=== PATIENT | female | born 1960 | race Caucasian/White ===

== ENCOUNTER 2020-10-23 12:57 | Outpatient (REF) | payer OTHER, SELFPAY ==
[2020-10-23 14:28] LABS: Alanine Aminotransferase 19 U/L (0-31); Albumin Level 4.4 g/dL (3.5-5.0); Alkaline Phosphatase 94 U/L (39-117); Anion Gap 11 (12-20); Aspartate Amino Transferase 21 U/L (5-31); Bilirubin Total 0.3 mg/dL (0.0-1.0); Blood Urea Nitrogen 14 mg/dL (9-16); Calcium 8.9 mg/dL (8.4-10.2); Carbon Dioxide 29 mmol/L (22-29); Chloride 105 mmol/L (96-108); Estimated Glomerular Filt Rate > 60; Glucose Random 77 mg/dL (60-115); Potassium 4.4 mmol/l (3.3-5.1); Sodium 141 mmol/L (135-145); Total Protein 7.8 g/dL (6.5-8.0)
== END 2020-10-23 12:58 | disposition home or self-care (01) ==
LOC: HO.HMGCLDS 12:57
PROVIDERS: PCP Internal Medicine; Visit Provider Nurse Practitioner Family
DX: R10.13 Epigastric pain (principal); M62.838 Other muscle spasm
CPT/HCPCS: 80053

== ENCOUNTER 2021-02-06 11:35 | Outpatient (REF) | payer OTHER, SELFPAY ==
[2021-02-06 14:22] LABS: Alanine Aminotransferase 21 U/L (0-31); Albumin Level 4.5 g/dL (3.5-5.0); Alkaline Phosphatase 99 U/L (39-117); Anion Gap 11 (12-20); Aspartate Amino Transferase 23 U/L (5-31); Bilirubin Total 0.5 mg/dL (0.0-1.0); Blood Urea Nitrogen 18 mg/dL (9-16); Calcium 9.7 mg/dL (8.4-10.2); Carbon Dioxide 27 mmol/L (22-29); Chloride 104 mmol/L (96-108); Estimated Glomerular Filt Rate > 60; Glucose Random 72 mg/dL (60-115); Potassium 4.1 mmol/L (3.3-5.1); Sodium 138 mmol/L (135-145)
== END 2021-02-06 11:36 | disposition home or self-care (01) ==
LOC: HO.HMGCLDS 11:35
PROVIDERS: PCP Internal Medicine; Visit Provider Internal Medicine
DX: Z00.01 Encounter for general adult medical examination with abnormal findings (principal); R10.13 Epigastric pain; M54.2 Cervicalgia; K59.01 Slow transit constipation; G44.89 Other headache syndrome; I10 Essential (primary) hypertension
CPT/HCPCS: 36415; 80053

== ENCOUNTER → 2021-02-20 13:41 | Outpatient (BNVA) | payer OTHER, SELFPAY | PROVIDERS: Visit Provider Physician Assistant | DX: Z13.89 Encounter for screening for other disorder (principal) | CPT/HCPCS: Q3014 ==

== ENCOUNTER 2021-04-15 09:22 | Day surgery (SDC) | payer OTHER, SELFPAY ==
[2021-04-09 16:24] VITALS: BMI 30.3
--- NOTE | 2021-04-11 10:05 | HO.ANESPROP2 ---
HPI - Anesthesia Eval Consult details Narrative: 60yo F for Upper Endoscopy and Colonoscopy s/p gastric sleeve 2018 Multiple med allergies PMF Active Problems Active Problems: All Active Problems (Updated 04/09/21 @ 16:27 by Key Chaudhary) Epigastric pain (Acute) Muscle spasm (Acute) Hypertension, essential (Acute) Headache syndrome (Acute) Constipation by delayed colonic transit (Acute) Cervicalgia (Acute) Dyspepsia (Acute) Encounter for general adult medical examination with abnormal findings (Acute) Routine gynecological examination (Acute) Encounter for screening colonoscopy (Acute) Acid reflux (Acute) Past Medical History Medical History Abdominal pain Acid reflux Cervicalgia Constipation COVID-19 vaccine series completed Hypertension, essential Nausea Osteoarthritis Family History Family History Father HTN (hypertension) Cancer of prostate Mother Diabetes mellitus History of heart attack Heart problem Brother Heart problem Diabetes mellitus Dialysis patient Brother HTN (hypertension) Stroke Arthritis Maternal Grandfather No problems noted. Maternal Grandmother No problems noted. Paternal Grandfather No problems noted. Paternal Grandmother No problems noted. Son No problems noted. Son No problems noted. Daughter No problems noted. Surgical History Surgical History (Updated 04/09/21 @ 16:28 by Key Chaudhary) History of section History of colonoscopy History of endometrial ablation History of esophagogastroduodenoscopy History of fusion of cervical spine History of hysterectomy History of sleeve gastrectomy Social History Social History Household Members: None Alcohol intake: never Patient Tobacco Use Status: Never used Tobacco Current occupational status: disabled Meds Allergies Allergy/AdvReac Type Severity Reaction Status Date / Time hydromorphone [Dilaudid] Allergy Intermediate Hallucinations,Itching, Verified 04/09/21 16:32 rash Iodinated Contrast Media Allergy Intermediate shortness Verified 04/09/21 16:33 of breath morphine [Morphine] Allergy Intermediate hallucinations, Verified 04/09/21 16:30 itching, rash oxycodone Allergy Intermediate Hallucinations,itching, Verified 04/09/21 16:36 rash Penicillins Allergy Intermediate ITCHING/PASSES Verified 02/06/21 11:07 OUT From OxyContin Allergy Intermediate hallucinati Uncoded 04/09/21 16:32 ons,itching ,rash Home Medications Medication Instructions Recorded Confirmed Last Taken Type acetaminophen 500 mg capsule 1,000 mg PO Q6H PRN 11/06/20 04/09/21 Unknown History amitriptyline 25 mg tablet 50 mg PO BEDTIME 11/06/20 04/09/21 Unknown History cholecalciferol (vitamin D3) 50 50 mcg PO DAILY 11/06/20 04/09/21 Unknown History mcg (2,000 unit) capsule cyanocobalamin (vitamin B-12) 500 1,000 mcg PO DAILY tab 11/06/20 04/09/21 Unknown History mcg tablet multivitamin 1 tab PO DAILY 11/06/20 04/09/21 Unknown History gabapentin 300 mg PO BEDTIME 04/09/21 04/09/21 Unknown History Exam Exam Date and Time: April 11, 2021 1005 Height,Weight and Vital Signs: Height 5 ft 6 in Weight 85.275 kg Pertinent Lab Results Pertinent Lab Results: Laboratory Tests 05/08/20 02/06/21 08:14 11:43 WBC 4.6 L Hgb 13.6 Hct 42.3 Plt Count 200 Sodium 138 Potassium 4.1 Chloride 104 Carbon Dioxide 27 BUN 18 H Creatinine 0.78 Assessment and Plan Assessment Anesthesia Assessment: Chart Reviewed
[2021-04-15 09:31] VITALS: BP 146/96; PULSE 77; RESP 18; TEMP 36.6; O2SAT 99
--- NOTE | 2021-04-15 09:36 | P.CONAN_ITS ---
[facility] Active Problems Active Problems: All Active Problems (Updated 04/11/21 @ 10:06 by Carmita hook) Acid reflux (Acute) Epigastric pain (Acute) Muscle spasm (Acute) Headache syndrome (Acute) Constipation by delayed colonic transit (Acute) Dyspepsia (Acute) Encounter for general adult medical examination with abnormal findings (Acute) Routine gynecological examination (Acute) Encounter for screening colonoscopy (Acute) Past Medical History Medical History Abdominal pain Acid reflux Cervicalgia Constipation COVID-19 vaccine series completed Hypertension, essential Nausea Osteoarthritis Family History Family History Father HTN (hypertension) Cancer of prostate Mother Diabetes mellitus History of heart attack Heart problem Brother Heart problem Diabetes mellitus Dialysis patient Brother HTN (hypertension) Stroke Arthritis Maternal Grandfather No problems noted. Maternal Grandmother No problems noted. Paternal Grandfather No problems noted. Paternal Grandmother No problems noted. Son No problems noted. Son No problems noted. Daughter No problems noted. Surgical History Surgical History (Updated 04/09/21 @ 16:28 by Key Chaudhary) History of section History of colonoscopy History of endometrial ablation History of esophagogastroduodenoscopy History of fusion of cervical spine History of hysterectomy History of sleeve gastrectomy Social History Social History Household Members: None Alcohol intake: never Patient Tobacco Use Status: Never used Tobacco Use of substances other than those prescribed or required for medical reasons: No Are you DNR?: No Advance Directives: No Advance Directives Information Provided: No Advance Directives on File: No Current occupational status: disabled Meds Allergies Allergy/AdvReac Type Severity Reaction Status Date / Time hydromorphone [Dilaudid] Allergy Intermediate Hallucinations,Itching, Verified 04/09/21 16:32 rash Iodinated Contrast Media Allergy Intermediate shortness Verified 04/09/21 16:33 of breath morphine [Morphine] Allergy Intermediate hallucinations, Verified 04/09/21 16:30 itching, rash oxycodone Allergy Intermediate Hallucinations,itching, Verified 04/09/21 16:36 rash Penicillins Allergy Intermediate ITCHING/PASSES Verified 02/06/21 11:07 OUT From OxyContin Allergy Intermediate hallucinati Uncoded 04/09/21 16:32 ons,itching ,rash Home Medications Medication Instructions Recorded Confirmed Last Taken Type acetaminophen 500 mg capsule 1,000 mg PO Q6H PRN 11/06/20 04/09/21 Unknown History amitriptyline 25 mg tablet 50 mg PO BEDTIME 11/06/20 04/09/21 Unknown History cholecalciferol (vitamin D3) 50 50 mcg PO DAILY 11/06/20 04/09/21 Unknown History mcg (2,000 unit) capsule cyanocobalamin (vitamin B-12) 500 1,000 mcg PO DAILY tab 11/06/20 04/09/21 Unknown History mcg tablet multivitamin 1 tab PO DAILY 11/06/20 04/09/21 Unknown History gabapentin 300 mg PO BEDTIME 04/09/21 04/09/21 Unknown History Exam Exam Date and Time: April 15, 2021 0936 Height,Weight and Vital Signs: Height 5 ft 6 in Weight 85.275 kg Last Vital Signs Temp 98 F 04/15/21 09:31 Pulse 77 04/15/21 09:31 Resp 18 04/15/21 09:31 BP 146/96 H 04/15/21 09:31 Pulse Ox 99 04/15/21 09:31 Airway Mallampati Class: II TM Dist: >3cm Heart: RRR Lungs: CTA
--- NOTE | 2021-04-15 09:58 | MHC.SHP ---
Pre-Procedural Eval Section B Chief Complaint: screening,reflux disease Relevant Family History (Specify if Yes): No Relevant Social History: None Present Medications: see Short Stay Collaborative assessment Medical History: Significant History (Abdominal pain Acid reflux Cervicalgia Constipation COVID-19 vaccine series completed Hypertension, essential Nausea Osteoarthritis) History of Previous Operations: Relevant previous surgery/procedure and date(s) (History of section History of colonoscopy History of endometrial ablation History of esophagogastroduodenoscopy History of fusion of cervical spine History of hysterectomy History of sleeve gastrectomy) Allergies: Allergies Allergy/AdvReac Type Severity Reaction Status Date / Time hydromorphone [Dilaudid] Allergy Intermediate Hallucinations,Itching, Verified 04/09/21 16:32 rash Iodinated Contrast Media Allergy Intermediate shortness Verified 04/09/21 16:33 of breath morphine [Morphine] Allergy Intermediate hallucinations, Verified 04/09/21 16:30 itching, rash oxycodone Allergy Intermediate Hallucinations,itching, Verified 04/09/21 16:36 rash Penicillins Allergy Intermediate ITCHING/PASSES Verified 02/06/21 11:07 OUT From OxyContin Allergy Intermediate hallucinati Uncoded 04/09/21 16:32 ons,itching ,rash Review of Systems Sugical H&P ROS: Negative: Constitution, Cardiovascular, Respiratory, Neurological, Psychiatric, Hem-Onc, Allergic/Immunologic, Gastrointestinal, Genitourinary, Musculoskeletal, Integumentary, Endocrine and Eyes/Ears/Nose/Throat Exam Surgical H&P Exam: Normal: HEENT, Normal: Heart, Normal: Lungs, Normal: Extremities, Normal: Abdomen, Normal: Skin and Normal: Neurological Plan Diagnosis/Plan: Unchanged I have reviewed the history and physical and performed a pertinent physical examination on my patient. No changes have occurred unless specified.
--- NOTE | 2021-04-15 09:59 | P.BOP_ITS ---
Brief Operative Note Date of Service: 04/15/21 Pre-op diagnosis: Reflux, screening colon Post-op diagnosis: same Procedure: see op note Surgeon: Dennis Bob MD Anesthesia: MAC Was an Animal [employer] used for this Procedure?: No Estimated blood loss (mL): 0 Condition: stable Disposition: PACU
--- NOTE | 2021-04-15 09:59 | W.PM.OPN ---
Operative Note Operative Note Date of Service: 04/15/21 Narrative: Operative Information Procedure Description: EGD, Colonoscopy FLEXIBLE TRANSORAL UPPER GASTROINTESTINAL ENDOSCOPY AND COLONOSCOPY PROCEDURE NOTE UPPER ENDOSCOPY Consent: Indications for the procedure and potential complications of bleeding, perforation, reaction to medications and missed diagnosis were discussed with the patient and informed consent was obtained. Instrument: Olympus GIF H 190 J mid size upper endoscope Monitoring: Vital signs and clinical assessment, continuous EKG monitoring, Pulse oximetry, Carbon Dioxide monitoring and blood pressure monitoring were done throughout the procedure. Procedure: The patient was placed in the left lateral decubitis position and pre-procedure medications were administered and a bite block was placed. The endoscope was inserted into the mouth and advanced under direct vision to the third part of duodenum. A careful inspection was made as the upper endoscope was withdrawn including a retroflexed examination of the proximal stomach; Findings and interventions are described below. Findings: Larynx:normal Esophagus: GE junction at 40 cm, diaphragm hiatus at 40 cm, LA grade A esophagitis noted, bx taken from GEJ and random esophagus Stomach: Streaky erythema at antrum and some areas of atrophy. Biopsies were obtained. Grade 2 flap valve on retroflexed examination of the cardia. Prior sleeve gastrectomy noted. Duodenum: Normal bulb and descending duodenum, bx taken Intervention: Biopsies as noted above COLONOSCOPY Instrument: Olympus variable stiffness pediatric scope 190L Colonoscopy Monitoring: Vital signs and clinical assessment, continuous EKG monitoring, Pulse oximetry, Carbon Dioxide monitoring and blood pressure monitoring were done throughout the procedure. Colon withdrawal time was 9 minutes. Procedure: The patient was placed in the left lateral decubitis position and pre-procedure medications were administered. After a digital rectal examination of the ano-rectum, the video colonoscope was inserted into the rectum and advanced through the colon to the cecum/TI. The colonoscope was slowly withdrawn in a retrograde panoramic fashion and the colon mucosa was carefully examined including a retroflexed view of the rectum. Findings and interventions are described below. Procedure Difficulty:moderate, pressure applied to reach cecum Findings: Terminal Ileum-normal Cecum:normal, poorly visualized due to nuts and other debris Ascending Colon: normal Transverse Colon -normal Descending Colon:normal Sigmoid Colon: normal Rectum: Retroflexion with small internal hemorrhoids, grade I Anorectum - normal Colon preparation: [place] Bowel Preparation Scale Right colon; 1 Transverse colon: 2 Left colon; 1 (0 = Unprepared colon segment with mucosa not seen due to solid stool that cannot be cleared. 1 = Portion of mucosa of the colon segment seen, but other areas of the colon segment not well seen due to staining, residual stool and/or opaque liquid. 2 = Minor amount of residual staining, small fragments of stool and/or opaque liquid, but mucosa of colon segment seen well. 3 = Entire mucosa of colon segment seen well with no residual staining, small fragments of stool or opaque liquid) Impression and Post Procedure Diagnosis: Endoscopy Findings: gastritis esophagitis Colonoscopy Findings: internal hemorrhoids poor prep Plan: Await Pathology results Repeat Colonoscopy in 6-12 months, review prep, might need 2 d next time, avoid nuts for 5 d before High fiber diet leaflet avoid straining at stool, epsom salts and sitz bath, anusol supps or cream as needed if h pylori pos then treat Above findings were reviewed with the patient and relevant handouts were provided if indicated.
[2021-04-15 11:25] VITALS: BP 99/67; PULSE 66; RESP 14; TEMP 36.1; O2SAT 99
[2021-04-15 11:40] VITALS: BP 122/82; PULSE 62; RESP 16; O2SAT 99
[2021-04-15 11:55] VITALS: BP 149/90; PULSE 58; RESP 18; O2SAT 99
--- NOTE | 2021-04-15 14:24 | HO.POSTANES ---
Post Anesthesia Evaluation Post Anesthesia Evaluation Vital Signs: Vital Signs Temp Pulse Resp BP Pulse Ox 04/15/21 11:55 58 18 149/90 H 99 04/15/21 11:40 62 16 122/82 99 04/15/21 11:25 96.9 F 66 14 99/67 99 04/15/21 09:31 98 F 77 18 146/96 H 99 Anesthesia: Monitored Mental Status: Awake Pain Control: Satisfactory Nausea/Vomiting: None Hydration: Adequate Anesthesia-Related Issues: No Anes. Related Issues
== END 2021-04-15 12:33 | disposition home or self-care (01) ==
PROVIDERS: PCP Internal Medicine; Visit Provider Internal Medicine Gastroenterology
PROC: (CPT 43239; principal; 2021-04-15 10:10)
DX: Z12.11 Encounter for screening for malignant neoplasm of colon (principal); K64.0 First degree hemorrhoids; K59.01 Slow transit constipation; K21.9 Gastro-esophageal reflux disease without esophagitis; K29.50 Unspecified chronic gastritis without bleeding; K20.90 Esophagitis, unspecified without bleeding; K44.9 Diaphragmatic hernia without obstruction or gangrene; I10 Essential (primary) hypertension; Z79.899 Other long term (current) drug therapy; Z88.8 Allergy status to other drugs, medicaments and biological substances; Z98.84 Bariatric surgery status
CPT/HCPCS: 43239; G0121; 88305; 88342

== ENCOUNTER 2021-04-19 10:07 | Outpatient (REF) | payer OTHER, SELFPAY ==
[2021-04-23 17:46] LABS: HPV mRNA E6/E7 rflx Not Detected (Not Detected)
== END 2021-04-19 10:08 | disposition home or self-care (01) ==
LOC: HO.LAB 10:07
PROVIDERS: Visit Provider Advanced Practice Midwife
DX: Z01.419 Encounter for gynecological examination (general) (routine) without abnormal findings (principal)
CPT/HCPCS: 87624; 88142

== ENCOUNTER → 2021-05-01 10:27 | Outpatient (BNVA) | payer OTHER, SELFPAY | PROVIDERS: PCP Internal Medicine; Visit Provider Physician Assistant | DX: E66.9 Obesity, unspecified (principal); K21.9 Gastro-esophageal reflux disease without esophagitis; Z90.3 Acquired absence of stomach [part of]; Z68.30 Body mass index [BMI] 30.0-30.9, adult; K59.01 Slow transit constipation | CPT/HCPCS: 99212; Q3014 ==

== ENCOUNTER 2021-09-17 12:29 | Outpatient (REF) | payer OTHER, SELFPAY ==
[2021-09-17 13:49] LABS: MANUAL DIFF FLAG NO
[2021-09-17 14:01] LABS: Basophils Percent Auto 0.5 % (0-2); Eosinophils Absolute Auto 0.2 X10*3/uL (0.0-0.4); Eosinophils Percent Auto 4.3 % (0-4); Hematocrit 42.1 % (37.0-47.0); Hemoglobin 13.9 g/dl (12.0-16.0); Imm Gran Abs Auto 0.01 X10*3/uL (0.00-0.03); Imm Gran Pct Auto 0.3 % (0.0-0.4); Lymphocytes Absolute Auto 0.9 X10*3/uL (1.2-4.9); Lymphocytes Percent Auto 23.3 % (20-40); Mean Corpuscular Hemoglobin 27.9 pg (27.0-33.0); Mean Corpuscular Volume 84.5 fL (80.0-98.0); Mean Platelet Volume 10.7 fL (9.4-12.3); Monocytes Absolute Auto 0.4 X10*3/uL (0.1-1.2); Neutrophils Absolute Auto 2.3 x10*3/uL (2.0-8.3); Neutrophils Percent Auto 60.6 % (45-73); Platelet Count 205 X10*3/uL (160-400); Red Blood Count 4.98 X10*6/uL (4.20-5.50); Red Cell Distribution Width 12.7 % (11.0-16.0); White Blood Count 3.7 X10*3/uL (4.8-10.8)
[2021-09-17 14:16] LABS: Estimated Average Glucose 103 mg/dL; Hemoglobin A1c % 5.2 %
[2021-09-17 14:28] LABS: Alanine Aminotransferase 24 U/L (0-31); Albumin Level 4.4 g/dL (3.5-5.0); Alkaline Phosphatase 102 U/L (39-117); Anion Gap 15 (12-20); Aspartate Amino Transferase 25 U/L (5-31); Bilirubin Total 0.3 mg/dL (0.0-1.0); Blood Urea Nitrogen 13 mg/dL (9-16); Calcium 9.4 mg/dL (8.4-10.2); Carbon Dioxide 25 mmol/L (22-29); Chloride 103 mmol/L (96-108); Estimated Glomerular Filt Rate > 60; Glucose Random 80 mg/dL (60-115); Iron 91 mcg/dL (30-160); Percent Iron Saturation 27 % (15-50); Sodium 139 mmol/L (135-145); Total Iron Binding Capacity 342 mcg/dL (228-428); Total Protein 8.2 g/dL (6.5-8.0); Unsaturated Iron Binding 251 ug/dL
[2021-09-17 14:50] LABS: Ferritin 69 ng/mL (10-250); Vitamin D 25-OH Total 17.1 ng/mL (>30)
[2021-09-17 14:54] LABS: Vitamin B12 495 pg/mL (200-900)
[2021-09-18 13:22] LABS: Calcium (PTHI) 9.6 mg/dL (8.6-10.4); PTHI 66 pg/mL (14-64)
[2021-09-19 07:51] LABS: LDL Cholesterol Direct 98 mg/dL (<100)
[2021-09-21 06:47] LABS: Zinc 94 mcg/dL (60-130)
[2021-09-21 12:02] LABS: Vitamin B1 16 nmol/L (8-30)
[2021-09-23 16:31] LABS: Vitamin A 45 mcg/dL (38-98)
== END 2021-09-17 12:30 | disposition home or self-care (01) ==
LOC: HO.HMGCLDS 12:29
PROVIDERS: Physician Assistant; Visit Provider Internal Medicine
DX: K21.9 Gastro-esophageal reflux disease without esophagitis (principal); E66.9 Obesity, unspecified; M79.2 Neuralgia and neuritis, unspecified; K59.01 Slow transit constipation; M62.838 Other muscle spasm; I10 Essential (primary) hypertension; G44.89 Other headache syndrome; Z90.3 Acquired absence of stomach [part of]
CPT/HCPCS: 36415; 80053; 82306; 82607; 82728; 82746; 83036; 83540; 83721; 83970; 84425; 84443; 84590; 84630; 85025; 86140

== ENCOUNTER 2022-02-07 12:34 | Outpatient (REF) | payer OTHER, SELFPAY ==
[2022-02-07 14:00] LABS: Alanine Aminotransferase 23 U/L (0-31); Albumin Level 4.3 g/dL (3.5-5.0); Alkaline Phosphatase 94 U/L (39-117); Anion Gap 13 (12-20); Aspartate Amino Transferase 27 U/L (5-31); Bilirubin Total 0.5 mg/dL (0.0-1.0); Blood Urea Nitrogen 17 mg/dL (9-16); Calcium 9.7 mg/dL (8.4-10.2); Carbon Dioxide 26 mmol/L (22-29); Chloride 105 mmol/L (96-108); Estimated Glomerular Filt Rate > 60; Glucose Random 80 mg/dL (60-115); Potassium 4.4 mmol/L (3.3-5.1); Sodium 140 mmol/L (135-145); Total Protein 7.9 g/dL (6.5-8.0)
== END 2022-02-07 12:35 | disposition home or self-care (01) ==
LOC: HO.HMGCLDS 12:34
PROVIDERS: PCP Internal Medicine; Visit Provider Internal Medicine
DX: Z00.01 Encounter for general adult medical examination with abnormal findings (principal); G44.89 Other headache syndrome; I10 Essential (primary) hypertension; K59.01 Slow transit constipation; M79.2 Neuralgia and neuritis, unspecified; E66.9 Obesity, unspecified
CPT/HCPCS: 36415; 80053

== ENCOUNTER → 2022-03-12 12:26 | Outpatient (BNVA) | payer OTHER, SELFPAY | PROVIDERS: PCP Internal Medicine; Referring Provider Internal Medicine; Visit Provider Physician Assistant | DX: Z12.11 Encounter for screening for malignant neoplasm of colon (principal); K21.9 Gastro-esophageal reflux disease without esophagitis; K59.01 Slow transit constipation | CPT/HCPCS: 99212 ==

== ENCOUNTER 2022-07-08 06:52 | Day surgery (SDC) | payer OTHER, SELFPAY ==
[2022-07-03 11:20] VITALS: BMI 32.1
--- NOTE | 2022-07-07 11:39 | P.CONAN_ITS ---
Documented by User: Carmita Kan NP 07/07/22 11:40 HPI - Anesthesia Eval Consult details Narrative: 61yo F for Colonoscopy s/p gastric sleeve 2019 Multiple med allergies PMFSH Active Problems Active Problems: All Active Problems (Updated 03/12/22 @ 13:29 by Floresita León PA-C) Breast screening (Acute) Constipation by delayed colonic transit (Acute) Hypertension, essential (Acute) Peripheral neurogenic pain (Acute) Obesity (Acute) Acid reflux (Acute) Epigastric pain (Acute) Muscle spasm (Acute) Headache syndrome (Acute) Constipation by delayed colonic transit (Acute) Dyspepsia (Acute) Encounter for general adult medical examination with abnormal findings (Acute) Routine gynecological examination (Acute) Encounter for screening colonoscopy (Acute) Past Medical History Medical History Abdominal pain Acid reflux Cervicalgia Constipation COVID-19 vaccine series completed Hypertension, essential Nausea Osteoarthritis Family History Family History Father HTN (hypertension) Cancer of prostate Mother Diabetes mellitus History of heart attack Heart problem Brother Heart problem Diabetes mellitus Dialysis patient Brother HTN (hypertension) Stroke Arthritis Maternal Grandfather No problems noted. Maternal Grandmother No problems noted. Paternal Grandfather No problems noted. Paternal Grandmother No problems noted. Son No problems noted. Son No problems noted. Daughter No problems noted. Other Mental health disorder Surgical History Surgical History History of section History of colonoscopy History of endometrial ablation History of esophagogastroduodenoscopy History of fusion of cervical spine History of sleeve gastrectomy Social History Social History Household Members: None Housing: Apartment Alcohol intake: never Patient Tobacco Use Status: Never used Tobacco Are you DNR?: No Advance Directives: No Advance Directives Information Provided: Yes Nutrition Risks: No Nutritional Risk Current occupational status: disabled Cognitive needs: No Hearing needs: No Vision needs: No Meds Allergies Allergy/AdvReac Type Severity Reaction Status Date / Time hydromorphone [Dilaudid] Allergy Intermediate Hallucinations,Itching, Verified 07/08/22 07:10 rash Iodinated Contrast Media Allergy Intermediate shortness Verified 07/08/22 07:10 of breath morphine [Morphine] Allergy Intermediate hallucinations, Verified 07/08/22 07:10 itching, rash oxycodone Allergy Intermediate Hallucinations,itching, Verified 07/08/22 07:10 rash Penicillins Allergy Intermediate ITCHING/PASSES Verified 07/08/22 07:10 OUT From OxyContin Allergy Intermediate hallucinati Uncoded 07/08/22 07:11 ons,itching ,rash Home Medications Medication Instructions Recorded Confirmed Last Taken Type acetaminophen 500 mg capsule 1,000 mg PO Q6H PRN Pain 11/06/20 07/08/22 Unknown History amitriptyline 25 mg tablet 50 mg PO BEDTIME 11/06/20 07/08/22 Unknown History cholecalciferol (vitamin D3) 50 50 mcg PO DAILY 11/06/20 07/08/22 Unknown History mcg (2,000 unit) capsule (Vitamin D3) multivitamin (Daily Multi-Vitamin 1 tab PO DAILY 11/06/20 07/08/22 Unknown History tablet) gabapentin 300 mg capsule 300 mg PO BEDTIME 04/09/21 07/08/22 Unknown History omeprazole 20 mg capsule,delayed 20 mg PO DAILY 03/12/22 07/08/22 Unknown History release Exam Exam Date and Time: July 07, 2022 1139 Height,Weight and Vital Signs: Height 5 ft 6 in Weight 90.265 kg Pertinent Lab Results Pertinent Lab Results: Laboratory Tests 02/07/22 12:24 Sodium 140 Potassium 4.4 Chloride 105 Carbon Dioxide 26 BUN 17 H Creatinine 0.70 Assessment and Plan Assessment Anesthesia Assessment: Chart Reviewed Documented by User: Michelle Denney MD 07/08/22 08:02 [facility] Past Medical History Medical History Abdominal pain Acid reflux Cervicalgia Constipation COVID-19 vaccine series completed Hypertension, essential Nausea Osteoarthritis Family History Family History Father HTN (hypertension) Cancer of prostate Mother Diabetes mellitus History of heart attack Heart problem Brother Heart problem Diabetes mellitus Dialysis patient Brother HTN (hypertension) Stroke Arthritis Maternal Grandfather No problems noted. Maternal Grandmother No problems noted. Paternal Grandfather No problems noted. Paternal Grandmother No problems noted. Son No problems noted. Son No problems noted. Daughter No problems noted. Other Mental health disorder Surgical History Surgical History History of section History of colonoscopy History of endometrial ablation History of esophagogastroduodenoscopy History of fusion of cervical spine History of sleeve gastrectomy History of Problems with Anesthesia: No Social History Social History Household Members: None Housing: Apartment Alcohol intake: never Patient Tobacco Use Status: Never used Tobacco Are you DNR?: No Advance Directives: No Advance Directives Information Provided: Yes Nutrition Risks: No Nutritional Risk Current occupational status: disabled Cognitive needs: No Hearing needs: No Vision needs: No Meds Allergies Allergy/AdvReac Type Severity Reaction Status Date / Time hydromorphone [Dilaudid] Allergy Intermediate Hallucinations,Itching, Verified 07/08/22 07:10 rash Iodinated Contrast Media Allergy Intermediate shortness Verified 07/08/22 07:10 of breath morphine [Morphine] Allergy Intermediate hallucinations, Verified 07/08/22 07:10 itching, rash oxycodone Allergy Intermediate Hallucinations,itching, Verified 07/08/22 07:10 rash Penicillins Allergy Intermediate ITCHING/PASSES Verified 07/08/22 07:10 OUT From OxyContin Allergy Intermediate hallucinati Uncoded 07/08/22 07:11 ons,itching ,rash Home Medications Medication Instructions Recorded Confirmed Last Taken Type acetaminophen 500 mg capsule 1,000 mg PO Q6H PRN Pain 11/06/20 07/08/22 Unknown History amitriptyline 25 mg tablet 50 mg PO BEDTIME 11/06/20 07/08/22 Unknown History cholecalciferol (vitamin D3) 50 50 mcg PO DAILY 11/06/20 07/08/22 Unknown History mcg (2,000 unit) capsule (Vitamin D3) multivitamin (Daily Multi-Vitamin 1 tab PO DAILY 11/06/20 07/08/22 Unknown History tablet) gabapentin 300 mg capsule 300 mg PO BEDTIME 04/09/21 07/08/22 Unknown History omeprazole 20 mg capsule,delayed 20 mg PO DAILY 03/12/22 07/08/22 Unknown History release Exam Airway Mallampati Class: II TM Dist: >3cm Neck ROM: Full Loose/Missing/Broken Teeth: No Heart: RRR Lungs: CTA Assessment and Plan Assessment Anesthesia Assessment: Anesthesia Plan Discussed Final Anesthetic Review History of Problems with Anesthesia: No NPO: Yes ASA Class: II Final Preanesthetic Review: Meds/Allgs Chart Reviewed, Consent Obtained/Reviewed and Anes Risks/Benef Reviewed Patient Risk: Low Procedure Risk: Low Anesthetic Plan Anesthetic Plan: MAC: Disposition: Standard PACU
[2022-07-08 07:16] VITALS: BP 149/89; PULSE 73; RESP 18; TEMP 36.3; O2SAT 96
[2022-07-08] MEDS: Lactated Ringers 1,000 ML 100 ML IVCONT (07:17)
--- NOTE | 2022-07-08 08:09 | MHC.SHP ---
Pre-Procedural Eval Section A Date of Service: 07/08/22 Section B Chief Complaint: screening Relevant Family History (Specify if Yes): No Relevant Social History: None Present Medications: see Short Stay Collaborative assessment Medical History: Significant History (Abdominal pain Acid reflux Cervicalgia Constipation COVID-19 vaccine series completed Hypertension, essential Nausea Osteoarthritis) History of Previous Operations: Relevant previous surgery/procedure and date(s) (History of section History of colonoscopy History of endometrial ablation History of esophagogastroduodenoscopy History of fusion of cervical spine History of sleeve gastrectomy) Allergies: Allergies Allergy/AdvReac Type Severity Reaction Status Date / Time hydromorphone [Dilaudid] Allergy Intermediate Hallucinations,Itching, Verified 07/08/22 07:10 rash Iodinated Contrast Media Allergy Intermediate shortness Verified 07/08/22 07:10 of breath morphine [Morphine] Allergy Intermediate hallucinations, Verified 07/08/22 07:10 itching, rash oxycodone Allergy Intermediate Hallucinations,itching, Verified 07/08/22 07:10 rash Penicillins Allergy Intermediate ITCHING/PASSES Verified 07/08/22 07:10 OUT From OxyContin Allergy Intermediate hallucinati Uncoded 07/08/22 07:11 ons,itching ,rash Review of Systems Sugical H&P ROS: Negative: Constitution, Cardiovascular, Respiratory, Neurological, Psychiatric, Hem-Onc, Allergic/Immunologic, Gastrointestinal, Genitourinary, Musculoskeletal, Integumentary, Endocrine and Eyes/Ears/Nose/Throat Exam Surgical H&P Exam: Normal: HEENT, Normal: Heart, Normal: Lungs, Normal: Extremities, Normal: Abdomen, Normal: Skin and Normal: Neurological Plan Diagnosis/Plan: Unchanged I have reviewed the history and physical and performed a pertinent physical examination on my patient. No changes have occurred unless specified.
--- NOTE | 2022-07-08 08:37 | W.PM.OPN ---
Operative Note Operative Note Date of Service: 07/08/22 Narrative: Operative Information Procedure Description: Colonoscopy Indication: screening Anesthesia: MAC COLONOSCOPY Instrument: Olympus variable stiffness pediatric scope 190L Colonoscopy Monitoring: Vital signs and clinical assessment, continuous EKG monitoring, Pulse oximetry, Carbon Dioxide monitoring and blood pressure monitoring were done throughout the procedure. Colon withdrawal time was 10 minutes. Procedure: The patient was placed in the left lateral decubitis position and pre-procedure medications were administered. After a digital rectal examination of the ano-rectum, the video colonoscope was inserted into the rectum and advanced through the colon to the cecum/TI. The colonoscope was slowly withdrawn in a retrograde panoramic fashion and the colon mucosa was carefully examined including a retroflexed view of the rectum. Findings and interventions are described below. Procedure Difficulty: moderate due to redundant colon, pressure applied mid and upper abdomen Findings: Patchy areas of melanosis coli Terminal Ileum-not intubated Cecum:normal Ascending Colon: normal Transverse Colon -normal Descending Colon:10 mm sessile polyp removed with cold snare Sigmoid Colon: normal Rectum: Retroflexion with small internal hemorrhoids, grade I Anorectum - normal Colon preparation: [place] Bowel Preparation Scale Right colon; 2 Transverse colon: 3 Left colon; 3 (0 = Unprepared colon segment with mucosa not seen due to solid stool that cannot be cleared. 1 = Portion of mucosa of the colon segment seen, but other areas of the colon segment not well seen due to staining, residual stool and/or opaque liquid. 2 = Minor amount of residual staining, small fragments of stool and/or opaque liquid, but mucosa of colon segment seen well. 3 = Entire mucosa of colon segment seen well with no residual staining, small fragments of stool or opaque liquid) Impression and Post Procedure Diagnosis: polyp internal hemorrhoids melanosis coli redundant colon Plan: High fiber diet leaflet Avoid straining at stool, epsom salts and sitz bath, anusol supps or cream Repeat Colonoscopy in 5-6 years due to polyp or earlier if clinically indicated Above findings were reviewed with the patient and relevant handouts were provided if indicated.
[2022-07-08 08:44] VITALS: BP 117/65; PULSE 62; RESP 20; TEMP 36.2; O2SAT 100
[2022-07-08 08:59] VITALS: BP 131/68; PULSE 62; RESP 18; TEMP 36.6; O2SAT 98
== END 2022-07-08 09:26 | disposition home or self-care (01) ==
PROVIDERS: PCP Internal Medicine; Visit Provider Internal Medicine Gastroenterology
PROC: 0DJD8ZZ Inspection of Lower Intestinal Tract, Via Natural or Artificial Opening Endoscopic (ICD-10-PCS; CPT 45378; principal; 2022-07-08 08:00)
DX: Z12.11 Encounter for screening for malignant neoplasm of colon (principal); K63.5 Polyp of colon; K59.01 Slow transit constipation; K63.89 Other specified diseases of intestine; K64.0 First degree hemorrhoids; Q43.8 Other specified congenital malformations of intestine; K21.9 Gastro-esophageal reflux disease without esophagitis; I10 Essential (primary) hypertension; Z79.899 Other long term (current) drug therapy; Z88.0 Allergy status to penicillin; Z88.8 Allergy status to other drugs, medicaments and biological substances; Z91.041 Radiographic dye allergy status; Z98.84 Bariatric surgery status
CPT/HCPCS: 45385; 88305

== ENCOUNTER → 2022-07-21 09:08 | Outpatient (BNVA) | payer OTHER, SELFPAY | PROVIDERS: PCP Internal Medicine; Referring Provider Internal Medicine; Visit Provider Physician Assistant | DX: K63.5 Polyp of colon (principal); K59.01 Slow transit constipation; R11.0 Nausea | CPT/HCPCS: 99212 ==

== ENCOUNTER 2022-08-06 08:54 | Outpatient (REF) | payer OTHER, SELFPAY ==
[2022-08-06 11:19] LABS: MANUAL DIFF FLAG NO
[2022-08-06 11:28] LABS: Basophils Percent Auto 0.5 % (0-2); Eosinophils Absolute Auto 0.1 X10*3/uL (0.0-0.4); Eosinophils Percent Auto 2.7 % (0-4); Hematocrit 41.3 % (37.0-47.0); Hemoglobin 13.2 g/dl (12.0-16.0); Imm Gran Abs Auto 0.01 X10*3/uL (0.00-0.03); Imm Gran Pct Auto 0.2 % (0.0-0.4); Lymphocytes Absolute Auto 1.2 X10*3/uL (1.2-4.9); Mean Corpuscular Hemoglobin 26.8 pg (27.0-33.0); Mean Corpuscular Volume 83.9 fL (80.0-98.0); Mean Platelet Volume 10.6 fL (9.4-12.3); Monocytes Absolute Auto 0.5 X10*3/uL (0.1-1.2); Monocytes Percent Auto 10.6 % (2-11); Neutrophils Absolute Auto 2.7 x10*3/uL (2.0-8.3); Platelet Count 225 X10*3/uL (160-400); Red Blood Count 4.92 X10*6/uL (4.20-5.50); Red Cell Distribution Width 12.6 % (11.0-16.0); White Blood Count 4.4 X10*3/uL (4.8-10.8)
[2022-08-06 11:41] LABS: Alanine Aminotransferase 13 U/L (0-31); Albumin Level 4.4 g/dL (3.5-5.0); Alkaline Phosphatase 87 U/L (39-117); Anion Gap 14 (12-20); Aspartate Amino Transferase 18 U/L (5-31); Bilirubin Total 0.4 mg/dL (0.0-1.0); Blood Urea Nitrogen 17 mg/dL (9-16); Calcium 9.1 mg/dL (8.4-10.2); Carbon Dioxide 25 mmol/L (22-29); Chloride 106 mmol/L (96-108); Cholesterol 193 mg/dL; Estimated Glomerular Filt Rate > 60; Glucose Fasting 84 mg/dL (60-99); HDL Cholesterol 67 mg/dL; LDL Cholesterol Calculated 111 mg/dl; Potassium 3.9 mmol/L (3.3-5.1); Sodium 141 mmol/L (135-145); Total Protein 7.9 g/dL (6.5-8.0); Triglycerides 78 mg/dL
[2022-08-06 11:53] LABS: TSH reflex Free T4 0.93 uIU/mL (0.32-4.0)
[2022-08-06 12:16] LABS: Vitamin B12 484 pg/mL (200-900)
[2022-08-11 15:42] LABS: Vitamin D 25-OH, D2 <4 ng/mL; Vitamin D 25-OH, D3 20 ng/mL; Vitamin D 25-OH, Total 20 ng/mL (30-100)
== END 2022-08-06 08:55 | disposition home or self-care (01) ==
LOC: HO.HMGCLDS 08:54
PROVIDERS: PCP Internal Medicine; Visit Provider Internal Medicine
DX: R10.13 Epigastric pain (principal); E66.09 Other obesity due to excess calories; G44.89 Other headache syndrome; G89.29 Other chronic pain; I10 Essential (primary) hypertension; K59.01 Slow transit constipation; M54.9 Dorsalgia, unspecified; R11.0 Nausea
CPT/HCPCS: 36415; 80053; 80061; 82306; 82607; 84443; 85025

== ENCOUNTER 2022-11-28 14:23 | Outpatient (REF) | payer OTHER, SELFPAY ==
--- NOTE | ~2022-11-28 | XR_ITS ---
EXAMINATION: XR CERVICAL SPINE CLINICAL INFORMATION: Cervical radiculopathy. COMPARISON: Radiographs dated 07/12/2014. TECHNIQUE: Frontal, odontoid and lateral views of the cervical spine were obtained. FINDINGS: Vertebral body heights and alignment are normal. There has been a prior anterior fusion extending from C5 through C7,, with intact anterior fixator plate and fixator screws. No hardware failure or loosening is seen. There is mild anterior spondylosis at C3-C4, and marked anterior spondylosis is seen at C4-C5. There are left carotid atherosclerotic calcifications. XR/XR cervical spine 2V IMPRESSION: 1. There is well-maintained alignment status-post C5-C7 anterior fusion and discectomies. No hardware failure or loosening is seen. 2. There is anterior spondylosis at C3-C4 and C4-C5. 3. There are carotid atherosclerotic calcifications.
== END 2022-11-28 14:24 | disposition home or self-care (01) ==
LOC: HO.HMGCX 14:23
PROVIDERS: PCP Internal Medicine; Visit Provider Internal Medicine
DX: M54.12 Radiculopathy, cervical region (principal); Z98.1 Arthrodesis status
CPT/HCPCS: 72040

== ENCOUNTER 2022-12-03 10:17 | Outpatient (REF) | payer OTHER, SELFPAY ==
--- NOTE | ~2022-12-03 | MM_ITS ---
EXAMINATION: MM SCREENING DIGITAL BREAST TOMOSYNTHESIS, BILATERAL CLINICAL INFORMATION: Screening. Asymptomatic. The lifetime risk of breast cancer based on the Tyrer-Cuzick Model is 4.6%. COMPARISON: Mammography: June 29, 2019 and studies dating back to February 26, 2015 TECHNIQUE: Digital breast tomosynthesis is performed in both the craniocaudal and mediolateral oblique views along with computer-aided detection (CAD). Synthesized 2D images are generated from the tomosynthesis. FINDINGS: There are scattered areas of fibroglandular density (ACR BI-RADS breast composition Category b). There are no significant masses, abnormal calcifications, or other abnormalities. MM/MM tomosynthesis screening BI IMPRESSION: No significant changes from prior exam. ASSESSMENT: BI-RADS 1: Negative RECOMMENDATION: Routine annual mammography screening. This patient's information was entered into a reminder system with a target due date for their next mammogram.
== END 2022-12-03 10:18 | disposition home or self-care (01) ==
LOC: HO.MAMMO 10:17
PROVIDERS: Visit Provider Internal Medicine
DX: Z12.31 Encounter for screening mammogram for malignant neoplasm of breast (principal)
CPT/HCPCS: 77063; 77067

== ENCOUNTER 2022-12-19 09:59 | Outpatient (REF) | payer OTHER, SELFPAY ==
--- NOTE | ~2022-12-19 | US_ITS ---
EXAMINATION: US EXTRACRANIAL CAROTID DUPLEX, BILATERAL CLINICAL INFORMATION: Coronary artery disease. Attention. Hyperlipidemia. COMPARISON: None TECHNIQUE: Real-time ultrasound and Doppler techniques (integrating B-mode 2-D vascular images, Doppler spectral analysis and color-flow Doppler imaging) were utilized to interrogate the extracranial carotid arteries, the vertebral arteries and proximal subclavian arteries bilaterally. The degree of stenosis is determined by criteria similar to NASCET. FINDINGS: Right Side: 1. There is no atherosclerotic plaque seen in the bifurcation/proximal ICA region. 2. The common carotid artery PSV proximally is 77 cm/s and distally 83 cm/s. 3. The proximal internal carotid artery velocities are 52 cm/s systolic and 16 cm/s diastolic. 4. The proximal external carotid artery PSV is 70 cm/s. 5. The vertebral artery shows antegrade flow. 6. The subclavian artery waveforms are normal. Left Side: 1. There is no atherosclerotic plaque seen in the bifurcation/proximal ICA region. 2. The common carotid artery PSV proximally is 93 cm/s and distally 91 cm/s. 3. The proximal internal carotid artery velocities are 52 cm/s systolic and 14 cm/s diastolic. 4. The proximal external carotid artery PSV is 77 cm/s. 5. The vertebral artery shows antegrade flow. 6. The subclavian artery waveforms are normal. US/US carotid duplex BI IMPRESSION: 1. RIGHT: Normal right internal carotid artery without atherosclerotic plaque or hemodynamically significant stenosis. 2. LEFT: Normal left internal carotid artery without atherosclerotic plaque or hemodynamically significant stenosis.
== END 2022-12-19 10:00 | disposition home or self-care (01) ==
LOC: HO.HMGCX 09:59
PROVIDERS: PCP Internal Medicine; Visit Provider Internal Medicine
DX: I77.9 Disorder of arteries and arterioles, unspecified (principal); I25.10 Atherosclerotic heart disease of native coronary artery without angina pectoris; E78.5 Hyperlipidemia, unspecified
CPT/HCPCS: 93880

== ENCOUNTER 2022-12-19 12:33 | Outpatient (REF) | payer OTHER, SELFPAY ==
--- NOTE | ~2022-12-19 | MR_ITS ---
EXAMINATION: MR CERVICAL SPINE WITHOUT CONTRAST CLINICAL INFORMATION: Muscle spasm. Neck and left shoulder numbness and tingling. COMPARISON: Cervical spine radiographs from 11/28/2022. Cervical spine MRI from 12/01/2007. TECHNIQUE: MRI of the cervical spine was obtained using routine sequences without contrast. FINDINGS: Instrumented anterior fusion of C5-C7. Straightening of the normal cervical lordosis. Minimal degenerative retrolisthesis of C3 on C4 and C4 on C5. Minimal degenerative stepwise anterolistheses of T1-T5. Otherwise, normal anatomic alignment. Advanced degenerative disc disease at C7-T1. Moderate degenerative disc disease from C2-C5 and T1-T5. Associated mixed Modic type discogenic endplate changes including minimal Modic type I discogenic edema at C2-C3, C3-C4, and C7-T1. No additional suspicious marrow edema. The vertebral body heights are well-maintained. No demonstrated spinal cord signal abnormalities. The spinal cord is normal in appearance. Limited evaluation of the soft tissues of the neck without demonstrated abnormalities. The flow voids of the major cervical vessels are maintained. Normal appearance of the cervicomedullary junction and visualized posterior fossa. SPINAL LEVELS: C2-C3: Mild disc-osteophyte complex. There is mild left and no right uncovertebral joint arthropathy. There is no facet joint arthropathy. There is no neural foraminal stenosis. There is no spinal canal stenosis. C3-C4: Mild disc-osteophyte complex. There is mild bilateral uncovertebral joint arthropathy. There is moderate right and mild left facet joint arthropathy. There is mild bilateral neural foraminal stenosis. There is no spinal canal stenosis. C4-C5: Moderate disc-osteophyte complex. There is moderate bilateral uncovertebral joint arthropathy. There is mild bilateral facet joint arthropathy. There is moderate left worse than right neural foraminal stenosis. There is mild spinal canal stenosis. C5-C6: Fused at this level. There is moderate left and mild right uncovertebral joint arthropathy. There is mild bilateral facet joint arthropathy. There is moderate left and mild right neural foraminal stenosis. There is no spinal canal stenosis. C6-C7: Fused at this level. There is moderate bilateral uncovertebral joint arthropathy. There is mild bilateral facet joint arthropathy. There is moderate left and mild right neural foraminal stenosis. There is no spinal canal stenosis. C7-T1: Mild disc-osteophyte complex. There is mild right and no left uncovertebral joint arthropathy. There is mild bilateral facet joint arthropathy. There is no neural foraminal stenosis. There is no spinal canal stenosis. T1-T2: Moderate disc-osteophyte complex with moderate right-sided foraminal osseous spurring. There is mild bilateral facet joint arthropathy. There is moderate to severe right-sided no left-sided neural foraminal stenosis. There is no spinal canal stenosis. MR/MR cervical spine wo con IMPRESSION: Instrumented anterior fusion of C5-C7. Moderate multilevel degenerative spondyloarthropathy of the cervical spine as described in detail above. Most notably, there is mild spinal canal stenosis at C4-C5. Moderate neural foraminal stenoses from C4-C7 and at T1-T2.
== END 2022-12-19 12:34 | disposition home or self-care (01) ==
LOC: HO.MRI 12:33
PROVIDERS: PCP Internal Medicine; Visit Provider Psychiatry & Neurology Neurology
DX: M54.12 Radiculopathy, cervical region (principal); M62.838 Other muscle spasm; R29.898 Other symptoms and signs involving the musculoskeletal system; R20.0 Anesthesia of skin; R20.2 Paresthesia of skin
CPT/HCPCS: 72141

== ENCOUNTER 2023-02-10 11:52 | Outpatient (REF) | payer OTHER, SELFPAY ==
[2023-02-10 14:11] LABS: Hematocrit 39.6 % (37.0-47.0); Hemoglobin 12.8 g/dl (12.0-16.0)
[2023-02-10 14:25] LABS: Alanine Aminotransferase 17 U/L (0-31); Albumin Level 4.1 g/dL (3.5-5.0); Alkaline Phosphatase 98 U/L (39-117); Anion Gap 11 (12-20); Aspartate Amino Transferase 21 U/L (5-31); Bilirubin Total 0.4 mg/dL (0.0-1.0); Blood Urea Nitrogen 17 mg/dL (9-16); Carbon Dioxide 26 mmol/L (22-29); Chloride 107 mmol/L (96-108); Estimated Glomerular Filt Rate > 60; Glucose Random 84 mg/dL (60-115); Potassium 4.2 mmol/L (3.3-5.1); Sodium 140 mmol/L (135-145); Total Protein 7.3 g/dL (6.5-8.0)
== END 2023-02-10 11:53 | disposition home or self-care (01) ==
LOC: HO.HMGCLDS 11:52
PROVIDERS: PCP Internal Medicine; Visit Provider Internal Medicine
DX: Z00.01 Encounter for general adult medical examination with abnormal findings (principal); M79.2 Neuralgia and neuritis, unspecified; R10.13 Epigastric pain; M62.830 Muscle spasm of back; M54.9 Dorsalgia, unspecified; M19.90 Unspecified osteoarthritis, unspecified site; K59.01 Slow transit constipation; I10 Essential (primary) hypertension; E66.9 Obesity, unspecified; G44.89 Other headache syndrome; G89.29 Other chronic pain
CPT/HCPCS: 36415; 80053; 85014; 85018; 99202

== ENCOUNTER 2023-03-20 08:00 | Outpatient (RCR) | payer OTHER, SELFPAY | END 2023-08-10 10:31 | disposition home or self-care (01) | LOC: HO.PTCHIC 08:00 | PROVIDERS: PCP Internal Medicine; Visit Provider Physician Assistant | DX: S46.811A Strain of other muscles, fascia and tendons at shoulder and upper arm level, right arm, initial encounter (principal); M54.2 Cervicalgia | CPT/HCPCS: 97110; 97140; 97163 ==

== ENCOUNTER 2023-04-25 09:21 | Outpatient (REF) | payer OTHER, SELFPAY | END 2023-04-25 09:22 | disposition home or self-care (01) | LOC: HO.HMGCLDS 09:21 | PROVIDERS: PCP Internal Medicine; Visit Provider Internal Medicine | DX: Z00.01 Encounter for general adult medical examination with abnormal findings (principal); I10 Essential (primary) hypertension; M79.2 Neuralgia and neuritis, unspecified; E66.9 Obesity, unspecified; G44.89 Other headache syndrome; K59.01 Slow transit constipation; R10.13 Epigastric pain; M54.9 Dorsalgia, unspecified; G89.29 Other chronic pain; M62.830 Muscle spasm of back; M25.50 Pain in unspecified joint | CPT/HCPCS: 36415; 80053; 82248; 84443; 85027; 86140; 86200 ==

== ENCOUNTER 2023-05-12 10:02 | Outpatient (AMB) | payer OTHER, SELFPAY ==
--- NOTE | 2023-05-12 10:03 | MHC.PC.OV ---
Vital Signs 05/12/23 10:05 Weight 214 lb 4 oz BP 132/76 Blood Pressure Location Rt brachial Position Sitting Pulse 89 Pulse Source Pulse Oximeter Pulse Oximetry (%) 97 Oxygen Delivery Method Room Air Intake Visit Reasons: 3 month follow up Allergies hydromorphone [Dilaudid] Allergy (Intermediate, Verified 05/12/23 10:07) Hallucinations,Itching, rash Iodinated Contrast Media Allergy (Intermediate, Verified 05/12/23 10:07) shortness of breath morphine [Morphine] Allergy (Intermediate, Verified 05/12/23 10:07) hallucinations, itching, rash oxycodone Allergy (Intermediate, Verified 05/12/23 10:07) Hallucinations,itching, rash Penicillins Allergy (Intermediate, Verified 05/12/23 10:07) ITCHING/PASSES OUT From OxyContin Allergy (Intermediate, Uncoded 04/25/23 09:22) hallucinations,itching,rash Medication List - Last Reconciled 05/12/23 by Pepe Núñez MD amitriptyline 75 mg PO BEDTIME amlodipine 10 mg PO DAILY aspirin 81 mg PO DAILY carvedilol 25 mg PO BID cholecalciferol (vitamin D3) (Vitamin D3) 50 mcg PO DAILY gabapentin 600 mg (2 x 300 mg) PO BEDTIME 90 days hydrochlorothiazide 25 mg PO QAM 90 days lubiprostone (Amitiza) 8 mcg PO TID 90 days meloxicam 15 mg PO DAILY multivitamin (Daily Multi-Vitamin tablet) 1 tab PO DAILY omeprazole 20 mg PO DAILY 30 days turmeric root extract 500 mg PO DAILY Tobacco use date assessed: 05/12/23 Dental Screening Dental Screen Date: 05/12/23 Did you have a dental visit in the last 12 months?: Yes Did you have a dental problem in the last 6 months where you did not have access to dental care?: No Was dental information given to patient?: No HPI 3 month follow up HPI Details Patient is a 62-year-old female came in today for her regular follow-up appointment Patient was in walk-in clinic 25 of April due to multiple joint arthralgias Labs were done, which showed slightly elevated CRP we will be repeating that again Patient is already established with a architectural design lecturer and they did not feel patient have any inflammatory arthrosis. She is taking meloxicam only as needed which has helped Patient is also going through May punctured therapy From rheumatology patient was sent to pain management but patient does not want to have any interventional pain management at this time Her potassium was also slightly low at 3.2 25 of April we will be repeating that as well. Medication list reviewed she is currently taking gabapentin 600 mg for her chronic neck pain Amitriptyline 75 mg for headache Feoricet as needed through neurology BMI is elevated patient need to lose weight Blood pressure is stable patient is on amlodipine 10 mg Follow-up 3 months [facility] Medical History Abdominal pain Acid reflux Cervicalgia Constipation COVID-19 vaccine series completed Hypertension, essential Nausea Osteoarthritis Surgical History History of section History of colonoscopy History of endometrial ablation History of esophagogastroduodenoscopy History of fusion of cervical spine History of sleeve gastrectomy Family History Father HTN (hypertension) Cancer of prostate Mother Diabetes mellitus History of heart attack Heart problem Brother Heart problem Diabetes mellitus Dialysis patient Brother HTN (hypertension) Stroke Arthritis Maternal Grandfather No problems noted. Maternal Grandmother No problems noted. Paternal Grandfather No problems noted. Paternal Grandmother No problems noted. Son No problems noted. Son No problems noted. Daughter No problems noted. Other Mental health disorder Social History Household Members: None Housing: Apartment Alcohol intake: never Patient Tobacco Use Status: Never used Tobacco e-Cigarette/Vaping Use: Never Used service: No Current occupational status: disabled Cognitive needs: No Hearing needs: No Vision needs: Yes Female Reproductive History Menstrual Age of Menarche: 9 Questionnaire Thrive Questionnaire Date Thrive assessed: 12/09/22 AUDIT C Alcohol Use Questionnaire (AUDIT-C) 1. How often do you have a drink containing alcohol?: Never 3. How often do you have six or more drinks on one occasion?: Never Total Score: 0 Score Reviewed/Action Taken: Yes REVA-7 AMB Questionnaire REVA-7 Date REVA - 7 assessed: 12/09/22 Source: Developed by Drs. Jordan Hines, Micki B.W. Steve Noriega and colleagues, with an educational guanako from [employer]. Review of Systems Const Denies chills and Denies fever(s) ENT Denies epistaxis and Denies nasal discharge Card Denies chest pain Resp Denies chest congestion, Denies cough and Denies hemoptysis GI Denies diarrhea and Denies nausea Skin/Breast Denies rash Neuro Reports no additional complaints Psych Reports no additional complaints Endo Reports no additional complaints Physical exam (Primary Care) Vital Signs: Last Vital Signs Pulse 89 05/12/23 10:05 BP 132/76 05/12/23 10:05 Pulse Ox 97 05/12/23 10:05 Oxygen Delivery Method Room Air 05/12/23 10:05 Tobacco/Smoking Status: Tobacco use Status Tobacco use date assessed 05/12/23 05/12/23 10:08 Patient Tobacco Use Status Never used Tobacco 05/12/23 10:08 e-Cigarette/Vaping Use Never Used 05/12/23 10:08 Thrive Assessment: Date of Thrive Assessment Date Thrive assessed 12/09/22 05/12/23 10:08 Const General: cooperative, comfortable and no acute distress Orientation/consciousness: patient oriented x3 HENMT Head: Yes normocephalic Eyes General: appearance normal, both eyes and all related structures Resp Effort & Inspection: normal respiratory effort, no cough and no stridor Cardio Rhythm: regular rhythm Heart sounds: S1 normal heart sound present and S2 normal heart sound present Skin General skin exam: turgor normal Neuro General: patient oriented x3, tone normal and moves all extremities Extrem Right lower extremity: no edema Left lower extremity: no edema Assessment and Plan Assessment & Plan (1) Hypokalemia: Code(s): E87.6 - Hypokalemia (2) Elevated C-reactive protein (CRP): Code(s): R79.82 - Elevated C-reactive protein (CRP) (3) Obesity: Code(s): E66.9 - Obesity, unspecified Qualifiers: Obesity type: due to excess calories Obesity classification: adult class 1 (BMI 30 - 34.9) Serious obesity comorbidity presence: with serious comorbidity Body mass index: BMI 30.0-30.9 Qualified Code(s): E66.09 - Other obesity due to excess calories; Z68.30 - Body mass index [BMI] 30.0-30.9, adult (4) Chronic back pain: Code(s): M54.9 - Dorsalgia, unspecified; G89.29 - Other chronic pain (5) Back muscle spasm: Code(s): M62.830 - Muscle spasm of back (6) Headache syndrome: Code(s): G44.89 - Other headache syndrome (7) Constipation by delayed colonic transit: Code(s): K59.01 - Slow transit constipation (8) Dyspepsia: Code(s): R10.13 - Epigastric pain Plan Patient is a 62-year-old female came in today for her regular follow-up appointment Patient was in walk-in clinic 25 of April due to multiple joint arthralgias Labs were done, which showed slightly elevated CRP we will be repeating that again Patient is already established with a architectural design lecturer and they did not feel patient have any inflammatory arthrosis. She is taking meloxicam only as needed which has helped Patient is also going through May punctured therapy From rheumatology patient was sent to pain management but patient does not want to have any interventional pain management at this time Her potassium was also slightly low at 3.2 25 of April we will be repeating that as well. Medication list reviewed she is currently taking gabapentin 600 mg for her chronic neck pain Amitriptyline 75 mg for headache Feoricet as needed through neurology BMI is elevated patient need to lose weight Blood pressure is stable patient is on amlodipine 10 mg Follow-up 3 months Orders: Orders Basic Metabolic Panel Today E87.6 - Hypokalemia, R79.82 - Elevated C-reactive protein (CRP) CRP High Sensitivity Today E87.6 - Hypokalemia, R79.82 - Elevated C-reactive protein (CRP) Medications: Refilled lubiprostone (Amitiza) 8 mcg PO TID 270 caps 0RF 90 days Coding Level of Care Code Est Pt Level 4 (82652) Diagnoses Hypokalemia E87.6 Elevated C-reactive protein (CRP) R79.82 Obesity E66.09; Z68.30 Obesity type: due to excess calories Obesity classification: adult class 1 (BMI 30 - 34.9) Serious obesity comorbidity presence: with serious comorbidity Body mass index: BMI 30.0-30.9 Chronic back pain M54.9; G89.29 Back muscle spasm M62.830 Headache syndrome G44.89 Constipation by delayed colonic transit K59.01 Dyspepsia R10.13
[2023-05-12 10:05] VITALS: BP 132/76; PULSE 89; O2SAT 97
== END 2023-05-12 10:49 | disposition home or self-care (01) ==
PROVIDERS: Visit Provider Internal Medicine
DX: E87.6 Hypokalemia (principal); R79.82 Elevated C-reactive protein (CRP); E66.09 Other obesity due to excess calories; Z68.30 Body mass index [BMI] 30.0-30.9, adult; M54.9 Dorsalgia, unspecified; G89.29 Other chronic pain; M62.830 Muscle spasm of back; G44.89 Other headache syndrome; K59.01 Slow transit constipation; R10.13 Epigastric pain
CPT/HCPCS: 99214

== ENCOUNTER 2023-05-12 10:31 | Outpatient (REF) | payer OTHER, SELFPAY ==
[2023-05-12 18:00] LABS: Anion Gap 12 (12-20); Blood Urea Nitrogen 14 mg/dL (9-16); Calcium 9.3 mg/dL (8.4-10.2); Carbon Dioxide 24 mmol/L (22-29); Chloride 105 mmol/L (96-108); Estimated Glomerular Filt Rate > 60; Glucose Random 89 mg/dL (60-115); Potassium 3.7 mmol/L (3.3-5.1); Sodium 137 mmol/L (135-145)
[2023-05-14 16:38] LABS: CRP High Sensitivity 2.8 mg/L
== END 2023-05-12 10:32 | disposition home or self-care (01) ==
LOC: HO.HMGCLDS 10:31
PROVIDERS: PCP Internal Medicine; Visit Provider Internal Medicine
DX: E87.6 Hypokalemia (principal); R79.89 Other specified abnormal findings of blood chemistry
CPT/HCPCS: 36415; 80048; 86141

== ENCOUNTER 2023-08-07 13:15 | Outpatient (AMB) | payer OTHER, SELFPAY ==
[2023-08-07 13:16] VITALS: BP 126/80; PULSE 102; O2SAT 98; BMI 34.1
--- NOTE | 2023-08-07 13:16 | A.OFFPC_ITS ---
Vital Signs 08/07/23 13:16 Height 5 ft 6 in Weight 211 lb BMI 34.1 BP 126/80 Blood Pressure Location Lt brachial Position Sitting Pulse 102 H Pulse Source Pulse Oximeter Pulse Oximetry (%) 98 Intake Visit Reasons: head and neck pain~ Intake Note: Pt is here today for a sick visit. Pt c/o head and neck pain on the L side. Allergies hydromorphone [Dilaudid] Allergy (Intermediate, Verified 08/07/23 13:20) Hallucinations,Itching, rash Iodinated Contrast Media Allergy (Intermediate, Verified 08/07/23 13:20) shortness of breath morphine [Morphine] Allergy (Intermediate, Verified 08/07/23 13:20) hallucinations, itching, rash oxycodone Allergy (Intermediate, Verified 08/07/23 13:20) Hallucinations,itching, rash Penicillins Allergy (Intermediate, Verified 08/07/23 13:20) ITCHING/PASSES OUT From OxyContin Allergy (Intermediate, Uncoded 08/07/23 13:20) hallucinations,itching,rash Medication List - Last Reconciled 08/07/23 by Pepe Núñez MD amitriptyline 75 mg PO BEDTIME amlodipine 10 mg PO DAILY aspirin 81 mg PO DAILY carvedilol 25 mg PO BID cholecalciferol (vitamin D3) (Vitamin D3) 50 mcg PO DAILY gabapentin 600 mg (2 x 300 mg) PO BEDTIME 90 days hydrochlorothiazide 25 mg PO QAM 90 days meloxicam 15 mg PO DAILY multivitamin (Daily Multi-Vitamin tablet) 1 tab PO DAILY omeprazole 20 mg PO DAILY 30 days turmeric root extract 500 mg PO DAILY venlafaxine 25 mg PO BID Tobacco use date assessed: 05/12/23 HPI head and neck pain~ HPI Details Patient is 62-year-old female came in today to be evaluated for headache that she has been having for the past few days Patient is already seeing neurologist and had a visit yesterday Patient says that she was given Fioricet but that was not helping. She was prescribed Effexor by neurology But patient read the side effects of hypertension so she did not take it. I am changing that to duloxetine 20 mg patient is to start with 1 capsule in the morning ahead and to capsule daily after 1 week She also have a chronic neck pain and is having difficulty looking down as that is causing the same pain that she is experiencing in the back of her head. I have sent a script for cyclobenzaprine that she can take 1 at night. Also instructed patient not to do any activities that might require her to look down for prolonged periods of time. She no longer have any Fioricet I have sent 10 tablets just in case. It does help her with moderate headaches PFSH Medical History Cervicalgia Osteoarthritis COVID-19 vaccine series completed Abdominal pain Nausea Constipation Acid reflux Hypertension, essential Surgical History History of fusion of cervical spine History of colonoscopy History of esophagogastroduodenoscopy History of sleeve gastrectomy History of endometrial ablation History of section Family History Father HTN (hypertension) Cancer of prostate Mother Diabetes mellitus History of heart attack Heart problem Brother Heart problem Diabetes mellitus Dialysis patient Brother HTN (hypertension) Stroke Arthritis Maternal Grandfather No problems noted. Maternal Grandmother No problems noted. Paternal Grandfather No problems noted. Paternal Grandmother No problems noted. Son No problems noted. Son No problems noted. Daughter No problems noted. Other Mental health disorder Social History Household Members: None Housing: Apartment Alcohol intake: never Patient Tobacco Use Status: Never used Tobacco e-Cigarette/Vaping Use: Never Used service: No Current occupational status: disabled Cognitive needs: No Hearing needs: No Vision needs: Yes Female Reproductive History Menstrual Age of Menarche: 9 Questionnaire Thrive Questionnaire Date Thrive assessed: 12/09/22 REVA-7 AMB Questionnaire REVA-7 Date REVA - 7 assessed: 12/09/22 Source: Developed by Drs. Jordan Hines, Micki Noriega, Steve Hernadez and colleagues, with an educational guanako from [employer]. Review of Systems Const Denies chills and Denies fever(s) ENT Denies epistaxis and Denies nasal discharge Card Denies chest pain Resp Denies chest congestion, Denies cough and Denies hemoptysis GI Denies diarrhea and Denies nausea Skin/Breast Denies rash Neuro Reports no additional complaints Psych Reports no additional complaints Endo Reports no additional complaints Physical exam (Primary Care) Vital Signs: Last Vital Signs Pulse 102 H 08/07/23 13:16 BP 126/80 08/07/23 13:16 Pulse Ox 98 08/07/23 13:16 BMI result Body Mass Index 34.1 Tobacco/Smoking Status: Tobacco use Status Tobacco use date assessed 05/12/23 08/07/23 13:21 Patient Tobacco Use Status Never used Tobacco 08/07/23 13:21 e-Cigarette/Vaping Use Never Used 08/07/23 13:21 Thrive Assessment: Date of Thrive Assessment Date Thrive assessed 12/09/22 08/07/23 13:21 Const General: cooperative, comfortable and no acute distress Orientation/consciousness: patient oriented x3 HENMT Head: Yes normocephalic Eyes General: appearance normal, both eyes and all related structures Pupils: Equal, round and reactive pupils present Neck Other: Limited range of motion in flexion Resp Effort & Inspection: normal respiratory effort, no cough and no stridor Cardio Rhythm: regular rhythm Heart sounds: S1 normal heart sound present and S2 normal heart sound present Skin General skin exam: turgor normal Neuro Other: Motor sensory intact General: patient oriented x3, tone normal and moves all extremities Cranial nerves: Yes Equal, round and reactive pupils present Extrem Right lower extremity: no edema Left lower extremity: no edema Assessment and Plan Assessment & Plan (1) Migraine headache: Code(s): G43.909 - Migraine, unspecified, not intractable, without status migrainosus Qualifiers: Migraine type: periodic headache syndrome Intractability: intractable Qualified Code(s): G43.C1 - Periodic headache syndromes in child or adult, intractable (2) Cervicalgia: Code(s): M54.2 - Cervicalgia (3) DJD (degenerative joint disease) of cervical spine: Code(s): M47.812 - Spondylosis without myelopathy or radiculopathy, cervical region Qualifiers: Spinal osteoarthritis complication: with radiculopathy Qualified Code(s): M47.22 - Other spondylosis with radiculopathy, cervical region (4) Fibromyalgia: Code(s): M79.7 - Fibromyalgia (5) Constipation by delayed colonic transit: Comment: Continue bowel regimen High-fiber diet Fiber supplement Water Code(s): K59.01 - Slow transit constipation Plan Patient is 62-year-old female came in today to be evaluated for headache that she has been having for the past few days Patient is already seeing neurologist and had a visit yesterday Patient says that she was given Fioricet but that was not helping. She was prescribed Effexor by neurology But patient read the side effects of hypertension so she did not take it. I am changing that to duloxetine 20 mg patient is to start with 1 capsule in the morning ahead and to capsule daily after 1 week She also have a chronic neck pain and is having difficulty looking down as that is causing the same pain that she is experiencing in the back of her head. I have sent a script for cyclobenzaprine that she can take 1 at night. Also instructed patient not to do any activities that might require her to look down for prolonged periods of time. She no longer have any Fioricet I have sent 10 tablets just in case. It does help her with moderate headaches Patient is having difficulty picking up amitza which was only medication helping her with constipation. I have sent it again I would encourage patient to call her pharmacy to see what is going on because it has been covered for a while Medications: New cyclobenzaprine 5 mg PO BEDTIME 30 days 30 tabs 0RF M54.9 - Dorsalgia, unspecified slgrjsuwqt-zwmlaztpyayzz-svmg 50-300-40 mg (Fioricet) 1 cap PO ONCE 30 days PRN 10 caps 0RF pain duloxetine 20 mg PO BID 60 caps 0RF Refilled lubiprostone (Amitiza) 8 mcg PO TID 90 days 270 caps 0RF Discontinued meloxicam Discontinued Reason: Doctor's Order 15 mg PO DAILY 14 tabs 0RF Coding Level of Care Code Est Pt Level 4 (68653) Diagnoses Intractable periodic headache syndrome G43.C1 Migraine type: periodic headache syndrome Intractability: intractable Cervicalgia M54.2 Osteoarthritis of spine with radiculopathy, cervical region M47.22 Spinal osteoarthritis complication: with radiculopathy Fibromyalgia M79.7 Constipation by delayed colonic transit K59.01
== END 2023-08-07 14:02 | disposition home or self-care (01) ==
PROVIDERS: PCP Internal Medicine; Visit Provider Internal Medicine
DX: G43.C1 Periodic headache syndromes in child or adult, intractable (principal); M54.2 Cervicalgia; M47.22 Other spondylosis with radiculopathy, cervical region; M79.7 Fibromyalgia; K59.01 Slow transit constipation
CPT/HCPCS: 99214

== ENCOUNTER 2023-10-06 08:59 | Outpatient (AMB) | payer OTHER, SELFPAY ==
--- NOTE | 2023-10-06 09:00 | MHC.PC.OV ---
Vital Signs 10/06/23 09:02 Height 5 ft 6 in Weight 214 lb 2 oz BMI 34.6 BP 138/86 Blood Pressure Location Lt brachial Position Sitting Pulse 70 Pulse Source Pulse Oximeter Pulse Oximetry (%) 98 Oxygen Delivery Method Room Air Intake Visit Reasons: lower back pain into the legs Allergies hydromorphone [Dilaudid] Allergy (Intermediate, Verified 10/06/23 09:06) Hallucinations,Itching, rash Iodinated Contrast Media Allergy (Intermediate, Verified 10/06/23 09:06) shortness of breath morphine [Morphine] Allergy (Intermediate, Verified 10/06/23 09:06) hallucinations, itching, rash oxycodone Allergy (Intermediate, Verified 10/06/23 09:06) Hallucinations,itching, rash Penicillins Allergy (Intermediate, Verified 10/06/23 09:06) ITCHING/PASSES OUT From OxyContin Allergy (Intermediate, Uncoded 08/07/23 13:20) hallucinations,itching,rash Medication List - Last Reconciled 10/06/23 by Pepe Núñez MD amlodipine 10 mg PO DAILY aspirin 81 mg PO DAILY tknumoocsw-ppzufunskuedg-utoz 50-300-40 mg (Fioricet) 1 cap PO ONCE PRN 30 days carvedilol 25 mg PO BID cholecalciferol (vitamin D3) (Vitamin D3) 50 mcg PO DAILY cyclobenzaprine 5 mg PO BEDTIME 30 days duloxetine 20 mg PO BID gabapentin 600 mg (2 x 300 mg) PO BEDTIME 90 days hydrochlorothiazide 25 mg PO QAM 90 days multivitamin (Daily Multi-Vitamin tablet) 1 tab PO DAILY omeprazole 20 mg PO DAILY 30 days turmeric root extract 500 mg PO DAILY Tobacco use date assessed: 10/06/23 Dental Screening Dental Screen Date: 10/06/23 Did you have a dental visit in the last 12 months?: Yes Did you have a dental problem in the last 6 months where you did not have access to dental care?: No Was dental information given to patient?: Patient has dentist HPI lower back pain into the legs HPI Details Chief complaint lower back pain since Thursday was worse Today feeling will better Have cyclobenzaprine at home but that did not help She will stop taking but I have sent baclofen 10 mg b.i.d. p.r.n. She is taking only 1 gabapentin at night that is given through neurology for headache prevention, I have told her to take 2 tablets for next couple of weeks to see if that helps with lower back pain One a leave in the morning Increase omeprazole to b.i.d.. Her pain is located in lower back in the middle lumbar area, and radiating to both legs. There is no new bowel or bladder problem On examination range of motion is limited secondary to pain. Patient has appointment for follow-up end of April. She will stay in touch if any further intervention needed For her neck pain she is seeing Dr. Leone, and is currently having acupuncture which is helping her not just with neck pain but also headache. [facility] Medical History Cervicalgia Osteoarthritis COVID-19 vaccine series completed Abdominal pain Nausea Constipation Acid reflux Hypertension, essential Surgical History History of fusion of cervical spine History of colonoscopy History of esophagogastroduodenoscopy History of sleeve gastrectomy History of endometrial ablation History of section Family History Father HTN (hypertension) Cancer of prostate Mother Diabetes mellitus History of heart attack Heart problem Brother Heart problem Diabetes mellitus Dialysis patient Brother HTN (hypertension) Stroke Arthritis Maternal Grandfather No problems noted. Maternal Grandmother No problems noted. Paternal Grandfather No problems noted. Paternal Grandmother No problems noted. Son No problems noted. Son No problems noted. Daughter No problems noted. Other Mental health disorder Social History Household Members: None Housing: Apartment Alcohol intake: never Patient Tobacco Use Status: Never used Tobacco e-Cigarette/Vaping Use: Never Used service: No Current occupational status: disabled Cognitive needs: No Hearing needs: No Vision needs: Yes Female Reproductive History Menstrual Age of Menarche: 9 Questionnaire PHQ-9 Over the last 2 weeks, how often have you been bothered by any of the following problems? 1. Little interest or pleasure in doing things: not at all 2. Feeling down, depressed, or hopeless: not at all 3. Trouble falling or staying asleep, or sleeping too much: not at all 4. Feeling tired or having little energy: not at all 5. Poor appetite or overeating: not at all 6. Feeling bad about yourself - or that you are a failure or have let yourself or your family down: not at all 7. Trouble concentrating on things, such as reading the newspaper or watching television: not at all 8. Moving or speaking so slowly that other people could have noticed. Or the opposite - being so fidgety or restless that you have been moving around a lot more than usual: not at all 9. Thoughts that you would be better off or of hurting yourself in some way: not at all Total score: 0 Depression Screening Interpretation: Negative Depression Screening Done: Yes 57034 - PHQ-9 Billing: Yes Source: Developed by Drs. Jordan Hines, Micki Noriega, Steve Hernadez and colleagues, with an educational guanako from [employer]. Thrive Questionnaire Date Thrive assessed: 12/09/22 AUDIT C Alcohol Use Questionnaire (AUDIT-C) 1. How often do you have a drink containing alcohol?: Never 3. How often do you have six or more drinks on one occasion?: Never Total Score: 0 Score Reviewed/Action Taken: Yes REVA-7 AMB Questionnaire REVA-7 Date REVA - 7 assessed: 12/09/22 Source: Developed by Drs. Jordan Hines, Micki Noriega, Steve Hernadez and colleagues, with an educational guanako from [employer]. Review of Systems Const All systems reviewed & are unremarkable except as noted in HPI and below Denies chills and Denies fever(s) ENT Denies epistaxis and Denies nasal discharge Card Denies chest pain Resp Denies chest congestion, Denies cough and Denies hemoptysis GI Denies diarrhea and Denies nausea Skin/Breast Denies rash Neuro Reports no additional complaints Psych Reports no additional complaints Endo Reports no additional complaints Physical exam (Primary Care) Vital Signs: Last Vital Signs Pulse 70 10/06/23 09:02 BP 138/86 10/06/23 09:02 Pulse Ox 98 10/06/23 09:02 Oxygen Delivery Method Room Air 10/06/23 09:02 BMI result Body Mass Index 34.6 Tobacco/Smoking Status: Tobacco use Status Tobacco use date assessed 10/06/23 10/06/23 09:07 Patient Tobacco Use Status Never used Tobacco 10/06/23 09:00 e-Cigarette/Vaping Use Never Used 10/06/23 09:00 PHQ-9: PHQ-9 Score PHQ-9: Total score 0 10/06/23 09:20 Depression Screening Interpretation: Negative Thrive Assessment: Date of Thrive Assessment Date Thrive assessed 12/09/22 10/06/23 09:00 Const General: no acute distress Orientation/consciousness: patient oriented x3 Eyes General: appearance normal, both eyes and all related structures Resp Effort & Inspection: normal respiratory effort and able to speak in complete sentences Auscultation: clear to auscultation bilaterally Back/Spine/Pelvis Back/spine/pelvis image: 1. Site of pain, with limited range of motion secondary to pain Neuro General: patient oriented x3 Psych Mental Status: mental status grossly normal Assessment and Plan Assessment & Plan (1) Lumbar radiculitis: Code(s): M54.16 - Radiculopathy, lumbar region (2) Degenerative lumbar spinal stenosis: Code(s): M48.061 - Spinal stenosis, lumbar region without neurogenic claudication (3) Difficulty sleeping: Code(s): G47.9 - Sleep disorder, unspecified (4) Pain management: Code(s): R52 - Pain, unspecified (5) Dyspepsia: Code(s): R10.13 - Epigastric pain (6) DDD (degenerative disc disease), cervical: Code(s): M50.30 - Other cervical disc degeneration, unspecified cervical region Plan Chief complaint lower back pain since Thursday was worse Today feeling will better Have cyclobenzaprine at home but that did not help She will stop taking but I have sent baclofen 10 mg b.i.d. p.r.n. She is taking only 1 gabapentin at night that is given through neurology for headache prevention, I have told her to take 2 tablets for next couple of weeks to see if that helps with lower back pain One a leave in the morning Increase omeprazole to b.i.d.. Her pain is located in lower back in the middle lumbar area, and radiating to both legs. There is no new bowel or bladder problem On examination range of motion is limited secondary to pain. Patient has appointment for follow-up end of April. She will stay in touch if any further intervention needed For her neck pain she is seeing Dr. Leone, and is currently having acupuncture which is helping her not just with neck pain but also headache. Medications: New baclofen 10 mg PO BID 30 tabs 0RF 15 days Coding Level of Care Code Est Pt Level 4 (13867) Diagnoses Lumbar radiculitis M54.16 Degenerative lumbar spinal stenosis M48.061 Difficulty sleeping G47.9 Pain management R52 Dyspepsia R10.13 DDD (degenerative disc disease), cervical M50.30
[2023-10-06 09:02] VITALS: BP 138/86; PULSE 70; O2SAT 98; BMI 34.6
== END 2023-10-06 12:36 | disposition home or self-care (01) ==
PROVIDERS: PCP Internal Medicine; Visit Provider Internal Medicine
DX: M54.16 Radiculopathy, lumbar region (principal); M48.061 Spinal stenosis, lumbar region without neurogenic claudication; G47.9 Sleep disorder, unspecified; R10.13 Epigastric pain; M50.30 Other cervical disc degeneration, unspecified cervical region
CPT/HCPCS: 99214

== ENCOUNTER 2023-11-17 09:19 | Outpatient (AMB) | payer OTHER, SELFPAY ==
[2023-11-17 09:20] VITALS: BP 130/74; PULSE 77; O2SAT 97; BMI 34.5
--- NOTE | 2023-11-17 09:20 | MHC.PC.OV ---
Vital Signs 11/17/23 09:20 Height 5 ft 6 in Weight 214 lb BMI 34.5 BP 130/74 Blood Pressure Location Rt brachial Position Sitting Pulse 77 Pulse Source Pulse Oximeter Pulse Oximetry (%) 97 Oxygen Delivery Method Room Air Intake Visit Reasons: 6m follow up Allergies hydromorphone [Dilaudid] Allergy (Intermediate, Verified 11/17/23 09:20) Hallucinations,Itching, rash Iodinated Contrast Media Allergy (Intermediate, Verified 11/17/23 09:20) shortness of breath morphine [Morphine] Allergy (Intermediate, Verified 11/17/23 09:20) hallucinations, itching, rash oxycodone Allergy (Intermediate, Verified 11/17/23 09:20) Hallucinations,itching, rash Penicillins Allergy (Intermediate, Verified 11/17/23 09:20) ITCHING/PASSES OUT From OxyContin Allergy (Intermediate, Uncoded 08/07/23 13:20) hallucinations,itching,rash Medication List - Last Reconciled 11/17/23 by Pepe Núñez MD amlodipine 10 mg PO DAILY aspirin 81 mg PO DAILY zovucaazss-zkuwrguqzvxdf-mzik 50-300-40 mg (Fioricet) 1 cap PO ONCE PRN 30 days carvedilol 25 mg PO BID cholecalciferol (vitamin D3) (Vitamin D3) 50 mcg PO DAILY gabapentin 600 mg (2 x 300 mg) PO BEDTIME 90 days hydrochlorothiazide 25 mg PO QAM 90 days multivitamin (Daily Multi-Vitamin tablet) 1 tab PO DAILY omega-3 fatty acids 500 mg PO DAILY omeprazole 20 mg PO DAILY 30 days quetiapine 25 mg PO BEDTIME sennosides (Senokot) 8.6 mg PO BEDTIME turmeric root extract 500 mg PO DAILY Tobacco use date assessed: 11/17/23 Dental Screening Dental Screen Date: 11/17/23 Did you have a dental visit in the last 12 months?: Yes Did you have a dental problem in the last 6 months where you did not have access to dental care?: No Was dental information given to patient?: Patient has dentist HPI 6m follow up HPI Details Patient is a 63-year-old female came in today for her regular follow-up appointment Patient is undergoing acupuncture treatment which is helping with her pain and migraine headaches Patient says that she has not had any migraine headache in over 2 months, she is seeing a neurologist for the management as it was resistant to treatment before She is also seeing psychiatrist and is taking quetiapine, it was prescribed so she can sleep at night but patient is having side effects she will stop taking it, she has appointment tomorrow for follow-up Continued to be severely constipated, patient was doing well with amitzia, but her insurance stopped covering it Currently she is taking MiraLax which is not helping I have told her to start taking Senokot S2-3 tablets at night MiraLax in full glass of water Dulcolax 2 capsules as needed and glycerin suppositories before the bowel movement. I have also encouraged patient to book appointment with the gastroenterology so she can discuss it further with them. Due for labs today Patient is on amlodipine 10 mg for blood pressure control, tolerating medication no side effects She takes carvedilol 25 mg b.i.d. as well Gabapentin 600 mg for the management of peripheral neuropathy and generalized pain especially in neck due to cervical stenosis and lower back Omeprazole for GERD BMI is elevated need to lose weight PFSH Medical History Cervicalgia Osteoarthritis COVID-19 vaccine series completed Abdominal pain Nausea Constipation Acid reflux Hypertension, essential Surgical History History of fusion of cervical spine History of colonoscopy History of esophagogastroduodenoscopy History of sleeve gastrectomy History of endometrial ablation History of section Family History Father HTN (hypertension) Cancer of prostate Mother Diabetes mellitus History of heart attack Heart problem Brother Heart problem Diabetes mellitus Dialysis patient Brother HTN (hypertension) Stroke Arthritis Maternal Grandfather No problems noted. Maternal Grandmother No problems noted. Paternal Grandfather No problems noted. Paternal Grandmother No problems noted. Son No problems noted. Son No problems noted. Daughter No problems noted. Other Mental health disorder Social History Household Members: None Housing: Apartment Alcohol intake: never Patient Tobacco Use Status: Never used Tobacco e-Cigarette/Vaping Use: Never Used service: No Current occupational status: disabled Cognitive needs: No Hearing needs: No Vision needs: Yes Female Reproductive History Menstrual Age of Menarche: 9 Questionnaire Thrive Questionnaire Date Thrive assessed: 12/09/22 AUDIT C Alcohol Use Questionnaire (AUDIT-C) 1. How often do you have a drink containing alcohol?: Never 3. How often do you have six or more drinks on one occasion?: Never Total Score: 0 Score Reviewed/Action Taken: Yes REVA-7 AMB Questionnaire REVA-7 Date REVA - 7 assessed: 12/09/22 Source: Developed by Drs. Jordan Hines, Micki Noriega, Steve Hernadez and colleagues, with an educational guanako from [employer]. Review of Systems Const Denies chills and Denies fever(s) ENT Denies epistaxis and Denies nasal discharge Card Denies chest pain Resp Denies chest congestion, Denies cough and Denies hemoptysis GI Denies diarrhea and Denies nausea Skin/Breast Denies rash Neuro Reports no additional complaints Psych Reports no additional complaints Endo Reports no additional complaints Physical exam (Primary Care) Vital Signs: Last Vital Signs Pulse 77 11/17/23 09:20 BP 130/74 11/17/23 09:20 Pulse Ox 97 11/17/23 09:20 Oxygen Delivery Method Room Air 11/17/23 09:20 BMI result Body Mass Index 34.5 Tobacco/Smoking Status: Tobacco use Status Tobacco use date assessed 11/17/23 11/17/23 09:28 Patient Tobacco Use Status Never used Tobacco 11/17/23 09:28 e-Cigarette/Vaping Use Never Used 11/17/23 09:28 Thrive Assessment: Date of Thrive Assessment Date Thrive assessed 12/09/22 11/17/23 09:28 Const General: cooperative, comfortable and no acute distress Orientation/consciousness: patient oriented x3 [facility] Head: Yes normocephalic Eyes General: appearance normal, both eyes and all related structures Neck Neck: Yes supple Resp Effort & Inspection: normal respiratory effort, no cough and no stridor Cardio Rhythm: regular rhythm Heart sounds: S1 normal heart sound present and S2 normal heart sound present Skin General skin exam: turgor normal Neuro General: patient oriented x3, tone normal and moves all extremities Extrem Right lower extremity: no edema Left lower extremity: no edema Assessment and Plan Assessment & Plan (1) Hypertension, essential: Code(s): I10 - Essential (primary) hypertension (2) Headache syndrome: Code(s): G44.89 - Other headache syndrome (3) Fibromyalgia: Code(s): M79.7 - Fibromyalgia (4) Arthrosis: Code(s): M19.90 - Unspecified osteoarthritis, unspecified site (5) Radiculitis of left cervical region: Code(s): M54.12 - Radiculopathy, cervical region (6) Carotid artery disease: Code(s): I77.9 - Disorder of arteries and arterioles, unspecified Qualifiers: Carotid artery disease type: occlusion Laterality: bilateral Qualified Code(s): I65.23 - Occlusion and stenosis of bilateral carotid arteries (7) Degenerative lumbar spinal stenosis: Code(s): M48.061 - Spinal stenosis, lumbar region without neurogenic claudication (8) Obesity due to excess calories: Code(s): E66.09 - Other obesity due to excess calories Qualifiers: Body mass index: BMI 34.0-34.9 Obesity classification: adult class 1 (BMI 30 - 34.9) Serious obesity comorbidity presence: with serious comorbidity Qualified Code(s): E66.09 - Other obesity due to excess calories; Z68.34 - Body mass index [BMI] 34.0-34.9, adult (9) Lumbar radiculitis: Code(s): M54.16 - Radiculopathy, lumbar region (10) Difficulty sleeping: Code(s): G47.9 - Sleep disorder, unspecified (11) Pain management: Code(s): R52 - Pain, unspecified (12) Dyspepsia: Code(s): R10.13 - Epigastric pain Plan Patient is a 63-year-old female came in today for her regular follow-up appointment Patient is undergoing acupuncture treatment which is helping with her pain and migraine headaches Patient says that she has not had any migraine headache in over 2 months, she is seeing a neurologist for the management as it was resistant to treatment before She is also seeing psychiatrist and is taking quetiapine, it was prescribed so she can sleep at night but patient is having side effects she will stop taking it, she has appointment tomorrow for follow-up Continued to be severely constipated, patient was doing well with amitzia, but her insurance stopped covering it Currently she is taking MiraLax which is not helping I have told her to start taking Senokot S2-3 tablets at night MiraLax in full glass of water Dulcolax 2 capsules as needed and glycerin suppositories before the bowel movement. I have also encouraged patient to book appointment with the gastroenterology so she can discuss it further with them. Due for labs today Patient is on amlodipine 10 mg for blood pressure control, tolerating medication no side effects She takes carvedilol 25 mg b.i.d. as well Gabapentin 600 mg for the management of peripheral neuropathy and generalized pain especially in neck due to cervical stenosis and lower back Omeprazole for GERD BMI is elevated need to lose weight Orders: Orders Complete Blood Count Auto Diff Today E66.09 - Other obesity due to excess calories, G44.89 - Other headache syndrome, I10 - Essential (primary) hypertension, I77.9 - Disorder of arteries and arterioles, unspecified, M19.90 - Unspecified osteoarthritis, unspecified site, M48.061 - Spinal stenosis, lumbar region without neurogenic claudication, M54.12 - Radiculopathy, cervical region, M79.7 - Fibromyalgia LDL Cholesterol Direct Today E66.09 - Other obesity due to excess calories, G44.89 - Other headache syndrome, I10 - Essential (primary) hypertension, I77.9 - Disorder of arteries and arterioles, unspecified, M19.90 - Unspecified osteoarthritis, unspecified site, M48.061 - Spinal stenosis, lumbar region without neurogenic claudication, M54.12 - Radiculopathy, cervical region, M79.7 - Fibromyalgia Comprehensive Met. Panel Today E66.09 - Other obesity due to excess calories, G44.89 - Other headache syndrome, I10 - Essential (primary) hypertension, I77.9 - Disorder of arteries and arterioles, unspecified, M19.90 - Unspecified osteoarthritis, unspecified site, M48.061 - Spinal stenosis, lumbar region without neurogenic claudication, M54.12 - Radiculopathy, cervical region, M79.7 - Fibromyalgia Medications: New ondansetron HCl 4 mg PO Q8H 7 days PRN 14 tabs 0RF nausea and vomiting R11.0 - Nausea Coding Level of Care Code Est Pt Level 4 (25937) Diagnoses Hypertension, essential I10 Headache syndrome G44.89 Fibromyalgia M79.7 Arthrosis M19.90 Radiculitis of left cervical region M54.12 Bilateral carotid artery occlusion I65.23 Carotid artery disease type: occlusion Laterality: bilateral Degenerative lumbar spinal stenosis M48.061 Class 1 obesity due to excess calories with serious comorbidity and body mass index (BMI) of 34.0 to 34.9 in adult E66.09; Z68.34 Body mass index: BMI 34.0-34.9 Obesity classification: adult class 1 (BMI 30 - 34.9) Serious obesity comorbidity presence: with serious comorbidity Lumbar radiculitis M54.16 Difficulty sleeping G47.9 Pain management R52 Dyspepsia R10.13
== END 2023-11-17 10:08 | disposition home or self-care (01) ==
PROVIDERS: PCP Internal Medicine; Visit Provider Internal Medicine
DX: I10 Essential (primary) hypertension (principal); G44.89 Other headache syndrome; M79.7 Fibromyalgia; M19.90 Unspecified osteoarthritis, unspecified site; M54.12 Radiculopathy, cervical region; I65.23 Occlusion and stenosis of bilateral carotid arteries; M48.061 Spinal stenosis, lumbar region without neurogenic claudication; E66.09 Other obesity due to excess calories; Z68.34 Body mass index [BMI] 34.0-34.9, adult; M54.16 Radiculopathy, lumbar region; G47.9 Sleep disorder, unspecified; R10.13 Epigastric pain
CPT/HCPCS: 99214

== ENCOUNTER 2023-11-17 09:50 | Outpatient (REF) | payer OTHER, SELFPAY ==
[2023-11-17 13:36] LABS: MANUAL DIFF FLAG NO
[2023-11-17 13:46] LABS: Basophils Percent Auto 0.4 % (0-2); Eosinophils Absolute Auto 0.1 X10*3/uL (0.0-0.4); Eosinophils Percent Auto 1.6 % (0-4); Hematocrit 41.7 % (37.0-47.0); Hemoglobin 13.4 g/dl (12.0-16.0); Imm Gran Abs Auto 0.02 X10*3/uL (0.00-0.03); Imm Gran Pct Auto 0.4 % (0.0-0.4); Lymphocytes Absolute Auto 0.9 X10*3/uL (1.2-4.9); Mean Corpuscular HGB Conc 32.1 g/dl (31.0-35.0); Mean Corpuscular Hemoglobin 26.5 pg (27.0-33.0); Mean Corpuscular Volume 82.6 fL (80.0-98.0); Monocytes Absolute Auto 0.6 X10*3/uL (0.1-1.2); Monocytes Percent Auto 12.1 % (2-11); Neutrophils Absolute Auto 3.3 x10*3/uL (2.0-8.3); Neutrophils Percent Auto 66.5 % (45-73); Platelet Count 229 X10*3/uL (160-400); Red Blood Count 5.05 X10*6/uL (4.20-5.50); Red Cell Distribution Width 13.2 % (11.0-16.0); White Blood Count 4.9 X10*3/uL (4.8-10.8)
[2023-11-17 14:49] LABS: Alanine Aminotransferase 14 U/L (0-31); Albumin Level 4.2 g/dL (3.5-5.0); Alkaline Phosphatase 82 U/L (39-117); Anion Gap 11 (12-20); Aspartate Amino Transferase 19 U/L (5-31); Bilirubin Total 0.4 mg/dL (0.0-1.0); Blood Urea Nitrogen 19 mg/dL (9-16); Calcium 9.3 mg/dL (8.4-10.2); Carbon Dioxide 24 mmol/L (22-29); Chloride 108 mmol/L (96-108); Estimated Glomerular Filt Rate > 60; Glucose Random 89 mg/dL (60-115); Potassium 3.8 mmol/L (3.3-5.1); Sodium 139 mmol/L (135-145)
[2023-11-19 19:34] LABS: LDL Cholesterol Direct 118 mg/dL (<100)
== END 2023-11-17 09:51 | disposition home or self-care (01) ==
LOC: HO.HMGCLDS 09:50
PROVIDERS: PCP Internal Medicine; Visit Provider Internal Medicine
DX: G44.89 Other headache syndrome (principal); I10 Essential (primary) hypertension; E66.09 Other obesity due to excess calories; M79.7 Fibromyalgia; M19.90 Unspecified osteoarthritis, unspecified site; M54.12 Radiculopathy, cervical region; I77.9 Disorder of arteries and arterioles, unspecified; M48.061 Spinal stenosis, lumbar region without neurogenic claudication
CPT/HCPCS: 36415; 80053; 83721; 85025

== ENCOUNTER 2023-11-27 11:58 | Outpatient (AMB) | payer OTHER, SELFPAY ==
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
[2023-11-27 12:03] VITALS: BP 130/88; PULSE 87; TEMP 35.7; O2SAT 98
== END 2023-11-27 13:22 | disposition home or self-care (01) ==
PROVIDERS: PCP Internal Medicine; Visit Provider Physician Assistant Medical
DX: M62.830 Muscle spasm of back (principal)
CPT/HCPCS: 99213

== ENCOUNTER 2023-12-09 13:20 | Outpatient (REF) | payer OTHER, SELFPAY | END 2023-12-09 13:21 | disposition home or self-care (01) | LOC: HO.MAMMO 13:20 | PROVIDERS: PCP Internal Medicine; Visit Provider Internal Medicine | DX: Z12.31 Encounter for screening mammogram for malignant neoplasm of breast (principal) | CPT/HCPCS: 77063; 77067 ==

== ENCOUNTER → 2023-12-09 13:30 | Outpatient (BNV) | payer OTHER, SELFPAY | PROVIDERS: PCP Internal Medicine; Visit Provider Radiology Diagnostic Radiology | DX: Z12.31 Encounter for screening mammogram for malignant neoplasm of breast (principal) | CPT/HCPCS: 77063; 77067 ==

== ENCOUNTER 2024-01-26 14:07 | Outpatient (AMB) | payer OTHER, SELFPAY ==
[2024-01-26 14:12] VITALS: BP 132/88; PULSE 88; O2SAT 97; BMI 34.2
--- NOTE | 2024-01-26 14:12 | A.OFFPC_ITS ---
Vital Signs 3 01/26/24 14:12 Height 5 ft 6 in Weight 212 lb BMI 34.2 BP 132/88 Blood Pressure Location Rt brachial Position Sitting Pulse 88 Pulse Source Pulse Oximeter Pulse Oximetry (%) 97 Oxygen Delivery Method Room Air Intake Visit Reasons: Ortho Referral~ Allergies hydromorphone [Dilaudid] Allergy (Intermediate, Verified 01/26/24 14:12) Hallucinations,Itching, rash Iodinated Contrast Media Allergy (Intermediate, Verified 01/26/24 14:12) shortness of breath morphine [Morphine] Allergy (Intermediate, Verified 01/26/24 14:12) hallucinations, itching, rash oxycodone Allergy (Intermediate, Verified 01/26/24 14:12) Hallucinations,itching, rash Penicillins Allergy (Intermediate, Verified 01/26/24 14:12) ITCHING/PASSES OUT From OxyContin Allergy (Intermediate, Uncoded 11/27/23 12:03) hallucinations,itching,rash Medication List - Last Reconciled 01/26/24 by Pepe Núñez MD amlodipine 10 mg PO DAILY aspirin 81 mg PO DAILY mionorsqfm-azgsbrgrdgsti-nhra 50-300-40 mg (Fioricet) 1 cap PO ONCE PRN 30 days carvedilol 25 mg PO BID cholecalciferol (vitamin D3) (Vitamin D3) 50 mcg PO DAILY gabapentin 600 mg (2 x 300 mg) PO BEDTIME 90 days hydrochlorothiazide 25 mg PO QAM 90 days methocarbamol 1,000 mg PO TID PRN multivitamin (Daily Multi-Vitamin tablet) 1 tab PO DAILY omega-3 fatty acids 500 mg PO DAILY omeprazole 20 mg PO DAILY 30 days ondansetron HCl 4 mg PO Q8H PRN 7 days quetiapine 25 mg PO BEDTIME sennosides (Senokot) 8.6 mg PO BEDTIME turmeric root extract 500 mg PO DAILY Tobacco use date assessed: 01/26/24 Dental Screening Dental Screen Date: 01/26/24 Did you have a dental visit in the last 12 months?: Yes Did you have a dental problem in the last 6 months where you did not have access to dental care?: No Was dental information given to patient?: Patient has dentist HPI Ortho Referral~ 2 HPI0 Details Patient has been exercising by walking Has developed pain right knee which feels swollen, and it has been 2 weeks. She has not taken any medication except Tylenol and is using local wrap for the pain Patient says that she had a gel injection through orthopedic in the past and that helped her She can not have cortisone injection due to developing glaucoma in her eyes I have ordered x-ray for the patient and referral to orthopedic placed. [facility] Medical History Cervicalgia Osteoarthritis COVID-19 vaccine series completed Abdominal pain Nausea Constipation Acid reflux Hypertension, essential Surgical History History of fusion of cervical spine History of colonoscopy History of esophagogastroduodenoscopy History of sleeve gastrectomy History of endometrial ablation History of section Family History Father HTN (hypertension) Cancer of prostate Mother Diabetes mellitus History of heart attack Heart problem Brother Heart problem Diabetes mellitus Dialysis patient Brother HTN (hypertension) Stroke Arthritis Maternal Grandfather No problems noted. Maternal Grandmother No problems noted. Paternal Grandfather No problems noted. Paternal Grandmother No problems noted. Son No problems noted. Son No problems noted. Daughter No problems noted. Other Mental health disorder Social History Household Members: None Housing: Apartment Alcohol intake: never Patient Tobacco Use Status: Never used Tobacco e-Cigarette/Vaping Use: Never Used service: No Current occupational status: disabled Cognitive needs: No Hearing needs: No Vision needs: Yes Female Reproductive History Menstrual Age of Menarche: 9 Questionnaire Thrive Questionnaire Date Thrive assessed: 12/09/22 AUDIT C Alcohol Use Questionnaire (AUDIT-C) 1. How often do you have a drink containing alcohol?: Never 3. How often do you have six or more drinks on one occasion?: Never Total Score: 0 Score Reviewed/Action Taken: Yes REVA-7 AMB Questionnaire REVA-7 Date REVA - 7 assessed: 12/09/22 Source: Developed by Drs. Jordan Hines, Micki Noriega, Steve Hernadez and colleagues, with an educational guanako from [employer]. Review of Systems Const All systems reviewed & are unremarkable except as noted in HPI and below Physical exam (Primary Care) Vital Signs: Last Vital Signs Pulse 88 01/26/24 14:12 BP 132/88 01/26/24 14:12 Pulse Ox 97 01/26/24 14:12 Oxygen Delivery Method Room Air 01/26/24 14:12 BMI result Body Mass Index 34.2 Tobacco/Smoking Status: Tobacco use Status Tobacco use date assessed 01/26/24 01/26/24 14:14 Patient Tobacco Use Status Never used Tobacco 01/26/24 14:14 e-Cigarette/Vaping Use Never Used 01/26/24 14:14 Thrive Assessment: Date of Thrive Assessment Date Thrive assessed 12/09/22 01/26/24 14:14 Const General: no acute distress Orientation/consciousness: patient oriented x3 Eyes General: appearance normal, both eyes and all related structures Resp Effort & Inspection: normal respiratory effort and able to speak in complete sentences Auscultation: clear to auscultation bilaterally Neuro General: patient oriented x3 Extrem Knee images: 2 1. Slight swelling present compared to left knee, tender laterally below patella with deep pressure, range of motion almost full with some discomfort. No skin inflammation Psych Mental Status: mental status grossly normal Assessment and Plan Assessment & Plan (1) Knee pain, right: Code(s): M25.561 - Pain in right knee Qualifiers: Chronicity: acute Qualified Code(s): M25.561 - Pain in right knee Plan Patient has been exercising by walking Has developed pain right knee which feels swollen, and it has been 2 weeks. She has not taken any medication except Tylenol and is using local wrap for the pain Patient says that she had a gel injection through orthopedic in the past and that helped her She can not have cortisone injection due to developing glaucoma in her eyes I have ordered x-ray for the patient and referral to orthopedic placed. Orders: Orders 2 XR knee RT 2V Today M25.561 - Pain in right knee Referrals 2 Orthopedics Referral M25.561 - Pain in right knee Coding Level of Care Code Est Pt Level 3 (30341) Diagnoses Acute pain of right knee M25.561 Chronicity: acute
== END 2024-01-26 15:55 | disposition home or self-care (01) ==
PROVIDERS: PCP Internal Medicine; Visit Provider Internal Medicine
DX: M25.561 Pain in right knee (principal)
CPT/HCPCS: 99213

== ENCOUNTER 2024-01-26 14:30 | Outpatient (REF) | payer OTHER, SELFPAY ==
--- NOTE | ~2024-01-26 | XR_ITS ---
EXAMINATION: XR KNEE, RIGHT CLINICAL INFORMATION: Right knee pain COMPARISON: X-ray right knee on 03/30/2019 TECHNIQUE: AP and lateral views of the right knee. FINDINGS: BONES: Bony structures are intact. There is no focal bone destruction or periosteal reaction seen. JOINTS: Alignment of joints is normal. SOFT TISSUE: Right suprapatellar fat pad shows increase in density. No radiopaque foreign body or abnormal air collection is seen. XR/XR knee RT 2V IMPRESSION: 1. Interval development of right knee effusion. 2. No fracture or dislocation or signs of osteomyelitis are found.
== END 2024-01-26 14:31 | disposition home or self-care (01) ==
LOC: HO.HMGCX 14:30
PROVIDERS: PCP Internal Medicine; Visit Provider Internal Medicine
DX: M25.561 Pain in right knee (principal)
CPT/HCPCS: 73560

== ENCOUNTER 2024-02-01 10:56 | Outpatient (AMB) | payer OTHER, SELFPAY ==
--- NOTE | 2024-02-01 11:03 | MHC.OFFVIS ---
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 Last injection was 09/01/2019. Patient reports her last injection was helpful, she currently complains of pain and swelling in the medial and posterior aspects of the knee with some pain radiating to the anterior aspect of the lower leg for about 3 weeks now. Her pain increases with ambulation of stairs, walking, and feels instability with gait initiation. She has tried and failed Tylenol. She was previously offered tramadol but declined. Hx of Glaucoma, contraindicating a cortisone injection Allergies hydromorphone [Dilaudid] Allergy (Intermediate, Verified 02/01/24 11:26) Hallucinations,Itching, rash Iodinated Contrast Media Allergy (Intermediate, Verified 02/01/24 11:26) shortness of breath morphine [Morphine] Allergy (Intermediate, Verified 02/01/24 11:26) hallucinations, itching, rash oxycodone Allergy (Intermediate, Verified 02/01/24 11:26) Hallucinations,itching, rash Penicillins Allergy (Intermediate, Verified 02/01/24 11:26) ITCHING/PASSES OUT acetaminophen [From Percocet] Allergy (Mild, Verified 02/01/24 11:26) Unknown From OxyContin Allergy (Intermediate, Uncoded 11/27/23 12:03) hallucinations,itching,rash HPI 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 She describes pain and swelling in the medial and posterior aspects of the knee with some pain radiating to the anterior aspect of the lower leg for about 3 weeks now. Her pain increases with ambulation of stairs, walking, and feels instability with gait initiation. She has tried and failed Tylenol. She was previously offered tramadol but declined. [facility] Medical History Cervicalgia Osteoarthritis COVID-19 vaccine series completed Abdominal pain Nausea Constipation Acid reflux Hypertension, essential Surgical History History of fusion of cervical spine History of colonoscopy History of esophagogastroduodenoscopy History of sleeve gastrectomy History of endometrial ablation History of section Family History Father HTN (hypertension) Cancer of prostate Mother Diabetes mellitus History of heart attack Heart problem Brother Heart problem Diabetes mellitus Dialysis patient Brother HTN (hypertension) Stroke Arthritis Maternal Grandfather No problems noted. Maternal Grandmother No problems noted. Paternal Grandfather No problems noted. Paternal Grandmother No problems noted. Son No problems noted. Son No problems noted. Daughter No problems noted. Other Mental health disorder Social History Household Members: None Housing: Apartment Alcohol intake: never Patient Tobacco Use Status: Never used Tobacco e-Cigarette/Vaping Use: Never Used service: No Current occupational status: disabled Cognitive needs: No Hearing needs: No Vision needs: Yes Female Reproductive History Menstrual Age of Menarche: 9 Physical Exam Vital Signs: BMI result Body Mass Index 34.2 Const General: cooperative, healthy appearing, no acute distress, well developed and alert HEENT Head: Yes normal to inspection, Yes normocephalic and Yes atraumatic Mouth: moist mucous membranes Eyes General: appearance normal, both eyes and all related structures EOM: EOMs intact bilaterally Resp Other: No audible wheezing Effort & Inspection: normal respiratory effort Cardio Other: Radial pulse palpable with no rythmic abnormalities Back/Spine/Pelvis Cervical Spine: normal cervical lordosis Skin General skin exam: no rashes or lesions noted Neuro General: no focal motor deficits Extrem Other: There is tenderness to palpation over the medial joint line. She has retropatellar tenderness to palpation. There is no instability to varus and valgus stress testing. She has a negative Geetha's. Psych Appearance: grossly normal and well kempt Mental Status: mental status grossly normal Speech and movement: Normal speech and movement present Affect: normal affect Attitude: cooperative Results Reviewed Results Reviewed: I personally reviewed relevant radiographs. There is a right knee effusion with mild arthritic changes Assessment & Plan Assessment & Plan (1) Arthritis of right knee: Code(s): M17.11 - Unilateral primary osteoarthritis, right knee Plan: This is a 63-year-old woman with mild osteoarthritis of the right knee in the setting of fibromyalgia. She has had steroid injections previously but states because of her glaucoma she can no longer get these. I discussed treatment options with her. I gave her a Genumed knee sleeve and I recommend viscosupplementation. Coding Level of Care Code New Pt Level 4 (09026) Diagnoses Arthritis of right knee M17.11
[2024-02-01 11:14] VITALS: BMI 34.2
== END 2024-02-01 12:33 | disposition home or self-care (01) ==
PROVIDERS: PCP Internal Medicine; Visit Provider Orthopaedic Surgery
DX: M17.11 Unilateral primary osteoarthritis, right knee (principal)
CPT/HCPCS: 99203

== ENCOUNTER → 2024-02-01 10:56 | Outpatient (BNVA) | payer OTHER, SELFPAY | PROVIDERS: PCP Internal Medicine; Visit Provider Orthopaedic Surgery | DX: M17.11 Unilateral primary osteoarthritis, right knee (principal) | CPT/HCPCS: 99202 ==

== ENCOUNTER 2024-02-11 08:29 | Outpatient (AMB) | payer OTHER, SELFPAY ==
--- NOTE | 2024-02-11 08:34 | MHC.OFFVIS ---
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 Allergies hydromorphone [Dilaudid] Allergy (Intermediate, Verified 02/01/24 11:26) Hallucinations,Itching, rash Iodinated Contrast Media Allergy (Intermediate, Verified 02/01/24 11:26) shortness of breath morphine [Morphine] Allergy (Intermediate, Verified 02/01/24 11:26) hallucinations, itching, rash oxycodone Allergy (Intermediate, Verified 02/01/24 11:26) Hallucinations,itching, rash Penicillins Allergy (Intermediate, Verified 02/01/24 11:26) ITCHING/PASSES OUT acetaminophen [From Percocet] Allergy (Mild, Verified 02/01/24 11:26) Unknown From OxyContin Allergy (Intermediate, Uncoded 11/27/23 12:03) hallucinations,itching,rash HPI HPI Comments History of Present Illness Details She is a postmenopausal woman 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 She is doing well with no concerns. Attempting to eat a healthy diet with calcium and vitamin D and limited exercise w/knee pain. Currently not sexually active over 15yrs. Denies any vaginal dryness or irritation. Last pap smear; 2020. Last mammogram; 2023. Colonoscopy is being planned for this year. Denies any family history of breast, ovarian or colon cancer. [facility] Medical History Cervicalgia Osteoarthritis COVID-19 vaccine series completed Abdominal pain Nausea Constipation Acid reflux Hypertension, essential Surgical History Hx of tubal ligation History of fusion of cervical spine History of colonoscopy History of esophagogastroduodenoscopy History of sleeve gastrectomy History of endometrial ablation History of section Family History Father HTN (hypertension) Cancer of prostate Mother Diabetes mellitus History of heart attack Heart problem Brother Heart problem Diabetes mellitus Dialysis patient Brother HTN (hypertension) Stroke Arthritis Maternal Grandfather No problems noted. Maternal Grandmother No problems noted. Paternal Grandfather No problems noted. Paternal Grandmother No problems noted. Son No problems noted. Son No problems noted. Daughter No problems noted. Other Mental health disorder Social History Household Members: None Housing: Apartment Alcohol intake: never Patient Tobacco Use Status: Never used Tobacco e-Cigarette/Vaping Use: Never Used service: No Current occupational status: disabled Cognitive needs: No Hearing needs: No Vision needs: Yes Female Reproductive History Menstrual Age of Menarche: 9 Menopause type: natural Total pregnancies: 3 Full term: 2 Premature: 1 Number of Living Children: 3 Date of last pap smear: 04/19/21 (neg pap and hpv) Date of Mammogram: 12/09/23 (Birad 1) Review of Systems Const All systems reviewed & are unremarkable except as noted in HPI and below Reports as per HPI Eyes Reports no additional complaints ENT Reports no additional complaints Card Reports no additional complaints Resp Reports no additional complaints GI Reports as per HPI and Reports no additional complaints Reports as per HPI Musc Reports no additional complaints Skin/Breast Reports as per HPI Neuro Reports no additional complaints Psych Reports no additional complaints Endo Reports no additional complaints Bulmaro/Lymph Reports no additional complaints Aller/Immun Reports no additional complaints Physical Exam Vital Signs: Last Vital Signs BP 128/76 02/11/24 08:37 BMI result Body Mass Index 34.9 Const General: cooperative, healthy appearing, no acute distress, well developed and alert Orientation/consciousness: patient oriented x3 HEENT Head: Yes normal to inspection Eyes General: appearance normal, both eyes and all related structures Neck Neck: Yes normal visual inspection Thyroid: Thyroid normal Chest Chest palpation & inspection: normal inspection of the chest and other (no puckering, dimpling, peau de orange, retraction, discharge, masses) Breast/axilla inspection: normal inspection of the breasts Breast/axilla palpation: normal palpation of the breasts Resp Effort & Inspection: normal respiratory effort GI Inspection: Yes normal to inspection and Yes scar Palpation (GI): Soft to palpation Rectal Exam - Female: deferred General: Yes bladder normal to palpation External Female Exam: normal external appearance and normal appearance of the urethra Speculum Exam - Vagina: normal appearance of the vagina, normal palpation, normal vaginal discharge and vagina atrophic Speculum Exam - Cervix: normal appearance of the cervix and normal palpation Bimanual exam- vagina & uterus: normal bimanual exam, normal palpation, uterine size normal, bladder normal to palpation, normal palpation and non-tender Bimanual Exam- Adnexa, other: no masses Skin General skin exam: no rashes or lesions noted Rashes: no rashes Neuro General: patient oriented x3 Cognition (Neuro): normal cognition Extrem General: Yes normal to inspection Psych Attitude: cooperative Thought process: Normal thought process present Assessment & Plan Assessment & Plan (1) Encounter for well woman exam with routine gynecological exam: Code(s): Z01.419 - Encounter for gynecological examination (general) (routine) without abnormal findings Plan Discussed: Current recommendations for pap smears per ASCCP guidelines. Breast awareness, periodic self breast exams and yearly mammogram. Maintain a healthy lifestyle, well balanced diet including Calcium 1,200 mg and Vitamin D 600 IU daily, and routine exercise. Contact the office with any postmenopausal bleeding. Patient verbalizes understanding and agrees to the plan of care. She was given opportunity to ask questions and all questions were answered to the best of my ability. RTO in 1 year for annual obgyn nurse exam. This note is constructed using voice recognition software. While every effort has been made to ensure accuracy, remote encoding center manager errors may have been included. Coding Level of Care Code Est Pt Prev Care 40-64y(60616) Diagnoses Encounter for well woman exam with routine gynecological exam Z01.419
[2024-02-11 08:37] VITALS: BP 128/76; BMI 34.9
== END 2024-02-11 08:58 | disposition home or self-care (01) ==
PROVIDERS: PCP Internal Medicine; Visit Provider Advanced Practice Midwife
DX: Z01.419 Encounter for gynecological examination (general) (routine) without abnormal findings (principal)
CPT/HCPCS: 99396

== ENCOUNTER → 2024-02-11 08:29 | Outpatient (BNVA) | payer OTHER, SELFPAY | PROVIDERS: PCP Internal Medicine; Visit Provider Advanced Practice Midwife ==

== ENCOUNTER 2024-02-16 12:22 | Outpatient (AMB) | payer OTHER, SELFPAY ==
[2024-02-16 12:23] VITALS: BP 152/96; PULSE 114; O2SAT 98; BMI 34.7
--- NOTE | 2024-02-16 12:23 | MHC.PC.OV ---
Vital Signs 02/16/24 12:23 Height 5 ft 6 in Weight 215 lb 4 oz BMI 34.7 BP 152/96 H Blood Pressure Location Rt brachial Position Sitting Pulse 114 H Pulse Source Pulse Oximeter Pulse Oximetry (%) 98 Oxygen Delivery Method Room Air Intake Visit Reasons: Annual PE Allergies hydromorphone [Dilaudid] Allergy (Intermediate, Verified 02/16/24 12:26) Hallucinations,Itching, rash Iodinated Contrast Media Allergy (Intermediate, Verified 02/16/24 12:26) shortness of breath morphine [Morphine] Allergy (Intermediate, Verified 02/16/24 12:26) hallucinations, itching, rash oxycodone Allergy (Intermediate, Verified 02/16/24 12:26) Hallucinations,itching, rash Penicillins Allergy (Intermediate, Verified 02/16/24 12:26) ITCHING/PASSES OUT acetaminophen [From Percocet] Allergy (Mild, Verified 02/16/24 12:26) Unknown From OxyContin Allergy (Intermediate, Uncoded 11/27/23 12:03) hallucinations,itching,rash Medication List - Last Reconciled 02/16/24 by Pepe Núñez MD amitriptyline 75 mg PO BEDTIME amlodipine 10 mg PO DAILY aspirin 81 mg PO DAILY seobqkzvuk-tjgagisqhffvc-vdjt 50-300-40 mg (Fioricet) 1 cap PO ONCE PRN 30 days carvedilol 25 mg PO BID cholecalciferol (vitamin D3) (Vitamin D3) 50 mcg PO DAILY gabapentin 600 mg (2 x 300 mg) PO BEDTIME 90 days hydrochlorothiazide 25 mg PO QAM 90 days multivitamin (Daily Multi-Vitamin tablet) 1 tab PO DAILY omega-3 fatty acids 500 mg PO DAILY omeprazole 20 mg PO DAILY 30 days ondansetron HCl 4 mg PO Q8H PRN 7 days quetiapine 25 mg PO BEDTIME sennosides (Senokot) 8.6 mg PO BEDTIME turmeric root extract 500 mg PO DAILY Tobacco use date assessed: 02/16/24 Dental Screening Dental Screen Date: 02/16/24 Did you have a dental visit in the last 12 months?: No Did you have a dental problem in the last 6 months where you did not have access to dental care?: No Was dental information given to patient?: Patient has dentist HPI Annual PE HPI Details Physical exam appointment Mammogram, Pap smear and colonoscopies up-to-date Labs were done in October reviewed again Patient is currently having lower back pain radiating to left leg She is requesting muscle relaxer which I have sent for her She is also on in lower cortisone injection left knee and is also having occupying sure therapy which is helping her Blood pressure is slightly elevated secondary to pain in her back Medication list reviewed [facility] Medical History Cervicalgia Osteoarthritis COVID-19 vaccine series completed Abdominal pain Nausea Constipation Acid reflux Hypertension, essential Surgical History Hx of tubal ligation History of fusion of cervical spine History of colonoscopy History of esophagogastroduodenoscopy History of sleeve gastrectomy History of endometrial ablation History of section Family History Father HTN (hypertension) Cancer of prostate Mother Diabetes mellitus History of heart attack Heart problem Brother Heart problem Diabetes mellitus Dialysis patient Brother HTN (hypertension) Stroke Arthritis Maternal Grandfather No problems noted. Maternal Grandmother No problems noted. Paternal Grandfather No problems noted. Paternal Grandmother No problems noted. Son No problems noted. Son No problems noted. Daughter No problems noted. Other Mental health disorder Social History Household Members: None Housing: Apartment Alcohol intake: never Patient Tobacco Use Status: Never used Tobacco e-Cigarette/Vaping Use: Never Used service: No Current occupational status: disabled Cognitive needs: No Hearing needs: No Vision needs: Yes Female Reproductive History Menstrual Age of Menarche: 9 Questionnaire PHQ-9 Over the last 2 weeks, how often have you been bothered by any of the following problems? 1. Little interest or pleasure in doing things: not at all 2. Feeling down, depressed, or hopeless: not at all 3. Trouble falling or staying asleep, or sleeping too much: not at all 4. Feeling tired or having little energy: not at all 5. Poor appetite or overeating: not at all 6. Feeling bad about yourself - or that you are a failure or have let yourself or your family down: not at all 7. Trouble concentrating on things, such as reading the newspaper or watching television: not at all 8. Moving or speaking so slowly that other people could have noticed. Or the opposite - being so fidgety or restless that you have been moving around a lot more than usual: not at all 9. Thoughts that you would be better off or of hurting yourself in some way: not at all Total score: 0 Depression Screening Interpretation: Negative Depression Screening Done: Yes 97740 - PHQ-9 Billing: Yes Source: Developed by Drs. Jordan Hines, Micki Noriega, Steve Hernadez and colleagues, with an educational guanako from [employer] system. Thrive Questionnaire Date Thrive assessed: 12/09/22 AUDIT C Alcohol Use Questionnaire (AUDIT-C) 1. How often do you have a drink containing alcohol?: Never 3. How often do you have six or more drinks on one occasion?: Never Total Score: 0 Score Reviewed/Action Taken: Yes REVA-7 AMB Questionnaire REVA-7 Date REVA - 7 assessed: 12/09/22 Source: Developed by Drs. Jordan Hines, Micki Noriega, Steve Hernadez and colleagues, with an educational guanako from [employer] system. Review of Systems Const Denies chills, Denies fever(s) and Denies headache(s) Eyes Denies blurry vision ENT Denies headache(s), Denies nasal discharge, Denies nasal obstruction, Denies odynophagia and Denies sinus pain Card Denies chest pain at rest and Denies chest pain with activity Resp Denies cough and Denies hemoptysis GI Denies diarrhea, Denies odynophagia, Denies vomiting and Denies hematemesis Reports as per HPI Musc Denies abnormal gait Skin/Breast Reports as per HPI Neuro Denies Neuro-related abnormal movements, Denies Abnormal speech present, Denies abnormal gait, Denies headache(s) and Denies Sensory deficit (Neuro) Psych Denies mood swings and Denies paranoia Endo Reports as per HPI Bulmaro/Lymph Reports as per HPI Aller/Immun Reports as per HPI Physical exam (Primary Care) Vital Signs: Last Vital Signs Pulse 114 H 02/16/24 12:23 BP 152/96 H 02/16/24 12:23 Pulse Ox 98 02/16/24 12:23 Oxygen Delivery Method Room Air 02/16/24 12:23 BMI result Body Mass Index 34.7 Tobacco/Smoking Status: Tobacco use Status Tobacco use date assessed 02/16/24 02/16/24 12:27 Patient Tobacco Use Status Never used Tobacco 02/16/24 12:24 e-Cigarette/Vaping Use Never Used 02/16/24 12:24 PHQ-9: PHQ-9 Score PHQ-9: Total score 0 02/16/24 12:44 Depression Screening Interpretation: Negative Thrive Assessment: Date of Thrive Assessment Date Thrive assessed 12/09/22 02/16/24 12:24 Const General: cooperative, comfortable and no acute distress Orientation/consciousness: patient oriented x3 HENMT Head: Yes normocephalic and Yes atraumatic Eyes General: appearance normal, both eyes and all related structures Pupils: Equal, round and reactive pupils present EOM: EOMs intact bilaterally Neck Neck: Yes supple and No lymphadenopathy Thyroid: Thyroid normal Lymphatic: no lymphadenopathy noted Resp Effort & Inspection: normal respiratory effort and able to speak in complete sentences Auscultation: clear to auscultation bilaterally Cardio Heart sounds: S1 normal heart sound present and S2 normal heart sound present GI Palpation (GI): Soft to palpation and nontender Auscultation: normal bowel sounds General: Yes no CVA tenderness Back/Spine/Pelvis Back: no CVA tenderness Skin General skin exam: elasticity normal and turgor normal Neuro General: patient oriented x3 and gait normal Cranial nerves: Yes Equal, round and reactive pupils present Speech: No Abnormal speech present Sensory Exam: No Sensory deficit (Neuro) Extrem General: Yes normal exam except as noted and No edema Assessment and Plan Assessment & Plan (1) Encounter for general adult medical examination with abnormal findings: Code(s): Z00.01 - Encounter for general adult medical examination with abnormal findings (2) Headache syndrome: Code(s): G44.89 - Other headache syndrome (3) Constipation by delayed colonic transit: Code(s): K59.01 - Slow transit constipation (4) Muscle spasm: Code(s): M62.838 - Other muscle spasm (5) Hypertension, essential: Code(s): I10 - Essential (primary) hypertension (6) Chronic back pain: Code(s): M54.9 - Dorsalgia, unspecified; G89.29 - Other chronic pain Qualifiers: Back pain laterality: bilateral Back pain location: low back pain Sciatica laterality: sciatica of left side Sciatica presence: with sciatica Qualified Code(s): M54.42 - Lumbago with sciatica, left side; G89.29 - Other chronic pain (7) Obesity due to excess calories: Code(s): E66.09 - Other obesity due to excess calories Qualifiers: Body mass index: BMI 34.0-34.9 Obesity classification: adult class 1 (BMI 30 - 34.9) Serious obesity comorbidity presence: with serious comorbidity Qualified Code(s): E66.09 - Other obesity due to excess calories; Z68.34 - Body mass index [BMI] 34.0-34.9, adult (8) Migraine headache: Code(s): G43.909 - Migraine, unspecified, not intractable, without status migrainosus Qualifiers: Intractability: intractable Migraine type: periodic headache syndrome Qualified Code(s): G43.C1 - Periodic headache syndromes in child or adult, intractable (9) Lumbar radiculitis: Code(s): M54.16 - Radiculopathy, lumbar region (10) Knee pain, right: Code(s): M25.561 - Pain in right knee Qualifiers: Chronicity: acute Qualified Code(s): M25.561 - Pain in right knee Plan Physical exam appointment Mammogram, Pap smear and colonoscopies up-to-date Labs were done in October reviewed again Patient is currently having lower back pain radiating to left leg She is requesting muscle relaxer which I have sent for her She is also on in lower cortisone injection left knee and is also having occupying sure therapy which is helping her Blood pressure is slightly elevated secondary to pain in her back Constipation is stable And headaches are stable Medication list reviewed Medications: New baclofen 10 mg PO BID PRN 60 tabs 0RF muscle spasm 30 days multivitamin (Daily Multi-Vitamin tablet) 1 tab PO DAILY 90 tabs 0RF cholecalciferol (vitamin D3) 25 mcg PO DAILY 90 caps 1RF 90 days Coding Level of Care Code Est Pt Level 3 (09184) Est Pt Prev Care 40-64y(59710) Diagnoses Encounter for general adult medical examination with abnormal findings Z00.01 Headache syndrome G44.89 Constipation by delayed colonic transit K59.01 Muscle spasm M62.838 Hypertension, essential I10 Chronic bilateral low back pain with left-sided sciatica M54.42; G89.29 Back pain laterality: bilateral Back pain location: low back pain Sciatica laterality: sciatica of left side Sciatica presence: with sciatica Class 1 obesity due to excess calories with serious comorbidity and body mass index (BMI) of 34.0 to 34.9 in adult E66.09; Z68.34 Body mass index: BMI 34.0-34.9 Obesity classification: adult class 1 (BMI 30 - 34.9) Serious obesity comorbidity presence: with serious comorbidity Intractable periodic headache syndrome G43.C1 Intractability: intractable Migraine type: periodic headache syndrome Lumbar radiculitis M54.16 Acute pain of right knee M25.561 Chronicity: acute
== END 2024-02-16 12:42 | disposition home or self-care (01) ==
PROVIDERS: PCP Internal Medicine; Visit Provider Internal Medicine
DX: Z00.01 Encounter for general adult medical examination with abnormal findings (principal); G44.89 Other headache syndrome; K59.01 Slow transit constipation; M62.838 Other muscle spasm; E66.09 Other obesity due to excess calories; Z68.34 Body mass index [BMI] 34.0-34.9, adult; I10 Essential (primary) hypertension; M54.42 Lumbago with sciatica, left side; G89.29 Other chronic pain; G43.C1 Periodic headache syndromes in child or adult, intractable; M54.16 Radiculopathy, lumbar region; M25.561 Pain in right knee
CPT/HCPCS: 99213; 99396

== ENCOUNTER 2024-02-22 14:24 | Outpatient (AMB) | payer OTHER, SELFPAY ==
--- NOTE | 2024-02-22 14:41 | A.OFFVIS_ITS ---
Intake Visit Reasons: O/V rt durolane injection Intake Note: Yaa is a 63 year old female who presents today for a Right Knee Durolane Injection Allergies hydromorphone [Dilaudid] Allergy (Intermediate, Verified 02/16/24 12:26) Hallucinations,Itching, rash Iodinated Contrast Media Allergy (Intermediate, Verified 02/16/24 12:26) shortness of breath morphine [Morphine] Allergy (Intermediate, Verified 02/16/24 12:26) hallucinations, itching, rash oxycodone Allergy (Intermediate, Verified 02/16/24 12:26) Hallucinations,itching, rash Penicillins Allergy (Intermediate, Verified 02/16/24 12:26) ITCHING/PASSES OUT acetaminophen [From Percocet] Allergy (Mild, Verified 02/16/24 12:26) Unknown From OxyContin Allergy (Intermediate, Uncoded 11/27/23 12:03) hallucinations,itching,rash HPI HPI O/V rt durolane injection : Details: Yaa is a 63 year old female who presents today for a Right Knee Durolane Injection [facility] Medical History Cervicalgia Osteoarthritis COVID-19 vaccine series completed Abdominal pain Nausea Constipation Acid reflux Hypertension, essential Surgical History Hx of tubal ligation History of fusion of cervical spine History of colonoscopy History of esophagogastroduodenoscopy History of sleeve gastrectomy History of endometrial ablation History of section Family History Father HTN (hypertension) Cancer of prostate Mother Diabetes mellitus History of heart attack Heart problem Brother Heart problem Diabetes mellitus Dialysis patient Brother HTN (hypertension) Stroke Arthritis Maternal Grandfather No problems noted. Maternal Grandmother No problems noted. Paternal Grandfather No problems noted. Paternal Grandmother No problems noted. Son No problems noted. Son No problems noted. Daughter No problems noted. Other Mental health disorder Social History Household Members: None Housing: Apartment Alcohol intake: never Patient Tobacco Use Status: Never used Tobacco e-Cigarette/Vaping Use: Never Used service: No Current occupational status: disabled Cognitive needs: No Hearing needs: No Vision needs: Yes Female Reproductive History Menstrual Age of Menarche: 9 Physical Exam Extrem Other: skin c/d/i Office Procedures Joint Injection/Drain Joint Injection/Drain Details: Injected Durolane. Site was prepped using aseptic technique. Patient tolerated the procedure well. Primary Site: right knee Approach Used: anterolateral Coding - Large joint Procedure code (CPT) selection complete Assessment & Plan Assessment & Plan (1) Arthritis of right knee: Code(s): M17.11 - Unilateral primary osteoarthritis, right knee Category: Medical Plan: Durolane injection. f/u 3 mo Coding Level of Care Code Est Pt Level 2 (93860) Diagnoses Arthritis of right knee M17.11 CPT Codes Coding - Large joint: 42758 - Large joint ([id number])
== END 2024-02-22 15:43 | disposition home or self-care (01) ==
PROVIDERS: PCP Internal Medicine; Visit Provider Orthopaedic Surgery
DX: M17.11 Unilateral primary osteoarthritis, right knee (principal)
CPT/HCPCS: 20610

== ENCOUNTER → 2024-02-22 14:24 | Outpatient (BNVA) | payer OTHER, SELFPAY | PROVIDERS: PCP Internal Medicine; Visit Provider Orthopaedic Surgery | DX: M17.11 Unilateral primary osteoarthritis, right knee (principal) | CPT/HCPCS: 20610; J7318 ==

== ENCOUNTER 2024-05-23 12:17 | Outpatient (AMB) | payer OTHER, SELFPAY ==
--- NOTE | 2024-05-23 12:25 | MHC.OFFVIS ---
Vital Signs 05/23/24 12:27 Height 5 ft 6 in Weight 215 lb BMI 34.7 Intake Visit Reasons: OV-Right knee plain/swelling Intake Note: Yaa is a 63 year old female who presents today for a follow up of her right knee pain. She had a Durolane injection on 02/22/24. Patient reports that the gel injection has significantly helped her with her pain however she feels that she is not having instability of the right knee. Allergies hydromorphone [Dilaudid] Allergy (Intermediate, Verified 02/16/24 12:26) Hallucinations,Itching, rash Iodinated Contrast Media Allergy (Intermediate, Verified 02/16/24 12:26) shortness of breath morphine [Morphine] Allergy (Intermediate, Verified 02/16/24 12:26) hallucinations, itching, rash oxycodone Allergy (Intermediate, Verified 02/16/24 12:26) Hallucinations,itching, rash Penicillins Allergy (Intermediate, Verified 02/16/24 12:26) ITCHING/PASSES OUT acetaminophen [From Percocet] Allergy (Mild, Verified 02/16/24 12:26) Unknown From OxyContin Allergy (Intermediate, Uncoded 11/27/23 12:03) hallucinations,itching,rash HPI HPI OV-Right knee plain/swelling: Details: Yaa is a 63 year old female who presents today for a follow up of her right knee pain. She had a Durolane injection on 02/22/24. Patient reports that the gel injection has significantly helped her with her pain however she feels that she is not having instability of the right knee. [facility] Medical History Cervicalgia Osteoarthritis COVID-19 vaccine series completed Abdominal pain Nausea Constipation Acid reflux Hypertension, essential Surgical History Hx of tubal ligation History of fusion of cervical spine History of colonoscopy History of esophagogastroduodenoscopy History of sleeve gastrectomy History of endometrial ablation History of section Family History Father HTN (hypertension) Cancer of prostate Mother Diabetes mellitus History of heart attack Heart problem Brother Heart problem Diabetes mellitus Dialysis patient Brother HTN (hypertension) Stroke Arthritis Maternal Grandfather No problems noted. Maternal Grandmother No problems noted. Paternal Grandfather No problems noted. Paternal Grandmother No problems noted. Son No problems noted. Son No problems noted. Daughter No problems noted. Other Mental health disorder Social History Household Members: None Housing: Apartment Alcohol intake: never Patient Tobacco Use Status: Never used Tobacco e-Cigarette/Vaping Use: Never Used service: No Current occupational status: disabled Cognitive needs: No Hearing needs: No Vision needs: Yes Female Reproductive History Menstrual Age of Menarche: 9 Physical Exam Vital Signs: BMI result Body Mass Index 34.7 Extrem Other: TTP lateral compartment right knee Assessment & Plan Assessment & Plan (1) Arthritis of right knee: Code(s): M17.11 - Unilateral primary osteoarthritis, right knee Category: Medical Plan: Right knee OA. I had a long discussion with her regarding treatment options. She does have mast after extended activity and I reviewed treatment options including surgery. At this time, however, she feels she can tolerate the discomfort. She will return to see me if pain worsens. Coding Level of Care Code Est Pt Level 4 (63091) Diagnoses Arthritis of right knee M17.11
[2024-05-23 12:27] VITALS: BMI 34.7
== END 2024-05-23 15:19 | disposition home or self-care (01) ==
PROVIDERS: PCP Internal Medicine; Visit Provider Orthopaedic Surgery
DX: M17.11 Unilateral primary osteoarthritis, right knee (principal)
CPT/HCPCS: 99212

== ENCOUNTER → 2024-05-23 12:17 | Outpatient (BNVA) | payer OTHER, SELFPAY | PROVIDERS: PCP Internal Medicine; Visit Provider Orthopaedic Surgery | DX: M17.11 Unilateral primary osteoarthritis, right knee (principal) | CPT/HCPCS: 99212 ==

== ENCOUNTER 2024-06-01 12:43 | Outpatient (REF) | payer OTHER, SELFPAY ==
[2024-06-01 16:03] LABS: MANUAL DIFF FLAG NO
[2024-06-01 16:13] LABS: Basophils Percent Auto 0.4 % (0-2); Eosinophils Absolute Auto 0.1 X10*3/uL (0.0-0.4); Eosinophils Percent Auto 1.4 % (0-4); Hematocrit 40.2 % (37.0-47.0); Hemoglobin 13.3 g/dl (12.0-16.0); Imm Gran Abs Auto 0.02 X10*3/uL (0.00-0.03); Imm Gran Pct Auto 0.4 % (0.0-0.4); Lymphocytes Absolute Auto 1.2 X10*3/uL (1.2-4.9); Lymphocytes Percent Auto 22.7 % (20-40); Mean Corpuscular HGB Conc 33.1 g/dl (31.0-35.0); Mean Corpuscular Hemoglobin 27.2 pg (27.0-33.0); Mean Corpuscular Volume 82.2 fL (80.0-98.0); Mean Platelet Volume 10.8 fL (9.4-12.3); Monocytes Absolute Auto 0.5 X10*3/uL (0.1-1.2); Monocytes Percent Auto 10.6 % (2-11); Neutrophils Absolute Auto 3.3 x10*3/uL (2.0-8.3); Neutrophils Percent Auto 64.5 % (45-73); Platelet Count 225 X10*3/uL (160-400); Red Blood Count 4.89 X10*6/uL (4.20-5.50); Red Cell Distribution Width 13.4 % (11.0-16.0); White Blood Count 5.1 X10*3/uL (4.8-10.8)
[2024-06-01 16:19] LABS: Alanine Aminotransferase 14 U/L (0-31); Albumin Level 4.3 g/dL (3.5-5.0); Alkaline Phosphatase 87 U/L (39-117); Anion Gap 13 (12-20); Aspartate Amino Transferase 22 U/L (5-31); Bilirubin Total 0.3 mg/dL (0.0-1.0); Blood Urea Nitrogen 15 mg/dL (9-16); Calcium 10.4 mg/dL (8.4-10.2); Carbon Dioxide 26 mmol/L (22-29); Chloride 104 mmol/L (96-108); Estimated Glomerular Filt Rate > 60; Glucose Random 97 mg/dL (60-115); Potassium 3.5 mmol/L (3.3-5.1); Sodium 139 mmol/L (135-145); Total Protein 8.1 g/dL (6.5-8.0)
[2024-06-02 10:24] LABS: LDL Cholesterol Direct 119 mg/dL (<100)
== END 2024-06-01 12:44 | disposition home or self-care (01) ==
LOC: HO.HMGCLDS 12:43
PROVIDERS: PCP Internal Medicine; Visit Provider Internal Medicine
DX: G44.89 Other headache syndrome (principal); M62.838 Other muscle spasm; I10 Essential (primary) hypertension; M79.2 Neuralgia and neuritis, unspecified
CPT/HCPCS: 36415; 80053; 83721; 85025

== ENCOUNTER 2024-06-03 13:22 | Outpatient (AMB) | payer OTHER, SELFPAY ==
[2024-06-03 13:27] VITALS: BP 134/96; PULSE 93; O2SAT 97; BMI 34.1
--- NOTE | 2024-06-03 13:27 | A.OFFPC_ITS ---
Vital Signs 06/03/24 13:27 Height 5 ft 6 in Weight 211 lb 8 oz BMI 34.1 BP 134/96 H Blood Pressure Location Lt brachial Position Sitting Pulse 93 Pulse Source Pulse Oximeter Pulse Oximetry (%) 97 Oxygen Delivery Method Room Air Intake Visit Reasons: Overdue F/u~ Allergies hydromorphone [Dilaudid] Allergy (Intermediate, Verified 06/03/24 13:27) Hallucinations,Itching, rash Iodinated Contrast Media Allergy (Intermediate, Verified 06/03/24 13:27) shortness of breath morphine [Morphine] Allergy (Intermediate, Verified 06/03/24 13:27) hallucinations, itching, rash oxycodone Allergy (Intermediate, Verified 06/03/24 13:27) Hallucinations,itching, rash Penicillins Allergy (Intermediate, Verified 06/03/24 13:27) ITCHING/PASSES OUT acetaminophen [From Percocet] Allergy (Mild, Verified 06/03/24 13:27) Unknown From OxyContin Allergy (Intermediate, Uncoded 11/27/23 12:03) hallucinations,itching,rash Medication List - Last Reconciled 06/03/24 by Pepe Núñez MD amitriptyline 75 mg PO BEDTIME amlodipine 10 mg PO DAILY aspirin 81 mg PO DAILY baclofen 10 mg PO BID PRN 30 days [id number] 50-300-40 mg (Fioricet) 1 cap PO ONCE PRN 30 days carvedilol 25 mg PO BID cholecalciferol (vitamin D3) (Vitamin D3) 50 mcg PO DAILY cholecalciferol (vitamin D3) 25 mcg PO DAILY 90 days gabapentin 600 mg (2 x 300 mg) PO BEDTIME 90 days hydrochlorothiazide 25 mg PO QAM 90 days multivitamin (Daily Multi-Vitamin tablet) 1 tab PO DAILY omega-3 fatty acids 500 mg PO DAILY omeprazole 20 mg PO DAILY 30 days ondansetron HCl 4 mg PO Q8H PRN 7 days quetiapine 25 mg PO BEDTIME sennosides (Senokot) 8.6 mg PO BEDTIME turmeric root extract 500 mg PO DAILY Tobacco use date assessed: 06/03/24 Dental Screening Dental Screen Date: 06/03/24 Did you have a dental visit in the last 12 months?: No Did you have a dental problem in the last 6 months where you did not have access to dental care?: No Was dental information given to patient?: Patient has dentist HPI Overdue F/u~ HPI Details Patient is a 63-year-old female came in today for her regular follow-up appointment Right leg bump slightly sore lower part, observation Labs done recently reviewed Taking baclofen once at night gabapentin 300 once at night for chronic neck and back pain Patient is undergoing acupuncture treatment which is helping with her pain and migraine headaches She has stopped taking quetiapine that she was taking for depression and sleeping Since she is taking amitriptyline 75 mg for migration prevention, she is able to sleep at night Continued to be severely constipated, patient was doing well with amitzia, but her insurance stopped covering it Currently she is taking MiraLax and Senokot Patient is on amlodipine 10 mg for blood pressure control, tolerating medication no side effects She takes carvedilol 25 mg b.i.d. as well Omeprazole for GERD BMI is elevated need to lose weight PFSH Medical History Cervicalgia Osteoarthritis COVID-19 vaccine series completed Abdominal pain Nausea Constipation Acid reflux Hypertension, essential Surgical History Hx of tubal ligation History of fusion of cervical spine History of colonoscopy History of esophagogastroduodenoscopy History of sleeve gastrectomy History of endometrial ablation History of section Family History Father HTN (hypertension) Cancer of prostate Mother Diabetes mellitus History of heart attack Heart problem Brother Heart problem Diabetes mellitus Dialysis patient Brother HTN (hypertension) Stroke Arthritis Maternal Grandfather No problems noted. Maternal Grandmother No problems noted. Paternal Grandfather No problems noted. Paternal Grandmother No problems noted. Son No problems noted. Son No problems noted. Daughter No problems noted. Other Mental health disorder Social History Household Members: None Housing: Apartment Alcohol intake: never Patient Tobacco Use Status: Never used Tobacco e-Cigarette/Vaping Use: Never Used service: No Current occupational status: disabled Cognitive needs: No Hearing needs: No Vision needs: Yes Female Reproductive History Menstrual Age of Menarche: 9 Questionnaire PHQ-9 Over the last 2 weeks, how often have you been bothered by any of the following problems? 1. Little interest or pleasure in doing things: not at all 2. Feeling down, depressed, or hopeless: not at all 3. Trouble falling or staying asleep, or sleeping too much: several days 4. Feeling tired or having little energy: several days 5. Poor appetite or overeating: not at all 6. Feeling bad about yourself - or that you are a failure or have let yourself or your family down: not at all 7. Trouble concentrating on things, such as reading the newspaper or watching television: several days 8. Moving or speaking so slowly that other people could have noticed. Or the opposite - being so fidgety or restless that you have been moving around a lot more than usual: not at all 9. Thoughts that you would be better off or of hurting yourself in some way: not at all Total score: 3 Depression Screening Interpretation: Negative Depression Screening Done: Yes 64720 - PHQ-9 Billing: Yes Source: Developed by Drs. Jordan Hines, Micki Noriega, Steve Hernadez and colleagues, with an educational guanako from [employer]. Thrive Questionnaire Date Thrive assessed: 06/03/24 I am a: Patient What is your living situation today?: I have a steady place to live Within the past 12 months, did the food you bought not last and you didn't have the money to get more?: Never true Within the past 12 months, did you worry whether your food would run out before you got money to buy more?: Never true Do you have trouble paying for medicines?: No Do you have trouble getting transportation to medical appointments?: No Do you have trouble paying your heating and electricity bill?: No Do you have trouble taking care of your child, family member or friend?: No Do you have trouble with day-to-day activities such as bathing, preparing meals, shopping, managing finances, etc.?: No Are you currently unemployed and looking for a job?: No Are you interested in more education?: No Please select the resources that you would like help with: Housing/Skilled Nursing Currently or been in a relationship where the following occur: No concerns reported THRIVE Score: 0 AUDIT C Alcohol Use Questionnaire (AUDIT-C) 1. How often do you have a drink containing alcohol?: Never 3. How often do you have six or more drinks on one occasion?: Never Total Score: 0 Score Reviewed/Action Taken: Yes REVA-7 AMB Questionnaire REVA-7 Date REVA - 7 assessed: 06/03/24 Feeling nervous, anxious, or on edge: 0 = Not at all Not being able to stop or control worryin = Not at all Worrying too much about different things: 0 = Not at all Trouble relaxin = Not at all Being so restless that it is hard to sit still: 0 = Not at all Becoming easily annoyed or irritable: 0 = Not at all Feeling afraid as if something awful might happen: 0 = Not at all Total REVA-7 score (0-4 normal; 5-9 mild; 10-14 moderate; 15-21 severe): 0 Source: Developed by Drs. Jordan Hines, Micki Noriega, Steve Hernadez and colleagues, with an educational guanako from [employer]. REVA-7 Assessment Billing REVA-7 Assessment Tool: REVA-7 Assessment 98083 Review of Systems Const Denies chills and Denies fever(s) ENT Denies epistaxis and Denies nasal discharge Card Denies chest pain Resp Denies chest congestion, Denies cough and Denies hemoptysis GI Denies diarrhea and Denies nausea Skin/Breast Denies rash Neuro Reports no additional complaints Psych Reports no additional complaints Endo Reports no additional complaints Physical exam (Primary Care) Vital Signs: Last Vital Signs Pulse 93 06/03/24 13:27 BP 134/96 H 06/03/24 13:27 Pulse Ox 97 06/03/24 13:27 Oxygen Delivery Method Room Air 06/03/24 13:27 BMI result Body Mass Index 34.1 Tobacco/Smoking Status: Tobacco use Status Tobacco use date assessed 06/03/24 06/03/24 13:31 Patient Tobacco Use Status Never used Tobacco 06/03/24 13:31 e-Cigarette/Vaping Use Never Used 06/03/24 13:31 PHQ-9: PHQ-9 Score PHQ-9: Total score 3 06/03/24 13:48 Depression Screening Interpretation: Negative Thrive Assessment: Date of Thrive Assessment Date Thrive assessed 06/03/24 06/03/24 13:31 Currently or been in a relationship where the following occur: No concerns reported Const General: cooperative, comfortable and no acute distress Orientation/consciousness: patient oriented x3 HENMT Head: Yes normocephalic Eyes General: appearance normal, both eyes and all related structures Neck Neck: Yes supple Resp Effort & Inspection: normal respiratory effort, no cough and no stridor Cardio Rhythm: regular rhythm Heart sounds: S1 normal heart sound present and S2 normal heart sound present Skin General skin exam: turgor normal Neuro General: patient oriented x3, tone normal and moves all extremities Extrem Right lower extremity: no edema Left lower extremity: no edema Assessment and Plan Assessment & Plan (1) Hypertension, essential: Code(s): I10 - Essential (primary) hypertension (2) Fibromyalgia: Code(s): M79.7 - Fibromyalgia (3) Headache syndrome: Code(s): G44.89 - Other headache syndrome (4) Radiculitis of left cervical region: Code(s): M54.12 - Radiculopathy, cervical region (5) Muscle spasm: Code(s): M62.838 - Other muscle spasm (6) Constipation by delayed colonic transit: Code(s): K59.01 - Slow transit constipation (7) Chronic back pain: Code(s): M54.9 - Dorsalgia, unspecified; G89.29 - Other chronic pain Qualifiers: Back pain laterality: bilateral Back pain location: low back pain Sciatica laterality: sciatica of left side Sciatica presence: with sciatica Qualified Code(s): M54.42 - Lumbago with sciatica, left side; G89.29 - Other chronic pain (8) Obesity due to excess calories: Code(s): E66.09 - Other obesity due to excess calories Qualifiers: Body mass index: BMI 34.0-34.9 Obesity classification: adult class 1 (BMI 30 - 34.9) Serious obesity comorbidity presence: with serious comorbidity Qualified Code(s): E66.09 - Other obesity due to excess calories; Z68.34 - Body mass index [BMI] 34.0-34.9, adult (9) Migraine headache: Code(s): G43.909 - Migraine, unspecified, not intractable, without status migrainosus Qualifiers: Intractability: intractable Migraine type: periodic headache syndrome Qualified Code(s): G43.C1 - Periodic headache syndromes in child or adult, intractable (10) Pain management: Code(s): R52 - Pain, unspecified (11) Dyspepsia: Code(s): R10.13 - Epigastric pain Plan Patient is a 63-year-old female came in today for her regular follow-up appointment Right leg bump slightly sore lower part, observation Labs done recently reviewed Taking baclofen once at night gabapentin 300 once at night for chronic neck and back pain Patient is undergoing acupuncture treatment which is helping with her pain and migraine headaches She has stopped taking quetiapine that she was taking for depression and sleeping Since she is taking amitriptyline 75 mg for migration prevention, she is able to sleep at night Continued to be severely constipated, patient was doing well with amitzia, but her insurance stopped covering it Currently she is taking MiraLax and Senokot Patient is on amlodipine 10 mg for blood pressure control, tolerating medication no side effects She takes carvedilol 25 mg b.i.d. as well Omeprazole for GERD BMI is elevated need to lose weight Medications: Changed From gabapentin 600 mg (2 x 300 mg) PO BEDTIME 90 days 180 caps 0RF To gabapentin 300 mg PO BEDTIME 90 caps 0RF 90 days From baclofen 10 mg PO BID 30 days PRN 60 tabs 0RF muscle spasm To baclofen 10 mg PO .qhs PRN 30 tabs 2RF muscle spasm 30 days Coding Level of Care Code Est Pt Level 4 (06268) Complex EM visit Add On G2211 Diagnoses Hypertension, essential I10 Fibromyalgia M79.7 Headache syndrome G44.89 Radiculitis of left cervical region M54.12 Muscle spasm M62.838 Constipation by delayed colonic transit K59.01 Chronic bilateral low back pain with left-sided sciatica M54.42; G89.29 Back pain laterality: bilateral Back pain location: low back pain Sciatica laterality: sciatica of left side Sciatica presence: with sciatica Class 1 obesity due to excess calories with serious comorbidity and body mass index (BMI) of 34.0 to 34.9 in adult E66.09; Z68.34 Body mass index: BMI 34.0-34.9 Obesity classification: adult class 1 (BMI 30 - 34.9) Serious obesity comorbidity presence: with serious comorbidity Intractable periodic headache syndrome G43.C1 Intractability: intractable Migraine type: periodic headache syndrome Pain management R52 Dyspepsia R10.13 Additional Codes REVA-7 Assessment Billing - REVA-7 Assessment Tool: REVA-7 Assessment 53093 ([id number])
== END 2024-06-03 14:05 | disposition home or self-care (01) ==
PROVIDERS: PCP Internal Medicine; Visit Provider Internal Medicine
DX: I10 Essential (primary) hypertension (principal); M79.7 Fibromyalgia; G44.89 Other headache syndrome; M54.12 Radiculopathy, cervical region; M62.838 Other muscle spasm; K59.01 Slow transit constipation; M54.42 Lumbago with sciatica, left side; G89.29 Other chronic pain; E66.09 Other obesity due to excess calories; Z68.34 Body mass index [BMI] 34.0-34.9, adult; G43.C1 Periodic headache syndromes in child or adult, intractable; R10.13 Epigastric pain
CPT/HCPCS: 99214; G2211

== ENCOUNTER 2024-09-06 12:03 | Outpatient (AMB) | payer OTHER, SELFPAY ==
[2024-09-06 12:05] VITALS: BP 132/94; PULSE 94; O2SAT 98; BMI 35.0
--- NOTE | 2024-09-06 12:05 | A.OFFPC_ITS ---
Vital Signs 09/06/24 12:05 Height 5 ft 6 in Weight 217 lb BMI 35.0 BP 132/94 H Blood Pressure Location Rt brachial Position Sitting Pulse 94 Pulse Source Pulse Oximeter Pulse Oximetry (%) 98 Oxygen Delivery Method Room Air Intake Visit Reasons: 3 Mo F/U Allergies hydromorphone [Dilaudid] Allergy (Intermediate, Verified 09/06/24 12:05) Hallucinations,Itching, rash Iodinated Contrast Media Allergy (Intermediate, Verified 09/06/24 12:05) shortness of breath morphine [Morphine] Allergy (Intermediate, Verified 09/06/24 12:05) hallucinations, itching, rash oxycodone Allergy (Intermediate, Verified 09/06/24 12:05) Hallucinations,itching, rash Penicillins Allergy (Intermediate, Verified 09/06/24 12:05) ITCHING/PASSES OUT acetaminophen [From Percocet] Allergy (Mild, Verified 09/06/24 12:05) Unknown From OxyContin Allergy (Intermediate, Uncoded 11/27/23 12:03) hallucinations,itching,rash Medication List - Last Reconciled 09/06/24 by Pepe Núñez MD amitriptyline 75 mg PO BEDTIME amlodipine 10 mg PO DAILY aspirin 81 mg PO DAILY baclofen 10 mg PO .qhs PRN 30 days ckppqltbaz-yhbsxdrntqcka-zgvu 50-300-40 mg (Fioricet) 1 cap PO ONCE PRN 30 days carvedilol 25 mg PO BID cholecalciferol (vitamin D3) 25 mcg PO DAILY 90 days gabapentin 300 mg PO BEDTIME 90 days hydrochlorothiazide 25 mg PO QAM 90 days lubiprostone (Amitiza) 8 mcg PO TID 90 days multivitamin (Daily Multi-Vitamin tablet) 1 tab PO DAILY omeprazole 20 mg PO DAILY 30 days ondansetron HCl 4 mg PO Q8H PRN 7 days sennosides (Senokot) 8.6 mg PO BEDTIME turmeric root extract 500 mg PO DAILY Tobacco use date assessed: 09/06/24 Dental Screening Dental Screen Date: 09/06/24 Did you have a dental visit in the last 12 months?: Yes Did you have a dental problem in the last 6 months where you did not have access to dental care?: No Was dental information given to patient?: Patient has dentist HPI 3 Mo F/U HPI Details Patient is a 63-year-old female came in today for her regular follow-up appointment Patient has struggled from chronic constipation She has appointment coming up with the gastroenterology in September, she was doing well with Amitiza until her insurance declined to cover it I have given her a written script as pharmacy continued to tell her that we are not sending it Meanwhile she is trying to take laxatives OTC and is taking almost 4 different type Taking baclofen once at night gabapentin 300 once at night for chronic neck and back pain Headaches are stable with amitriptyline 75 mg which was started by Neurology She was also given few tablets of Fioricet long time ago which she still have as she takes it very rarely Patient is on amlodipine 10 mg for blood pressure control, tolerating medication no side effects She takes carvedilol 25 mg b.i.d. as well Omeprazole for GERD BMI is elevated need to lose weight PFSH Medical History Cervicalgia Osteoarthritis COVID-19 vaccine series completed Abdominal pain Nausea Constipation Acid reflux Hypertension, essential Surgical History Hx of tubal ligation History of fusion of cervical spine History of colonoscopy History of esophagogastroduodenoscopy History of sleeve gastrectomy History of endometrial ablation History of section Family History Father HTN (hypertension) Cancer of prostate Mother Diabetes mellitus History of heart attack Heart problem Brother Heart problem Diabetes mellitus Dialysis patient Brother HTN (hypertension) Stroke Arthritis Maternal Grandfather No problems noted. Maternal Grandmother No problems noted. Paternal Grandfather No problems noted. Paternal Grandmother No problems noted. Son No problems noted. Son No problems noted. Daughter No problems noted. Other Mental health disorder Social History Household Members: None Housing: Apartment Alcohol intake: never Patient Tobacco Use Status: Never used Tobacco e-Cigarette/Vaping Use: Never Used service: No Current occupational status: disabled Cognitive needs: No Hearing needs: No Vision needs: Yes Female Reproductive History Menstrual Age of Menarche: 9 Questionnaire Thrive Questionnaire Date Thrive assessed: 09/06/24 I am a: Patient What is your living situation today?: I have a steady place to live Within the past 12 months, did the food you bought not last and you didn't have the money to get more?: Never true Within the past 12 months, did you worry whether your food would run out before you got money to buy more?: Never true Do you have trouble paying for medicines?: No Do you have trouble getting transportation to medical appointments?: No Do you have trouble paying your heating and electricity bill?: No Do you have trouble taking care of your child, family member or friend?: No Do you have trouble with day-to-day activities such as bathing, preparing meals, shopping, managing finances, etc.?: No Are you currently unemployed and looking for a job?: No Are you interested in more education?: No Please select the resources that you would like help with: None Currently or been in a relationship where the following occur: No concerns reported THRIVE Score: 0 AUDIT C Alcohol Use Questionnaire (AUDIT-C) 1. How often do you have a drink containing alcohol?: Never 3. How often do you have six or more drinks on one occasion?: Never Total Score: 0 Score Reviewed/Action Taken: Yes REVA-7 AMB Questionnaire REVA-7 Date REVA - 7 assessed: 06/03/24 Source: Developed by Drs. Jordan Hines, Micki Noriega, Steve Hernadez and colleagues, with an educational guanako from [employer]. Review of Systems Const Denies chills and Denies fever(s) ENT Denies epistaxis and Denies nasal discharge Card Denies chest pain Resp Denies chest congestion, Denies cough and Denies hemoptysis GI Denies diarrhea and Denies nausea Skin/Breast Denies rash Neuro Reports no additional complaints Psych Reports no additional complaints Endo Reports no additional complaints Physical exam (Primary Care) Vital Signs: Last Vital Signs Pulse 94 09/06/24 12:05 BP 132/94 H 09/06/24 12:05 Pulse Ox 98 09/06/24 12:05 Oxygen Delivery Method Room Air 09/06/24 12:05 BMI result Body Mass Index 35.0 Tobacco/Smoking Status: Tobacco use Status Tobacco use date assessed 09/06/24 09/06/24 12:08 Patient Tobacco Use Status Never used Tobacco 09/06/24 12:05 e-Cigarette/Vaping Use Never Used 09/06/24 12:05 Thrive Assessment: Date of Thrive Assessment Date Thrive assessed 09/06/24 09/06/24 12:08 Currently or been in a relationship where the following occur: No concerns repo rted Const General: cooperative, comfortable and no acute distress Orientation/consciousness: patient oriented x3 HENMT Head: Yes normocephalic Eyes General: appearance normal, both eyes and all related structures Neck Neck: Yes supple Resp Effort & Inspection: normal respiratory effort, no cough and no stridor Cardio Rhythm: regular rhythm Heart sounds: S1 normal heart sound present and S2 normal heart sound present Skin General skin exam: turgor normal Neuro General: patient oriented x3, tone normal and moves all extremities Extrem Right lower extremity: no edema Left lower extremity: no edema Coding Level of Care Code Est Pt Level 4 (20333) Complex EM visit Add On G2211 Diagnoses Hypertension, essential I10 Intractable periodic headache syndrome G43.C1 Intractability: intractable Migraine type: periodic headache syndrome Degenerative lumbar spinal stenosis M48.061 Cervical radiculopathy, acute M54.12 Pain management R52 Fibromyalgia M79.7 Back muscle spasm M62.830 Class 1 obesity due to excess calories with serious comorbidity and body mass index (BMI) of 34.0 to 34.9 in adult E66.09; Z68.34 Body mass index: BMI 34.0-34.9 Obesity classification: adult class 1 (BMI 30 - 34.9) Serious obesity comorbidity presence: with serious comorbidity Headache syndrome G44.89 Assessment & Plan Assessment & Plan (1) Hypertension, essential: Code(s): I10 - Essential (primary) hypertension Category: Medical (2) Migraine headache: Code(s): G43.909 - Migraine, unspecified, not intractable, without status migrainosus Category: Medical Qualifiers: Intractability: intractable Migraine type: periodic headache syndrome Qualified Code(s): G43.C1 - Periodic headache syndromes in child or adult, intractable (3) Degenerative lumbar spinal stenosis: Code(s): M48.061 - Spinal stenosis, lumbar region without neurogenic claudication Category: Medical (4) Cervical radiculopathy, acute: Code(s): M54.12 - Radiculopathy, cervical region Category: Medical (5) Pain management: Code(s): R52 - Pain, unspecified Category: Medical (6) Fibromyalgia: Code(s): M79.7 - Fibromyalgia Category: Medical (7) Back muscle spasm: Code(s): M62.830 - Muscle spasm of back Category: Medical (8) Obesity due to excess calories: Code(s): E66.09 - Other obesity due to excess calories Category: Medical Qualifiers: Body mass index: BMI 34.0-34.9 Obesity classification: adult class 1 (BMI 30 - 34.9) Serious obesity comorbidity presence: with serious comorbidity Qualified Code(s): E66.09 - Other obesity due to excess calories; Z68.34 - Body mass index [BMI] 34.0-34.9, adult (9) Headache syndrome: Code(s): G44.89 - Other headache syndrome Category: Medical Plan Patient is a 63-year-old female came in today for her regular follow-up appointment Patient has struggled from chronic constipation She has appointment coming up with the gastroenterology in September, she was doing well with Amitiza until her insurance declined to cover it I have given her a written script as pharmacy continued to tell her that we are not sending it Meanwhile she is trying to take laxatives OTC and is taking almost 4 different type Taking baclofen once at night gabapentin 300 once at night for chronic neck and back pain Headaches are stable with amitriptyline 75 mg which was started by Neurology She was also given few tablets of Fioricet long time ago which she still have as she takes it very rarely Patient is on amlodipine 10 mg for blood pressure control, tolerating medication no side effects She takes carvedilol 25 mg b.i.d. as well Omeprazole for GERD BMI is elevated need to lose weight Medications: New [Blood pressure monitor] As directed 1 ea 0RF I10 - Essential (primary) hypertension Changed From ondansetron HCl 4 mg PO Q8H 7 days PRN 14 tabs 0RF nausea and vomiting R11.0 - Nausea To ondansetron HCl 4 mg PO Q8H PRN 60 tabs 0RF nausea and vomiting 30 days R11.0 - Nausea Refilled lubiprostone (Amitiza) 8 mcg PO TID 270 caps 0RF 90 days
== END 2024-09-06 14:14 | disposition home or self-care (01) ==
PROVIDERS: PCP Internal Medicine; Visit Provider Internal Medicine
DX: I10 Essential (primary) hypertension (principal); G43.C1 Periodic headache syndromes in child or adult, intractable; M48.061 Spinal stenosis, lumbar region without neurogenic claudication; M54.12 Radiculopathy, cervical region; M79.7 Fibromyalgia; M62.830 Muscle spasm of back; E66.09 Other obesity due to excess calories; Z68.34 Body mass index [BMI] 34.0-34.9, adult; G44.89 Other headache syndrome

== ENCOUNTER → 2024-09-06 12:03 | Outpatient (BNVA) | payer OTHER, SELFPAY | PROVIDERS: PCP Internal Medicine; Visit Provider Internal Medicine | DX: I10 Essential (primary) hypertension (principal); G43.C1 Periodic headache syndromes in child or adult, intractable; M48.061 Spinal stenosis, lumbar region without neurogenic claudication; M54.12 Radiculopathy, cervical region; M79.7 Fibromyalgia; M62.830 Muscle spasm of back; E66.09 Other obesity due to excess calories; Z68.34 Body mass index [BMI] 34.0-34.9, adult; G44.89 Other headache syndrome; Z71.3 Dietary counseling and surveillance | CPT/HCPCS: 99212 ==

== ENCOUNTER 2024-10-14 14:57 | Outpatient (AMB) | payer OTHER, SELFPAY ==
--- NOTE | 2024-10-14 14:59 | MHC.OFFVIS ---
Vital Signs 10/14/24 15:00 Height 5 ft 6 in Weight 217 lb BMI 35.0 BP 157/75 H Blood Pressure Location Lt brachial Position Sitting Pulse 106 H Intake Visit Reasons: Floresita pt - Constipation Intake Note: Patient follow up for constipation/Floresita former pt. Patient cc: chronic painful constipation, denies any other GI issues for today. Dredging Inspector Required: No Accompanied by: Self / Same As Patient Allergies hydromorphone [Dilaudid] Allergy (Intermediate, Verified 10/14/24 14:59) Hallucinations,Itching, rash Iodinated Contrast Media Allergy (Intermediate, Verified 10/14/24 14:59) shortness of breath morphine [Morphine] Allergy (Intermediate, Verified 10/14/24 14:59) hallucinations, itching, rash oxycodone Allergy (Intermediate, Verified 10/14/24 14:59) Hallucinations,itching, rash Penicillins Allergy (Intermediate, Verified 10/14/24 14:59) ITCHING/PASSES OUT acetaminophen [From Percocet] Allergy (Mild, Verified 10/14/24 14:59) Unknown From OxyContin Allergy (Intermediate, Uncoded 11/27/23 12:03) hallucinations,itching,rash HPI Comments Details: 63 y.o F with PMH of who is switching over providers for persistent GI sx as below. Reports longstanding constipation x years. She describes lower abd discomfort assoc with having 1-2 BMs per week with nausea if the constipation gets prolonged. Avoiding processed foods. Incorporates a lot of vegetables in her diet. Uses a step stool. Does abd massage. Current meds: docusate 400 daily prunelax miralax but not using correct dose magnesium oxide 100 daily also takes 1 tsp coconut oil every other day Amitiza 16 mcg once daily Last colo 2021 (Dr Bob): BBPS 8/9. 10 mm hyperplastic polyp in descending colon. Repeat recommended in 2026. [facility] Medical History Cervicalgia Osteoarthritis COVID-19 vaccine series completed Abdominal pain Nausea Constipation Acid reflux Hypertension, essential Surgical History Hx of tubal ligation History of fusion of cervical spine History of colonoscopy History of esophagogastroduodenoscopy History of sleeve gastrectomy History of endometrial ablation History of section Family History Father HTN (hypertension) Cancer of prostate Mother Diabetes mellitus History of heart attack Heart problem Brother Heart problem Diabetes mellitus Dialysis patient Brother HTN (hypertension) Stroke Arthritis Maternal Grandfather No problems noted. Maternal Grandmother No problems noted. Paternal Grandfather No problems noted. Paternal Grandmother No problems noted. Son No problems noted. Son No problems noted. Daughter No problems noted. Other Mental health disorder Social History Household Members: None Housing: Apartment Alcohol intake: never Patient Tobacco Use Status: Never used Tobacco e-Cigarette/Vaping Use: Never Used service: No Current occupational status: disabled Cognitive needs: No Hearing needs: No Vision needs: Yes Female Reproductive History Menstrual Age of Menarche: 9 Review of Systems Const All systems reviewed & are unremarkable except as noted in HPI and below Physical Exam Vital Signs: Last Vital Signs Pulse 106 H 10/14/24 15:00 BP 157/75 H 10/14/24 15:00 BMI result Body Mass Index 35.0 No apparent distress Nonicteric Abdomen soft, nondistended Alert and oriented x3, normal gait Assessment & Plan Assessment & Plan (1) Chronic idiopathic constipation: Code(s): K59.04 - Chronic idiopathic constipation Category: Medical Plan Sx consistent with CIC from slow transit vs outlet dysfunction. Plan: - Stop docusate and prunelax - Start bisacodyl 10 mg once daily 30 mins before breakfast - Miralax 17g mixed in 8 oz water 1-2 times a day - Add fiber supplementation - Utilize glycerin supp for fecal impaction - Labs ordered to r/o correctible causes such as hypothyroidism or abnormal divalents - Follow up in 2 months to review. If limited improvement, low threshold to switch amitiza to a different agent, such as motegrity or linzess Orders: Orders Calcium 10/14/24 K59.04 - Chronic idiopathic constipation Magnesium 10/14/24 K59.04 - Chronic idiopathic constipation TSH reflex Free T4 10/14/24 K59.04 - Chronic idiopathic constipation Medications: New bisacodyl (Dulcolax (bisacodyl)) 10 mg (2 x 5 mg) PO DAILY 90 days 180 tabs 0RF glycerin (child) 2 supp PA ONCE PRN 12 ea 1RF constipation K59.04 - Chronic idiopathic constipation Patient Instructions: 1. Stop docusate and prunelax 2. Start dulcolax 2 tabs before breakfast 3. miralax 17g in 8 oz water twice a day 4. For stool impaction, use glycerin suppositories as needed 5. Start fiber supplementation - 1 tsp mixed in 8 oz of water and drink daily Coding Level of Care Code Est Pt Level 4 (49904) Diagnoses Chronic idiopathic constipation K59.04
--- OUTSIDE RECORDS SUMMARY | 2024-10-14 14:59 | XMS_ITS ---
Author Organization [facility] Address [address] [place] [address] Care Team Providers Care Diaphragm Builder Name Role Phone Wilton SCHWARTZ, Asma Primary Care Provider Kaylie Swartz [phone] REASON FOR VISIT [facility] Encounters Encounter Location Date Provider Diagnosis [facility] [address] [place] [address] 09/09/2024 Kaylie Hill Plan Of Treatment Next Appt Details Provider Name:Kaylie neil, 12/14/2024 02:00:00 PM, [address] [place], [address], Progress Notes * Yaa ZACARIASDOB:1960 (63 yo F)Acc No.[id number]:09/09/2024 Patient:?Yaa ZACARIAS :1960???Age:63 Y???Sex:Female Address:[address] , [place], [address] * true * Date:? Generated for Cynthia rm/Roxi/Alanisransmitting on:?10/14/2024 02:59 PM EST
--- OUTSIDE RECORDS SUMMARY | 2024-10-14 14:59 | XMS_ITS | Patient Health Record ---
[facility] Address [address] [place] [address] Care Team Providers Care Platform Architect Name Role Phone Wilton SCHWARTZ, Asma Primary Care Provider Kaylie Swartz Unavailable [phone] Allergies Allergen (clinical drug ingredient) Drug/Non Drug Allergy documented on EMR Reaction Allergy Type Onset Date Status codeine Codeine Unknown Drug Allergy Active morphine Morphine Unknown Drug Allergy Active povidone-iodine Povidone Iodine shortness of breath Drug Allergy Active Reason For Referral No Information Medications Medication SIG (Take, Route, Frequency, Duration) Notes Start Date End Date Status [place] 3 500 MG 1 capsule Once a day Active Night Splint AFO - L1930 as directed 02/06/2021 Not-Taking Vitamin D3 50 MCG (1999 UT) 1 capsule Or ally Once a day for 30 day(s) Active amLODIPine Besylate 10 MG 1 tablet Orall y Once a day Active hydroCHLOROthiazide 25 MG 1 tablet in th e morning Orally Once a day Active Physical Therapy . . . 2-3x/week for 3-4 weeks 02/06/2021 Not-Taking Amitriptyline HCl 50 MG 1 tablet at bedt anatoly Orally Once a day Active Amitiza 8 MCG 1 capsule with food and water Orally Three times daily Active Gabapentin 300 MG 1 capsule Orally As needed Active Carvedilol 25 MG 1 tablet with food Orally Twice a day Active Omeprazole Active Physical Therapy . . . 2-3x/week for 3-4 weeks 10/06/2024 Active Multivitamin - 1 tablet Orally Once a day for 30 day(s) Active Immunizations Vaccine Route Administration Date Status Comme nts COVID-19 Luke & Luke/Francy Unknown 01/25/2021 A dministered Influenza Unknown 09/03/2021 Administered Social History Tobacco Use: Social History Observation Description Date Details (start date - stop date) Never Smoker NA - NA Tobacco use other than smoking: Question Answer Notes Are you an other tobacco user? No Tobacco Control (Standard) Question Answer Notes Tobacco use: Nonsmoker Additional Findings: Tobacco non-user Current no nsmoker AUDIT-C (Standard) Question Answer Notes Did you have a drink containing alcohol in the p ast year? No Points 0 Interpretation Negative Problems Problem Type SNOMED Code ICD Code Onset Dates Problem Status W/U Status Risk Notes Problem Localized, primary osteoarthritis of the ankle and/or foot (698635719) Primary osteoarthritis, right ankle and foot (M19.071) Active confirmed Problem 948339041091496 Tarsal tunnel syndrome, right lower limb (G57.51) Active confirmed Problem 718264905 Neuropathy (G62.9) Active confirmed Problem 278522415216182 Neuritis of right foot (G57.91) Active confirmed Problem Plantar fasciitis of right foot (05156597781755902 ) Plantar fasciitis of right foot (M72.2) Active confirmed Problem 34652129 Venous insufficiency (I87.2) Active confirmed Problem Interstitial myositis (01701766) Interstitial myositis of right foot (M60.171) Active confirmed Vital Signs Blood pressure diastolic 89 mm Hg 10/06/2024 Height 5ft 6in in 10/06/2024 Blood pressure systolic 148 mm Hg 10/06/2024 Weight 214 lbs 10/06/2024 BMI 34.54 kg/m2 10/06/2024 Encounters Encounter Location Date Provider Diagnosis [facility] [address] [place] [address] 09/09/2024 Kaylie Perica Pain in right foot M79.671 ; Plantar fasciitis of right foot M72.2 ; Calcaneal spur, right foot M77.31 ; 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 ; Bursitis of right foot M77.51 and Neuritis of right foot G57.[address] [facility] [address] 10/06/2024 Kaylie Perica Pain in right foot M79.671 ; Plantar fasciitis of right foot M72.2 ; Calcaneal spur, right foot M77.31 ; 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 ; Bursitis of right foot M77.51 ; Neuritis of right foot G57.91 ; Pain in right toe(s) M79.674 ; Onychomycosis B35.1 ; Pain in left toe(s) M79.675 ; Symptomatic varicose veins of right lower extremity I83.891 ; Tarsal tunnel syndrome, right lower limb G57.51 and Posterior tibial tendinitis, right leg M76.821 [facility] [address] [place] [address] 09/09/2024 Kaylie Hill Assessments Encounter Date Diagnosis (ICD Code) Assessment Notes Treatment Notes Treatment Clinical Notes Section Notes 09/09/2024 Pain in right foot (ICD-10 - M79.671) 09/09/2024 Plantar fasciitis of right foot (ICD-10 - M72.2) Patient Educated with: HEEL CORD STRETCHES.pdf (HEEL CORD STRETCHES.pdf) Patient Educated with: RICE THERAPY.pdf (RICE THERAPY.pdf) 10/06/2024 Pain in right foot (ICD-10 - M79.671) 10/06/2024 Calcaneal spur, right foot (ICD-10 - M77.31) 10/06/2024 Plantar fasciitis of right foot (ICD-10 - M72.2) 09/09/2024 Calcaneal spur, right foot (ICD-10 - M77.31) 10/06/2024 Interstitial myositis of right foot (ICD-10 - M60.171) 09/09/2024 Interstitial myositis of right foot (ICD-10 - M60.171) 10/06/2024 Bursitis of right foot (ICD-10 - M77.51) 09/09/2024 Bursitis of right foot (ICD-10 - M77.51) 09/09/2024 Neuritis of right foot (ICD-10 - G57.91) 10/06/2024 Neuritis of right foot (ICD-10 - G57.91) 10/06/2024 Pain in right toe(s) (ICD-10 - M79.674) 10/06/2024 Onychomycosis (ICD-10 - B35.1) 10/06/2024 Pain in left toe(s) (ICD-10 - M79.675) 10/06/2024 Symptomatic varicose veins of right lower extremity (ICD-10 - I83.891) 10/06/2024 Tarsal tunnel syndrome, right lower limb (ICD-10 - G57.51) 10/06/2024 Posterior tibial tendinitis, right leg (ICD-10 - M76.821) Plan Of Treatment Pending Test Test Name Order Date X ray : Foot, left 3V 02/06/2021 X ray : Foot, right 3V 09/09/2024 [id number] Plate 11/05/2020 [id number] Plate Each Additional 08/2021 Next Appt Details Provider Name:Kaylie neil, 12/14/2024 02:00:00 PM, [address] [place] [address], [phone], Insurance Providers Payer Name Payer Address Payer Phone Subscriber Number Group Number Insured Name Patient Relationship to Insured Coverage Start Date Coverage End Date [facility] [employer] Claims [address] [place], [place] [address]SARAH henderson [id number] Yaa Zacarias Self - patient is the insured Medical (General) History Medical History History ICD Code Anemia Anxiety Arthritis Back,Hip,and Knee pain Fibromyalgia Glaucoma Headaches/Migraines High blood pressure Chicken pox Surgical History Surgery Date(Month/Year) cervical fusion x2 2008 & 2019 hernia tubal ligation gastric sleeve
--- OUTSIDE RECORDS SUMMARY | 2024-10-14 14:59 | XMS_ITS ---
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 Name Role Phone Wilton SCHWARTZ, Asma Primary Care Provider Kaylie Swartz Unavailable [phone] Allergies Allergen (clinical drug ingredient) Drug/Non Drug Allergy documented on EMR Reaction Allergy Type Onset Date Status codeine Codeine Unknown Drug Allergy Active morphine Morphine Unknown Drug Allergy Active povidone-iodine Povidone Iodine shortness of breath Drug Allergy Active REASON FOR VISIT Heel pain Medications Medication SIG (Take, Route, Frequency, Duration) Notes Start Date End Date Status Night Splint AFO - L1930 as directed 02/06/2021 Not-Taking Vitamin D3 50 MCG (1999 UT) 1 capsule Orally Once a day for 30 day(s) Active Magnolia 3 500 MG 1 capsule Once a day Active Amitiza 8 MCG 1 capsule with food and water Orally Three times daily Active Physical Therapy . . . 2-3x/week for 3- 4 weeks 02/06/2021 Not-Taking Omeprazole Active Multivitamin - 1 tablet Orally Once a day for 30 day(s) Active Gabapentin 300 MG 1 capsule Orally As needed Active Carvedilol 25 MG 1 tablet with food Orally Twice a day Active Amitriptyline HCl 50 MG 1 tablet at bedt anatoly Orally Once a day Active Social History Tobacco Use: Social History Observation Description Date Details (start date - stop date) Never Smoker NA - NA Tobacco Use/Smoking Question Answer Notes Are you a: nonsmoker Alcohol Screen Question Answer Notes Did you have a drink containing alcohol in the p ast year? No Points 0 Interpretation Negative Tobacco use other than smoking: Question Answer Notes Are you an other tobacco user? No Problems Problem Type SNOMED Code ICD Code Onset Dates Problem Status W/U Status Risk Notes Problem Plantar fasciitis of right foot (53700438632127400) Plantar fasciitis of right foot (M72.2) Active confirmed Problem Interstitial myositis (17739695) Interstitial myositis of right foot (M60.171) Active confirmed Problem [id number] Neuritis of right foot (G57.91) Active confirmed Vital Signs Height 5ft 6in in 09/09/2024 Weight 210 lbs 09/09/2024 BMI 33.89 kg/m2 09/09/2024 Blood pressure systolic 138 mm Hg 09/09/20 24 Blood pressure diastolic 93 mm Hg 024 Encounters Encounter Location Date Provider Diagnosis [facility] [address] [address] 09/09/2024 Kaylie Perica Pain in right foot M79.671 ; Plantar fasciitis of right foot M72.2 ; Calcaneal spur, right foot M77.31 ; 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 ; Bursitis of right foot M77.51 and Neuritis of right foot G57.91 Assessments Encounter Date Diagnosis (ICD Code) Assessment Notes Treatment Notes Treatment Clinical Notes Section Notes 09/09/2024 Pain in right foot (ICD-10 - M79.671) 09/09/2024 Plantar fasciitis of right foot (ICD-10 - M72.2) Patient Educated with: HEEL CORD STRETCHES.pdf (HEEL CORD STRETCHES.pdf) Patient Educated with: RICE THERAPY.pdf (RICE THERAPY.pdf) 09/09/2024 Calcaneal spur, right foot (ICD-10 - M77.31) 09/09/2024 Interstitial myositis of right foot (ICD-10 - M60.171) 09/09/2024 Bursitis of right foot (ICD-10 - M77.51) 09/09/2024 Neuritis of right foot (ICD-10 - G57.91) Plan Of Treatment Treatment Notes Assessment Notes Plantar fasciitis of right foot Patient Educated with: HEEL CORD STRETCHES.pdf (HEEL CORD STRETCHES.pdf) Patient Educated with: RICE THERAPY.pdf (RICE THERAPY.pdf) Pending Test Test Name Order Date X ray : Foot, right 3V 09/09/2024 Next Appt Details Follow Up: 4 Weeks, Reason: Provider Name:Kaylie Neil Dereck neil, 12/14/2024 02:00:00 PM, [address] [place], [address], Progress Notes * Yaa ZACARIASDOB:1960 (63 yo F)Acc No.[id number]:09/09/2024 Progress Note Patient:?Yaa ZACARIAS Provider:?Kaylie Hill DPM :1960???Age:63 Y???Sex:Female D ate:09/09/2024 Address:[address] [place] [address] [address] , [facility] Pcp:Pepe Núñez MD Subjective: * Chief Complaints: * ???Heel pain * HPI: ???Heel pain:?Nature:?aching, tenderness, throbbing, burning.?Location:?Proximal plantar aspect of Heel, RIGHT.?Duration:?several months.?Onset/Cause:?gradual, denies trauma.?Course:?worse.?Aggravated:?standing, walking, walking first thing in the morning/after rest.?Treatments:?rest/alter normal daily activity, change in shoes.? * ROS:?General/Constitutional:?Nausea?denies.?Vomiting?denies.?Hunger Thirst?denies.?Loss appetite?denies.?Chills?denies.?Fatigue?denies.?Fever?denies.?Night Sweats?denies.?Unexplained weight loss?denies.?Unexplained weight gain?denies.?HEENTM:?Dentures?denies.?Dizziness?denies.?Glasses/contacts?denies.?Retinopathy?de nies.?Blurred/double vision?denies.?TMJ?denies.?Discharge/drainage?denies.?Implants?denies.?Sore throat?denies.?Dental implants?denies.?Hard of hearing ?denies.?Difficulty chewing/swallowing/speaking?denies.?Nose bleeds?denies.?Sore mouth?denies.?Respiratory:?On Oxygen?denies.?Pneumonia/pleurisy?denies.?Bronchitis?denies.?Emphysema?denies.?C oughing?denies.?Cough blood?denies.?Shortness of breath?denies.?Wheezing?denies.?Cardiovascular:?Pacemaker?denies.?MVP?denies.?WPW?denies.?CHF?denies.?Heart attack?denies.?Septal defect?denies.?Rapid beat?denies.?Chest pain ?denies.?Atrial Fib.?denies.?Murmur/Palpitations?denies.?Gastrointestinal:?Hemorrhoids?denies.?Stomach/Abdominal pain?denies.?Dark blood stool?denies.?Irritable bowel ?denies.?Constipation?denies.?Diarrhea?denies.?Hematology:?Swelling?denies.?Clots?denies.?Varicose Veins?denies.?Bruising?denies.?Bleeding problem?denies.?Genitourinary:?Blood urine?denies.?Frequent/Painfu/urination/bladder control?denies.?Kidney stones?denies.?Infection (UTI)?denies.?Nephropathy?denies.?sex trans dis (STD)?denies.?Prostate?denies.?Musculoskeletal:?Hammertoes?denies.?Bunions?denies.?Back Pain?denies.?Muscle Cramps/ Resting?denies.?Muscle cramps / walking?denies.?Generalized aches and pains?denies.?Weakness?denies.?Integ.:?[place]?denies.?Scars?denies.?Corns/calluses?denies.?Ingrown nails?denies.?Painful nails?denies.?Open Sores?denies.?Rashes?denies.?Neurologic:?Difficulty sleeping?denies.?Brain disorder?denies.?Numbness?denies.?Balance trouble?denies.?Confusion?denies.?Fainting/blackouts?denies.?Tingling?denies.?Tr emors?denies.? * Medical History:? * Surgical History:?cervical f usion x2 2009 & 2019hernia tubal ligation gastric sleeve * Hospitalization/Major Diagno stic Procedure:?Denies Past Hospitalization * Family History:?Mother: dece ased, stroke, poor circulation, heart attack, diagnosed with Diabetic - NIDDM, Unspecified essential hypertension, Unspecified heart disease.?Father: , diagnosed with Other malignant neoplasm of unspecified site, Unspecified essential hypertension.? * Social History:?Tobacco Use:?Tobacco Use/Smoking?Are you a:?nonsmoker ?Tobacco use other than smoking?Are you an other tobacco user??No ???Drugs/Alcohol:?Drugs?Have you used drugs other than those for medical reasons in the past 12 months??No ?Alcohol Screen?Did you have a drink containing alcohol in the past year??No ?Points?0 ?Interpretation?Negative ???Miscellaneous:?Caffeine: yes, 1 cup every other per day. ?Children: yes, 3. ?Exercise: yes, Walking 3 times weekly. ?Marital status: . ?Occupation: Unemployed. * Medications:?TakingAmitiza 8 MCG Capsule 1 capsule with food and water Orally Three times daily Amitriptyline HCl 50 MG Tablet 1 tablet at bedtime Orally Once a day Carvedilol 25 MG Tablet 1 tablet with food Orally Twice a day Gabapentin 300 MG Capsule 1 capsule Orally As needed Multivitamin - Tablet 1 tablet Orally Once a day Omeprazole Magnolia 3 500 MG 1 capsule Once a day Vitamin D3 50 MCG (2000 UT) Capsule 1 capsule Orally Once a day Taking Amitiza 8 MCG Capsule 1 capsule with food and water Orally Three times daily Taking Amitriptyline HCl 50 MG Tablet 1 tablet at bedtime Orally Once a day Taking Carvedilol 25 MG Tablet 1 tablet with food Orally Twice a day Taking Gabapentin 300 MG Capsule 1 capsule Orally As needed Taking Multivitamin - Tablet 1 tablet Orally Once a day Taking Omeprazole Taking Magnolia 3 500 MG 1 capsule Once a day Taking Vitamin D3 50 MCG (1999 UT) Capsule 1 capsule Orally Once a day Not-Taking/PRNNight Splint AFO - L1930 as directed Physical Therapy . . . . 2- 3x/week Medication List reviewed and reconciled with the patientNot-Taking/PRN Night Splint AFO - L1930 as directed Not-Taking/PRN Physical Therapy . . . . 2-3x/week Medication List reviewed and reconciled with the patient * Allergies:?CodeineMorphinePo vidone Iodine: shortness of breathyes[Allergies Verified] Objective: * Vitals:?Ht: 5ft 6in, Wt:210, BMI:33.89, Shoe size: 9, BP:138/93mm Hg, Ht-cm: 167.64 cm, Wt-k.25 kg. * Examination: ???General Examination: ?GENERAL APPEARANCE:?Reveals a pleasant, alert, well-nourished, well- developed, well hydrated individual, who demonstrates proper attention to hygiene/body habitus, and is in no acute distress, Pt serves as own?historian for office visit today.?ORIENTED:?person, place, and time.?Neurological: ?SENSORY:?Neurological exam reveals intact sensorium, pain sensation normal, vibration sensation intact, pinprick sensation is normal in the lower extremities, Pt denies, anesthesia, burning, paresthesia, tingling, B/L.?TINEL'S COMPRESSION:?Positive, Medial calcaneal nerve, Right.?Vascular: ?DP PULSES(B):?3/4, B/L.?PT PULSES(B):?3/4, B/L.?CAPILLARY FILL TIME:?immediate, all digits, B/L.?TROPHIC CONDITION-TEXTURE/ELASTICITY/TURGOR/HAIR GROWTH(B):?normal, B/L.?TEMPERTURE GRADIENT(C):?warm to cool, proximal to distal, B/L.?PIGMENTATION:?normal, B/L.?EDEMA(C):?absent, B/L.?Dermatologic: ?SKIN FINDINGS:?Skin exam reveals normal texture, elasticity, and turgor. There are no masses. The interspaces are clear.?Orthopedic: ?MUSCLE STRENGTH:?5/5 all groups in a symmetrical fashion , B/L.?GAIT ABNORMALITY:?antalgic.?FOOT MORPHOLOGY:? Pes Planus structure, Decreased Ankle joint dorsiflexion ROM, knee extended.?FOOTWEAR:?shoe gear properties exacerbate patients foot/toe deformity.?Heel Pain: ?INSPECTION:? Pain on Palpation to Plantar Fascia med. and central bands, intrinsic musc., infra-calcaneal bursa, and med calc tubercle , RIGHT foot, No pain: posterior/superior heel, achilles bursa/tendon, sinus tarsi, peroneals, or with lateral heel compression; no limited STJ ROM, calor, or ecchymosis.?X-Rays - IMAGING REPORT: ?Clinical Indication(s):? Evaluate for Fracture, Evaluate Biomechanical Deformity.?Views:? 3 views of Foot, LAT, LO, MO, RIGHT.?Findings:? normal bone and soft tissue density consistent for patients age and sex, navicular/cuneiform plantar subluxation with anterior cyma line, positive infra-calcaneal exostosis.?Fracture:?Negative fractures identified.? * Physical Examination:?L3000 Custom Fabricated OT:?Custom Orthotic?Custom Fabricated Orthoses.? Assessment: * Assessment: 1.?Pain in right foot - M79. 671???2.?Plantar fasciitis of right foot - M72.2 (Primary)???Specify :Acute problem, Complicated w/ Multiple Tx Options(4),Dx New problem, Prognosis Uncertain (4)???3.?Calcaneal spur, right foot - M77.31???4.?Interstitial myositis of right foot - M60.171???5.?Bursitis of right foot - M77.51???6.?Neuritis of right foot - G57.91??? Plan: * Treatment: 2.?Pain in right foot?Imaging: X ray : Foot, right 3V * Procedure Codes:?54346 X-RAY EXAM OF RIGHT FOOT 3V, Modifiers: 26 , [id number] Prescription Custom Fabricated Foot insert, Units: 2.00 * Preventive Medicine:? ??Counseling:?Discussion:?-14: Office or other outpatient visit for the evaluation and management of an established patient, which required a medically appropriate history and/or examination and MODERATE level of DECISION MAKING for: 1 OR MORE CHRONIC PROBLEM(S) THATS WORSENING, 2 STABLE CHRONIC PROBLEMS, A NEWLY DIAGNOSED PROBLEM WITH UNCERTAIN PROGNOSIS, AN ACUTE COMPLICATED INJURY WITH MULTIPLE TREATMENT OPTIONS, OR AN ACUTE PROBLEM WITH ACCOMPANYING SYSTEMIC SYMPTOMS, THAT POSE(S) A MODERATE RISK OF MORBIDITY. THIS CONDITION MAY ALSO INCLUDE RX DRUG MANAGEMENT, OR A DECISON FOR MINOR SURGERY. The visit on the day of the encounter encompassed interpreting the data and educating the patient as to the nature of their condition, treatment options available according to their individual PMH, meds, allergies, and overall health/living conditions, as well as any potential risks or complications that may occur from a failure to adhere to, and participate in, the recommended course of therapy. The discussion included a complete verbal, and/or written explanation of the examination results, any x-rays taken, the proposed diagnosis, and outline of the treatment plan. A schedule for future care needs was also explained. The patient verbalized an understanding of the instructions at this time and agreed to be an active participant in their treatment. If the patient should think of any questions or concerns after the visit, I have encouraged the patient to call the office.?Heel pain:?FASCIITIS: I explained to the patient the possible etiologies of Plantar Fasciitis including foot type/shoegear/activity level/exercise routine and the risks/benefits of all the different treatment options for heel pain including: No treatment at all, Rest, Ice, NSAIDs(only if well tolerated after meals), New/supportive Shoegear, Strappings and Tapings, Stretching exercises, Deep Tissue Massage, Heel cups/cushions, Arch support/shoe inserts, Custom orthoses, Topical analgesics including Aspercream/Voltaren gel, Night splint AFO for am stiffness, Cortisone injection therapy, Cast boot with crutches/cane/or walker for assisted ambulation, Physical Therapy, EPAT/ESWT, Interfil injection therapy, as well as surgical [place]/Endoscopic Fasciitomy surgical procedures if needed. Recommendations were made to limit barefoot walking, eliminate wearing nonsupportive shoegear (i.e. flip-flops or sandals, or a shoe with an easily bendable, foldable, or twistable sole) and wear shoegear with a good solid sole, a supportive arch, and plenty of room for an insert/orthotic if necessary. If wearing sandals was required by the patient, we recommended orthopedic sandals such as Orthoheel or Birkenstock even while in the home. If the patient wore heels in the past, we recommended they continue, but eliminate the use of flats. The advantages and disadvantages of each option were discussed and the patients questions re: types of shoegear, custom vs prefabricated inserts, activity level, PO vs Topical medications (and their respective potential complications/drug interactions/side effects), and consistency in home treatment regimens for optimal success were answered to their satisfaction. Literature detailing plantar fasciitis and the various treatment options were dispensed and reviewed.?Orthotics:?I explained to the patient the benefits of OT use. I explained that orthoses are medically necessary to decrease the foot pain through proper mechanical control, support of their foot , decrease stretch/strain on the plantar fascia, Custom OT: A comprehensive biomechanical exam, gate analysis, and casting for custom orthoses was performed for L3000 ea per foot.?P.R.I.C.E.:?The patient was counseled on the use of P.R.I.C.E. and NSAIDS (if well tolerated) to aid in the recovery from their painful condition.?Shoe Gear Counseling:?The patient and I reviewed the types of shoes they should be wearing. My recommendation included obtaining a well-fitted shoe with a good supportive, non-foldable nor twistable sole, plenty of toe/room for the forefoot, and proper arch support. Based on todays examination, I recommended the patient look for new shoes, by having their feet professionally measured. We discussed that generally the best time of the day for a shoe fitting is the afternoon. Different shoes types and brands to best match the patients occupation and vocation were discussed. Specific brand selection will be up to the patient, their individual foot condition/deformities, and fit. The patient and I reviewed the standard new shoe break in period by wearing them for a few hours a day while checking for redness or sores as wear time is increased. The patient verbally confirmed to understanding the information discussed.?Stretching Exercises:?Stretching and deep tissue massage exercises for the patients injury/diagnosis were discussed and demonstrated, handouts were dispensed.?X-rays:?Discussed and reviewed the X-rays with the patient. We discussed how the findings relate to the patients symptoms/complaints. Answered any and all questions..? * Follow Up:?4 Weeks * Images: * Sign off status: Completed true * Provider:?Kaylie Hill DPM Date:? Generated for Cynthia rm/Roxi/Charu on:?10/14/2024 02:59 PM EST History and Physical Notes * HPI (History of Present Illness) Category Sub-Category Detail Notes Category Not es Heel pain Duration: several months Nature: aching, tenderness, throbbing, burning Location: Proximal plantar asp ect of Heel, RIGHT Onset/Cause: gradual, denies trau ma Aggravated: standing, walking, w alking first thing in the morning/after rest Course: worse Treatments: rest/alter normal da rachael activity, change in shoes Physical Examination Category Sub-Category Detail Notes Section Note s L3000 Custom Fabricated OT Custom Orthotic Custom Fabricated Orthoses Examination Category Sub-Category Detail Notes Category Not es Neurological SENSORY: Neurological exa m reveals intact sensorium, pain sensation normal, vibration sensation intact, pinprick sensation is normal in the lower extremities, Pt denies, anesthesia, burning, paresthesia, tingling, B/L TINEL'S COMPRESSION: Positive, Medial ca lcaneal nerve, Right Dermatologic SKIN FINDINGS: Skin exam reveal s normal texture, elasticity, and turgor. There are no masses. The interspaces are clear Orthopedic GAIT ABNORMALITY: antalgic FOOT MORPHOLOGY: Pes Planus structure , Decreased Ankle joint dorsiflexion ROM, knee extended FOOTWEAR: shoe gear properties exacerbate patients foot/toe deformity MUSCLE STRENGTH: 5/5 all groups in a symmetrical fashion , B/L General Examination GENERAL APPEARANCE: Reveals a pleasant, alert, well- nourished, well-developed, well hydrated individual, who demonstrates proper attention to hygiene/body habitus, and is in no acute distress, Pt serves as own historian for office visit today ORIENTED: person, place, and t anatoly Vascular DP PULSES (B): 3/4, B/L PT PULSES (B): 3/4, B/L CAPILLARY FILL TIME: immediate, all digi ts, B/L TEMPERTURE GRADIENT (C): warm to cool, p roximal to distal, B/L TROPHIC CONDITION-TEXTURE/ELASTICITY/TURGOR/HAIR GROWTH (B): normal, B/L EDEMA (C): absent, B/L PIGMENTATION: normal, B/L X-Rays - IMAGING REPORT Findings: normal b one and soft tissue density consistent for patients age and sex, navicular/cuneiform plantar subluxation with anterior cyma line, positive infra-calcaneal exostosis Fracture: Negative fractures i dentified Views: 3 views of Foot, LAT , LO, MO, RIGHT Clinical Indication(s): Evaluate for Fra cture, Evaluate Biomechanical Deformity Heel Pain INSPECTION: Pain on Palpatio n to Plantar Fascia med. and central bands, intrinsic musc., infra-calcaneal bursa, and med calc tubercle , RIGHT foot, No pain: posterior/superior heel, achilles bursa/tendon, sinus tarsi, peroneals, or with lateral heel compression; no limited STJ ROM, calor, or ecchymosis
--- OUTSIDE RECORDS SUMMARY | 2024-10-14 14:59 | XMS_ITS ---
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 Rescuer Name Role Phone Wilton SCHWARTZ, Asma Primary Care Provider Kaylie Swartz Unavailable [phone] Allergies Allergen (clinical drug ingredient) Drug/Non Drug Allergy documented on EMR Reaction Allergy Type Onset Date Status codeine Codeine Unknown Drug Allergy Active morphine Morphine Unknown Drug Allergy Active povidone-iodine Povidone Iodine shortness of breath Drug Allergy Active REASON FOR VISIT pcp 09/21/24, Heel pain, Painful nail(s) aggravated by shoes causing difficulty standing/walking Medications Medication SIG (Take, Route, Frequency, Duration) Notes Start Date End Date Status Erskine 3 500 MG 1 capsule Once a day Active Night Splint AFO - L1930 as directed 02/06/2021 Not-Taking Vitamin D3 50 MCG (2000 UT) 1 capsule Or ally Once a day for 30 day(s) Active Physical Therapy . . . 2-3x/week for 3-4 weeks 02/06/2021 Not-Taking Omeprazole Active Amitriptyline HCl 50 MG 1 tablet at bedt anatoly Orally Once a day Active Gabapentin 300 MG 1 capsule Orally As needed Active Carvedilol 25 MG 1 tablet with food Orally Twice a day Active Physical Therapy . . . 2-3x/week for 3-4 weeks 10/06/2024 Active Multivitamin - 1 tablet Orally Once a day for 30 day(s) Active amLODIPine Besylate 10 MG 1 tablet Orall y Once a day Active hydroCHLOROthiazide 25 MG 1 tablet in th e morning Orally Once a day Active Amitiza 8 MCG 1 capsule with food and water Orally Three times daily Active Social History Tobacco Use: Social History [...] Problem Status W/U Status Risk Notes Problem [id number] Tarsal tunnel syndrome, right lower limb (G57.51) Active confirmed Vital Signs Height 5ft 6in in 10/06/2024 Weight 214 lbs 10/06/2024 BMI 34.54 kg/m2 10/06/2024 Blood pressure systolic 148 mm Hg 10/06/20 24 Blood pressure diastolic 89 mm Hg 024 Encounters Encounter Location Date Provider Diagnosis [facility] [address] 10/06/2024 Kaylie Pericrashaad Pain in right foot M79.671 ; Plantar [...] and Posterior tibial tendinitis, right leg M76.821 Assessments Encounter Date Diagnosis (ICD Code) Assessment Notes Treatment Notes Treatment Clinical Notes Section Notes 10/06/2024 Pain in right foot (ICD-10 - M79.671) 10/06/2024 Plantar fasciitis of right foot (ICD-10 - M72.2) 10/06/2024 Calcaneal spur, right foot (ICD-10 - M77.31) 10/06/2024 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 . . 2-3x/week for 3-4 weeks 10/06/2024 Next Appt Details Follow Up: 2 Months, Reason: Provider Name:Kaylie neil, 12/14/2024 02:00:00 PM, [address] [place] [address], [phone], Procedure Notes * Category Sub-Category Detail Notes Debride Nail 6-10 Nail debridement Due to the cl inical pathology outlined in the exam findings, performance of this nail treatment is medically necessary as its management by an unskilled/untrained nonprofessional would put this patients foot and overall health at risk. Therefore, debridement to affected nail(s), as described in exam was performed exclusively by the physician of record to reduce/remove overall nail length, girth, thickness, subungual debris, and necrotic tissue, by manual and/or electrical means through the use of a nail nipper and/or dremel-type roll contour grinder, to a more viable healthy nail plate or bed tissue 6-10 nails in total. Silver nitrate was used for any petechial bleeding as necessary. Definitive antifungal treatment options, both pharmaceutical and surgical, have been reviewed and discussed with the patient. The patient solely prefers the use of intermittent/as needed professional debridement services for their nail condition and understands the need for additional periodic treatments to maintain effectiveness in symptomatic relief - 35626 Progress Notes * Rosalina ZACARIAS:1960 (63 yo F)Acc No.[id number]:10/06/2024 Progress Note Patient:?Yaa ZACARIAS Provider:?Kaylie Hill DPM :1960???Age:63 Y???Sex:Female D ate:10/06/2024 Address:[address] [place] [address] [address] , [id number] Pcp:Pepe Núñez MD Subjective: * Chief Complaints: * ???Pcp 09/21/24eel painPain ful nail(s) aggravated by shoes causing difficulty standing/walking * HPI: ???Heel pain:?Nature:?aching, tenderness, throbbing, burning.?Location:?Proximal plantar aspect of Heel, Inside rearfoot?RIGHT.?Duration:?several months.?Onset/Cause:?gradual, denies trauma.?Course:?worse.?Aggravated:?standing, walking, walking first thing in the morning/after rest.?Treatments:?rest/alter normal daily activity, change in shoes, medication ( Voltaren ), stretching, ice.?Painful Nails:?Pt States Last PCP Visit:?Date:?09/21/2024 * ROS:?General/Constitutional:?Nausea?denies.?Vomiting?denies.?Hunger Thirst?denies.?Loss appetite?denies.?Chills?denies.?Fatigue?denies.?Fever?denies.?Night Sweats?denies.?Unexplained weight loss?denies.?Unexplained weight gain?denies.?HEENTM:?Dentures?denies.?Dizziness?denies.?Glasses/contacts?denies.?Retinopathy?de nies.?Blurred/double vision?denies.?TMJ?denies.?Discharge/drainage?denies.?Implants?denies.?Sore throat?denies.?Dental implants?denies.?Hard of hearing ?denies.?Difficulty chewing/swallowing/speaking?denies.?Nose bleeds?denies.?Sore mouth?denies.?Respiratory:?On Oxygen?denies.?Pneumonia/pleurisy?denies.?Bronchitis?denies.?Emphysema?denies.?C oughing?denies.?Cough blood?denies.?Shortness of breath?denies.?Wheezing?denies.?Cardiovascular:?Pacemaker?denies.?MVP?denies.?WPW?denies.?CHF?denies.?Heart attack?denies.?Septal defect?denies.?Rapid beat?denies.?Chest pain ?denies.?Atrial Fib.?denies.?Murmur/Palpitations?denies.?Gastrointestinal:?Hemorrhoids?denies.?Stomach/Abdominal pain?denies.?Dark blood stool?denies.?Irritable bowel ?denies.?Constipation?denies.?Diarrhea?denies.?Hematology:?Swelling?denies.?Clots?denies.?Varicose Veins?denies.?Bruising?denies.?Bleeding problem?denies.?Genitourinary:?Blood urine?denies.?Frequent/Painfu/urination/bladder control?denies.?Kidney stones?denies.?Infection (UTI)?denies.?Nephropathy?denies.?sex trans dis (STD)?denies.?Prostate?denies.?Musculoskeletal:?Hammertoes?denies.?Bunions?denies.?Back Pain?denies.?Muscle Cramps/ Resting?denies.?Muscle cramps / walking?denies.?Generalized aches and pains?denies.?Weakness?denies.?Integ.:?[place]?denies.?Scars?denies.?Corns/calluses?denies.?Ingrown nails?denies.?Painful nails?admits.?Open Sores?denies.?Rashes?denies.?Neurologic:?Difficulty sleeping?denies.?Brain disorder?denies.?Numbness?denies.?Balance trouble?denies.?Confusion?denies.?Fainting/blackouts?denies.?Tingling?denies.?Tr emors?denies.? * Medical [...] Unspecified essential hypertension.? * Social History:?Tobacco Use:?Tobacco use other than smoking?Are you an other tobacco user??No ?Tobacco Control (Standard)?Tobacco use:?Nonsmoker ?Additional Findings: Tobacco non-user?Current nonsmoker ???Drugs/Alcohol:?Drugs?Have you used drugs other than those for medical reasons in the past 12 months??No ???Miscellaneous:?Caffeine: yes, 1 cup every other per day. ?Children: yes, 3. ?Exercise: yes, Walking 3 times weekly. ?Marital status: . ?Occupation: Unemployed. ???Drug/Alcohol:?AUDIT-C (Standard)?Did you have a drink containing alcohol in the past year??No ?Points?0 ?Interpretation?Negative * Medications:?TakinghydroCHLO ROthiazide 25 MG Tablet 1 tablet in the morning Orally Once a day amLODIPine Besylate 10 MG Tablet 1 tablet Orally Once a day Amitiza 8 MCG Capsule 1 capsule with food and water Orally Three times daily Amitriptyline HCl 50 MG Tablet 1 tablet at bedtime Orally Once a day Carvedilol 25 MG Tablet 1 tablet with food Orally Twice a day Gabapentin 300 MG Capsule 1 capsule Orally As needed Multivitamin - Tablet 1 tablet Orally Once a day Omeprazole Erskine 3 500 MG 1 capsule Once a day Vitamin D3 50 MCG (2000 UT) Capsule 1 capsule Orally Once a day Taking hydroCHLOROthiazide 25 MG Tablet 1 tablet in the morning Orally Once a day Taking amLODIPine Besylate 10 MG Tablet 1 tablet Orally Once a day Taking Amitiza 8 [...] Orally Once a day Taking Omeprazole Taking Erskine 3 500 MG 1 capsule Once a day Taking Vitamin D3 50 MCG (2000 UT) Capsule 1 capsule Orally Once a day Not-Taking/PRNNight Splint AFO - L1930 as directed Physical Therapy . . . . 2-3x/week Medication List reviewed and reconciled with the patientNot-Taking/PRN Night Splint AFO - L1930 as directed Not- Taking/PRN Physical Therapy . . . . 2-3x/week Medication List reviewed and reconciled with the patient * Allergies:?CodeineMorphinePo vidone Iodine: shortness of breathyes[Allergies Verified] Objective: * Vitals:?Ht: 5ft 6in, Wt:214, BMI:34.54, Shoe size: 9, BP:148/89mm Hg, Ht-cm: 167.64 cm, Wt-k.07 kg. * Examination: ???General Examination: ?GENERAL APPEARANCE:?Reveals [...] denies, anesthesia, burning, paresthesia, tingling, B/L.?TINEL'S COMPRESSION:?Positive, Tarsal tunnel, Medial calcaneal nerve, Right.?Vascular: ?DP PULSES(B):?3/4, B/L.?PT PULSES(B):?3/4, B/L.?CAPILLARY FILL TIME:?immediate, all digits, B/L.?TROPHIC CONDITION-TEXTURE/ELASTICITY/TURGOR/HAIR GROWTH(B):?normal, B/L.?TEMPERTURE GRADIENT(C):?warm to cool, proximal to distal, B/L.?PIGMENTATION:?normal, B/L.?EDEMA(C):?1/4.?TELANGECTASIA:?present, moderate.?VARICOSITIES:?present, severe, painful, B/L.?Dermatologic: ?SKIN FINDINGS:?Skin exam reveals normal texture, elasticity, and turgor. There are no masses. The interspaces are clear.?Orthopedic: ?MUSCLE STRENGTH:?5/5 all groups in a symmetrical fashion , B/L.?GAIT ABNORMALITY:?antalgic.?FOOT MORPHOLOGY:? Pes Planus structure, Decreased Ankle joint dorsiflexion ROM, knee extended.?TENDONITIS:?Pain on palpation, inflammation, and fusiform swelling to, Posterior Tibial Tendon, RIGHT.?FOOTWEAR:?shoe gear properties exacerbate patients foot/toe deformity.?Heel Pain: ?INSPECTION:? Pain on Palpation to Plantar Fascia med. and central bands, intrinsic musc., infra-calcaneal bursa, and med calc tubercle , RIGHT foot, No pain: posterior/superior heel, achilles bursa/tendon, sinus tarsi, peroneals, or with lateral heel compression; no limited STJ ROM, calor, or ecchymosis.?Nails: ?NAILS are:?Elongated, overgrown, dystrophic, lytic, greater than 3mm thick, discolored and friable with crumbly malodorous subungual debris, with pain on palpation, TA, T1, T2, T3, T4, T5, T6, T7, T8, T9.? Assessment: * Assessment: 1.?Pain in right foot - M79. 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 Plan: * Treatment: * Procedures:?Debride Nail 6-10:?Nail debridement?Due to the clinical pathology outlined in the exam findings, performance of this nail treatment is medically necessary as its management by an unskilled/untrained nonprofessional would put this patients foot and overall health at risk. Therefore, debridement to affected nail(s), as described in exam was performed exclusively by the physician of record to reduce/remove overall nail length, girth, thickness, subungual debris, and necrotic tissue, by manual and/or electrical means through the use of a nail nipper and/or dremel-type roll contour grinder, to a more viable healthy nail plate or bed tissue 6-10 nails in total. Silver nitrate was used for any petechial bleeding as necessary. Definitive antifungal treatment options, both pharmaceutical and surgical, have been reviewed and discussed with the patient. The patient solely prefers the use of intermittent/as needed professional debridement services for their nail condition and understands the need for additional periodic treatments to maintain effectiveness in symptomatic relief - 55671.? * Procedure Codes:?66871 DEBRI DE NAIL, 6 OR MORE * Preventive Medicine:? ??Counseling:?Discussion:?-14: Office or other [...] encouraged the patient to call the office.?Heel pain:?Discussed other tx options for the patients condition, Given recent successful results to treatment, the patient wishes to continue with the present plan for their condition.?Orthotic Dispensing:?The patient presents today for fitting and dispensing of orthotics. The inserts were checked against the prescription and found to be accurate. They were properly fitted to the patients feet and shoes in both weight-bearing and non-weight bearing attitudes. The patient was instructed to gradually increase the amount of time they are wearing the orthoses, starting with one hour the first day and thereon progressively increasing the amount of time used by one hours per day until they are comfortable to be worn all day and with all activities. They were asked to call the office if any signs of skin irritation were noted including redness, blistering or callous formation. The patient verbally indicated a full understanding of all the above information, Handout reviewed and dispensed, The patient signed confirmation form indicating receipt of DME device.?P.R.I.C.E.:?The patient was counseled on the use of P.R.I.C.E. 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 We discussed the usual/customary PT treatment schedule of 2-3 times per week for 4 weeks to as much as 12 weeks depending on insurance approval/coverage. We discussed various PT treatment modalities including, but not limited to, gate training, muscular stabilization, stretching, deep tissue therapeutic massage, ultrasound, TENS, iontophoresis, fluidotherapy, laser therapy, hydrotherapy, contrast ice/heat bath, and passive as well as active ROM exercises. Questions re: PT including visit amounts, rates of success, and goals were answered to the patient's satisfaction. The patient verbally confirmed the medical necessity and use of PT therapy treatment for their MSK condition.?Shoe Gear Counseling:?The patient and I reviewed [...] injury/diagnosis were discussed and demonstrated, handouts were dispensed.? * Follow Up:?2 Months * Images: * Sign off status: Completed true * Provider:?Kaylie Hill DPM Date:?09/2024 Generated for Cynthia rm/Roxi/Mineitting on:?10/14/2024 02:58 PM EST History and Physical Notes * HPI (History of Present Illness) Category Sub-Category Detail Notes Category Not es Heel pain Duration: several months Nature: aching, tenderness, throbbing, burning Location: Proximal plantar asp ect of Heel, Inside rearfoot RIGHT Onset/Cause: gradual, denies trau ma Aggravated: standing, walking, w alking first thing in the morning/after rest Course: worse Treatments: rest/alter normal da rachael activity, change in shoes, medication ( Voltaren ), stretching, ice Painful Nails Pt States Last PCP Visit: Date:: 09/21/2024 Examination Category Sub-Category Detail Notes Category Not es Neurological SENSORY: Neurological exa m reveals intact sensorium, pain sensation normal, vibration sensation intact, pinprick sensation is normal in the lower extremities, Pt denies, anesthesia, burning, paresthesia, tingling, B/L TINEL'S COMPRESSION: Positive, Tarsal tu nnel, Medial calcaneal nerve, Right Dermatologic SKIN FINDINGS: Skin exam reveal s normal texture, elasticity, and turgor. There are no masses. The interspaces are clear Orthopedic GAIT ABNORMALITY: antalgic FOOT MORPHOLOGY: Pes Planus structure , Decreased Ankle joint dorsiflexion ROM, knee extended FOOTWEAR: shoe gear properties exacerbate patients foot/toe deformity TENDONITIS: Pain on palpation, i nflammation, and fusiform swelling to, Posterior Tibial Tendon, RIGHT MUSCLE STRENGTH: 5/5 all groups in a symmetrical fashion , B/L General Examination GENERAL APPEARANCE: Reveals a pleasant, alert, well- nourished, well-developed, well hydrated individual, who demonstrates proper attention to hygiene/body habitus, and is in no acute distress, Pt serves as own historian for office visit today ORIENTED: person, place, and t anatoly Vascular DP PULSES (B): 3, B/L PT PULSES (B): 3/4, B/L CAPILLARY FILL TIME: immediate, all digi ts, B/L TEMPERTURE GRADIENT (C): warm to cool, p roximal to distal, B/L TROPHIC CONDITION-TEXTURE/ELASTICITY/TURGOR/HAIR GROWTH (B): normal, B/L EDEMA (C): 1/4 TELANGECTASIA: present, moderate VARICOSITIES: present, severe, yun nful, B/L PIGMENTATION: normal, B/L Nails NAILS are: Elongated, overg rown, dystrophic, lytic, greater than 3mm thick, discolored and friable with crumbly malodorous subungual debris, with pain on palpation, TA, T1, T2, T3, T4, T5, T6, T7, T8, T9 Heel Pain INSPECTION: Pain on Palpatio n to Plantar Fascia med. and central bands, intrinsic musc., infra-calcaneal bursa, and med calc tubercle , RIGHT foot, No pain: posterior/superior heel, achilles bursa/tendon, sinus tarsi, peroneals, or with lateral heel compression; no limited STJ ROM, calor, or ecchymosis
[2024-10-14 15:00] VITALS: BP 157/75; PULSE 106; BMI 35.0
== END 2024-10-14 15:45 | disposition home or self-care (01) ==
PROVIDERS: PCP Internal Medicine; Visit Provider Internal Medicine
DX: K59.04 Chronic idiopathic constipation (principal)
CPT/HCPCS: 99214

== ENCOUNTER 2024-10-14 14:57 | Outpatient (REF) | payer OTHER, SELFPAY ==
[2024-10-14 17:41] LABS: Calcium 8.8 mg/dL (8.4-10.2); Magnesium 2.1 mg/dL (1.6-2.6)
[2024-10-14 18:08] LABS: TSH reflex Free T4 0.73 uIU/mL (0.32-4.0)
== END 2024-10-14 14:58 | disposition home or self-care (01) ==
LOC: HO.LAB 14:57
PROVIDERS: PCP Internal Medicine; Visit Provider Internal Medicine
DX: K59.04 Chronic idiopathic constipation (principal)
CPT/HCPCS: 36415; 82310; 83735; 84443; 99212

== ENCOUNTER 2024-10-21 14:22 | Outpatient (AMB) | payer OTHER, SELFPAY ==
--- OUTSIDE RECORDS SUMMARY | 2024-10-21 14:24 | XMS_ITS ---
[facility] Organization [facility] Address [address] [facility] [place] [facility] [place] [address] Care Team Providers Care Brim Rounder Name Role Phone Wilton SCHWARTZ, Asma Primary Care Provider Kaylie Swartz Unavailable [phone] Allergies Allergen (clinical drug ingredient) Drug/Non Drug [...] Duration) Notes Start Date End Date Status Weatherford 3 500 MG 1 capsule Once a [...] Problem Status W/U Status Risk Notes Problem 843283655003337 Tarsal tunnel syndrome, right lower limb (G57.51) Active confirmed Vital Signs Height 5ft 6in in 10/06/2024 Weight 214 lbs 10/06/2024 BMI 34.54 kg/m2 10/06/2024 Blood pressure systolic 148 mm Hg 10/06/20 24 Blood pressure diastolic 89 mm Hg 024 Encounters Encounter Location Date Provider Diagnosis [facility] [address] 10/06/2024 Kaylie Pericrashaad Pain in right foot [...] Reason: Provider Name:Kaylie neil, 12/14/2024 02:00:00 PM, [address] [place] [address], [phone], Procedure Notes * Category Sub-Category Detail Notes [...] use of a nail nipper and/or dremel-type emery grinder, to a more viable healthy nail [...] to maintain effectiveness in symptomatic relief - 62704 Progress Notes * Rosalina ZACARIAS:1960 (63 yo F)Acc No.[id number]:10/06/2024 Progress Note Patient:?Yaa ZACARIAS Provider:?Kaylie Hill DPM :1960???Age:63 Y???Sex:Female D ate:10/06/2024 Address:[address] [place] [address] [address] , [facility] Pcp:Pepe Núñez MD Subjective: * Chief Complaints: [...] Cramps/ Resting?denies.?Muscle cramps / walking?denies.?Generalized aches and pains?denies.?Weakness?denies.?Integ.:?Mgchee?denies.?Scars?denies.?Corns/calluses?denies.?Ingrown nails?denies.?Painful nails?admits.?Open Sores?denies.?Rashes?denies.?Neurologic:?Difficulty sleeping?denies.?Brain disorder?denies.?Numbness?denies.?Balance trouble?denies.?Confusion?denies.?Fainting/blackouts?denies.?Tingling?denies.?Tr emors?denies.? [...] 1 tablet Orally Once a day Omeprazole Weatherford 3 500 MG 1 capsule Once a [...] Orally Once a day Taking Omeprazole Taking Weatherford 3 500 MG 1 capsule Once a [...] use of a nail nipper and/or dremel-type emery grinder, to a more viable healthy nail [...] to maintain effectiveness in symptomatic relief - [address]100.? * Procedure Codes:?54626 DEBRI DE NAIL, 6 OR MORE * [...] Physical Therapy.?Physical Therapy:?Discussed the potential short and longwall foreman benefits of physical therapy including pain relief, [...] Provider:?Kaylie Hill DPM Date:?09/2024 Generated for Cynthia rm/Roxi/Lesleysmitting on:?10/21/2024 02:23 PM EST History and Physical Notes * [...]
--- OUTSIDE RECORDS SUMMARY | 2024-10-21 14:24 | XMS_ITS | Patient Health Record ---
Author Organization [facility] Address [address] [place] [address] Care Team Providers Care Replenishment Specialist Name Role Phone Wilton SCHWARTZ, Asma Primary Care Provider Kaylie Swartz Unavailable [phone] Allergies Allergen (clinical drug ingredient) Drug/Non Drug Allergy documented on EMR Reaction Allergy Type Onset Date Status codeine Codeine Unknown Drug Allergy Active morphine Morphine Unknown Drug Allergy Active povidone-iodine Povidone Iodine shortness of breath Drug Allergy Active Reason For Referral No Information Medications Medication SIG (Take, Route, Frequency, Duration) Notes Start Date End Date Status Killeen 3 500 MG 1 capsule Once a [...] primary osteoarthritis of the ankle and/or foot (770243374) Primary osteoarthritis, right ankle and foot (M19.071) Active confirmed Problem 797627856692048 Tarsal tunnel syndrome, right lower limb (G57.51) Active confirmed Problem 520261878 Neuropathy (G62.9) Active confirmed Problem 425842123857864 Neuritis of right foot (G57.91) Active confirmed Problem Plantar fasciitis of right foot (22720144022850752 ) Plantar fasciitis of right foot (M72.2) Active confirmed Problem 21072308 Venous insufficiency (I87.2) Active confirmed Problem Interstitial myositis (26617579) Interstitial myositis of right foot (M60.171) Active confirmed Vital Signs Blood pressure diastolic 89 mm Hg 10/06/2024 Height 5ft 6in in 10/06/2024 Blood pressure systolic 148 mm Hg 10/06/2024 Weight 214 lbs 10/06/2024 BMI 34.54 kg/m2 10/06/2024 Encounters Encounter Location Date Provider Diagnosis [facility] [place] [address] [place] [address] 09/09/2024 Kaylie Perica Pain in right foot M79.671 ; Plantar fasciitis of right foot M72.2 ; Calcaneal spur, right foot M77.31 ; 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 ; Bursitis of right foot M77.51 and Neuritis of right foot G57.[address] [facility] [address] 10/06/2024 Kaylie Perica Pain in right foot [...] and Posterior tibial tendinitis, right leg M76.821 [facility] [address] [place] [address] 09/09/2024 Kaylie Hill Assessments Encounter Date Diagnosis [...] X ray : Foot, right 3V 09/09/2024 52982-Eiodkwjn Plate 11/05/2020 42611-Raslinzu Plate Each Additional 08/2021 Next Appt Details Provider Name:Kaylie neil, 12/14/2024 02:00:00 PM, [address] [place] [address], [phone], Insurance Providers Payer Name Payer Address Payer Phone Subscriber Number Group Number Insured Name Patient Relationship to Insured Coverage Start Date Coverage End Date [facility] [employer] Claims [address] [place], [place] [address]SARAH [id number] Yaa Zacarias Self - patient is the insured Medical (General) History Medical History History ICD Code Anemia Anxiety Arthritis Back,Hip,and Knee pain Fibromyalgia Glaucoma Headaches/Migraines High blood pressure Chicken pox Surgical History Surgery Date(Month/Year) cervical fusion x2 2008 & 2019 hernia tubal ligation gastric sleeve
--- OUTSIDE RECORDS SUMMARY | 2024-10-21 14:24 | XMS_ITS ---
Author Organization [facility] Address [address] [facility] [address] Care Team Providers Care Radio Repair Teacher Name Role Phone Wilton SCHWARTZ, Asma Primary Care Provider Kaylie Swartz Unavailable [phone] Allergies Allergen (clinical drug ingredient) Drug/Non Drug [...] Once a day for 30 day(s) Active Harrison 3 500 MG 1 capsule Once a [...] Notes Problem Plantar fasciitis of right foot (16284596470465875) Plantar fasciitis of right foot (M72.2) Active confirmed Problem Interstitial myositis (64644941) Interstitial myositis of right foot (M60.171) Active confirmed Problem 559625387320707 Neuritis of right foot (G57.91) Active confirmed Vital Signs Height 5ft 6in in 09/09/2024 Weight 210 lbs 09/09/2024 BMI 33.89 kg/m2 09/09/2024 Blood pressure systolic 138 mm Hg 09/09/20 24 Blood pressure diastolic 93 mm Hg 024 Encounters Encounter Location Date Provider Diagnosis [facility] [address] [address] 09/09/2024 Kaylie Perica Pain in right foot [...] Neil Dereck neil, 12/14/2024 02:00:00 PM, [address] [place], [address], Progress Notes * Yaa ZACARIASDOB:1960 (63 yo F)Acc No.[id number]:09/09/2024 Progress Note Patient:?Yaa ZACARIAS Provider:?Kaylie Hill DPM :1960???Age:63 Y???Sex:Female D ate:09/09/2024 Address:[address] [place] [address] [address] , [facility] Pcp:Pepe Núñez MD Subjective: * Chief Complaints: [...] 1 tablet Orally Once a day Omeprazole Harrison 3 500 MG 1 capsule Once a [...] Orally Once a day Taking Omeprazole Taking Harrison 3 500 MG 1 capsule Once a [...] ray : Foot, right 3V * Procedure Codes:?47389 X-RAY EXAM OF RIGHT FOOT 3V, Modifiers: 26 , [id number] Prescription Custom Fabricated Foot insert, Units: 2.00 [...] Interfil injection therapy, as well as surgical [place]/Endoscopic Fasciitomy surgical procedures if needed. Recommendations were [...] Hill DPM Date:? Generated for Cynthia rm/Roxi/Charu on:?10/21/2024 02:24 PM EST History and Physical Notes * [...]
--- OUTSIDE RECORDS SUMMARY | 2024-10-21 14:24 | XMS_ITS ---
Author Organization [facility] Address [address] [place] [address] Care Team Providers Care Gimp Buttonhole Machine Operator Name Role Phone Wilton SCHWARTZ, Asma Primary Care Provider Kaylie Swartz [phone] REASON FOR VISIT [facility] Encounters Encounter Location Date Provider Diagnosis [facility] [address] [place] [address] 09/09/2024 Kaylie Hill Plan Of Treatment Next Appt Details Provider Name:Kaylie neil, 12/14/2024 02:00:00 PM, [address] [place], [address], Progress Notes * Yaa ZACARIASDOB:1960 (63 yo F)Acc No.[id number]:09/09/2024 Patient:?Yaa ZACARIAS :1960???Age:63 Y???Sex:Female Address:[address] [facility] [address] , [place], [address] * true * Date:? Generated for Cynthia rm/Roxi/Lesleysmitting on:?10/21/2024 02:24 PM EST
--- NOTE | 2024-10-21 14:31 | MHC.OFFWIV ---
Intake Vital Signs 10/21/24 14:33 Weight 99.337 kg BP 110/70 Blood Pressure Location Rt brachial Position Sitting Pulse 85 Pulse Source Pulse Oximeter Pulse Oximetry (%) 99 Oxygen Delivery Method Room Air Intake Visit Reasons: EP-palpitation, sob Intake Note: Patient here for palpitations that started Thursday. Patient Tobacco Use Status: Never used Tobacco Allergies hydromorphone [Dilaudid] Allergy (Intermediate, Verified 10/21/24 14:33) Hallucinations,Itching, rash Iodinated Contrast Media Allergy (Intermediate, Verified 10/21/24 14:33) shortness of breath morphine [Morphine] Allergy (Intermediate, Verified 10/21/24 14:33) hallucinations, itching, rash oxycodone Allergy (Intermediate, Verified 10/21/24 14:33) Hallucinations,itching, rash Penicillins Allergy (Intermediate, Verified 10/21/24 14:33) ITCHING/PASSES OUT acetaminophen [From Percocet] Allergy (Mild, Verified 10/21/24 14:33) Unknown From OxyContin Allergy (Intermediate, Uncoded 10/21/24 14:33) hallucinations,itching,rash Do you need a note to return to daycare/school/sports/work: No HPI HPI Comments History of Present Illness Details 1450 63 yo f presents w/ chest discomfort and palpitations since thursday ( 3 days). Palpitations severe at times and intermittent. Reports this is the first time she has expierenced this. Went to [facility] Last night she had labs they told her it was normal and dc home. Symptoms seem to be worsening and very bothersom. She is very worried about this. Reports a/c sob. No hx of dvt or pe. Not on thinners Hx and pe concerning for PVCs vs cardiac dysrytmia vs possible PE. Less likley ACS or dissection Patient will go to [facility] for evaluation EKG no signs of acute ischemia NSR w/ possible LAE and LVh. Rate of 80 but w/ ambulation HR increases to 90-100 PFSH Medical History Cervicalgia Osteoarthritis COVID-19 vaccine series completed Abdominal pain Nausea Constipation Acid reflux Hypertension, essential Surgical History Hx of tubal ligation History of fusion of cervical spine History of colonoscopy History of esophagogastroduodenoscopy History of sleeve gastrectomy History of endometrial ablation History of section Family History Father HTN (hypertension) Cancer of prostate Mother Diabetes mellitus History of heart attack Heart problem Brother Heart problem Diabetes mellitus Dialysis patient Brother HTN (hypertension) Stroke Arthritis Maternal Grandfather No problems noted. Maternal Grandmother No problems noted. Paternal Grandfather No problems noted. Paternal Grandmother No problems noted. Son No problems noted. Son No problems noted. Daughter No problems noted. Other Mental health disorder Social History Household Members: None Housing: Apartment Alcohol intake: never Patient Tobacco Use Status: Never used Tobacco e-Cigarette/Vaping Use: Never Used service: No Current occupational status: disabled Cognitive needs: No Hearing needs: No Vision needs: Yes Female Reproductive History Menstrual Age of Menarche: 9 Review of Systems Const All systems reviewed & are unremarkable except as noted in HPI and below Physical Exam Vital Signs: Last Vital Signs Pulse 85 10/21/24 14:33 BP 110/70 10/21/24 14:33 Pulse Ox 99 10/21/24 14:33 Oxygen Delivery Method Room Air 10/21/24 14:33 VSS Appearance: Alert.? Oriented X3.? No acute distress.? Head: Normocephalic, atraumatic, no step-offs or deformities Eyes: Pupils equal, round and reactive to light.? CVS: Normal heart rate and rhythm.? Pulses normal.? Respiratory: No respiratory distress.? Breath sounds normal.? Abdomen: Soft and nontender.? Skin: Skin warm and dry.? Normal skin color.? Normal skin turgor.? Extremities: No lower extremity edema.? No calf ttp. 5/5 strength to bilateral upper and lower extremities Neuro: Oriented X 3.? No motor deficit.? No sensory deficit. CN 2-12 intact Assessment & Plan Assessment & Plan (1) Palpitations: Code(s): R00.2 - Palpitations (2) Shortness of breath: Code(s): R06.02 - Shortness of breath Plan Take your medications as prescribed. If you were prescribed antibiotics today, it is important that you take your medication to their entirety, do not skip any doses, do not finish them early. Follow-up with your primary care provider this week. Return to the emergency department with new or worsening symptoms. In case of emergency call 911\ Expect called to [facility] Malik TURCIOS Coding Level of Care Code Est Pt Level 3 (41018) Diagnoses Palpitations R00.2 Shortness of breath R06.02
[2024-10-21 14:33] VITALS: BP 110/70; PULSE 85; O2SAT 99
== END 2024-10-21 15:30 | disposition home or self-care (01) ==
PROVIDERS: PCP Internal Medicine; Visit Provider Physician Assistant
DX: R00.2 Palpitations (principal); R06.02 Shortness of breath

== ENCOUNTER → 2024-10-21 14:22 | Outpatient (BNVA) | payer OTHER, SELFPAY | PROVIDERS: PCP Internal Medicine; Visit Provider Physician Assistant | DX: R00.2 Palpitations (principal); R06.02 Shortness of breath | CPT/HCPCS: 99212 ==

== ENCOUNTER 2024-10-21 20:06 | Emergency (ER) | payer OTHER, SELFPAY ==
--- NOTE | ~2024-10-21 | XR_ITS ---
CLINICAL HISTORY: SOB 2 view chest x-ray Comparison: Chest x-ray from 10/29/2018 Findings: No consolidation or effusion, accounting for artifacts. Mild emphysematous changes. No pneumothorax. Cardiomegaly redemonstrated. Mild tortuosity thoracic aorta. Cervical spine hardware again noted. IMPRESSION: No consolidation. This document has been electronically signed by: Marco A Silva MD on 10/21/2024 20:55:59
[2024-10-21 20:13] VITALS: BP 143/92; PULSE 77; RESP 19; TEMP 36.6; O2SAT 99; BMI 35.2
--- NOTE | 2024-10-21 20:13 | ED.GENADULT ---
HPI - General Adult General Chief complaint: Arrhythmia/Palpitations Stated complaint: senr from UC/heart palpitations Time Seen by Provider: 10/21/24 23:46 Source: patient Mode of arrival: ambulatory Limitations: no limitations History of Present Illness ED Provider: Dr. Marcelle Barksdale HPI narrative: patient comes to the emergency room complaining of intermittent palpitations for 4 days. Patient states that sometimes she feels a bit short of breath With exertion, no chest pain. Patient denies any syncope episodes or near syncopal episodes. Related Data Home Medications ?Medication ?Instructions ?Recorded ?Confirmed aspirin 81 mg tablet,delayed 81 mg PO DAILY 02/10/23 09/06/24 release turmeric root extract 500 mg 500 mg PO DAILY 02/10/23 09/06/24 capsule sennosides 8.6 mg tablet (Senokot) 8.6 mg PO BEDTIME 11/17/23 09/06/24 amitriptyline 75 mg tablet 75 mg PO BEDTIME 02/01/24 09/06/24 Previous Rx's ?Medication ?Instructions ?Recorded carvedilol 25 mg tablet 25 mg PO BID #180 tabs 05/15/23 ikzjvqieyi-cltwlizueavea-yfejreay 1 cap PO ONCE PRN pain 30 days #10 08/07/23 50 mg-300 mg-40 mg capsule caps (Fioricet) cholecalciferol (vitamin D3) 25 25 mcg PO DAILY 90 days #90 caps 02/16/24 mcg (1,000 unit) capsule baclofen 10 mg tablet 10 mg PO .qhs PRN muscle spasm 30 06/03/24 days #30 tabs gabapentin 300 mg capsule 300 mg PO BEDTIME 90 days #90 caps 06/03/24 amlodipine 10 mg tablet 10 mg PO DAILY #90 tabs 07/25/24 hydrochlorothiazide 25 mg tablet 25 mg PO QAM 90 days #90 tabs 07/25/24 omeprazole 20 mg capsule,delayed 20 mg PO DAILY 30 days #90 caps 07/25/24 release multivitamin (Daily Multi-Vitamin 1 tab PO DAILY #90 tabs 08/08/24 tablet) Blood pressure monitor #1 ea 09/06/24 ondansetron HCl 4 mg tablet 4 mg PO Q8H PRN nausea and 09/06/24 vomiting 30 days #60 tabs lubiprostone 8 mcg capsule 8 mcg PO BID 90 days #180 caps 09/09/24 (Amitiza) bisacodyl 5 mg tablet,delayed 10 mg (2 x 5 mg) PO DAILY 90 days 10/14/24 release (Dulcolax (bisacodyl)) #180 tabs glycerin (child) 2 supp OH ONCE PRN constipation 10/14/24 #12 ea Allergies Allergy/AdvReac Type Severity Reaction Status Date / Time hydromorphone [Dilaudid] Allergy Intermediate Hallucinations,Itching, Verified 10/21/24 20:15 rash Iodinated Contrast Media Allergy Intermediate shortness Verified 10/21/24 20:15 of breath morphine [Morphine] Allergy Intermediate hallucinations, Verified 10/21/24 20:15 itching, rash oxycodone Allergy Intermediate Hallucinations,itching, Verified 10/21/24 20:15 rash Penicillins Allergy Intermediate ITCHING/PASSES Verified 10/21/24 20:15 OUT acetaminophen [From Percocet] Allergy Mild Unknown Verified 10/21/24 20:15 NSAIDS (Non-Steroidal Allergy Rash Verified 10/21/24 20:15 Anti-Inflamma From OxyContin Allergy Intermediate hallucinati Uncoded 10/21/24 20:15 ons,itching ,rash Review of Systems Review of Systems: Constitutional : No Weight loss, No Fever, No Chills, No Night Sweats, No Fatigue, No Malaise ENT/Mouth : No Hearing loss, No Ear Pain, No Nasal Congestion, No Sinus Pain, No Hoarseness, No sore throat, No Rhinorrhea, No Swallowing Difficulty Eyes: No Eye Pain, No Swelling, No Redness, No Foreign Body, No Discharge, No Vision Changes Cardiovascular : No Chest Pain, complaining of shortness of breath with exertion, no orthopnea no edema, complaining of intermittent palpitations for the past 4 days, denies syncopal or near syncopal episodes Respiratory : No Cough, No Sputum, No Wheezing, No Smoke Exposure, No Dyspnea Gastrointestinal : No Nausea, No Vomiting, No Diarrhea, No Constipation, No abdominal Pain, No Hematochezia, No Melena Genitourinary : no irregular bleeding, No Dysuria, No Urinary Frequency, No Hematuria, No Urinary Incontinence, No Urgency, No Flank Pain, No Urinary Flow Changes, No Hesitancy Musculoskeletal : No joint pain, No Myalgias, No Joint Swelling Skin : No Skin Lesions, No rash Neuro : No Weakness, No Numbness, No Paresthesias, No Loss of Consciousness, No Dizziness, No Headache Psych : No Anxiety/Panic, No Depression, No SI/HI/AH/VH, No Social Issues, Heme/Lymph: No Bruising, No Bleeding,No Lymphadenopathy Endocrine : No Polyuria, No Polydipsia, No Temperature Intolerance [facility] Past Medical History Medical History Cervicalgia Osteoarthritis COVID-19 vaccine series completed Abdominal pain Nausea Constipation Acid reflux Hypertension, essential Surgical History Hx of tubal ligation History of fusion of cervical spine History of colonoscopy History of esophagogastroduodenoscopy History of sleeve gastrectomy History of endometrial ablation History of section Family History Family History Father HTN (hypertension) Cancer of prostate Mother Diabetes mellitus History of heart attack Heart problem Brother Heart problem Diabetes mellitus Dialysis patient Brother HTN (hypertension) Stroke Arthritis Maternal Grandfather No problems noted. Maternal Grandmother No problems noted. Paternal Grandfather No problems noted. Paternal Grandmother No problems noted. Son No problems noted. Son No problems noted. Daughter No problems noted. Other Mental health disorder Social History Social History Household Members: None Housing: Apartment Alcohol intake: never Patient Tobacco Use Status: Never used Tobacco e-Cigarette/Vaping Use: Never Used Advance Directives: No Advance Directives Information Provided: No Do you have a plan to hurt others: No Plan service: No Current occupational status: disabled Cognitive needs: No Hearing needs: No Vision needs: Yes Physical Exam ED Vital Signs: Vital Signs - 24 hr 10/21/24 20:13 10/21/24 21:50 10/21/24 23:45 Temperature 98 F 98.5 F 97.5 F Pulse Rate 77 74 70 Respiratory Rate 19 16 17 Blood Pressure 143/92 H 152/88 H 143/85 H Pulse Oximetry 99 100 99 Oxygen Delivery Method Room Air Room Air Room Air BMI result Body Mass Index 35.2 Const Other: Appearance: Alert. Oriented X3. No acute distress. Eyes: Pupils equal, round and reactive to light. ENT: Pharynx normal. Neck: Normal inspection. Neck supple. No lymph nodes noted. No crepitus CVS: Normal heart rate and rhythm. Pulses normal. Normal S1 and S2 Respiratory: No respiratory distress. Breath sounds normal. No Wheezing. No rales Abdomen: Soft and nontender. No rigidity. No distention. Skin: Skin warm and dry. Normal skin color. Normal skin turgor. Extremities: No lower extremity edema. No Lacerations. No Rash Neuro: Oriented X 3. No motor deficit. No sensory deficit. Moving all extremities. No slurred speech. CN 2 through 12 grossly intact Psych: calm, cooperative, normal affect Course Course Course Narrative: RME performed by Jacquelin Barber PA-C. Patient is a 63 year old assigned female at presenting to the emergency department with palpitations, chest pain, and shortness of breath. Detailed physical exam and review of systems are deferred to the hand marker. EKG, labs, imaging, and swabs ordered. Patient placed back in the waiting room pending room availability and results. Medical Decision Making Medical Decision Making [facility] Narrative: my interpretation of labs: Patient's hematology and chemistry within normal limits, normal LFTs, normal troponin x2, serology negative for COVID flu RSV my interpretation of EKG: Normal sinus rhythm, heart rate 79, no ST segment depression or elevation, no T-wave inversion, QTC 79 chest x-ray shows no abnormalities, no consolidation patient was ambulated in the emergency room, patient did not have any oxygen saturations, constantly above 97, heart rate between 70-90. No palpitations chest pain or shortness of breath ambulating. Differential Diagnosis Differential Diagnoses: The differential diagnosis associated with the presentation includes Lab Data [facility] Lab Attestation statement: I reviewed the patient's lab results. 10/21/24 20:27 10/21/24 20:27 Labs: Lab Results 10/21/24 10/22/24 Range/Units 20:27 00:25 WBC 5.9 (4.8-10.8) X10*3/uL RBC 4.79 (4.20-5.50) X10*6/uL Hgb 13.0 (12.0-16.0) g/dl Hct 39.4 (37.0-47.0) % MCV 82.3 (80.0-98.0) fL MCH 27.1 (27.0-33.0) pg MCHC 33.0 (31.0-35.0) g/dl RDW 13.2 (11.0-16.0) % Plt Count 223 (160-400) X10*3/uL MPV 10.4 (9.4-12.3) fL Immature Gran % (Auto) 0.2 (0.0-0.4) % Neut % (Auto) 65.0 (45-73) % Lymph % (Auto) 20.7 (20-40) % [place] % (Auto) 12.1 H (2-11) % Eos % (Auto) 1.7 (0-4) % Baso % (Auto) 0.3 (0-2) % Lymph # (Auto) 1.2 (1.2-4.9) X10*3/uL [place] # (Auto) 0.7 (0.1-1.2) X10*3/uL Eos # (Auto) 0.1 (0.0-0.4) X10*3/uL Baso # (Auto) 0.0 (0.0-0.2) X10*3/uL Abs Immat Gran (auto) 0.01 (0.00-0.03) X10*3/uL Absolute Neuts (auto) 3.8 (2.0-8.3) x10*3/uL Absolute Nucleated RBC 0.000 (0.0-0.012) X10*3/uL Nucleated RBC % (auto) 0.0 (0.0-0.2) /100WBC PT 10.7 L (10.9-12.4) SEC INR 0.9 (0.9-1.1) APTT 31.4 (26.0-36.8) SEC D-Dimer High Sensitivty < 150 NG/ML Sodium 139 (135-145) mmol/L Potassium 4.1 (3.3-5.1) mmol/L Chloride 106 (96-108) mmol/L Carbon Dioxide 23 (22-29) mmol/L Anion Gap 14 (12-20) BUN 25 H (9-16) mg/dL Creatinine 0.67 (0.5-1.4) mg/dL Estim Creat Clear Calc 102.0 Estimated GFR > 60 Random Glucose 94 (60-115) mg/dL Calcium 9.2 (8.4-10.2) mg/dL Magnesium 2.4 (1.6-2.6) mg/dL Total Bilirubin 0.2 (0.0-1.0) mg/dL AST 24 (5-31) U/L ALT 26 (0-31) U/L Alkaline Phosphatase 106 (39-117) U/L Troponin I High Sens 2.9 < 2.7 (<3.5-17.0) ng/L B-Natriuretic Peptide 50 (<100) pg/mL Total Protein 8.2 H (6.5-8.0) g/dL Albumin 4.3 (3.5-5.0) g/dL Influenza Type A (PCR) NEGATIVE (Negative) Influenza Type B (PCR) NEGATIVE (Negative) RSV RNA Qual (PCR) NEGATIVE (Negative) SARS-CoV-2 RNA (RT-PCR) NEGATIVE (Negative) Independent Interpretation I performed an independent interpretation of an: Plain X-Ray Radiology Impression Discussion of test interpretation with radiology: I have reviewed the radiologist's reading. Radiologist Impression: No consolidation or effusion, accounting for artifacts. Mild emphysematous changes. No pneumothorax. Cardiomegaly redemonstrated. Mild tortuosity thoracic aorta. Cervical spine hardware again noted. IMPRESSION: No consolidation Discharge Plan Discharge Clinical Impression: Palpitations Patient Disposition: Home, Self-Care Instructions: Heart Palpitations (ED) Additional Instructions: Please follow-up with your primary care physician tomorrow. If you have any worsening or new symptoms, please return to the emergency room or call 911 Prescriptions: No Action carvedilol 25 mg tablet 25 mg PO BID Qty: 180 0RF amlodipine 10 mg tablet 10 mg PO DAILY Qty: 90 1RF omeprazole 20 mg capsule,delayed release(DR/EC) 20 mg PO DAILY 30 Days Qty: 90 1RF hydrochlorothiazide 25 mg tablet 25 mg PO QAM 90 Days Qty: 90 1RF multivitamin [Daily Multi-Vitamin] Tablet 1 tab PO DAILY Qty: 90 0RF lubiprostone [Amitiza] 8 mcg capsule 8 mcg PO BID 90 Days Qty: 180 0RF aspirin 81 mg tablet,delayed release (DR/EC) 81 mg PO DAILY sennosides [Senokot] 8.6 mg tablet 8.6 mg PO BEDTIME cholecalciferol (vitamin D3) 25 mcg (1,000 unit) capsule 25 mcg PO DAILY 90 Days Qty: 90 1RF fcpnxrioro-mvxcxhldfafph-xkir [Fioricet] 50-300-40 mg capsule 1 cap PO ONCE PRN (Reason: pain) 30 Days Qty: 10 0RF baclofen 10 mg tablet 10 mg PO .qhs PRN (Reason: muscle spasm) 30 Days Qty: 30 2RF gabapentin 300 mg capsule 300 mg PO BEDTIME 90 Days Qty: 90 0RF turmeric root extract 500 mg capsule 500 mg PO DAILY ondansetron HCl 4 mg tablet 4 mg PO Q8H PRN (Reason: nausea and vomiting) 30 Days Qty: 60 0RF (DME) Blood pressure monitor See Rx Instructions .Route .MEDSUPPLY Qty: 1 0RF Rx Instructions: As directed bisacodyl [Dulcolax (bisacodyl)] 5 mg tablet,delayed release (DR/EC) 10 mg PO DAILY 90 Days Qty: 180 0RF glycerin (child) Suppository 2 supp OH ONCE PRN (Reason: constipation) Qty: 12 1RF amitriptyline 75 mg tablet 75 mg PO BEDTIME Print Language: Ukrainian
--- NOTE | 2024-10-21 20:14 | ECG_ITS ---
Test Reason : SOB Blood Pressure : / mmHG Vent. Rate : 079 BPM Atrial Rate : 079 BPM P-R Int : 198 ms QRS Dur : 106 ms QT Int : 408 ms P-R-T Axes : 037 -20 019 degrees QTc Int : 467 ms Normal sinus rhythm Possible Left atrial enlargement Left ventricular hypertrophy ( R in aVL , Ken product ) Abnormal ECG When compared with ECG of 02-NOV-2018 18:20, NC interval has decreased T wave inversion no longer evident in Anterolateral leads Referred By: Jacquelin Barber Electronically Signed By:Tello Lemons
[2024-10-21 20:32] LABS: MANUAL DIFF FLAG NO
[2024-10-21 20:34] LABS: Basophils Percent Auto 0.3 % (0-2); Eosinophils Absolute Auto 0.1 X10*3/uL (0.0-0.4); Eosinophils Percent Auto 1.7 % (0-4); Hematocrit 39.4 % (37.0-47.0); Imm Gran Abs Auto 0.01 X10*3/uL (0.00-0.03); Imm Gran Pct Auto 0.2 % (0.0-0.4); Lymphocytes Absolute Auto 1.2 X10*3/uL (1.2-4.9); Lymphocytes Percent Auto 20.7 % (20-40); Mean Corpuscular Hemoglobin 27.1 pg (27.0-33.0); Mean Corpuscular Volume 82.3 fL (80.0-98.0); Mean Platelet Volume 10.4 fL (9.4-12.3); Monocytes Absolute Auto 0.7 X10*3/uL (0.1-1.2); Monocytes Percent Auto 12.1 % (2-11); Neutrophils Absolute Auto 3.8 x10*3/uL (2.0-8.3); Platelet Count 223 X10*3/uL (160-400); Red Blood Count 4.79 X10*6/uL (4.20-5.50); Red Cell Distribution Width 13.2 % (11.0-16.0); White Blood Count 5.9 X10*3/uL (4.8-10.8)
[2024-10-21 20:43] LABS: INTERNATIONAL NORM RATIO 0.9 (0.9-1.1); Prothrombin Time 10.7 SEC (10.9-12.4)
[2024-10-21 20:45] LABS: Partial Thromboplastin Time 31.4 SEC (26.0-36.8)
[2024-10-21 20:47] LABS: Alanine Aminotransferase 26 U/L (0-31); Albumin Level 4.3 g/dL (3.5-5.0); Alkaline Phosphatase 106 U/L (39-117); Anion Gap 14 (12-20); Aspartate Amino Transferase 24 U/L (5-31); Bilirubin Total 0.2 mg/dL (0.0-1.0); Blood Urea Nitrogen 25 mg/dL (9-16); Calcium 9.2 mg/dL (8.4-10.2); Carbon Dioxide 23 mmol/L (22-29); Chloride 106 mmol/L (96-108); Estimated Glomerular Filt Rate > 60; Glucose Random 94 mg/dL (60-115); Magnesium 2.4 mg/dL (1.6-2.6); Potassium 4.1 mmol/L (3.3-5.1); Sodium 139 mmol/L (135-145); Total Protein 8.2 g/dL (6.5-8.0)
[2024-10-21 20:51] LABS: D Dimer High Sensitivity < 150 NG/ML
[2024-10-21 20:53] LABS: B Type Natriuretic Peptide 50 pg/mL (<100)
[2024-10-21 20:54] LABS: Troponin-I High Sensitivity 2.9 ng/L (<3.5-17.0)
[2024-10-21 21:11] LABS: Influenza A PCR NEGATIVE (Negative); Influenza B PCR NEGATIVE (Negative); Resp Syncy Virus RNA Qual PCR NEGATIVE (Negative); SARS COV2 PCR INHOUSE NEGATIVE (Negative)
[2024-10-21 21:50] VITALS: BP 152/88; PULSE 74; RESP 16; TEMP 36.9; O2SAT 100
[2024-10-21 23:45] VITALS: BP 143/85; PULSE 70; RESP 17; TEMP 36.4; O2SAT 99
[2024-10-22 00:52] LABS: Troponin-I High Sensitivity < 2.7 ng/L (<3.5-17.0)
--- NOTE | 2024-10-22 01:04 | MHC.EDTECH ---
Walked patient per MD request. Patient's o2 range was 97-100% and the patients HR range was 72-84. Patient felt small palpatations when seated back in the bed but stated that it was nothing like before.
[2024-10-22 01:59] VITALS: BP 143/85; PULSE 70; RESP 17; TEMP 36.4; O2SAT 99
== END 2024-10-22 02:00 | disposition home or self-care (01) ==
PROVIDERS: Physician Assistant Medical; Emergency Provider Emergency Medicine; PCP Internal Medicine
DX: I49.9 Cardiac arrhythmia, unspecified (principal); R00.2 Palpitations; R06.02 Shortness of breath; Z03.818 Encounter for observation for suspected exposure to other biological agents ruled out; Z79.899 Other long term (current) drug therapy
CPT/HCPCS: 0241U; 36415; 71046; 80053; 83735; 83880; 84484; 85025; 85379; 85610; 85730; 93005; 99283; 99284

== ENCOUNTER → 2024-10-21 20:14 | Outpatient (BNV) | payer OTHER, SELFPAY | PROVIDERS: Emergency Provider Emergency Medicine; PCP Internal Medicine; Visit Provider Internal Medicine Cardiovascular Disease | DX: R06.02 Shortness of breath (principal) | CPT/HCPCS: 93010 ==

== ENCOUNTER → 2024-10-21 20:14 | Outpatient (BNV) | payer OTHER, SELFPAY | PROVIDERS: PCP Internal Medicine; Visit Provider Radiology Neuroradiology | DX: R06.02 Shortness of breath (principal) | CPT/HCPCS: 71046 ==

== ENCOUNTER 2024-10-25 08:58 | Outpatient (AMB) | payer OTHER, SELFPAY ==
[2024-10-25 09:00] VITALS: BP 122/70; PULSE 95; O2SAT 100; BMI 35.2
--- NOTE | 2024-10-25 09:00 | A.OFFPC_ITS ---
Vital Signs 10/25/24 09:00 Height 5 ft 6 in Weight 218 lb 2 oz BMI 35.2 BP 122/70 Blood Pressure Location Lt brachial Position Sitting Pulse 95 Pulse Source Pulse Oximeter Pulse Oximetry (%) 100 Oxygen Delivery Method Room Air Intake Visit Reasons: Palpitations Allergies hydromorphone [Dilaudid] Allergy (Intermediate, Verified 10/25/24 09:02) Hallucinations,Itching, rash Iodinated Contrast Media Allergy (Intermediate, Verified 10/25/24 09:02) shortness of breath morphine [Morphine] Allergy (Intermediate, Verified 10/25/24 09:02) hallucinations, itching, rash oxycodone Allergy (Intermediate, Verified 10/25/24 09:02) Hallucinations,itching, rash Penicillins Allergy (Intermediate, Verified 10/25/24 09:02) ITCHING/PASSES OUT acetaminophen [From Percocet] Allergy (Mild, Verified 10/25/24 09:02) Unknown NSAIDS (Non-Steroidal Anti-Inflamma Allergy (Verified 10/25/24 09:02) Rash From OxyContin Allergy (Intermediate, Uncoded 10/21/24 20:15) hallucinations,itching,rash Medication List - Last Reconciled 10/25/24 by Pepe Núñez MD amitriptyline 75 mg PO BEDTIME amlodipine 10 mg PO DAILY aspirin 81 mg PO DAILY baclofen 10 mg PO .qhs PRN 30 days bisacodyl (Dulcolax (bisacodyl)) 10 mg (2 x 5 mg) PO DAILY 90 days [Blood pressure monitor As directed] muwfzojzzy-xetpmffkgvxho-gghn 50-300-40 mg (Fioricet) 1 cap PO ONCE PRN 30 days carvedilol 25 mg PO BID cholecalciferol (vitamin D3) 25 mcg PO DAILY 90 days gabapentin 300 mg PO BEDTIME 90 days glycerin (child) 2 supp AK ONCE PRN hydrochlorothiazide 25 mg PO QAM 90 days lubiprostone (Amitiza) 8 mcg PO BID 90 days multivitamin (Daily Multi-Vitamin tablet) 1 tab PO DAILY omeprazole 20 mg PO DAILY 30 days ondansetron HCl 4 mg PO Q8H PRN 30 days sennosides (Senokot) 8.6 mg PO BEDTIME turmeric root extract 500 mg PO DAILY Tobacco use date assessed: 10/25/24 Fall risk assessment: No Falls in past year Last assessed Fall Risk: 10/25/24 Dental Screening Dental Screen Date: 10/25/24 Did you have a dental visit in the last 12 months?: Yes Did you have a dental problem in the last 6 months where you did not have access to dental care?: No Was dental information given to patient?: Patient has dentist HPI Palpitations HPI Details - The patient is a 64-year-old female pr esenting with palpitations. She reports episodes of palpitations occurring since Thursday. - She has experienced similar episodes i n the past, occurring since before the pandemic. - Palpitations described as a fast beati ng sensation, starting mildly and building up. Lasts approximately 15 to 20 minutes on each occurrence. - Associated symptoms included tingling on the face and nausea; she did not experience sweating or shortness of breath. - She mentioned feeling slightly scared during these episodes, particularly noting tingling and numbness. - There was a previous consultation with a machine silver stripper albeit not recently. No new cardiology evaluations or interventions have been conducted since then. Review of Systems - Cardiovascular: Reports palpitations. - Neurological: Reports facial tingling, denies syncope. - Respiratory: Denies shortness of breat h. - Gastrointestinal: Reports nausea. - Integumentary: Denies sweating. - General: No fever no chills - Neurological: No headaches no dizziness - Ear nose throat: No sore throat no hearing difficulty no ear pain - Endocrine: No polyuria polydipsia no heat intolerance - Genitourinary: No dysuria , no blood in urine Physical Exam General: No acute distress HEENT: No acute findings Neck: Supple Respiratory system: Able to talk in full sentences, no audible wheeze cardiovascular: S1-S2 regular in rate and rhythm, but heart is beating fast Gastrointestinal: Nausea present Extremities: No new findings WHIZZER OPERATOR: Alert awake oriented x3 motor sensory intact Skin: Normal turgor Patient Instructions - An Electrocardiogram (EKG) will be per formed. It showed 91 beats per minute sinus rhythm with occasional premature ventricular complexes QT interval of 408/501 millisecond - A follow-up consultation with the card iologist is recommended. Referral placed Holter monitor ordered for 3 days Also Patient has struggled from chronic constipation Management through Gastroenterology Taking baclofen once at night gabapentin 300 once at night for chronic neck and back pain Headaches are stable with amitriptyline 75 mg which was started by Neurology She was also given few tablets of Fioricet long time ago which she still have as she takes it very rarely Patient is on amlodipine 10 mg for blood pressure control, tolerating medication no side effects She takes carvedilol 25 mg b.i.d. as well Omeprazole for GERD Has follow-up appointment in January [facility] Medical History Cervicalgia Osteoarthritis COVID-19 vaccine series completed Abdominal pain Nausea Constipation Acid reflux Hypertension, essential Surgical History Hx of tubal ligation History of fusion of cervical spine History of colonoscopy History of esophagogastroduodenoscopy History of sleeve gastrectomy History of endometrial ablation History of section Family History Father HTN (hypertension) Cancer of prostate Mother Diabetes mellitus History of heart attack Heart problem Brother Heart problem Diabetes mellitus Dialysis patient Brother HTN (hypertension) Stroke Arthritis Maternal Grandfather No problems noted. Maternal Grandmother No problems noted. Paternal Grandfather No problems noted. Paternal Grandmother No problems noted. Son No problems noted. Son No problems noted. Daughter No problems noted. Other Mental health disorder Social History Household Members: None Housing: Apartment Alcohol intake: never Patient Tobacco Use Status: Never used Tobacco e-Cigarette/Vaping Use: Never Used service: No Current occupational status: disabled Cognitive needs: No Hearing needs: No Vision needs: Yes Female Reproductive History Menstrual Age of Menarche: 9 Questionnaire Thrive Questionnaire Date Thrive assessed: 10/25/24 I am a: Patient What is your living situation today?: I have a steady place to live Within the past 12 months, did the food you bought not last and you didn't have the money to get more?: Never true Within the past 12 months, did you worry whether your food would run out before you got money to buy more?: Never true Do you have trouble paying for medicines?: No Do you have trouble getting transportation to medical appointments?: No Do you have trouble paying your heating and electricity bill?: No Do you have trouble taking care of your child, family member or friend?: No Do you have trouble with day-to-day activities such as bathing, preparing meals, shopping, managing finances, etc.?: No Are you currently unemployed and looking for a job?: No Are you interested in more education?: No Please select the resources that you would like help with: None Currently or been in a relationship where the following occur: No concerns reported THRIVE Score: 0 AUDIT C Alcohol Use Questionnaire (AUDIT-C) 1. How often do you have a drink containing alcohol?: Never 3. How often do you have six or more drinks on one occasion?: Never Total Score: 0 Score Reviewed/Action Taken: Yes REVA-7 AMB Questionnaire REVA-7 Date REVA - 7 assessed: 06/03/24 Source: Developed by Drs. Jordan Hines, Micki Noriega, Steve Hernadez and colleagues, with an educational guanako from [employer]. Physical exam (Primary Care) Vital Signs: Last Vital Signs Pulse 95 10/25/24 09:00 BP 122/70 10/25/24 09:00 Pulse Ox 100 10/25/24 09:00 Oxygen Delivery Method Room Air 10/25/24 09:00 BMI result Body Mass Index 35.2 Tobacco/Smoking Status: Tobacco use Status Tobacco use date assessed 10/25/24 10/25/24 09:06 Patient Tobacco Use Status Never used Tobacco 10/25/24 09:00 e-Cigarette/Vaping Use Never Used 10/25/24 09:00 Thrive Assessment: Date of Thrive Assessment Date Thrive assessed 10/25/24 10/25/24 09:11 Currently or been in a relationship where the following occur: No concerns reported Coding Level of Care Code Est Pt Level 4 (74689) Diagnoses Palpitations R00.2 Chronic idiopathic constipation K59.04 Intractable periodic headache syndrome G43.C1 Migraine type: periodic headache syndrome Intractability: intractable DDD (degenerative disc disease), cervical M50.30 Degenerative lumbar spinal stenosis M48.061 Fibromyalgia M79.7 Back muscle spasm M62.830 Hypertension, essential I10 Gastroesophageal reflux disease without esophagitis K21.9 Esophagitis presence: without esophagitis Assessment & Plan Assessment & Plan (1) Palpitations: Code(s): R00.2 - Palpitations Category: Medical (2) Chronic idiopathic constipation: Code(s): K59.04 - Chronic idiopathic constipation Category: Medical (3) Migraine headache: Code(s): G43.909 - Migraine, unspecified, not intractable, without status migrainosus Category: Medical Qualifiers: Migraine type: periodic headache syndrome Intractability: intractable Qualified Code(s): G43.C1 - Periodic headache syndromes in child or adult, intractable (4) DDD (degenerative disc disease), cervical: Code(s): M50.30 - Other cervical disc degeneration, unspecified cervical region Category: Medical (5) Degenerative lumbar spinal stenosis: Code(s): M48.061 - Spinal stenosis, lumbar region without neurogenic claudication Category: Medical (6) Fibromyalgia: Code(s): M79.7 - Fibromyalgia Category: Medical (7) Back muscle spasm: Code(s): M62.830 - Muscle spasm of back Category: Medical (8) Hypertension, essential: Code(s): I10 - Essential (primary) hypertension Category: Medical (9) Acid reflux: Comment: Continue PPI- Avoid culprits, remain upright 2-3 hours after eating especially evening meal Code(s): K21.9 - Gastro-esophageal reflux disease without esophagitis Category: Medical Qualifiers: Esophagitis presence: without esophagitis Qualified Code(s): K21.9 - Gastro-esophageal reflux disease without esophagitis Plan - The patient is a 64-year-old female presenting with palpitations. She reports episodes of palpitations occurring since Thursday. - She has experienced similar episodes in the past, occurring since before the pandemic. - Palpitations described as a fast beating sensation, starting mildly and building up. Lasts approximately 15 to 20 minutes on each occurrence. - Associated symptoms included tingling on the face and nausea; she did not experience sweating or shortness of breath. - She mentioned feeling slightly scared during these episodes, particularly noting tingling and numbness. - There was a previous consultation with a machine silver stripper albeit not recently. No new cardiology evaluations or interventions have been conducted since then. Review of Systems - Cardiovascular: Reports palpitations. - Neurological: Reports facial tingling, denies syncope. - Respiratory: Denies shortness of breath. - Gastrointestinal: Reports nausea. - Integumentary: Denies sweating. - General: No fever no chills - Neurological: No headaches no dizziness - Ear nose throat: No sore throat no hearing difficulty no ear pain - Endocrine: No polyuria polydipsia no heat intolerance - Genitourinary: No dysuria , no blood in urine Physical Exam General: No acute distress HEENT: No acute findings Neck: Supple Respiratory system: Able to talk in full sentences, no audible wheeze cardiovascular: S1-S2 regular in rate and rhythm, but heart is beating fast Gastrointestinal: Nausea present Extremities: No new findings WHIZZER OPERATOR: Alert awake oriented x3 motor sensory intact Skin: Normal turgor Patient Instructions - An Electrocardiogram (EKG) will be performed. It showed 91 beats per minute sinus rhythm with occasional premature ventricular complexes QT interval of 408/501 millisecond - A follow-up consultation with the machine silver stripper is recommended. Referral placed Holter monitor ordered for 3 days Also Patient has struggled from chronic constipation Management through Gastroenterology Taking baclofen once at night gabapentin 300 once at night for chronic neck and back pain Headaches are stable with amitriptyline 75 mg which was started by Neurology She was also given few tablets of Fioricet long time ago which she still have as she takes it very rarely Patient is on amlodipine 10 mg for blood pressure control, tolerating medication no side effects She takes carvedilol 25 mg b.i.d. as well Omeprazole for GERD Has follow-up appointment in January Orders: Orders ECG 3 day holter monitor Today R00.2 - Palpitations Referrals Cardiology Referral R00.2 - Palpitations
--- OUTSIDE RECORDS SUMMARY | 2024-10-25 09:00 | XMS_ITS ---
Author Organization [facility] Address [address] [place] [address] Care Team Providers Care Bus And Sys Integration Senior Manager Name Role Phone Wilton SCHWARTZ, Asma Primary Care Provider Kaylie Swartz [phone] REASON FOR VISIT Custom Orthotics Encounters Encounter Location Date Provider Diagnosis [facility] [address] [place] [address] 09/09/2024 Kaylie Hill Plan Of Treatment Next Appt Details Provider Name:Kaylie neil, 12/14/2024 02:00:00 PM, [address] [place], [address], Progress Notes * Yaa ZACARIASDOB:1960 (63 yo F)Acc No.[id number]:09/09/2024 Patient:?Yaa ZACARIAS :1960???Age:63 Y???Sex:Female Address:[address] , [place], [address] * true * Date:? Generated for Cynthia rm/Roxi/Lesleysmitting on:?10/25/2024 09:00 AM EST
--- OUTSIDE RECORDS SUMMARY | 2024-10-25 09:00 | XMS_ITS ---
[facility] Address [address] [facility] [place] [address] Care Team Providers Care Cobol Engineer Name Role Phone Wilton SCHWARTZ, Asma Primary Care Provider Kaylie Swartz Unavailable [phone] Allergies Allergen (clinical drug ingredient) Drug/Non Drug [...] Once a day for 30 day(s) Active [place] 3 500 MG 1 capsule Once a [...] Notes Problem Plantar fasciitis of right foot (64848741645766346) Plantar fasciitis of right foot (M72.2) Active confirmed Problem Interstitial myositis (02492676) Interstitial myositis of right foot (M60.171) Active confirmed Problem [id number] Neuritis of right foot (G57.91) Active confirmed Vital Signs Height 5ft 6in in 09/09/2024 Weight 210 lbs 09/09/2024 BMI 33.89 kg/m2 09/09/2024 Blood pressure systolic 138 mm Hg 09/09/20 24 Blood pressure diastolic 93 mm Hg 024 Encounters Encounter Location Date Provider Diagnosis [facility] [address] [address] 09/09/2024 Kaylie Perica Pain in right foot [...] Neil Dereck neil, 12/14/2024 02:00:00 PM, [address] [place], [address], Progress Notes * Yaa ZACARIASDOB:1960 (63 yo F)Acc No.[id number]:09/09/2024 Progress Note Patient:?Yaa ZACARIAS Provider:?Kaylie Hill DPM :1960???Age:63 Y???Sex:Female D ate:09/09/2024 Address:[address] [place] [address] [address] , [facility] Pcp:Pepe Núñez MD Subjective: * Chief Complaints: [...] 1 tablet Orally Once a day Omeprazole [place] 3 500 MG 1 capsule Once a [...] Orally Once a day Taking Omeprazole Taking [place] 3 500 MG 1 capsule Once a [...] ray : Foot, right 3V * Procedure Codes:?67730 X-RAY EXAM OF RIGHT FOOT 3V, Modifiers: 26 , [id number] Prescription Custom Fabricated Foot insert, Units: 2.00 [...] Interfil injection therapy, as well as surgical [place]/Endoscopic Fasciitomy surgical procedures if needed. Recommendations were [...] Hill DPM Date:? Generated for Cynthia rm/Roxi/Charu on:?10/25/2024 09:00 AM EST History and Physical Notes * HPI [...]
--- OUTSIDE RECORDS SUMMARY | 2024-10-25 09:00 | XMS_ITS | Patient Health Record ---
[facility] Address [address] [place] [address] Care Team Providers Care Charcoal Unloader Name Role Phone Wilton SCHWARTZ, Asma Primary Care Provider Kaylie Swartz Unavailable [phone] Allergies Allergen (clinical drug ingredient) Drug/Non Drug Allergy documented on EMR Reaction Allergy Type Onset Date Status codeine Codeine Unknown Drug Allergy Active morphine Morphine Unknown Drug Allergy Active povidone-iodine Povidone Iodine shortness of breath Drug Allergy Active Reason For Referral No Information Medications Medication SIG (Take, Route, Frequency, Duration) Notes Start Date End Date Status [place] 3 500 MG 1 capsule Once a [...] primary osteoarthritis of the ankle and/or foot (105771053) Primary osteoarthritis, right ankle and foot (M19.071) Active confirmed Problem 274778699794899 Tarsal tunnel syndrome, right lower limb (G57.51) Active confirmed Problem 323348707 Neuropathy (G62.9) Active confirmed Problem 524610732680098 Neuritis of right foot (G57.91) Active confirmed Problem Plantar fasciitis of right foot (01727440195692225 ) Plantar fasciitis of right foot (M72.2) Active confirmed Problem 93844733 Venous insufficiency (I87.2) Active confirmed Problem Interstitial myositis (68506477) Interstitial myositis of right foot (M60.171) Active confirmed Vital Signs Blood pressure diastolic 89 mm Hg 10/06/2024 Height 5ft 6in in 10/06/2024 Blood pressure systolic 148 mm Hg 10/06/2024 Weight 214 lbs 10/06/2024 BMI 34.54 kg/m2 10/06/2024 Encounters Encounter Location Date Provider Diagnosis [facility] [address] [place] [address] 09/09/2024 Kaylie Perica Pain in right foot M79.671 ; Plantar fasciitis of right foot M72.2 ; Calcaneal spur, right foot M77.31 ; 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 ; Bursitis of right foot M77.51 and Neuritis of right foot G57.[address] [facility] [address] 10/06/2024 Kaylie Perica Pain in right foot [...] and Posterior tibial tendinitis, right leg M76.821 [facility] [address] [place] [address] 09/09/2024 Kaylie Hill Assessments Encounter Date Diagnosis [...] X ray : Foot, right 3V 09/09/2024 92428-Seenrpyr Plate 11/05/2020 56896-Vmhryrrl Plate Each Additional 08/2021 Next Appt Details Provider Name:Kaylie neil, 12/14/2024 02:00:00 PM, [address] [place] [address], [phone], Insurance Providers Payer Name Payer Address Payer Phone Subscriber Number Group Number Insured Name Patient Relationship to Insured Coverage Start Date Coverage End Date [facility] [employer] Claims [address] [place], [place] [id number] henderson [id number] Yaa Zacarias Self - patient is the insured Medical (General) History Medical History History ICD Code Anemia Anxiety Arthritis Back,Hip,and Knee pain Fibromyalgia Glaucoma Headaches/Migraines High blood pressure Chicken pox Surgical History Surgery Date(Month/Year) cervical fusion x2 2008 & 2019 hernia tubal ligation gastric sleeve
== END 2024-10-25 10:17 | disposition home or self-care (01) ==
PROVIDERS: PCP Internal Medicine; Visit Provider Internal Medicine
DX: R00.2 Palpitations (principal); K59.04 Chronic idiopathic constipation; G43.C1 Periodic headache syndromes in child or adult, intractable; M50.30 Other cervical disc degeneration, unspecified cervical region; M48.061 Spinal stenosis, lumbar region without neurogenic claudication; M79.7 Fibromyalgia; M62.830 Muscle spasm of back; I10 Essential (primary) hypertension; K21.9 Gastro-esophageal reflux disease without esophagitis

== ENCOUNTER → 2024-10-25 08:58 | Outpatient (BNVA) | payer OTHER, SELFPAY | PROVIDERS: PCP Internal Medicine; Visit Provider Internal Medicine | DX: R00.2 Palpitations (principal); K59.04 Chronic idiopathic constipation; G43.C1 Periodic headache syndromes in child or adult, intractable; M50.30 Other cervical disc degeneration, unspecified cervical region; M79.7 Fibromyalgia; M48.061 Spinal stenosis, lumbar region without neurogenic claudication; M62.830 Muscle spasm of back; K21.9 Gastro-esophageal reflux disease without esophagitis; I10 Essential (primary) hypertension | CPT/HCPCS: 93005; 99212 ==

== ENCOUNTER → 2024-10-31 10:54 | Outpatient (REF) | payer OTHER, SELFPAY ==
--- OUTSIDE RECORDS SUMMARY | 2024-10-31 12:22 | XMS_ITS ---
Author Organization [facility] Address [address] [place] [address] Care Team Providers Care Legal Collector Name Role Phone Wilton SCHWARTZ, Asma Primary Care Provider Kaylie Swartz [phone] REASON FOR VISIT Custom Orthotics Encounters Encounter Location Date Provider Diagnosis [facility] [address] [place] [address] 09/09/2024 Kaylie Hill Plan Of Treatment Next Appt Details Provider Name:Kaylie neil, 12/14/2024 02:00:00 PM, [address] [place], [address], Progress Notes * Yaa ZACARIASDOB:1960 (63 yo F)Acc No.[id number]:09/09/2024 Patient:?Yaa ZACARIAS :1960???Age:63 Y???Sex:Female Address:[address] , [place], [address] * true * Date:? Generated for Cynthia rm/Roxi/Lesleysmitting on:?10/31/2024 12:22 PM EST
--- OUTSIDE RECORDS SUMMARY | 2024-10-31 12:22 | XMS_ITS ---
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 confirmed Problem 022855960003021 Neuritis of right foot (G57.91) Active confirmed Vital Signs Blood pressure systolic 138 mm Hg 09/09/20 24 Blood pressure diastolic 93 mm Hg 024 Height 5ft 6in in 09/09/2024 Weight 210 lbs 09/09/2024 BMI 33.89 kg/m2 09/09/2024 Encounters Encounter Location Date Provider Diagnosis [facility] [address] [address] 09/09/2024 Kaylie Perica Pain in right foot [...] Neil Dereck neil, 12/14/2024 02:00:00 PM, [address] [place], [address], Progress Notes * Yaa ZACARIASDOB:1960 (63 yo F)Acc No.[id number]:09/09/2024 Progress Note Patient:?Yaa ZACARIAS Provider:?Kaylie Hill DPM :1960???Age:63 Y???Sex:Female D ate:09/09/2024 Address:[address] [place] [address] [address] , [facility] Pcp:Pepe Núñez MD Subjective: * Chief Complaints: [...] 1 tablet Orally Once a day Omeprazole [place]ie 3 500 MG 1 capsule Once a [...] Orally Once a day Taking Omeprazole Taking [place]ie 3 500 MG 1 capsule Once a [...] ray : Foot, right 3V * Procedure Codes:?74601 X-RAY EXAM OF RIGHT FOOT 3V, Modifiers: 26 , [id number] Prescription Custom Fabricated Foot insert, Units: 2.00 [...] Interfil injection therapy, as well as surgical [place]/Endoscopic Fasciitomy surgical procedures if needed. Recommendations were [...] Hill DPM Date:? Generated for Cynthia rm/Roxi/Charu on:?10/31/2024 12:22 PM EST History and Physical Notes * [...]
--- OUTSIDE RECORDS SUMMARY | 2024-10-31 12:22 | XMS_ITS | Continuity of Care Document ---
Author Organization [facility] Address [address] [place] [address] Dr [address] [place] [address] Phone Care Team Providers Care Egg And Spice Mixer Name Role Phone Tomás SCHWARTZ, [place], Jordan HALL Unavailable U navailable Procedures Procedure Date Offic Cons New/estab Mod 40 Mi- CT & [place] Duplex Scan-extrem Veins; Uni/ CT & [place] D Advance Directives Directive Yes / No Effective Date File Name No Information Encounters Encounter Description Practice Location Reason(s) For Visit Diagnoses Date Provider Providers Copied on Encounter [facility], [address] [place] [address] Dr Perry [address]Monika [place], [id number], tel:[phone] [facility] No Information 4 Tomás SCHWARTZ RVT, RPVI Robert. [address] [place] [address] [place], [id number] , [place]. tel:[phone] Offic Cons New/estab Mod 40 Mi- CT & [place] [facility], [address] [place] [address] Dr Perry [address]Monika [place], [id number], tel:[phone] [facility] Varicose veins of right lower extremity with other complicationsPa in in right lower legPain in right legCramp and spasmRestless legs syndromeEssenti al (primary) hypertensionPru ritus, unspecified 4 Tomás SCHWARTZ RVT, RPVI Robert. [facility] [address] [place], [place], [id number] , [place]. tel:[phone] Referring Provider: Pepe Núñez MD, [address], [place], [address]. tel:[phone] [facility], [address], [place], [id number], [place] tel:[phone] [facility] Chronic venous hypertension (idiopathic) with other complications of right lower extremity 4 Tomás SCHWARTZ, RVT, RPHARI Ortega. [address] [facility], [address], [place], [place], [id number] , [place]. tel:[phone] Referring Provider: Pepe Núñez MD, [address], [place], [address]. tel:[phone] Family History Family Member Type Diagnosis Age At Onset No Information Payers Payer name Insurance type Covered democrat ID Authorjack olivares(s) [facility] CI [id number] Social History Type Description Quantity Date Captured Comments Sex Female Smoking Status No Information Chief Complaint And Reason For Visit No Information Reason For Referral Reason For Referral No Information Plan Of Treatment Date Type Action Status Goal Diet education completed Referral Ordered: Weight management: Referral to physician timeframe: 3 Months (related to Body mass index (BMI) 34.0-34.9, adult) ordered Appointment Yaa Zacarias BOOKED Appointment Yaa Zacarias BOOKED Appointment Yaa Zacarias BOOKED Appointment Yaa Zacarias BOOKED Appointment Yaa Zacarias BOOKED Appointment Yaa Zacarias BOOKED Appointment Yaa Zacarias BOOKED History Of Present Illness Encounter Date Complaint History Of Prese nt Illness No Information Functional Status Date Functional Assessmen t No Information Instructions Date Instruction Additional Infor mation Lifestyle education Related to B gwen mass index (BMI) 34.0-34.9, adult Pre and post instruc tions reviewed and provided Related to Varicose veins of right lower extremity with other complications Giving Encouragement to exercise Related to Body mass index (BMI) 34.0-34.9, adult Diet education Related to Body mass index (BMI) 34.0-34.9, adult Patient education booklet given Related to Varicose veins of right lower extremity with other complications Assessments Type Assessment Date No Information Patient Care Teams Name Effective Dates (start - stop) Status Members No Information
--- OUTSIDE RECORDS SUMMARY | 2024-10-31 12:22 | XMS_ITS | Patient Health Record ---
Author [facility] Address [address] [place] [address] Care Team Providers Care Pension Examiner Name Role Phone Wilton SCHWARTZ, Asma Primary Care Provider Kaylie Swartz Unavailable [phone] Allergies Allergen (clinical drug ingredient) Drug/Non Drug Allergy documented on EMR Reaction Allergy Type Onset Date Status codeine Codeine Unknown Drug Allergy Active morphine Morphine Unknown Drug Allergy Active povidone-iodine Povidone Iodine shortness of breath Drug Allergy Active Reason For Referral No Information Medications Medication SIG (Take, Route, Frequency, Duration) Notes Start Date End Date Status [place] 3 500 MG 1 capsule Once a [...] primary osteoarthritis of the ankle and/or foot (357986633) Primary osteoarthritis, right ankle and foot (M19.071) Active confirmed Problem 154571567741065 Tarsal tunnel syndrome, right lower limb (G57.51) Active confirmed Problem 063647626 Neuropathy (G62.9) Active confirmed Problem 892823125033004 Neuritis of right foot (G57.91) Active confirmed Problem Plantar fasciitis of right foot (63350141578948032 ) Plantar fasciitis of right foot (M72.2) Active confirmed Problem 26688350 Venous insufficiency (I87.2) Active confirmed Problem Interstitial myositis (68671421) Interstitial myositis of right foot (M60.171) Active confirmed Vital Signs Blood pressure diastolic 89 mm Hg 10/06/2024 Height 5ft 6in in 10/06/2024 Blood pressure systolic 148 mm Hg 10/06/2024 Weight 214 lbs 10/06/2024 BMI 34.54 kg/m2 10/06/2024 Encounters Encounter Location Date Provider Diagnosis [facility] [place] [address] [place] [address] 09/09/2024 Kaylie Perica Pain in right foot M79.671 ; Plantar fasciitis of right foot M72.2 ; Calcaneal spur, right foot M77.31 ; 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 ; Bursitis of right foot M77.51 and Neuritis of right foot G57.[address] [facility] [address] 10/06/2024 Kaylie Perica Pain in right foot [...] and Posterior tibial tendinitis, right leg M76.821 [facility] [place] [address] [place] [address] 09/09/2024 Kaylie Hill Assessments Encounter Date Diagnosis [...] X ray : Foot, right 3V 09/09/2024 49548-Vyppbxnb Plate 11/05/2020 61163-Srfstwso Plate Each Additional 08/2021 Next Appt Details Provider Name:Kaylie neil, 12/14/2024 02:00:00 PM, [address] [place] [address], [phone], Insurance Providers Payer Name Payer Address Payer Phone Subscriber Number Group Number Insured Name Patient Relationship to Insured Coverage Start Date Coverage End Date [facility] [employer] S[employer] Claims [address] [place], [place] [address]SARAH henderson [id number] Yaa Zacarias Self - patient is the insured Medical (General) History Medical History History ICD Code Anemia Anxiety Arthritis Back,Hip,and Knee pain Fibromyalgia Glaucoma Headaches/Migraines High blood pressure Chicken pox Surgical History Surgery Date(Month/Year) cervical fusion x2 2008 & 2019 hernia tubal ligation gastric sleeve
== END ==
LOC: HO.CARD 10:54
PROVIDERS: PCP Internal Medicine; Visit Provider Internal Medicine
DX: R00.2 Palpitations (principal)
CPT/HCPCS: 93242

== ENCOUNTER → 2024-10-31 10:58 | Outpatient (BNV) | payer OTHER, SELFPAY | PROVIDERS: PCP Internal Medicine; Visit Provider Internal Medicine | DX: R00.0 Tachycardia, unspecified (principal) | CPT/HCPCS: 93244 ==

== ENCOUNTER 2024-11-15 13:03 | Outpatient (AMB) | payer OTHER, SELFPAY ==
[2024-11-15 13:07] VITALS: BP 128/70; PULSE 78; BMI 34.2
--- NOTE | 2024-11-15 13:07 | A.OFFVIS_ITS ---
Vital Signs 11/15/24 13:07 Height 5 ft 6 in Weight 211 lb 10.3 oz BMI 34.2 BP 128/70 Blood Pressure Location Lt brachial Position Sitting Pulse 78 Pulse Source Pulse Oximeter Intake Visit Reasons: fu holter monitor 10/31/palpitations/ NS pt Allergies hydromorphone [Dilaudid] Allergy (Intermediate, Verified 11/15/24 13:17) Hallucinations,Itching, rash Iodinated Contrast Media Allergy (Intermediate, Verified 11/15/24 13:17) shortness of breath morphine [Morphine] Allergy (Intermediate, Verified 11/15/24 13:17) hallucinations, itching, rash oxycodone Allergy (Intermediate, Verified 11/15/24 13:17) Hallucinations,itching, rash Penicillins Allergy (Intermediate, Verified 11/15/24 13:17) ITCHING/PASSES OUT acetaminophen [From Percocet] Allergy (Mild, Verified 11/15/24 13:17) Unknown NSAIDS (Non-Steroidal Anti-Inflamma Allergy (Verified 11/15/24 13:17) Rash From OxyContin Allergy (Intermediate, Uncoded 11/15/24 13:17) hallucinations,itching,rash Medication List - Last Reconciled 11/15/24 by Randy Mercedes NP amitriptyline 75 mg PO BEDTIME amlodipine 10 mg PO DAILY aspirin 81 mg PO DAILY baclofen 10 mg PO .qhs PRN 30 days [Blood pressure monitor As directed] kzdkngdlnc-fcuepozncwgui-ncjw 50-300-40 mg (Fioricet) 1 cap PO ONCE PRN 30 days carvedilol 25 mg PO BID cholecalciferol (vitamin D3) 25 mcg PO DAILY 90 days gabapentin 300 mg PO BEDTIME 90 days glycerin (child) 2 supp ID ONCE PRN hydrochlorothiazide 25 mg PO QAM 90 days lubiprostone (Amitiza) 8 mcg PO BID 90 days multivitamin (Daily Multi-Vitamin tablet) 1 tab PO DAILY omeprazole 20 mg PO DAILY 30 days ondansetron HCl 4 mg PO Q8H PRN 30 days sennosides (Senokot) 8.6 mg PO BEDTIME turmeric root extract 500 mg PO DAILY HPI Comments Details: This is a 64-year-old female patient presenting for consultation in regards to palpitations and shortness of breath. The patient was recently seen in the [place] [facility] room and at [facility] for the same concerns. Patient has a history of hypertension. The patient describes episodes of palpitations, where her heart rate gradually increases before becoming very fast. She reports experiencing fatigue and shortness of breath during these episodes, which she notes occurs both at rest and with exertion. The patient denies any exertional chest pain, dizziness, orthopnea, PND, leg edema, presyncope, or syncope. At the time of her ER visit, workup was negative. A Holter monitor was ordered by her PCP that showed normal sinus rhythm with her reported symptoms. The patient notes that these episodes did occur back in 2019 when her blood pressure was poorly controlled, with a blood pressures now well managed, and yet the symptoms have recurred. Additionally, the patient recalls being informed many years ago that she had 'mini strokes', however, there are no current reports of this. [facility] Medical History Cervicalgia Osteoarthritis COVID-19 vaccine series completed Abdominal pain Nausea Constipation Acid reflux Hypertension, essential Surgical History Hx of tubal ligation History of fusion of cervical spine History of colonoscopy History of esophagogastroduodenoscopy History of sleeve gastrectomy History of endometrial ablation History of section Family History Father HTN (hypertension) Cancer of prostate Mother Diabetes mellitus History of heart attack Heart problem Brother Heart problem Diabetes mellitus Dialysis patient Brother HTN (hypertension) Stroke Arthritis Maternal Grandfather No problems noted. Maternal Grandmother No problems noted. Paternal Grandfather No problems noted. Paternal Grandmother No problems noted. Son No problems noted. Son No problems noted. Daughter No problems noted. Other Mental health disorder Social History Household Members: None Housing: Apartment Alcohol intake: never Patient Tobacco Use Status: Never used Tobacco e-Cigarette/Vaping Use: Never Used service: No Current occupational status: disabled Cognitive needs: No Hearing needs: No Vision needs: Yes Female Reproductive History Menstrual Age of Menarche: 9 Review of Systems Const Denies weakness ENT Denies dizziness Card Denies chest pain, Denies chest pain with activity, Denies syncope, Denies rapid heart rate, Denies pedal edema, Denies edema, Denies leg edema, Denies lightheadedness, Denies palpitations, Denies dyspnea, Denies dyspnea on exertion and Denies orthopnea Resp Denies cough, Denies dyspnea and Denies dyspnea on exertion GI Denies hematochezia and Denies change in stool character Musc Denies abnormal gait, Denies muscle cramps, Denies muscle weakness, Denies numbness, Denies radiating pain into limb and Denies tingling Neuro Denies abnormal gait, Denies dizziness, Denies syncope, Denies numbness, Denies tingling and Denies weakness Endo Denies palpitations Physical Exam Vital Signs: Last Vital Signs Pulse 78 11/15/24 13:07 BP 128/70 11/15/24 13:07 BMI result Body Mass Index 34.2 Const General: cooperative, healthy appearing, comfortable and no acute distress Orientation/consciousness: patient oriented x3 HEENT Head: Yes normal to inspection Neck Neck: Yes normal visual inspection, Yes trachea midline and Yes supple Chest Chest palpation & inspection: normal inspection of the chest Resp Effort & Inspection: normal respiratory effort Auscultation: clear to auscultation bilaterally, no crackles, no rales, no rhonchi and no wheezes Cardio Jugular venous distension: no JVD Palpation: normal PMI Rate: regular rate Rhythm: regular rhythm Heart sounds: S1 normal heart sound present, S2 normal heart sound present, no click, no gallops, no murmurs and no rubs Peripheral pulses: Peripheral pulses 2+ throughout GI Inspection: Yes normal to inspection Palpation (GI): Soft to palpation Auscultation: normal bowel sounds Skin General skin exam: no rashes or lesions noted Neuro General: patient oriented x3 Extrem General: Yes normal to inspection, No no pedal edema and No calf tenderness Psych Appearance: grossly normal Mental Status: mental status grossly normal Speech and movement: Normal speech and movement present Assessment & Plan Assessment & Plan (1) Palpitation: Code(s): R00.2 - Palpitations Category: Medical (2) Dyspnea: Code(s): R06.00 - Dyspnea, unspecified Category: Medical (3) Hypertension, essential: Code(s): I10 - Essential (primary) hypertension Category: Medical Plan 10/31/2024-Holter monitor showed sinus rhythm average heart rate of 95 beats per minute, rare ventricular ectopy. Patient continues to experience ongoing palpitations associated with shortness of breath. Recent TSH results for within normal limits. A myocardial perfusion study will be ordered to assess for ischemic changes. Additionally, an echo will be performed to evaluate for any structural abnormalities. Blood pressure today is well-controlled, and the current regimen should be continued. Target blood pressure goal ideally less than 130/80. Patient on aspirin for unclear reasons. Recommend heart healthy diet, regular exercise, and losing weight. This note was generated using voice recognition software. While every effort has been made to ensure accuracy and proper wheel installer, there may be occasional errors that could affect the content or meaning of the described symptoms. Orders: Orders CA echo transthoracic complete Today R06.00 - Dyspnea, unspecified CA stress test Today R00.2 - Palpitations, R06.00 - Dyspnea, unspecified NM cardiolite stress test Today R06.00 - Dyspnea, unspecified Coding Level of Care Code New Pt Level 4 (39498) Diagnoses Palpitation R00.2 Dyspnea R06.00 Hypertension, essential I10 Time Spent (min) 31 Comment Time spent in reviewing the chart, test results, assessment, counseling and documentation.
--- OUTSIDE RECORDS SUMMARY | 2024-11-15 14:47 | XMS_ITS | Clinical Summary ---
Author Organization Patient Business Ser [facility] Address [address] [place] [address] Care Team Providers Care Brick Grader Name Role Phone Shad Rodriguez MD Primary Care Provider [phone] Surgical History Surgery Date Site/Laterality Comments SECTION N/A PROCEDURE: HISTORICAL DELIVERY COLONOSCOPY N/A PROCEDURE: HISTORICAL COLONOSCOPY ESOPHAGOGASTRODUODENOSCOPY PROCEDURE: MD ESOPHAGOGASTRODUODENOSCOPY TRANSORAL DIAGNOSTIC OTHER SURGICAL HISTORY 07/03/2009 PROCEDURE: MD ARTHRD ANT INTERDY CERVCL BELW C2 EA ADDL NTRSPC; COMMENT: C5-6, C6-7 ACDF, Dr. Aguila OTHER SURGICAL HISTORY 2018 PROCEDURE: MD GASTRIC RSTCV W/O BYP VERTICAL-BANDED GASTROPLY; COMMENT: Gastric bypass CARPAL TUNNEL RELEASE PROCEDURE: HISTORICAL CARPAL TUNNEL REL Medical History Medical History Date Comments Abdominal pain DX:Abdominal yun n Acid reflux DX:Acid reflux Cervicalgia DX:Cervicalgia Constipation DX:Constipation Essential (primary) hypertension DX:Essential (primary) hypertension Osteoarthritis DX:Osteoarthriti s Migraines DX:Migraines Glaucoma DX:Glaucoma Fibromyalgia DX:Fibromyalgia Insomnia DX:Insomnia Polyneuropathy DX:Polyneuropath y Family History Medical History Relation Name Comments Diabetes Brother 1 Other: Other Brother 1 Arthritis Brother 2 Hypertension Brother 2 Stroke Brother 2 Hypertension Father Prostate cancer Father Diabetes Mother Other: Other Mother Relation Name Status Comments Brother 1 Brother 2 Alive Father Maternal Grandfather Maternal Grandmother Mother Paternal Grandfather Paternal Grandmother Social History Tobacco Use Types Packs/Day Years Used Date Smoking Tobacco: Never Smokeless Tobacco: Never Sex and Gender Information Value Date Recorded Sex Assigned at Not on file Gender Identity Not on file Sexual Orientation Not on file Obstetrics History Last Filed Vital Signs Vital Sign Reading Time Taken Comments Blood Pressure - - Pulse - - Temperature - - Respiratory Rate - - Oxygen Saturation - - Inhaled Oxygen Concentration - - Weight 93.9 kg (207 lb) 08/20/2023 10:06 AM EDT Height 167.6 cm (5' 6 ) 08/20/2023 10:06 AM EDT Body Mass Index 33.41 08/20/2023 10:06 AM EDT Plan of Treatment Health Maintenance Due Date Last Done Comments Breast Cancer Screening 1960 DTaP,Tdap,and Td Vaccines (1 - Tdap) 1979 Cervical Cancer Screening: Pap Smear 1981 Zoster Vaccines (1 of 2) 2010 Cholesterol Screening (Lipid Panel) 10/05/2023 Colorectal Cancer Screening: Colonoscopy 10/05/2023 Depression Screening 10/05/2023 HIV Screening 10/05/2023 Hepatitis C Screening 10/05/2023 Hypertension/CHF/CAD Annual BMP Blood Test 10/05/2023 Social Influencers of Health Screening 10/05/2023 COVID-19 Vaccine ( season) 2024 01/25/2021 Influenza Vaccine (#1) 2024 2, 09/03/2021, 08/21/2020, Additional history exists RSV Immunization Patients 60+ Years Old (1 - 1-dose 75+ series) 2035 HIB Vaccines Aged Out No longer eligi ble based on patient's age to complete this topic HPV Vaccines Aged Out No longer eligi ble based on patient's age to complete this topic Hepatitis A Vaccines Aged Out No long er eligible based on patient's age to complete this topic Hepatitis B Vaccines Aged Out No long er eligible based on patient's age to complete this topic IPV Vaccines Aged Out No longer eligi ble based on patient's age to complete this topic MMR Vaccines Aged Out No longer eligi ble based on patient's age to complete this topic Meningococcal ACWY Vaccine Aged Out N o longer eligible based on patient's age to complete this topic Pneumococcal Vaccine: Pediatrics (0 to 5 Years) and At-Risk Patients (6 to 64 Years) Aged Out No longer eligible based on patient's age to complete this topic RSV Immunization Patients Under 20 months Aged Out No longer eligible based on patient's age to complete this topic Varicella Vaccines Aged Out No longer eligible based on patient's age to complete this topic Advance Directives Documents on File Type Date Recorded Patient Facilities [facility] (hx) 06/12/2011 DELANO MATSON DIRECTIVE Care Teams Brick Grader Relationship Specialty Start Date End Date Shad Rodriguez MD [address] [address] PCP - General Family Medicine 03/05/16
--- OUTSIDE RECORDS SUMMARY | 2024-11-15 14:47 | XMS_ITS | Clinical Summary ---
Author Organization [employer] [facility] Address [address] [place] [address] Care Team Providers Care Recooperer Name Role Phone Shad Rodriguez MD Primary Care Provider [phone] Allergies Active Allergy Reactions Criticality Noted Date Comments Iodinated Contrast Media Anaphylaxis High 04/01/2016 Oral contrast is okay. Morphine And Codeine Other (See Comments) 04/01 Hallucinations, Hives Oxycodone-Acetaminoph en Other (See Comments) 04/01/2016 Hallucination, Hives Medications Medication Sig Dispensed Refills Start Date End Date Status RESTASIS 0.05 % ophthalmic emulsion 0 06/06/2016 Activ e Diclofenac Sodium (VOLTAREN) 1 % GEL topical Apply 4 grams 4 times a day as directed to large joint 3 Tube 3 06/26/2016 Active amLODIPine (NORVASC) tablet 10 mgIndications:Essent ial hypertension Take 1 tablet (10 mg total) by mouth daily. 90 tablet 3 02/26/2017 Active AMITIZA 8 MCG capsuleIndications:I rritable bowel syndrome with constipation Take 1 capsule (8 mcg total) by mouth 2 (two) times a day with meals. 60 capsule 3 02/26/2017 Active escitalopram (LEXAPRO) tablet 10 mgIndications:Major depressive disorder, recurrent severe without psychotic features (HCC) Take 1 tablet (10 mg total) by mouth daily. 90 tablet 2 02/26/2017 Active LORazepam (ATIVAN) 0.5 MG tabletIndications:GA D (generalized anxiety disorder) Take 1 tablet (0.5 mg total) by mouth 2 (two) times a day as needed for anxiety. 30 tablet 2 02/26/2017 Active butalbital-acetamino phen-caffeine (FIORICET, ESGIC) 50-325-40 MG per tablet Take 1 tablet by mouth every 6 (six) hours as needed for headaches. 0 Active methylPREDNISolone (MEDROL DOSEPACK) 4 MG tabletIndications:At ical migraine follow package directions 21 tablet 0 05/18/2017 Active gabapentin (NEURONTIN) 300 MG capsule TAKE 1 CAPSULE (300 MG TOTAL) BY MOUTH 3 (THREE) TIMES A DAY. 90 capsule 1 07/28/2018 Active carvedilol (COREG) 25 MG tabletIndications:Es sential hypertension TAKE 1 TABLET BY MOUTH TWICE A DAY 180 tablet 3 10/05/2018 Active lisinopril-hydroCHLO ROthiazide (PRINZIDE,ZESTORETIC ) tablet 20-12.5 mg Take 1 tablet by mouth daily. 90 tablet 1 11/04/2018 Active Active Problems Problem Noted Date Diagnosed Date Idiopathic peripheral neuropathy 12/30/2016 Major depressive disorder, r ecurrent severe without psychotic features 12/12/2016 REVA (generalized anxiety disorder) 12/12/2016 Osteoarthritis of multiple joints 07/29/2016 Complicated migraine 06/24/2016 History of glaucoma 05/25/2016 Chronic knee pain 05/25/2016 Arthritis, senescent 05/25/2016 Breast asymmetry in female 04/21/2016 Hypotensive episode 04/21/2016 Migraine without aura and wi th status migrainosus, not intractable 04/13/2016 Headache 04/12/2016 Chronic constipation 04/12/2016 Insomnia 04/12/2016 History of TIAs 04/01/2016 Essential hypertension 04/01/2016 Fibromyalgia 04/01/2016 Resolved Problems Problem Noted Date Diagnosed Date Resolved Date History of Helicobacter pylori infection 12/12/2016 01/27/2017 Lower abdominal pain 10/01/2016 017 History of hernia repair 10/01/201601/2017 Nausea 10/01/2016 01/27/2017 Mild episode of recurrent ma miguel depressive disorder 08/19/2016 01/27/2017 Constipation 07/29/2016 01/27/2017 Influenza vaccine administered 07/29/2016 01/27/2017 Encounter for gynecological examination with Papanicolaou smear of cervix 07/03/2016 01/27/2017 Anxiety 04/20/2016 01/27/2017 Depression 04/20/2016 01/27/2017 Screening for thyroid disorder 04/20/2016 01/27/2017 Screening for diabetes mellitus 04/20/2016 01/27/2017 Screening for hyperlipidemia 04/20/2016 01/27/2017 Screening for breast cancer 04/20/2016 01/27/2017 Migraine without aura 04/12/20162015 Immunizations Name Administration Dates Next Due Influenza Quad (Afluria/Fluz one) 0.5mL >=6mon Vial (SD-IIV4) 07/29/2016 Family History Medical History Relation Name Comments Diabetes Brother 1 Stroke Brother 1 x 3 Glaucoma Brother 2 Hypertension Brother 2 Stroke Brother 2 Breast cancer Cousin Paternal No Sig Med Hx Daughter Cancer Father prostate Hypertension Father Diabetes Mother Heart disease Mother Celiac disease Son Relation Name Status Comments Brother 1 Brother 2 Cousin Paternal Daughter Father Mother Son Social History Tobacco Use Types Packs/Day Years Used Date Smoking Tobacco: Never Smokeless Tobacco: Never Alcohol Use Standard Drinks/Week Comments No 0 (1 standard drink = 0.6 oz pur e alcohol) Sex and Gender Information Value Date Recorded Sex Assigned at Not on file Gender Identity Not on file Sexual Orientation Not on file Last Filed Vital Signs Vital Sign Reading Time Taken Comments Blood Pressure 136/88 05/18/2017 1:53 PM EDT Pulse 72 05/18/2017 1:53 PM EDT Temperature 36.7 ??C (98.1 ??F) 05/18/2017 1:53 PM ED T Respiratory Rate 16 05/18/2017 1:53 PM EDT Oxygen Saturation 99% 05/18/2017 1:53 PM EDT Inhaled Oxygen Concentration - - Weight 109.8 kg (242 lb) 05/18/2017 1:53 PM EDT Height 167.6 cm (5' 6 ) 05/18/2017 1:53 PM EDT Body Mass Index 39.06 05/18/2017 1:53 PM EDT Plan of Treatment Health Maintenance Due Date Last Done Comments Hepatitis C Screening 1960 COVID-19 Vaccine (#1) 04/24/1961 DTap / Tdap / Td (1 - Tdap) 1979 Shingrix-Zoster Vaccine (1 o f 2) 2010 Depression Screening 12/12/2017 12/12/2016 Preventative Health Evaluation 02/26/2018 02/26/2017, 07/03/2016 Breast Cancer Screening (Mammogram) 04/15/2018 04/15/2016 Cervical Cancer Screening (Pap Smear) 07/03/2019 07/03/2016 Colon Cancer Screening (Colonoscopy) 04/08/2020 04/08/2010 Influenza Vaccine (#1) 2024 07/29/2016 Pneumococcal Vaccine (1 of 1 - PCV) 2025 RSV Adult > 60+ Yrs or (1 - 1-dose 75+ series) 2035 Hepatitis B Vaccines Aged Out No long er eligible based on patient's age to complete this topic Pneumococcal Vaccine Aged Out No long er eligible based on patient's age to complete this topic RSV Ped < 20 months Aged Out No longe r eligible based on patient's age to complete this topic Advance Directives For more information, please contact: [phone] Latest Code Status on File Code Status Date Activated Date Inactivated Comments Full Code 04/12/2016 3:58 PM 04/13/2016 9:08 PM This code status was ascertained in the following way: discussion with patient. Care Teams Recooperer Relationship Specialty Start Date End Date Shad Rodriguez MD PCP - General Family Medicine 03/05/16
--- OUTSIDE RECORDS SUMMARY | 2024-11-15 14:47 | XMS_ITS | Continuity of Care Document ---
Author Organization [facility] Address [address] [place] [address] [address] [place] [address] Phone Care Team Providers Care Seed Collector Name Role Phone Tomás SCHWARTZ, [place], Jordan HALL Unavailable U navailable Procedures Procedure Date Offic Cons New/estab Mod 40 Mi- CT & [place] Duplex Scan-extrem Veins; Uni/ CT & [place] D Advance Directives Directive Yes / No Effective Date File Name No Information Encounters Encounter Description Practice Location Reason(s) For Visit Diagnoses Date Provider Providers Copied on Encounter [facility], [address] [place] [address] [address], [id number], tel:[phone] [facility] No Information 4 Tomás SCHWARTZ RVT, RPVI Robert. [address] [place] [address] [place], [id number] , [place]. tel:[phone] Offic Cons New/estab Mod 40 Mi- CT & [place] [facility], [address] [place] [address] [address]ika [place], [id number], tel:[phone] [facility] Varicose veins of right lower extremity with other complicationsPa in in right lower legPain in right legCramp and spasmRestless legs syndromeEssenti al (primary) hypertensionPru ritus, unspecified 4 Tomás SCHWARTZ RVT, RPVI Robert. [address] [place] [address] [place], [place], [id number] , [place]. tel:[phone] Referring Provider: Pepe Núñez MD, [address], [place], [address]. tel:[phone] [facility], [address] [facility] [address], [place], [id number], [place] tel:[phone] [facility] Chronic venous hypertension (idiopathic) with other complications of right lower extremity 4 Tomás SCHWARTZ, RVT, RPHARI Ortega. [address] [facility], [address], [place], [place], [id number] , [place]. tel:[phone] Referring Provider: Pepe Núñez MD, [address], [place], [address]. tel:[phone] Family History Family Member Type Diagnosis Age At Onset No Information Payers Payer name Insurance type Covered democrat ID Authorjack olivares(s) [facility] CI [id number] Social History Type Description Quantity Date Captured [...]
== END 2024-11-15 13:32 | disposition home or self-care (01) ==
PROVIDERS: PCP Internal Medicine
DX: R00.2 Palpitations (principal); R06.00 Dyspnea, unspecified; I10 Essential (primary) hypertension
CPT/HCPCS: 99204

== ENCOUNTER → 2024-11-15 13:03 | Outpatient (BNVA) | payer OTHER, SELFPAY | PROVIDERS: PCP Internal Medicine | DX: I10 Essential (primary) hypertension (principal); R00.2 Palpitations; R06.02 Shortness of breath | CPT/HCPCS: 99202 ==

== ENCOUNTER → 2024-12-16 09:08 | Outpatient (REF) | payer OTHER, SELFPAY ==
--- NOTE | 2024-12-16 09:12 | CA_ITS ---
Transthoracic Echocardiogram Patient (Last, First, Middle): Yaa Zacarias, Gender: Female Date of : 1960 Age: 64 Procedure Date: 12/16/2024 Procedure Type: Transthoracic Echocardiogram Location: OP Height: 167.64 cm Weight: 97.52 kg BSA: 2.06 m2 Heart Rate: bpm BP: 116 / 60 mmHg Sheep Clipper: LASHELL Referring MD: Randy Mercedes NP Symptoms: R06.00 - Dyspnea, unspecified Study Quality: Fair/Contrast ECG Rhythm: Sinus Conclusions: - The left ventricular systolic function is mildly decreased. The visually estimated ejection fraction is between 45-50%. - No obvious valvular pathology seen on this study. Findings Procedure Information Contrast agent, definity, is being given per protocol without apparent complications. Left Ventricle Normal left ventricular cavity size. There is moderately increased left ventricular wall thickness. The left ventricular systolic function is mildly decreased. The visually estimated ejection fraction is between 45-50%. Diastolic function is normal for age. Right Ventricle Mildly increased right ventricular cavity size. There is normal right ventricular systolic function. Atria Both atria are normal in size. Aortic Valve There is a normal trileaflet aortic valve. There is no aortic valve stenosis. There is no aortic valve regurgitation. Mitral Valve The mitral valve appears normal. There is no mitral valve regurgitation. There is no mitral valve stenosis. Pulmonic Valve The pulmonic valve is likely normal. Tricuspid Valve There is trace tricuspid valve regurgitation. There is no evidence of pulmonary hypertension. Great Vessels The asc aorta is normal in size. Venous The inferior vena cava is normal in size and collapses greater than 50% with inspiration. Pericardium/Pleural There is no evidence of pericardial effusion. Prior Study Comparison Changes noted compared to prior study dated: 11/17/2018. LVEF slightly lower than previously reported. Recommendations, Care & Conclusions No obvious valvular pathology seen on this study. Measurements 2D Linear Measurements IVSd: 1.33 0.6-0.9/0.6-1.0 cm LVIDd: 4.43 3.9-5.3/4.2-5.9 cm LVIDd Index: 2.15 2.4-3.2/2.2-3.1 cm/m2 LVIDs: 3.46 2.0-3.6 cm LVPWd: 1.35 0.7-1.1 cm Ao Root: 3.10 2.1-3.5 cm LA Diam: 3.00 2.7-3.8/3.0-4.0 cm LAIDs Index: 1.46 1.5-2.3 cm/m2 LV Mass: 283.39 67-162/88-224 g LV Mass Index: 137.57 43-95/49-115 g/m2 LVOT Diam: 2.00 3.0+(-)1.3 cm 2D Systolic Function EF 4C: 43.80 >55% Mitral Valve MV Pk E: 0.46 MV PK A: 0.69 MV Decel Time: 135.00 E/A: 0.70 E'Lateral: 10.60 E'Medial: 12.10 E/E' Med: 3.80 E/E' Lat: 4.40 PHT: 39.00 MVA PHT: 5.64 Decel [place]: 3.44 Aortic Valve AoV Pk Albino: 1.08 AoV Mn Albino: 0.73 AoV VTI: 0.23 AoV Pk Grad: 5.00 Aov Mn Grad: 2.00 YUKO Cont.VTI: 2.20 LVOT LVOT Pk Albino: 0.69 LVOT Mn Albino: 0.51 LVOT VTI: 0.16 LVOT Pk Grad: 2.00 LVOT Mn Grad: 1.00 LVOT Diam: 2.00 LVOT Area: 3.14 Diastolic Function MV Pk E: 0.46 MV Pk A: 0.69 E/A: 0.70 E'Medial: 12.10 E/E' Med: 3.80 E' Laterial: 10.60 E/E' Lat: 4.40 Right Ventricle TAPSE (mm): 21.00 Tricuspid Valve TR Pk Albino: 2.01 TR Pk Grad: 16.00 RA Press: 3.00 RVSP: 19.00 Great Vessels Aorta Ao Root-2D: 3.10 2.0-3.7 cm Ao Asc: 3.20 2.1-3.4 cm Pulmonary Valve PV Pk Albino: 0.69 Peak PV Grad: 2.00 Updated in Other Vendor System with Status of Final Farhad Mackenzie MD electronically signed on 12/16/2024 6:11:35 PM with status of Final
--- OUTSIDE RECORDS SUMMARY | 2024-12-16 09:33 | XMS_ITS ---
Author [facility] Address [address] [place] [address] Care Team Providers Care Planner Scheduler Name Role Phone Wilton SCHWARTZ, Asma Primary Care Provider Kaylie Swartz Unavailable [phone] Allergies Allergen (clinical drug ingredient) Drug/Non Drug [...] Duration) Notes Start Date End Date Status [place] 3 500 MG 1 capsule Once a [...] Problem Status W/U Status Risk Notes Problem [id number] Tarsal tunnel syndrome, right lower limb (G57.51) Active confirmed Vital Signs Blood pressure systolic 148 mm Hg 10/06/20 24 Blood pressure diastolic 89 mm Hg 024 Height 5ft 6in in 10/06/2024 Weight 214 lbs 10/06/2024 BMI 34.54 kg/m2 10/06/2024 Encounters Encounter Location Date Provider Diagnosis [facility] [address] 10/06/2024 Kaylie Pericrashaad Pain in right foot [...] Up: 2 Months, Reason: Provider Name:Kaylie neil, 03/01/2025 03:30:00 PM, [address] [place] [address], [address], Procedure Notes * Category Sub-Category Detail Notes [...] use of a nail nipper and/or dremel-type tankage grinder, to a more viable healthy nail [...] to maintain effectiveness in symptomatic relief - [id number] Progress Notes * Rosalina ZACARIAS:1960 (63 yo F)Acc No.[id number]:10/06/2024 Progress Note Patient:?Yaa ZACARIAS Provider:?Kaylie Hill DPM :1960???Age:63 Y???Sex:Female D ate:10/06/2024 Address:[address] [place] [address] [address] , [facility] Pcp:Pepe Núñez MD Subjective: * Chief Complaints: [...] 1 tablet Orally Once a day Omeprazole [place] 3 500 MG 1 capsule Once a [...] Orally Once a day Taking Omeprazole Taking [place] 3 500 MG 1 capsule Once a [...] use of a nail nipper and/or dremel-type tankage grinder, to a more viable healthy nail [...] to maintain effectiveness in symptomatic relief - 82338.? * Procedure Codes:?17306 DEBRI DE NAIL, 6 OR MORE * [...] Physical Therapy.?Physical Therapy:?Discussed the potential short and oysterman benefits of physical therapy including pain relief, [...] Hill DPM Date:?09/2024 Generated for Cynthia rm/Roxi/Mineitting on:?12/16/2024 09:32 AM EST History and Physical Notes * [...]
--- OUTSIDE RECORDS SUMMARY | 2024-12-16 09:33 | XMS_ITS ---
Author Organization [facility] Address [address] [place] [address] Care Team Providers Care Television Audio Engineer Name Role Phone Wilton SCHWARTZ, [facility] Primary Care Provider Kaylie Swartz Unavailable [phone] Allergies Allergen (clinical drug ingredient) Drug/Non Drug [...] Once a day for 30 day(s) Active Amitriptyline HCl 50 MG 1 tablet at bedt anatoly Orally Once a day Active hydroCHLOROthiazide 25 MG 1 tablet in th e morning Orally Once a day Active Physical Therapy . . . 2-3x/week for 3-4 weeks 02/06/2021 Not-Taking Physical Therapy . . . 2-3x/week for 3-4 weeks 10/06/2024 Active Amitiza 8 MCG 1 capsule with food and water Orally Three times daily Active amLODIPine Besylate 10 MG 1 tablet Orall y Once a day Active Vitamin D3 50 MCG (1999) 1 capsule Or ally Once a day for 30 day(s) Active [place] 3 500 MG 1 capsule Once a day Active Night Splint AFO - L1930 as directed 02/06/2021 Not-Taking Encounters Encounter Location Date Provider Diagnosis [facility] [address] [address] 12/14/2024 Kaylie Hill Plan Of Treatment Next Appt Details Provider Name:Kaylie Tiffanie neil, 03/01/2025 03:30:00 PM, [address] [place], [address], Progress Notes * Yaa ZACARIASDOB:1960 (64 yo F)Acc No.[id number]:12/14/2024 Progress Note Patient:?Yaa ZACARIAS Provider:?Kaylie Hill DPM :1960???Age:64 Y???Sex:Female D ate:12/14/2024 Address:[address] [place] [address] [place], [place] [id number] Pcp:Pepe Núñez MD Subjective: * Chief Complaints: * ??? * HPI: ???Painful Nails:?Pt States Last PCP Visit:?Date:?09/21/2024 * Medical History:?Anemia, Anx iety, Arthritis, Back,Hip,and Knee pain, Fibromyalgia, Glaucoma, Headaches/Migraines, High blood pressure, Chicken pox. * Medications:?Taking Physical Therapy . . . . 2-3x/week [...] a day , Taking Omeprazole , Taking [place] 3 500 MG 1 capsule Once a day , Taking Vitamin D3 50 MCG (1999 UT) Capsule 1 capsule Orally Once a day , Not-Taking/PRN Night Splint AFO - L1930 as directed , Not-Taking/PRN Physical Therapy . . . . 2-3x/week * Allergies:?Codeine, Morphine , Povidone Iodine: shortness of breath. Objective: * Vitals:? Assessment: Plan: * Treatment: * Images: * The named appointment provid er may or may not be the originator of this progress note, and it is not deemed complete until electronically signed by the appointment provider. Sign off status: Pending * Provider:?Kaylie Hill DPM Date:? Generated for Cynthia rm/Roxi/Charu on:?12/16/2024 09:33 AM EST History and Physical Notes * HPI (History of Present Illness) Category Sub-Category Detail Notes Category Not es Painful Nails Pt States Last PCP Visit: Date:: 09/21/2024
--- OUTSIDE RECORDS SUMMARY | 2024-12-16 09:33 | XMS_ITS | Clinical Summary ---
Author Organization [facility] Address [address] [place] [address] Care Team Providers Care Video Production Assistant Name Role Phone Shad Rodriguez MD Primary Care Provider [phone] Surgical History Surgery Date Site/Laterality Comments SECTION N/A PROCEDURE: HISTORICAL DELIVERY COLONOSCOPY N/A PROCEDURE: HISTORICAL COLONOSCOPY ESOPHAGOGASTRODUODENOSCOPY PROCEDURE: MO ESOPHAGOGASTRODUODENOSCOPY TRANSORAL DIAGNOSTIC OTHER SURGICAL HISTORY 07/03/2009 PROCEDURE: MO ARTHRD ANT INTERDY CERVCL BELW C2 EA ADDL NTRSPC; COMMENT: C5-6, C6-7 ACDF, Dr. Aguila OTHER SURGICAL HISTORY 2018 PROCEDURE: MO GASTRIC RSTCV W/O BYP VERTICAL-BANDED GASTROPLY; COMMENT: [...] Date Smoking Tobacco: Never Smokeless Tobacco: Never Comments Unknown Sex and Gender Information Value Date Recorded Sex Assigned at Not on file Legal Sex Female 5:42 PM EST Gender Identity Not on file Sexual Orientation [...] 1979 Cervical Cancer Screening: Pap Smear 1981 Pneumococcal Vaccine: 50+ Years (1 of 1 - PCV) 2010 Zoster Vaccines (1 of 2) 2010 Cholesterol [...] patient's age to complete this topic Meningococcal B Vacine Aged Out No lo nger eligible based on patient's age to complete [...] Documents on File Type Date Recorded Patient Stock Roller Expl anation Health Care Decision (hx) 06/12/2011 AD DANO DIRECTIVE Care Teams Video Production Assistant Relationship Specialty Start Date End Date Shad Rodriguez MD [facility] [address] [address] PCP - General Family Medicine 03/05/16
--- OUTSIDE RECORDS SUMMARY | 2024-12-16 09:33 | XMS_ITS | Patient Health Record ---
Author Organization [facility] Address [address] [place] [address] Care Team Providers Care Supervisor Printing Shop Name Role Phone Wilton SCHWARTZ, Asma Primary Care Provider Kaylie Swartz Unavailable [phone] Allergies Allergen (clinical drug ingredient) Drug/Non Drug [...] Once a day for 30 day(s) Active Vitamin D3 50 MCG (1999 UT) 1 capsule Or ally Once a day for 30 day(s) Active [place] 3 500 MG 1 capsule Once a day Active hydroCHLOROthiazide 25 MG 1 tablet in th e morning Orally Once a day Active Physical Therapy . . . 2-3x/week for 3-4 weeks 02/06/2021 Not-Taking Physical Therapy . . . 2-3x/week for 3-4 weeks 10/06/2024 Active Night Splint AFO - L1930 as directed 02/06/2021 Not-Taking Amitriptyline HCl 50 MG 1 tablet at bedt anatoly Orally Once a day Active Amitiza 8 MCG 1 capsule with food and water Orally Three times daily Active amLODIPine Besylate 10 MG 1 tablet Orall y Once a day Active Immunizations Vaccine Route Administration Date Status [...] primary osteoarthritis of the ankle and/or foot (594320265) Primary osteoarthritis, right ankle and foot (M19.071) Active confirmed Problem 479849485156500 Tarsal tunnel syndrome, right lower limb (G57.51) Active confirmed Problem 558093583 Neuropathy (G62.9) Active confirmed Problem 128045647650057 Neuritis of right foot (G57.91) Active confirmed Problem Plantar fasciitis of right foot (63958171991592246 ) Plantar fasciitis of right foot (M72.2) Active confirmed Problem 40655108 Venous insufficiency (I87.2) Active confirmed Problem Interstitial myositis (31108784) Interstitial myositis of right foot (M60.171) Active confirmed Vital Signs Blood pressure diastolic 89 mm Hg 10/06/2024 Height 5ft 6in in 10/06/2024 Blood pressure systolic 148 mm Hg 10/06/2024 Weight 214 lbs 10/06/2024 BMI 34.54 kg/m2 10/06/2024 Encounters Encounter Location Date Provider Diagnosis [facility] [place] [address] [place] [address] 09/09/2024 Kaylie Perica Pain in right foot M79.671 ; Plantar fasciitis of right foot M72.2 ; Calcaneal spur, right foot M77.31 ; 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 ; Bursitis of right foot M77.51 and Neuritis of right foot G57.[address] [facility] [address] 10/06/2024 Kaylie Perica Pain in right foot [...] and Posterior tibial tendinitis, right leg M76.821 [facility] [place] [address] [place] [address] 09/09/2024 Kaylie Hill [facility] [address] [address] 12/14/2024 Kaylie Hill Assessments Encounter Date Diagnosis (ICD [...] X ray : Foot, right 3V 09/09/2024 60516-Cuqslpjd Plate 11/05/2020 15979-Hycqobgl Plate Each Additional 08/2021 Next Appt Details Provider Name:Kaylie neil, 03/01/2025 03:30:00 PM, [address] [place] [address], [address], Insurance Providers Payer Name Payer Address Payer Phone Subscriber Number Group Number Insured Name Patient Relationship to Insured Coverage Start Date Coverage End Date [facility] [employer] Claims [address] [place] [id number] Yaa Zacarias Self - patient is the insured Medical (General) History Medical History History ICD Code Anemia Anxiety Arthritis Back,Hip,and Knee pain Fibromyalgia Glaucoma Headaches/Migraines High blood pressure Chicken pox Surgical History Surgery Date(Month/Year) cervical fusion x2 2008 & 2019 hernia tubal ligation gastric sleeve
--- OUTSIDE RECORDS SUMMARY | 2024-12-16 09:33 | XMS_ITS | Clinical Summary ---
Author Organization [facility] Address [address] [place] [address] Care Team Providers Care Greenstone Polisher Operator Name Role Phone Shad Rodriguez MD Primary Care Provider [phone] Allergies Active Allergy Reactions Criticality Noted Date [...] Advance Directives For more information, please contact: [phone] Latest Code Status on File Code Status Date Activated Date Inactivated Comments Full Code 04/12/2016 3:58 PM 04/13/2016 9:08 PM This code status was ascertained in the following way: discussion with patient. Care Teams Greenstone Polisher Operator Relationship Specialty Start Date End Date Shad Rodriguez MD PCP - General Family Medicine 03/05/16
--- OUTSIDE RECORDS SUMMARY | 2024-12-16 09:33 | XMS_ITS ---
Author Organization [facility] Address [address] [place] [address] Care Team Providers Care Handbag Framer Name Role Phone Wilton SCHWARTZ, Asma Primary Care Provider Kaylie Swartz [phone] REASON FOR VISIT same day rs 12/14/24 Encounters Encounter Location Date Provider Diagnosis [facility] [address] [place] [address] 12/14/2024 Kaylie Hill Plan Of Treatment Next Appt Details Provider Name:Kaylie neil, 03/01/2025 03:30:00 PM, [address] [place], [address], Progress Notes * Yaa ZACARIASDOB:1960 (64 yo F)Acc No.[id number]:12/14/2024 Patient:?Yaa ZACARIAS :1960???Age:64 Y???Sex:Female Address:[address] , [place], [address] * true * Date:? Generated for Cynthia rm/Roxi/eTransmitting on:?12/16/2024 09:33 AM EST
--- OUTSIDE RECORDS SUMMARY | 2024-12-16 09:33 | XMS_ITS | Continuity of Care Document ---
Author Organization [facility] Address [address] [place] [address] [address] [place] [address] Phone Care Team Providers Care Kick Press Operator Name Role Phone Tomás SCHWARTZ, [place], Jordan HALL Unavailable U navailable Procedures Procedure Date Offic Cons New/estab Mod 40 Mi- CT & [place] Duplex Scan-extrem Veins; Uni/ CT & [place] D Advance Directives Directive Yes / No Effective Date File Name No Information Encounters Encounter Description Practice Location Reason(s) For Visit Diagnoses Date Provider Providers Copied on Encounter [facility], [address] [place] [address] Dr [address], [id number], tel:[phone] [facility] No Information 4 Tomás SCHWARTZ RVT, RPVI Robert. [address] [place] [address] [place], [id number] , [place]. tel:[phone] Offic Cons New/estab Mod 40 Mi- CT & [place] [facility], [address] [place] [address] Dr [address], [id number], tel:[phone] [facility] Varicose veins of right lower extremity with other complicationsPa in in right lower legPain in right legCramp and spasmRestless legs syndromeEssenti al (primary) hypertensionPru ritus, unspecified 4 Tomás SCHWARTZ RVT, RPVI Robert. [address] [place] [address] [place], [place], [id number] , [place]. tel:[phone] Referring Provider: Pepe Núñez MD, [address], [place], [address]. tel:[phone] [facility], [address], [place], [id number], [place] tel:[phone] CVR - [facility] Chronic venous hypertension (idiopathic) with other complications of right lower extremity 4 Tomás SCHWARTZ, RVT, RPHARI Ortega. [address], [address], [place], [place], [id number] , [place]. tel:[phone] Referring Provider: Pepe Núñez MD, [address], [place], [address]. tel:[phone] Family History Family Member Type Diagnosis Age At Onset No Information Payers Payer name Insurance type Covered republican ID Authormargaritoa elise(s) [facility] CI [id number] Social History Type Description Quantity Date Captured [...]
== END ==
LOC: HO.CARD 09:08
PROVIDERS: PCP Internal Medicine
DX: R06.00 Dyspnea, unspecified (principal)
CPT/HCPCS: 93306; Q9957

== ENCOUNTER → 2024-12-16 09:12 | Outpatient (BNV) | payer OTHER, SELFPAY | PROVIDERS: PCP Internal Medicine; Visit Provider Internal Medicine | DX: R06.00 Dyspnea, unspecified (principal); I51.89 Other ill-defined heart diseases | CPT/HCPCS: 93306 ==

== ENCOUNTER 2025-02-22 09:35 | Outpatient (REF) | payer OTHER, SELFPAY ==
--- OUTSIDE RECORDS SUMMARY | 2025-02-22 10:58 | XMS_ITS | Clinical Summary ---
Author Organization Patient Business Ser [facility] Address [address] [place] [address] Care Team Providers Care Title Insurance Examiner Name Role Phone Shad Rodriguez MD Primary Care Provider [phone] [phone] Surgical History Surgery Date Site/Laterality Comments SECTION N/A PROCEDURE: HISTORICAL DELIVERY COLONOSCOPY N/A PROCEDURE: HISTORICAL COLONOSCOPY ESOPHAGOGASTRODUODENOSCOPY PROCEDURE: CT ESOPHAGOGASTRODUODENOSCOPY TRANSORAL DIAGNOSTIC OTHER SURGICAL HISTORY 07/03/2009 PROCEDURE: CT ARTHRD ANT INTERDY CERVCL BELW C2 EA ADDL NTRSPC; COMMENT: C5-6, C6-7 ACDF, Dr. Aguila OTHER SURGICAL HISTORY 2018 PROCEDURE: CT GASTRIC RSTCV W/O BYP VERTICAL-BANDED GASTROPLY; COMMENT: [...] Documents on File Type Date Recorded Patient Bilingual Medical Receptionist Expl anation Health Care Decision (hx) 06/12/2011 DELANO MATSON DIRECTIVE Care Teams Title Insurance Examiner Relationship Specialty Start Date End Date Shad Rodriguez MD [facility] [address] [address] PCP - General Family Medicine 03/05/16
--- OUTSIDE RECORDS SUMMARY | 2025-02-22 10:58 | XMS_ITS | Clinical Summary ---
Author Organization [employer] [facility] Address [address] [place] [address] Care Team Providers Care Enterprise Security Architect Name Role Phone Shad Rodriguez MD Primary Care Provider [phone] [phone] Allergies Active Allergy Reactions Criticality Noted Date [...] Advance Directives For more information, please contact: [phone] Latest Code Status on File Code Status Date Activated Date Inactivated Comments Full Code 04/12/2016 3:58 PM 04/13/2016 9:08 PM This code status was ascertained in the following way: discussion with patient. Care Teams Enterprise Security Architect Relationship Specialty Start Date End Date Shad Rodriguez MD PCP - General Family Medicine 03/05/16
[2025-02-22 13:25] LABS: MANUAL DIFF FLAG NO
[2025-02-22 13:42] LABS: Basophils Percent Auto 0.4 % (0-2); Eosinophils Absolute Auto 0.1 X10*3/uL (0.0-0.4); Eosinophils Percent Auto 1.3 % (0-4); Hematocrit 40.3 % (37.0-47.0); Hemoglobin 13.2 g/dl (12.0-16.0); Imm Gran Abs Auto 0.01 X10*3/uL (0.00-0.03); Imm Gran Pct Auto 0.2 % (0.0-0.4); Lymphocytes Percent Auto 21.3 % (20-40); Mean Corpuscular HGB Conc 32.8 g/dl (31.0-35.0); Mean Corpuscular Volume 82.4 fL (80.0-98.0); Mean Platelet Volume 10.5 fL (9.4-12.3); Monocytes Absolute Auto 0.5 X10*3/uL (0.1-1.2); Monocytes Percent Auto 11.6 % (2-11); Neutrophils Percent Auto 65.2 % (45-73); Platelet Count 249 X10*3/uL (160-400); Red Blood Count 4.89 X10*6/uL (4.20-5.50); Red Cell Distribution Width 13.6 % (11.0-16.0); White Blood Count 4.6 X10*3/uL (4.8-10.8)
[2025-02-22 13:53] LABS: Alanine Aminotransferase 21 U/L (0-31); Albumin Level 4.3 g/dL (3.5-5.0); Alkaline Phosphatase 96 U/L (39-117); Anion Gap 10 (12-20); Aspartate Amino Transferase 26 U/L (5-31); Bilirubin Direct 0.1 mg/dL (0.0-0.5); Bilirubin Total 0.4 mg/dL (0.0-1.0); Blood Urea Nitrogen 19 mg/dL (9-16); Calcium 9.4 mg/dL (8.4-10.2); Carbon Dioxide 28 mmol/L (22-29); Chloride 103 mmol/L (96-108); Estimated Glomerular Filt Rate > 60; Glucose Random 83 mg/dL (60-115); Potassium 4.4 mmol/L (3.3-5.1); Sodium 137 mmol/L (135-145); Total Protein 8.1 g/dL (6.5-8.0)
[2025-02-23 09:09] LABS: LDL Cholesterol Direct 125 mg/dL (<100)
== END 2025-02-22 09:36 | disposition home or self-care (01) ==
LOC: HO.HMGCLDS 09:35
PROVIDERS: PCP Internal Medicine; Visit Provider Internal Medicine
DX: K59.04 Chronic idiopathic constipation (principal); I10 Essential (primary) hypertension; M79.7 Fibromyalgia; G44.89 Other headache syndrome; M50.30 Other cervical disc degeneration, unspecified cervical region; I50.20 Unspecified systolic (congestive) heart failure; M62.838 Other muscle spasm; K59.01 Slow transit constipation; E66.09 Other obesity due to excess calories; Z68.34 Body mass index [BMI] 34.0-34.9, adult; R00.2 Palpitations; F32.A Depression, unspecified; Z79.899 Other long term (current) drug therapy; M54.12 Radiculopathy, cervical region
CPT/HCPCS: 36415; 80053; 82248; 83721; 85025; 96127; 99212

== ENCOUNTER 2025-02-22 09:35 | Outpatient (AMB) | payer OTHER, SELFPAY ==
[2025-02-22 09:43] VITALS: BP 132/88; PULSE 101; O2SAT 98; BMI 35.4
--- NOTE | 2025-02-22 09:43 | A.OFFPC_ITS ---
Vital Signs 02/22/25 09:43 Height 5 ft 6 in Weight 219 lb 4 oz BMI 35.4 BP 132/88 Blood Pressure Location Rt brachial Position Sitting Pulse 101 H Pulse Source Pulse Oximeter Pulse Oximetry (%) 98 Oxygen Delivery Method Room Air Intake Visit Reasons: htn/headache Allergies hydromorphone [Dilaudid] Allergy (Intermediate, Verified 02/22/25 09:49) Hallucinations,Itching, rash Iodinated Contrast Media Allergy (Intermediate, Verified 02/22/25 09:49) shortness of breath morphine [Morphine] Allergy (Intermediate, Verified 02/22/25 09:49) hallucinations, itching, rash oxycodone Allergy (Intermediate, Verified 02/22/25 09:49) Hallucinations,itching, rash Penicillins Allergy (Intermediate, Verified 02/22/25 09:49) ITCHING/PASSES OUT acetaminophen [From Percocet] Allergy (Mild, Verified 02/22/25 09:49) Unknown NSAIDS (Non-Steroidal Anti-Inflamma Allergy (Verified 02/22/25 09:49) Rash From OxyContin Allergy (Intermediate, Uncoded 02/22/25 09:49) hallucinations,itching,rash Medication List - Last Reconciled 02/22/25 by Pepe Núñez MD amitriptyline 75 mg PO BEDTIME aspirin 81 mg PO DAILY baclofen 10 mg PO .qhs PRN 30 days [Blood pressure monitor As directed] fccgdprdzv-smsietcpkttuw-dexe 50-300-40 mg (Fioricet) 1 cap PO ONCE PRN 30 days carvedilol 25 mg PO BID cholecalciferol (vitamin D3) 25 mcg PO DAILY 90 days empagliflozin 10 mg PO DAILY gabapentin 300 mg PO BEDTIME 90 days glycerin (child) 2 supp VT ONCE PRN multivitamin (Daily Multi-Vitamin tablet) 1 tab PO DAILY omeprazole 20 mg PO DAILY 30 days ondansetron HCl 4 mg PO Q8H PRN 30 days plecanatide (Trulance) 3 mg PO DAILY sennosides (Senokot) 8.6 mg PO BEDTIME spironolactone 25 mg PO DAILY turmeric root extract 500 mg PO DAILY valsartan 80 mg PO BID Tobacco use date assessed: 02/22/25 Fall risk assessment: No Falls in past year Last assessed Fall Risk: 02/22/25 Dental Screening Dental Screen Date: 02/22/25 Did you have a dental visit in the last 12 months?: Yes Did you have a dental problem in the last 6 months where you did not have access to dental care?: No Was dental information given to patient?: Patient has dentist HPI htn/headache HPI Details History - The patient is a 64-year-old female pr esenting for regular follow-up appointment - She reports fluctuating blood pressure levels. Occasionally, her blood pressure elevates without any identifiable triggers. - Previous episodes of dizziness accompa nied by high blood pressure were noted, with two occurrences on the same day. - The patient is not using salt in her d iet, indicating dietary management efforts for hypertension. - Stress and anxiety are suggested as po tential factors influencing her blood pressure variations. - She experiences headaches, described a s pressure around the head, often accompanying elevated blood pressure episodes. - The patient was previously under treat ment with amlodipine, which was discontinued by the director construction services. - A history of neck pain treated with Ba clofen at night is noted. - Constipation management is being overs een by a accounts officer, with a mention of inadequate response to recent medication changes for this condition - She reported issues with previously ta diogo medications and is awaiting a gastroenterology appointment regarding her satisfaction with current treatments. - fibromyalgia managed with gabapentin - Mentions past lab work conducted in [facility] with a suggestion for additional blood work soon. - obesity with BMI of 35.4 patient is ornelas ving difficulty losing weight - headache management through neurology Medications - Amitriptyline 75 mg for depression - Baclofen taken at night for neck pain - Carvedilol 25 mg BID for hypertension - Fioricet for headaches - Vitamin D supplement - Gabapentin 300 mg at bedtime - Omeprazole 20 mg for dyspepsia - Spironolactone 25 mg for hypertension - Valsartan 80 mg BID for hypertension - Farxiga (Dapagliflozin) 10 mg for hear t health Problem List - Essential [facility] [ [facility]] - Headache [ managed through neurology] - Depression - Neck pain - Dyspepsia - Constipation [ managed through Gastroe nterology] Douglas of Care - 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 - Adjust diet to limit caffeine intake; - If experiencing high blood pressure, c onsider taking an extra tablet of Spironolactone and contact your director construction services. - Follow up with the director construction services after the upcoming stress test and nuclear scan. - Proceed to the lab for ordered blood t ests. - continue medications Only medication from PCP office is gabapentin and baclofen Review of Systems General: No fever no chills neurological: No headaches at this time no dizziness ear nose throat: No sore throat no hearing difficulty no ear pain cardiovascular: No syncope, no chest pain, no palpitations gastrointestinal: No nausea vomiting or diarrhea endocrine: No polyuria polydipsia no heat intolerance genitourinary: No dysuria skin: No new complaints Physical Exam general: No acute distress HEENT: No acute findings neck: Supple, patient reports neck pain respiratory system: Able to talk in full sentences, no audible wheeze no stridor cardiovascular: S1-S2, RRR gastrointestinal: No pain, patient reports constipation extremities: No new findings VOCATIONAL 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: Alert awake oriented x3 motor sensory intact skin: Normal turgor [facility] Medical History Cervicalgia Osteoarthritis COVID-19 vaccine series completed Abdominal pain Nausea Constipation Acid reflux Hypertension, essential Surgical History Hx of tubal ligation History of fusion of cervical spine History of colonoscopy History of esophagogastroduodenoscopy History of sleeve gastrectomy History of endometrial ablation History of section Family History Father HTN (hypertension) Cancer of prostate Mother Diabetes mellitus History of heart attack Heart problem Brother Heart problem Diabetes mellitus Dialysis patient Brother HTN (hypertension) Stroke Arthritis Maternal Grandfather No problems noted. Maternal Grandmother No problems noted. Paternal Grandfather No problems noted. Paternal Grandmother No problems noted. Son No problems noted. Son No problems noted. Daughter No problems noted. Other Mental health disorder Social History Household Members: None Housing: Apartment Alcohol intake: never Patient Tobacco Use Status: Never used Tobacco e-Cigarette/Vaping Use: Never Used service: No Current occupational status: disabled Cognitive needs: No Hearing needs: No Vision needs: Yes Female Reproductive History Menstrual Age of Menarche: 9 Questionnaire PHQ-9 Over the last 2 weeks, how often have you been bothered by any of the following problems? 1. Little interest or pleasure in doing things: not at all 2. Feeling down, depressed, or hopeless: not at all 3. Trouble falling or staying asleep, or sleeping too much: several days 4. Feeling tired or having little energy: several days 5. Poor appetite or overeating: several days 6. Feeling bad about yourself - or that you are a failure or have let yourself or your family down: not at all 7. Trouble concentrating on things, such as reading the newspaper or watching television: not at all 8. Moving or speaking so slowly that other people could have noticed. Or the opposite - being so fidgety or restless that you have been moving around a lot more than usual: several days 9. Thoughts that you would be better off or of hurting yourself in some way: not at all Total score: 4 Depression Screening Interpretation: Negative Depression Screening Done: Yes 56221 - PHQ-9 Billing: Yes Source: Developed by Drs. Jordan Hines, Micki Noriega, Steve neil nd colleagues, with an educational guanako from [employer]. Thrive Questionnaire Date Thrive assessed: 02/22/25 I am a: Patient What is your living situation today?: I have a steady place to live Within the past 12 months, did the food you bought not last and you didn't have the money to get more?: Never true Within the past 12 months, did you worry whether your food would run out before you got money to buy more?: Never true Do you have trouble paying for medicines?: No Do you have trouble getting transportation to medical appointments?: No Do you have trouble paying your heating and electricity bill?: No Do you have trouble taking care of your child, family member or friend?: I choose not to answer this question Do you have trouble with day-to-day activities such as bathing, preparing meals, shopping, managing finances, etc.?: No Are you currently unemployed and looking for a job?: No Are you interested in more education?: No Please select the resources that you would like help with: None Currently or been in a relationship where the following occur: No concerns reported THRIVE Score: 0 AUDIT C Alcohol Use Questionnaire (AUDIT-C) 1. How often do you have a drink containing alcohol?: Never 3. How often do you have six or more drinks on one occasion?: Never Total Score: 0 Score Reviewed/Action Taken: Yes REVA-7 AMB Questionnaire REVA-7 Date REVA - 7 assessed: 02/22/25 Feeling nervous, anxious, or on edge: 0 = Not at all Not being able to stop or control worryin = Not at all Worrying too much about different things: 1 = Several days Trouble relaxin = Several days Being so restless that it is hard to sit still: 0 = Not at all Becoming easily annoyed or irritable: 0 = Not at all Feeling afraid as if something awful might happen: 0 = Not at all Total REVA-7 score (0-4 normal; 5-9 mild; 10-14 moderate; 15-21 severe): 2 Source: Developed by Drs. Jordan Hines, Micki Noriega, Steve Hernadez and colleagues, with an educational guanako from [employer]. REVA-7 Assessment Billing REVA-7 Assessment Tool: REVA-7 Assessment 22471 Physical exam (Primary Care) Vital Signs: Last Vital Signs Pulse 101 H 02/22/25 09:43 BP 132/88 02/22/25 09:43 Pulse Ox 98 02/22/25 09:43 Oxygen Delivery Method Room Air 02/22/25 09:43 BMI result Body Mass Index 35.4 Tobacco/Smoking Status: Tobacco use Status Tobacco use date assessed 02/22/25 02/22/25 09:50 Patient Tobacco Use Status Never used Tobacco 02/22/25 09:47 e-Cigarette/Vaping Use Never Used 02/22/25 09:47 PHQ-9: PHQ-9 Score PHQ-9: Total score 4 02/22/25 09:59 Depression Screening Interpretation: Negative Thrive Assessment: Date of Thrive Assessment Date Thrive assessed 02/22/25 02/22/25 09:47 Currently or been in a relationship where the following occur: No concerns reported Coding Level of Care Code Est Pt Level 4 (57825) Complex EM visit Add On G2211 Diagnoses Hypertension, essential I10 Fibromyalgia M79.7 Headache syndrome G44.89 DDD (degenerative disc disease), cervical M50.30 HFrEF (heart failure with reduced ejection fraction) I50.20 Muscle spasm M62.838 Constipation by delayed colonic transit K59.01 Class 1 obesity due to excess calories with serious comorbidity and body mass index (BMI) of 34.0 to 34.9 in adult E66.09; Z68.34 Body mass index: BMI 34.0-34.9 Obesity classification: adult class 1 (BMI 30 - 34.9) Serious obesity comorbidity presence: with serious comorbidity Palpitation R00.2 Additional Codes REVA-7 Assessment Billing - REVA-7 Assessment Tool: REVA-7 Assessment 00551 ([id number]) PHQ-9 - 88468 - PHQ-9 Billing: Yes ([id number]) Assessment & Plan Assessment & Plan (1) Hypertension, essential: Code(s): I10 - Essential (primary) hypertension Category: Medical (2) Fibromyalgia: Code(s): M79.7 - Fibromyalgia Category: Medical (3) Headache syndrome: Code(s): G44.89 - Other headache syndrome Category: Medical (4) DDD (degenerative disc disease), cervical: Code(s): M50.30 - Other cervical disc degeneration, unspecified cervical region Category: Medical (5) HFrEF (heart failure with reduced ejection fraction): Code(s): I50.20 - Unspecified systolic (congestive) heart failure Category: Medical (6) Muscle spasm: Code(s): M62.838 - Other muscle spasm Category: Medical (7) Constipation by delayed colonic transit: Code(s): K59.01 - Slow transit constipation Category: Medical (8) Obesity due to excess calories: Code(s): E66.09 - Other obesity due to excess calories Category: Medical Qualifiers: Body mass index: BMI 34.0-34.9 Obesity classification: adult class 1 (BMI 30 - 34.9) Serious obesity comorbidity presence: with serious comorbidity Qualified Code(s): E66.09 - Other obesity due to excess calories; Z68.34 - Body mass index [BMI] 34.0-34.9, adult (9) Palpitation: Code(s): R00.2 - Palpitations Category: Medical Plan History - The patient is a 64-year-old female presenting for regular follow-up appointment - She reports fluctuating blood pressure levels. Occasionally, her blood pressure elevates without any identifiable triggers. - Previous episodes of dizziness accompanied by high blood pressure were noted, with two occurrences on the same day. - The patient is not using salt in her diet, indicating dietary management efforts for hypertension. - Stress and anxiety are suggested as potential factors influencing her blood pressure variations. - She experiences headaches, described as pressure around the head, often accompanying elevated blood pressure episodes. - The patient was previously under treatment with amlodipine, which was discontinued by the director construction services. - A history of neck pain treated with Baclofen at night is noted. - Constipation management is being overseen by a accounts officer, with a mention of inadequate response to recent medication changes for this condition - She reported issues with previously taken medications and is awaiting a gastroenterology appointment regarding her satisfaction with current treatments. - fibromyalgia managed with gabapentin - Mentions past lab work conducted in September with a suggestion for additional blood work soon. - obesity with BMI of 35.4 patient is having difficulty losing weight - headache management through neurology Medications - Amitriptyline 75 mg for depression - Baclofen taken at night for neck pain - Carvedilol 25 mg BID for hypertension - Fioricet for headaches - Vitamin D supplement - Gabapentin 300 mg at bedtime - Omeprazole 20 mg for dyspepsia - Spironolactone 25 mg for hypertension - Valsartan 80 mg BID for hypertension - Farxiga (Dapagliflozin) 10 mg for heart health Problem List - Essential Hypertension [ managed through Cardiology] - Headache [ managed through neurology] - Depression - Neck pain - Dyspepsia - Constipation [ managed through Gastroenterology] Douglas of Care - 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 - Adjust diet to limit caffeine intake; - If experiencing high blood pressure, consider taking an extra tablet of Spironolactone and contact your director construction services. - Follow up with the director construction services after the upcoming stress test and nuclear scan. - Proceed to the lab for ordered blood tests. - continue medications Only medication from PCP office is gabapentin and baclofen Orders: Orders Complete Blood Count Auto Diff Today E66.09 - Other obesity due to excess calories, G44.89 - Other headache syndrome, I10 - Essential (primary) hypertension, I50.20 - Unspecified systolic (congestive) heart failure, K59.01 - Slow transit constipation, M54.12 - Radiculopathy, cervical region, M62.838 - Other muscle spasm, M79.7 - Fibromyalgia, R00.2 - Palpitations, Z68.34 - Body mass index [BMI] 34.0-34.9, adult Comprehensive Met. Panel Today E66.09 - Other obesity due to excess calories, G44.89 - Other headache syndrome, I10 - Essential (primary) hypertension, I50.20 - Unspecified systolic (congestive) heart failure, K59.01 - Slow transit constipation, M54.12 - Radiculopathy, cervical region, M62.838 - Other muscle spasm, M79.7 - Fibromyalgia, R00.2 - Palpitations, Z68.34 - Body mass index [BMI] 34.0-34.9, adult LDL Cholesterol Direct Today E66.09 - Other obesity due to excess calories, G44.89 - Other headache syndrome, I10 - Essential (primary) hypertension, I50.20 - Unspecified systolic (congestive) heart failure, K59.01 - Slow transit constipation, M54.12 - Radiculopathy, cervical region, M62.838 - Other muscle spasm, M79.7 - Fibromyalgia, R00.2 - Palpitations, Z68.34 - Body mass index [BMI] 34.0-34.9, adult Medications: Refilled baclofen 10 mg PO .qhs 30 days PRN 30 tabs 2RF muscle spasm gabapentin 300 mg PO BEDTIME 90 days 90 caps 0RF
--- OUTSIDE RECORDS SUMMARY | 2025-02-22 10:22 | XMS_ITS | Clinical Summary ---
Author Organization [facility] Address [address] [place] [address] Care Team Providers Care Chart Calculator Name Role Phone Shad Rodriguez MD Primary Care Provider [phone] Allergies Active Allergy Reactions Criticality Noted Date [...] Advance Directives For more information, please contact: [phone] Latest Code Status on File Code Status Date Activated Date Inactivated Comments Full Code 04/12/2016 3:58 PM 04/13/2016 9:08 PM This code status was ascertained in the following way: discussion with patient. Care Teams Chart Calculator Relationship Specialty Start Date End Date Shad Rodriguez MD PCP - General Family Medicine 03/05/16
--- OUTSIDE RECORDS SUMMARY | 2025-02-22 10:22 | XMS_ITS ---
Author Organization [facility] Address [address] [place] [address] Care Team Providers Care Boat Cleaning Supervisor Name Role Phone Wilton SCHWARTZ, [facility] Primary Care Provider Kaylie Swartz Unavailable [phone] Allergies Allergen (clinical drug ingredient) Drug/Non Drug [...] Once a day for 30 day(s) Active Castorland 3 500 MG 1 capsule Once a day Active Night Splint AFO - L1930 as directed 02/06/2021 Not-Taking Encounters Encounter Location Date Provider Diagnosis [facility] [address] [address] 12/14/2024 Kaylie Hill Plan Of Treatment Next Appt Details Provider Name:Kaylie Tiffanie neil, 03/01/2025 03:30:00 PM, [address] [place], [address], Progress Notes * Yaa ZACARIASDOB:1960 (64 yo F)Acc No.[id number]:12/14/2024 Progress Note Patient:?Yaa ZACARIAS Provider:?Kaylie Hill DPM :1960???Age:64 Y???Sex:Female D ate:12/14/2024 Address:[address] [place] [address] [place], [place] [id number] Pcp:Pepe Núñez MD Subjective: * Chief Complaints: [...] a day , Taking Omeprazole , Taking Castorland 3 500 MG 1 capsule Once a [...] Hill DPM Date:? Generated for Cynthia rm/Roxi/Charu on:?02/22/2025 10:22 AM EDT History and Physical Notes * HPI (History of Present Illness) Category Sub-Category Detail Notes Category Not es Painful Nails Pt States Last PCP Visit: Date:: 09/21/2024
--- OUTSIDE RECORDS SUMMARY | 2025-02-22 10:22 | XMS_ITS | Patient Health Record ---
[facility] Address [address] [place] [address] Care Team Providers Care Nurse Clinical Name Role Phone Wilton SCHWARTZ, Asma Primary Care Provider Kaylie Swartz Unavailable [phone] Allergies Allergen (clinical drug ingredient) Drug/Non Drug [...] Once a day for 30 day(s) Active Waverly 3 500 MG 1 capsule Once a [...] primary osteoarthritis of the ankle and/or foot (233096397) Primary osteoarthritis, right ankle and foot (M19.071) Active confirmed Problem [id number] Tarsal tunnel syndrome, right lower limb (G57.51) Active confirmed Problem 868866646 Neuropathy (G62.9) Active confirmed Problem [id number] Neuritis of right foot (G57.91) Active confirmed Problem Plantar fasciitis of right foot (49697850279646791 ) Plantar fasciitis of right foot (M72.2) Active confirmed Problem 81500657 Venous insufficiency (I87.2) Active confirmed Problem Interstitial myositis (65701786) Interstitial myositis of right foot (M60.171) Active confirmed Vital Signs Blood pressure diastolic 89 mm Hg 10/06/2024 Height 5ft 6in in 10/06/2024 Blood pressure systolic 148 mm Hg 10/06/2024 Weight 214 lbs 10/06/2024 BMI 34.54 kg/m2 10/06/2024 Encounters Encounter Location Date Provider Diagnosis [facility] [address] [place] [address] 09/09/2024 Kaylie Perica Pain in right foot M79.671 ; Plantar fasciitis of right foot M72.2 ; Calcaneal spur, right foot M77.31 ; 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 ; Bursitis of right foot M77.51 and Neuritis of right foot G57.[address] [facility] [address] 10/06/2024 Kaylie Perica Pain in right foot [...] and Posterior tibial tendinitis, right leg M76.821 [facility] [place] [address] [place] [address] 09/09/2024 Kaylie Hill [facility] [address] [address] 12/14/2024 Kaylie Hill Assessments Encounter Date Diagnosis [...] X ray : Foot, right 3V 09/09/2024 11766-Ysugoamw Plate 11/05/2020 98794-Qhtxilmv Plate Each Additional 08/2021 Next Appt Details Provider Name:Kaylie neil, 03/01/2025 03:30:00 PM, [address] [place] [address], [phone], Insurance Providers Payer Name Payer Address Payer Phone Subscriber Number Group Number Insured Name Patient Relationship to Insured Coverage Start Date Coverage End Date [facility] [employer] Claims [address] [place] [id number] Yaa Zacarias Self - patient is the insured Medical (General) History Medical History History ICD Code Anemia Anxiety Arthritis Back,Hip,and Knee pain Fibromyalgia Glaucoma Headaches/Migraines High blood pressure Chicken pox Surgical History Surgery Date(Month/Year) cervical fusion x2 2008 & 2019 hernia tubal ligation gastric sleeve
--- OUTSIDE RECORDS SUMMARY | 2025-02-22 10:22 | XMS_ITS | Clinical Summary ---
Author Organization Patient Business Ser [facility] Address [address] [place] [address] Care Team Providers Care Snath Handle Assembler Name Role Phone Shad Rodriguez MD Primary Care Provider [phone] Surgical History Surgery Date Site/Laterality Comments SECTION N/A PROCEDURE: HISTORICAL DELIVERY COLONOSCOPY N/A PROCEDURE: HISTORICAL COLONOSCOPY ESOPHAGOGASTRODUODENOSCOPY PROCEDURE: AR ESOPHAGOGASTRODUODENOSCOPY TRANSORAL DIAGNOSTIC OTHER SURGICAL HISTORY 07/03/2009 PROCEDURE: AR ARTHRD ANT INTERDY CERVCL BELW C2 EA ADDL NTRSPC; COMMENT: C5-6, C6-7 ACDF, Dr. Aguila OTHER SURGICAL HISTORY 2018 PROCEDURE: AR GASTRIC RSTCV W/O BYP VERTICAL-BANDED GASTROPLY; COMMENT: [...] Vaccine ( season) 2024 01/25/2021 Influenza Vaccine (Season Ended) 2025 09/26/2022, 09/03/2021, 08/21/2020, Additional history exists RSV Immunization Adult Patients (1 - 1-dose 75+ series) 2035 HIB [...] age to complete this topic Meningococcal B Vaccine Aged Out No l onger eligible based on patient's age to complete [...] Documents on File Type Date Recorded Patient Registered Nurse Renal Expl anation Health Care Decision (hx) 06/12/2011 DELANO MATSON DIRECTIVE Care Teams Snath Handle Assembler Relationship Specialty Start Date End Date Shad Rodriguez MD [facility] [address] [address] PCP - General Family Medicine 03/05/16
--- OUTSIDE RECORDS SUMMARY | 2025-02-22 10:22 | XMS_ITS ---
Author Organization [facility] Address [address] [place] [address] Care Team Providers Care Manager Administrative Services Name Role Phone Wilton SCHWARTZ, Asma Primary Care Provider Kaylie Swartz Unavailable [phone] Allergies Allergen (clinical drug ingredient) Drug/Non Drug [...] Duration) Notes Start Date End Date Status [place] 3 500 MG 1 capsule Once a [...] Problem Status W/U Status Risk Notes Problem [id number] Tarsal tunnel syndrome, right lower limb (G57.51) Active confirmed Vital Signs Height 5ft 6in in 10/06/2024 Weight 214 lbs 10/06/2024 BMI 34.54 kg/m2 10/06/2024 Blood pressure systolic 148 mm Hg 10/06/20 24 Blood pressure diastolic 89 mm Hg 024 Encounters Encounter Location Date Provider Diagnosis [facility] [address] 10/06/2024 Kaylie Pericrashaad Pain in right foot [...] Reason: Provider Name:Kaylie neil, 03/01/2025 03:30:00 PM, [address] [place] [address], [phone], Procedure Notes * Category Sub-Category Detail Notes [...] use of a nail nipper and/or dremel-type cylinder grinder, to a more viable healthy nail [...] to maintain effectiveness in symptomatic relief - 53419 Progress Notes * Rosalina ZACARIAS:1960 (63 yo F)Acc No.[id number]:10/06/2024 Progress Note Patient:?Yaa ZACARIAS Provider:?Kaylie Hill DPM :1960???Age:63 Y???Sex:Female D ate:10/06/2024 Address:[address] [place] [address] [address] , [facility] Pcp:Pepe Núñez MD Subjective: * Chief Complaints: [...] 1 tablet Orally Once a day Omeprazole [place] 3 500 MG 1 capsule Once a [...] Orally Once a day Taking Omeprazole Taking [place] 3 500 MG 1 capsule Once a [...] use of a nail nipper and/or dremel-type cylinder grinder, to a more viable healthy nail [...] to maintain effectiveness in symptomatic relief - 05441.? * Procedure Codes:?84311 DEBRI DE NAIL, 6 OR MORE * [...] Physical Therapy.?Physical Therapy:?Discussed the potential short and computer terminal operator benefits of physical therapy [...] Hill DPM Date:?09/2024 Generated for Cynthia rm/Roxi/Lesleysmitting on:?02/22/2025 10:21 AM EDT History and Physical Notes * [...] Decreased Ankle joint dorsiflexion ROM, knee extended FOOTWEAR EVALUATION: shoe gear propertie s exacerbate patients foot/toe deformity TENDONITIS: Pain on [...]
--- OUTSIDE RECORDS SUMMARY | 2025-02-22 10:22 | XMS_ITS ---
Author Organization [facility] Address [address] [place] [address] Care Team Providers Care Watch Band Assembler Name Role Phone Wilton SCHWARTZ, Asma Primary Care Provider Kaylie Swartz [phone] REASON FOR VISIT same day rs 12/14/24 Encounters Encounter Location Date Provider Diagnosis [address] [address] 12/14/2024 Kaylie Hill Plan Of Treatment Next Appt Details Provider Name:Kaylie neil, 03/01/2025 03:30:00 PM, [address] [place], [address], Progress Notes * Yaa ZACARIASDOB:1960 (64 yo F)Acc No.[id number]:12/14/2024 Patient:?Yaa ZACARIAS :1960???Age:64 Y???Sex:Female Address:[address] [facility] [address] , [place], [address] * true * Date:? Generated for Kareemi jag/Roxi/eTransmitting on:?02/22/2025 10:22 AM EDT
== END 2025-02-22 10:23 | disposition home or self-care (01) ==
LOC: HO.HMCC 09:35
PROVIDERS: PCP Internal Medicine; Visit Provider Internal Medicine
DX: I10 Essential (primary) hypertension (principal); I50.20 Unspecified systolic (congestive) heart failure; E66.09 Other obesity due to excess calories; Z68.34 Body mass index [BMI] 34.0-34.9, adult; M79.7 Fibromyalgia; G44.89 Other headache syndrome; M50.30 Other cervical disc degeneration, unspecified cervical region; M62.838 Other muscle spasm; K59.01 Slow transit constipation; R00.2 Palpitations

== ENCOUNTER 2025-02-22 14:49 | Outpatient (AMB) | payer OTHER, SELFPAY ==
--- NOTE | 2025-02-22 14:52 | MHC.OFFVIS ---
Vital Signs 02/22/25 14:55 Height 5 ft 6 in Weight 216 lb 0.848 oz BMI 34.9 BP 137/70 Blood Pressure Location Lt brachial Position Sitting Pulse 107 H Intake Visit Reasons: Constipation Intake Note: Yaa presents in the office as a follow up for constipation. CC: She seen her PCP today because her BP has been acting up - she was telling her that the medications have not worked and has not done any good for her. She states that the lubiprostone was helping and now that the meds have been changed - she feels like it is effecting her in a bad way. Needs refills on her Senna. She called her PCP when she was supposed to call our office and now her medications are all different. Plant And Instrument Engineer Required: No Allergies hydromorphone [Dilaudid] Allergy (Intermediate, Verified 02/22/25 14:52) Hallucinations,Itching, rash Iodinated Contrast Media Allergy (Intermediate, Verified 02/22/25 14:52) shortness of breath morphine [Morphine] Allergy (Intermediate, Verified 02/22/25 14:52) hallucinations, itching, rash oxycodone Allergy (Intermediate, Verified 02/22/25 14:52) Hallucinations,itching, rash Penicillins Allergy (Intermediate, Verified 02/22/25 14:52) ITCHING/PASSES OUT acetaminophen [From Percocet] Allergy (Mild, Verified 02/22/25 14:52) Unknown NSAIDS (Non-Steroidal Anti-Inflamma Allergy (Verified 02/22/25 14:52) Rash From OxyContin Allergy (Intermediate, Uncoded 02/22/25 14:52) hallucinations,itching,rash HPI Comments Details: 63 y.o F with PMH of who is switching over providers for persistent GI sx as below. Reports longstanding constipation x years. She describes lower abd discomfort assoc with having 1-2 BMs per week with nausea if the constipation gets prolonged. Avoiding processed foods. Incorporates a lot of vegetables in her diet. Uses a step stool. Does abd massage. Current meds: docusate 400 daily prunelax miralax but not using correct dose magnesium oxide 100 daily also takes 1 tsp coconut oil every other day Amitiza 16 mcg once daily Last colo 2021 (Dr Bob): BBPS 06/03. 10 mm hyperplastic polyp in descending colon. Repeat recommended in 2026. 02/22/25: Here for follow up. Was unable to get amitiza and PA was generated from two office simultaneously. Switched to trulance which did not work for her. Has been taking for 2 weeks straight. Cont with miralax twice a day. Not taking fiber or using glycerin suppositories. [facility] Medical History Cervicalgia Osteoarthritis COVID-19 vaccine series completed Abdominal pain Nausea Constipation Acid reflux Hypertension, essential Surgical History Hx of tubal ligation History of fusion of cervical spine History of colonoscopy History of esophagogastroduodenoscopy History of sleeve gastrectomy History of endometrial ablation History of section Family History Father HTN (hypertension) Cancer of prostate Mother Diabetes mellitus History of heart attack Heart problem Brother Heart problem Diabetes mellitus Dialysis patient Brother HTN (hypertension) Stroke Arthritis Maternal Grandfather No problems noted. Maternal Grandmother No problems noted. Paternal Grandfather No problems noted. Paternal Grandmother No problems noted. Son No problems noted. Son No problems noted. Daughter No problems noted. Other Mental health disorder Social History Household Members: None Housing: Apartment Alcohol intake: never Patient Tobacco Use Status: Never used Tobacco e-Cigarette/Vaping Use: Never Used service: No Current occupational status: disabled Cognitive needs: No Hearing needs: No Vision needs: Yes Female Reproductive History Menstrual Age of Menarche: 9 Review of Systems Const All systems reviewed & are unremarkable except as noted in HPI and below Physical Exam Vital Signs: Last Vital Signs Pulse 107 H 02/22/25 14:55 BP 137/70 02/22/25 14:55 BMI result Body Mass Index 34.9 No apparent distress Nonicteric Abdomen soft, nondistended Alert and oriented x3, normal gait Assessment & Plan Assessment & Plan (1) Chronic idiopathic constipation: Code(s): K59.04 - Chronic idiopathic constipation Category: Medical Plan Sx consistent with CIC from slow transit vs outlet dysfunction. Trulance did not work. Amitiza not approved. Reviewed options included linzess and motegrity. Seems linzess is covered by insurance based on previous workload. In addition, pt also reminded to incorportate fiber in her diet. Will also add magnesium which will help woth constipation as well as cramping. Plan: - Stop trulance - Start linzess 145 mcg once daily - Cont Miralax 17g mixed in 8 oz water 1-2 times a day - Add fiber supplementation - Start mag oxide once daily at bedtime - Utilize glycerin supp for fecal impaction - Follow up 3 months Medications: New linaclotide (Linzess) 145 mcg PO DAILY 90 caps 0RF K59.04 - Chronic idiopathic constipation magnesium citrate,mag oxide 250 mg PO BEDTIME 90 days 90 caps 0RF K59.04 - Chronic idiopathic constipation psyllium husk mix into at least 4 oz water or juice before administering 1 tsp PO DAILY 426 grams 0RF Changed From sennosides (Senokot) 8.6 mg PO BEDTIME To sennosides (Senokot) 17.2 mg (2 x 8.6 mg) PO BEDTIME 180 tabs 1RF Discontinued plecanatide (Trulance) Skip if > 2 BMs a day. Discontinued Reason: Doctor's Order 3 mg PO DAILY 90 tabs 0RF Coding Level of Care Code Est Pt Level 4 (50163) Diagnoses Chronic idiopathic constipation K59.04
[2025-02-22 14:55] VITALS: BP 137/70; PULSE 107; BMI 34.9
--- OUTSIDE RECORDS SUMMARY | 2025-02-22 15:58 | XMS_ITS | Clinical Summary ---
Author Organization Patient Business Ser [facility] Address [address] [place] [address] Care Team Providers Care Flare Maker Name Role Phone Shad Rodriguez MD Primary Care Provider [phone] [phone] Surgical History Surgery Date Site/Laterality Comments SECTION N/A PROCEDURE: HISTORICAL DELIVERY COLONOSCOPY N/A PROCEDURE: HISTORICAL COLONOSCOPY ESOPHAGOGASTRODUODENOSCOPY PROCEDURE: [place] ESOPHAGOGASTRODUODENOSCOPY TRANSORAL DIAGNOSTIC OTHER SURGICAL HISTORY 07/03/2009 PROCEDURE: [place] ARTHRD ANT INTERDY CERVCL BELW C2 EA ADDL NTRSPC; COMMENT: C5-6, C6-7 ACDF, Dr. Aguila OTHER SURGICAL HISTORY 2018 PROCEDURE: [place] GASTRIC RSTCV W/O BYP VERTICAL-BANDED GASTROPLY; COMMENT: [...] Documents on File Type Date Recorded Patient Quality Control Technician Expl anation Health Care Decision (hx) 06/12/2011 DELANO MATSON DIRECTIVE Care Teams Flare Maker Relationship Specialty Start Date End Date Shad Rodriguez MD [facility] [address] [address] PCP - General Family Medicine 03/05/16
--- OUTSIDE RECORDS SUMMARY | 2025-02-22 15:58 | XMS_ITS | Clinical Summary ---
Author Organization [employer] [facility] Address [address] [place] [address] Care Team Providers Care Sleeping Bag Filler Name Role Phone Shad Rodriguez MD Primary Care Provider +1 -[phone] Allergies Active Allergy Reactions Criticality Noted Date [...] Advance Directives For more information, please contact: [phone] Latest Code Status on File Code Status Date Activated Date Inactivated Comments Full Code 04/12/2016 3:58 PM 04/13/2016 9:08 PM This code status was ascertained in the following way: discussion with patient. Care Teams Sleeping Bag Filler Relationship Specialty Start Date End Date Shad Rodriguez MD PCP - General Family Medicine 03/05/16
== END 2025-02-22 15:30 | disposition home or self-care (01) ==
LOC: HO.HGI 14:50
PROVIDERS: PCP Internal Medicine; Visit Provider Internal Medicine
DX: K59.04 Chronic idiopathic constipation (principal)
CPT/HCPCS: 99214

== ENCOUNTER → 2025-02-28 08:20 | Outpatient (REF) | payer OTHER, SELFPAY ==
--- NOTE | ~2025-02-28 | NM_ITS ---
Lexiscan Myocardial perfusion study Indication: Shortness of breath and palpitations Technique: The patient was brought in for a Lexiscan perfusion study on 02/28/2025 and was injected 0.4 mg of Lexiscan intravenously. Within a minute of this injection 30 mCi of sestamibi was given intravenously. Images were obtained using the SPECT gamma camera interlaced with the gating device. Images were obtained in supine position. Resting perfusion study was performed on 03/01/2025. Patient was administered 30 mCi of sestamibi intravenously at rest. Images were then obtained in supine position. Total DLP 116 mGy-cm. Images were processed with the software and compared side to side in short axis, horizontal long axis and vertical long axis views. Findings: Raw aquisition reviewed. The stress perfusion study showed reduced tracer uptake in the distal part of inferolateral wall. There is improvement with CT attenuation correction and hence could have components of diaphragmatic attenuation artifact. The gated study shows low normal LV systolic function with calculated LVEF of 51%. LV cavity is normal in size. The gated study shows normal wall thickening and contraction of segments. Resting study shows no significant perfusion abnormality. Gating at rest reveals normal wall motion with ejection fraction at 42%. The findings are consistent with no clear reversible or fixed perfusion defects. NM/NM cardiolite stress test Impression: 1. Myocardial perfusion imaging study shows probably normal myocardial perfusion. 2. Gated LVEF is 51% during stress and 42% during rest. Correlate with echocardiogram. 3. Transient ischemic dilatation not present. EKG component of the test reported separately. Electronically signed by: Farhad Mackenzie MD 03/01/2025 02:46 PM EDT
--- NOTE | 2025-02-28 08:23 | CA_ITS ---
Acquisition Time: 2025-02-28 08:26:37 Total Exercise Time: 00:03:34 Test Indications: Dyspnea Medications: SEE H&P Protocol: TIFFANY Max HR: 101 BPM 64% of Pred: 156 BPM Max BP: 132/84 mmHG Max Work Load: 5.2 METS Exercise stress test with exercise 3 mins 34 secs of Tiffany Protocol, achieving 64% MPHR, requesting to stop due to SOB. Test switched to Lexiscan. Pharmacological stress test with Lexiscan while pt moves her legs in the chair, with reports of SOB and palpitations, without any arrythmias, with normotensive repsonse to injection. Nondiagnostic EKG for ischemia. In recovery, pt treated with IVP Aminophylline 75 mg to reverse Lexiscan after which pt feeling back to baseline. Nuclear images pending. Test reviewed with Dr. Mackenzie. Referred By: Randy Mercedes Electronically Signed By: Randy Mercedes
--- OUTSIDE RECORDS SUMMARY | 2025-02-28 08:36 | XMS_ITS | Clinical Summary ---
Author Organization Patient Business Ser [facility] Address [address] [place] [address] Care Team Providers Care Machine Bunch Maker Name Role Phone Shad Rodriguez MD Primary Care Provider +1 -[phone] Surgical History Surgery Date Site/Laterality Comments SECTION [...] Documents on File Type Date Recorded Patient Backhaul Driver Expl anation Health Care Decision (hx) 06/12/2011 DELANO MATSON DIRECTIVE Care Teams Machine Bunch Maker Relationship Specialty Start Date End Date Shad Rodriguez MD [facility] [address] [address] PCP - General Family Medicine 03/05/16
--- OUTSIDE RECORDS SUMMARY | 2025-02-28 08:36 | XMS_ITS ---
Author Organization [facility] Address [address] [place] [address] Care Team Providers Care Coal Washer Name Role Phone Wilton SCHWARTZ, Asma Primary Care Provider Kaylie Swartz [phone] REASON FOR VISIT same day rs 12/14/24 Encounters Encounter Location Date Provider Diagnosis [address] [address] 12/14/2024 Kaylie Hill Plan Of Treatment Next Appt Details Provider Name:Kaylie neil, 03/01/2025 03:30:00 PM, [address] [place], [address], Progress Notes * Yaa ZACARIASDOB:1960 (64 yo F)Acc No.[id number]:12/14/2024 Patient:?Yaa ZACARIAS :1960???Age:64 Y???Sex:Female Address:[address] [facility] [address] , [place], [address] * true * Date:? Generated for Cynthia rm/Roxi/eTransmitting on:?02/28/2025 08:36 AM EDT
--- OUTSIDE RECORDS SUMMARY | 2025-02-28 08:36 | XMS_ITS ---
Author Organization [facility] Address [address] [place] [address] Care Team Providers Care Boilermaker Mechanic Name Role Phone Wilton SCHWARTZ, [facility] Primary Care Provider Kaylie Swartz Unavailable [phone] Allergies Allergen (clinical drug ingredient) Drug/Non Drug [...] Once a day for 30 day(s) Active [place] 3 500 MG 1 capsule Once a day Active Night Splint AFO - L1930 as directed 02/06/2021 Not-Taking Encounters Encounter Location Date Provider Diagnosis [facility] [address] [address] 12/14/2024 Kaylie Hill Plan Of Treatment Next Appt Details Provider Name:Kaylie Tiffanie neil, 03/01/2025 03:30:00 PM, [address] [place], [address], Progress Notes * Yaa ZACARIASDOB:1960 (64 yo F)Acc No.[id number]:12/14/2024 Progress Note Patient:?Yaa ZACARIAS Provider:?Kaylie Hill DPM :1960???Age:64 Y???Sex:Female D ate:12/14/2024 Address:[address] [place] [address] [place], [place] [address] Pcp:Pepe Núñez MD Subjective: * Chief Complaints: [...] a day , Taking Omeprazole , Taking [place] 3 500 MG 1 capsule Once a [...] Hill DPM Date:? Generated for Cynthia rm/Roxi/Charu on:?02/28/2025 08:36 AM EDT History and Physical Notes * HPI (History of Present Illness) Category Sub-Category Detail Notes Category Not es Painful Nails Pt States Last PCP Visit: Date:: 09/21/2024
--- OUTSIDE RECORDS SUMMARY | 2025-02-28 08:36 | XMS_ITS ---
Author Organization [facility] Address [address] [place] [address] Care Team Providers Care Photo Machine Operator Name Role Phone Wilton SCHWARTZ, Asma Primary Care Provider Kaylie Swartz Unavailable [phone] Allergies Allergen (clinical drug ingredient) Drug/Non Drug [...] Duration) Notes Start Date End Date Status [place] 3 500 MG 1 capsule Once a [...] Problem Status W/U Status Risk Notes Problem 126522923997405 Tarsal tunnel syndrome, right lower limb (G57.51) Active confirmed Vital Signs Height 5ft 6in in 10/06/2024 Weight 214 lbs 10/06/2024 BMI 34.54 kg/m2 10/06/2024 Blood pressure systolic 148 mm Hg 10/06/20 24 Blood pressure diastolic 89 mm Hg 024 Encounters Encounter Location Date Provider Diagnosis [facility] [address] 10/06/2024 Kaylie Pericrashaad Pain in right foot [...] Reason: Provider Name:Kaylie neil, 03/01/2025 03:30:00 PM, [address] [place] [address], [address], Procedure Notes * Category Sub-Category Detail Notes [...] use of a nail nipper and/or dremel-type pigment grinder, to a more viable healthy nail [...] to maintain effectiveness in symptomatic relief - [address] Progress Notes * Rosalina ZACARIAS:1960 (63 yo F)Acc No.[id number]:10/06/2024 Progress Note Patient:?Yaa ZACARIAS Provider:?Kaylie Hill DPM :1960???Age:63 Y???Sex:Female D ate:10/06/2024 Address:[address] [place] [address] [address] , [facility] Pcp:Pepe Núñez MD Subjective: * Chief Complaints: [...] 1 tablet Orally Once a day Omeprazole [place] 3 500 MG 1 capsule Once a [...] Orally Once a day Taking Omeprazole Taking [place] 3 500 MG 1 capsule Once a [...] use of a nail nipper and/or dremel-type pigment grinder, to a more viable healthy nail [...] to maintain effectiveness in symptomatic relief - [address].? * Procedure Codes:?37499 DEBRI DE NAIL, 6 OR MORE * [...] Physical Therapy.?Physical Therapy:?Discussed the potential short and retirement benefits of physical therapy including pain relief, [...] Hill DPM Date:?09/2024 Generated for Cynthia rm/Roxi/Lesleysmitting on:?02/28/2025 08:36 AM EDT History and Physical [...]
--- OUTSIDE RECORDS SUMMARY | 2025-02-28 08:36 | XMS_ITS | Patient Health Record ---
Author Organization [facility] Address [address] [place] [address] Care Team Providers Care Chlorinator Name Role Phone Wilton SCHWARTZ, Asma Primary Care Provider Kaylie Swartz Unavailable [phone] Allergies Allergen (clinical drug ingredient) Drug/Non Drug [...] Once a day for 30 day(s) Active [place] 3 500 MG 1 capsule Once a [...] Problem Status W/U Status Risk Notes Problem Primary osteoarthritis, right ankle and foot (M19.071) Active confirmed Problem 418535237784210 Tarsal tunnel syndrome, right lower limb (G57.51) Active confirmed Problem 140371562 Neuropathy (G62.9) Active confirmed Problem 067413021936973 Neuritis of right foot (G57.91) Active confirmed Problem Plantar fasciitis of right foot (46257183504465359 ) Plantar fasciitis of right foot (M72.2) Active confirmed Problem 23953341 Venous insufficiency (I87.2) Active confirmed Problem Interstitial myositis (47362926) Interstitial myositis of right foot (M60.171) Active confirmed Vital Signs Blood pressure diastolic 89 mm Hg 10/06/2024 Height 5ft 6in in 10/06/2024 Blood pressure systolic 148 mm Hg 10/06/2024 Weight 214 lbs 10/06/2024 BMI 34.54 kg/m2 10/06/2024 Encounters Encounter Location Date Provider Diagnosis [facility] [place] [address] [place] [address] 09/09/2024 Kaylie Perica Pain in right foot M79.671 ; Plantar fasciitis of right foot M72.2 ; Calcaneal spur, right foot M77.31 ; 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 ; Bursitis of right foot M77.51 and Neuritis of right foot G57.[address] [facility] [address] 10/06/2024 Kaylie Perica Pain in right foot [...] and Posterior tibial tendinitis, right leg M76.821 [facility] [address] [address] 09/09/2024 Kaylie Hill [facility] [address] [address] 12/14/2024 Kaylie Hill Assessments Encounter Date Diagnosis [...] X ray : Foot, right 3V 09/09/2024 77702-Vzinlqfo Plate 11/05/2020 64204-Yxqpnqxt Plate Each Additional 08/2021 Next Appt Details Provider Name:Kaylie neil, 03/01/2025 03:30:00 PM, [address] [place] [address], [phone], Insurance Providers Payer Name Payer Address Payer Phone Subscriber Number Group Number Insured Name Patient Relationship to Insured Coverage Start Date Coverage End Date [facility] [employer] Claims [address] [place] [address] [phone] [id number] Yaa Zacarias Self - patient is the insured Medical (General) History Medical History History ICD Code Anemia Anxiety Arthritis Back,Hip,and Knee pain Fibromyalgia Glaucoma Headaches/Migraines High blood pressure Chicken pox Surgical History Surgery Date(Month/Year) cervical fusion x2 2008 & 2018 hernia tubal ligation gastric sleeve
--- OUTSIDE RECORDS SUMMARY | 2025-02-28 08:37 | XMS_ITS | Clinical Summary ---
Author Organization [facility] [facility] Address [address] [place] [address] Care Team Providers Care Farm Loan Inspector Name Role Phone Shad Rodriguez MD Primary Care Provider +1 -[phone] Allergies Active Allergy Reactions Criticality Noted Date [...] Advance Directives For more information, please contact: [phone] Latest Code Status on File Code Status Date Activated Date Inactivated Comments Full Code 04/12/2016 3:58 PM 04/13/2016 9:08 PM This code status was ascertained in the following way: discussion with patient. Care Teams Farm Loan Inspector Relationship Specialty Start Date End Date Shad Rodriguez MD PCP - General Family Medicine 03/05/16
--- OUTSIDE RECORDS SUMMARY | 2025-02-28 08:37 | XMS_ITS | Continuity of Care Document ---
Author Organization [facility] Address [address] [place] [address] Dr [address] [place] [address] Phone Care Team Providers Care Enterprise Infrastructure Architect Name Role Phone Tomás SCHWARTZ, [place], Jordan HALL Unavailable U navailable Procedures Procedure Date Offic Cons New/estab Mod 40 Mi- CT & MA Duplex Scan-extrem Veins; Uni/ CT & MA D Advance Directives Directive Yes / No Effective Date File Name No Information Encounters Encounter Description Practice Location Reason(s) For Visit Diagnoses Date Provider Providers Copied on Encounter [facility], [address] [place] [address] Dr Perry [address]Monika [place], [id number], tel:[phone] [facility] No Information 4 Tomás SCHWARTZ RVT, RPVI Robert. [address] [place] [address] [place], [id number] , [place]. tel:[phone] Offic Cons New/estab Mod 40 Mi- CT & [place] [facility], [address] [place] [address] Dr Perry [address]Monika MD, [id number], tel:[phone] [facility] Varicose veins of right lower extremity with other complicationsPa in in right lower legPain in right legCramp and spasmRestless legs syndromeEssenti al (primary) hypertensionPru ritus, unspecified 4 Tomás SCHWARTZ RVT, RPVI Robert. [address] [place] [address] [facility] [place], [id number] , [place]. tel:[phone] Referring Provider: Pepe Núñez MD, [address], [place], [address]. tel:[phone] [facility], [address] [facility] [address] [facility] [address], [place], [id number], [place] tel:[phone] [facility] - [place] [facility] [place] Chronic venous hypertension (idiopathic) with other complications of right lower extremity 4 Tomás SCHWARTZ, RVT, RPHARI Ortega. [address] [facility], [address], [facility] [place], [id number] , [place]. tel:[phone] Referring Provider: Pepe Núñez MD, [address], [place], [address]. tel:[phone] Family History Family Member Type Diagnosis Age At Onset No Information Payers Payer name Insurance type Covered green party ID Ger olivares(s) [facility] [id number] Social History Type Description Quantity Date Captured [...]
== END ==
LOC: HO.CARD 08:20
PROVIDERS: PCP Internal Medicine
DX: R06.00 Dyspnea, unspecified (principal); R00.2 Palpitations
CPT/HCPCS: 78452; 93017; A9500; J0280; J2785

== ENCOUNTER → 2025-02-28 08:23 | Outpatient (BNV) | payer OTHER, SELFPAY | PROVIDERS: PCP Internal Medicine | DX: R06.02 Shortness of breath (principal) | CPT/HCPCS: 78452; 93016; 93018 ==

== ENCOUNTER 2025-04-19 08:05 | Outpatient (REF) | payer OTHER, SELFPAY ==
--- OUTSIDE RECORDS SUMMARY | 2025-04-19 08:15 | XMS_ITS | Clinical Summary ---
Author Organization Patient Business Ser [facility] Address [address] [place] [address] Care Team Providers Care Casino Games Dealer Name Role Phone Shad Rodriguez MD Primary Care Provider [phone] Surgical History Surgery Date Site/Laterality Comments SECTION N/A PROCEDURE: HISTORICAL DELIVERY COLONOSCOPY N/A PROCEDURE: HISTORICAL COLONOSCOPY ESOPHAGOGASTRODUODENOSCOPY PROCEDURE: MA ESOPHAGOGASTRODUODENOSCOPY TRANSORAL DIAGNOSTIC OTHER SURGICAL HISTORY 07/03/2009 PROCEDURE: MA ARTHRD ANT INTERDY CERVCL BELW C2 EA ADDL NTRSPC; COMMENT: C5-6, C6-7 ACDF, Dr. Aguila OTHER SURGICAL HISTORY 2018 PROCEDURE: MA GASTRIC RSTCV W/O BYP VERTICAL-BANDED GASTROPLY; COMMENT: [...] Documents on File Type Date Recorded Patient Brand Coordinator Expl anation Health Care Decision (hx) 06/12/2011 DELANO MATSON DIRECTIVE Care Teams Casino Games Dealer Relationship Specialty Start Date End Date Shad Rodriguez MD [facility] [address] [address] PCP - General Family Medicine 03/05/16
[2025-04-19 10:47] LABS: Anion Gap 11 (12-20); Blood Urea Nitrogen 13 mg/dL (9-16); Calcium 8.9 mg/dL (8.4-10.2); Carbon Dioxide 25 mmol/L (22-29); Chloride 109 mmol/L (96-108); Cholesterol 118 mg/dL (<200); Estimated Glomerular Filt Rate > 60; Glucose Random 83 mg/dL (60-115); HDL Cholesterol 55 mg/dL (>40); LDL Cholesterol Calculated 50 mg/dL (<100); Potassium 3.8 mmol/L (3.3-5.1); Sodium 141 mmol/L (135-145); Triglycerides 67 mg/dL (<150)
== END 2025-04-19 08:06 | disposition home or self-care (01) ==
LOC: HO.HMGCLDS 08:05
PROVIDERS: PCP Internal Medicine
DX: I50.20 Unspecified systolic (congestive) heart failure (principal)
CPT/HCPCS: 36415; 80048; 80061

== ENCOUNTER 2025-06-02 08:39 | Outpatient (AMB) | payer OTHER, SELFPAY ==
--- OUTSIDE RECORDS SUMMARY | 2025-05-31 05:00 | XMS_ITS ---
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 Operator Name Role Phone Witlon SCHWARTZ, Asma Primary Care Provider Kaylie Swartz Unavailable [phone] Allergies Allergen (clinical drug ingredient) Drug/Non Drug Allergy documented on EMR Reaction Allergy Type Onset Date Status codeine Codeine Unknown Drug Allergy Active morphine Morphine Unknown Drug Allergy Active povidone-iodine Povidone Iodine shortness of breath Drug Allergy Active REASON FOR VISIT Heel pain, Painful nail(s) aggravated by shoes causing difficulty standing/walking Medications Medication SIG (Take, Route, Frequency, Duration) Notes Start Date End Date Status Night Splint AFO - L1930 as directed 02/06/2021 Not-Taking Physical Therapy . . . 2-3x/week; Duration: 3-4 weeks 02/06/2021 Not-Taking amLODIPine Besylate 10 MG 1 tablet Orall y Once a day Not-Taking Amitiza 8 MCG 1 capsule with food and water Orally Three times daily Not-Taking Libby 3 500 MG 1 capsule Once a day Not-Taking Vitamin D3 50 MCG (1999) 1 capsule Or ally Once a day; Duration: 30 day(s) Active Atorvastatin Calcium 40 MG TAKE 1 TABLET BY MOUTH ONCE EVERY DAY Oral; Duration: 90 Days Active Senna-Time 8.6 MG TAKE 2 TABLETS BY MOUTH AT BEDTIME Oral; Duration: 90 Days Active Linzess 145 MCG Oral; Duration: 90 Days Active hydroCHLOROthiazide 25 MG 1 tablet in morning Orally Once a day Not-Taking Carvedilol 25 MG 1 tablet with food Orally Twice a day Not-Taking Gabapentin 300 MG 1 capsule Orally As needed Active Multivitamin - 1 tablet Orally Once a day; Duration: 30 day(s) Active Omeprazole Active Amitriptyline HCl 50 MG 1 tablet at bedt anatoly Orally Once a day Active Ondansetron 4 MG 1 tablet on the tongue and allow to dissolve Orally Once a day Active Spironolactone 25 MG 1 tablet Orally Active Jardiance 10 MG 1 tablet Orally Once a day Active Valsartan 80 MG 1 tablet Orally Once a day Active Physical Therapy . . . 2-3x/week; Duration: 3-4 weeks 10/06/2024 Not-Taking MiraLax 17 GM/SCOOP 1 scoop mixed with 8 ounces of fluid Orally Once a day Active Ciclopirox 8 % 1 application Externally Once a day to each toenail; Duration: 30 days Active Social History Tobacco Use: Social History [...] Notes Problem Plantar fasciitis of right foot ([id number] 9101) Plantar fasciitis of right foot (M72.2) Active confirmed Vital Signs Height 5ft6in in 05/31/2025 Weight 220 lbs 05/31/2025 BMI 35.51 kg/m2 05/31/2025 Blood pressure systolic 132 mm Hg 05/31/20 25 Blood pressure diastolic 85 mm Hg 025 Encounters Encounter Location Date Provider Diagnosis [facility] [address] [place] [address] 05/31/2025 Kaylie Hill Plantar fasciitis of right foot M72.2 ; Onychomycosis B35.1 ; Pain in right toe(s) M79.674 and Pain in left toe(s) M79.675 Assessments Encounter Date Diagnosis (ICD Code) Assessment Notes Treatment Notes Treatment Clinical Notes Section Notes 05/31/2025 Plantar fasciitis of right foot (ICD-10 - M72.2) 05/31/2025 Onychomycosis (ICD-10 - B35.1) 05/31/2025 Pain in right toe(s) (ICD-10 - M79.674) 05/31/2025 Pain in left toe(s) (ICD-10 - M79.675) Plan Of Treatment Medication Medication Name Sig Start Date Stop Date Notes Ciclopirox 8 % 1 application Investigator Fraud ally Once a day to each toenail; Duration: 30 days Next Appt Details Follow Up: 3 Months, Reason: Provider Name:Kaylie neil, 09/08/2025 09:00:00 AM, [address] [place] [address], [id number], Procedure Notes * Category Sub-Category Detail Notes Debride Nail 6-10 Nail debridement Pt wishes to continue with the present treatment plan, Rx Ciclopirox gel, Due to the clinical pathology outlined in the exam findings, performance of this nail treatment is medically necessary as its management by an unskilled/untrained nonprofessional would put this patients foot and overall health at risk. Therefore, debridement to affected nail(s), as described in exam ( TA, T1, T2, T3, T4, T5, T6, T7, T8, T9, ), was performed exclusively by the physician of record to reduce/remove overall nail length, girth, thickness, subungual debris, and necrotic tissue, by manual and/or electrical means through the use of a nail nipper and/or dremel-type internal grinder tender, to a more viable healthy nail plate [...] to maintain effectiveness in symptomatic relief - 26668 Progress Notes * Yaa ZACARIASDOB:1960 (64 yo F)Acc No.[id number]:05/31/2025 Progress Note Patient: Regino MARCOYaa Provider: Pastora Hill DPM :1960 A ge:64 Y S ex:Female Date:05/31/2025 Address:[address] [place] [address] [address] , [place] Pcp:Pepe Núñez MD Subjective: * Chief Complaints: * H eel painPainful nail(s) aggravated by shoes causing difficulty standing/walking * HPI: P ainful Nails: Pt States Last PCP Visit: D ate: 0 02/24/2025 H eel pain: Location: P roximal plantar aspect of Heel, Inside rearfoot?RIGHT. Course: i mproved, at approximately 95 percent. Treatments: r est/alter normal daily activity, change in shoes, medication ( Voltaren ), stretching, ice, custom orthoses. * ROS: G eneral/Constitutional: Nausea d enies. V omiting d enies. H deja Thirst d enies. L oss appetite d enies. C hills d enies. F atigue d enies.?Fever d enies. N ight Sweats d enies. U nexplained weight loss d enies. U nexplained weight gain d enies. H EENTM: Dentures d enies. D izziness d enies. G lasses/contacts d enies. R etinopathy d enies. B lurred/double vision d enies. T MJ?denies. D ischarge/drainage d enies. I mplants d enies. S ore throat d enies. D ental implants d enies. H armida of hearing d enies. D ifficulty chewing/swallowing/speaking d enies. N ose bleeds d enies. S ore mouth d enies. ? R espiratory: On Oxygen d enies. P neumonia/pleurisy d enies.?Bronchitis d enies. E mphysema d enies. C oughing d enies. C ough blood?denies. S hortness of breath d enies. W heezing d enies. C ardiovascular: Pacemaker d enies. M BUSINESS OWNER/ENGINEER d enies. W PW d enies. C HF d enies. H eart attack d enies. S eptal defect d enies. R apid beat d enies. C hest pain d enies. A trial Fib. d enies. M urmur/Palpitations d enies. G astrointestinal: Hemorrhoids d enies. S tomach/Abdominal pain d enies. D ark blood stool d enies. I rritable bowel d enies. C onstipation d enies. D iarrhea d enies. H ematology: Swelling d enies. C lots d enies. V aricose Veins d enies. B ruising d enies. B leeding problem d enies. G enitourinary: Blood urine d enies. F requent/Painfu/urination/bladder control d enies. K idney stones d enies. I nfection (UTI) d enies. N ephropathy d enies. s ex trans dis (STD) d enies. P rostate d enies. M usculoskeletal: Hammertoes d enies. B unions d enies. B ack Pain d enies. M uscle Cramps/ Resting d enies. M uscle cramps / walking d enies.?Generalized aches and pains d enies. W eakness d enies. I nteg.: Mcghee d enies. S cars d enies. C orns/calluses?denies. I ngrown nails d enies. P ainful nails a dmits. O pen Sores d enies. R ashes d enies. N eurologic: Difficulty sleeping d enies. B rain disorder d enies. N umbness d enies. B alance trouble d enies. C onfusion d enies. F ainting/blackouts d enies. T ingling d enies. T remors d enies. * Medical History: * Surgical History: c ervical fusion x2 2009 & 2019hernia tubal ligation gastric sleeve * Hospitalization/Major Diagno stic Procedure: D enies Past Hospitalization * Family History: M other: , stroke, poor circulation, heart attack, diagnosed with Unspecified essential hypertension, Unspecified heart disease, Diabetic - NIDDM. F ather: , diagnosed with Other malignant neoplasm of unspecified site, Unspecified essential hypertension. * Social History: T obacco Use: T obacco use other than smoking A re you an other tobacco user? N o Tobacco Control (Standard) T obacco use: N onsmoker A dditional Findings: Tobacco non-user C urrent nonsmoker M iscellaneous: C affeine: yes, 1 cup every other per day. Children: yes, 3. Exercise: yes, Walking 3 times weekly. Marital status: . Occupation: Unemployed. D rug/Alcohol: A GODWIN-C (Standard) D id you have a drink containing alcohol in the past year? N o P oints 0 I nterpretation N egative * Medications: T akingMiraLax 17 GM/SCOOP Powder 1 scoop mixed with 8 ounces of fluid Orally Once a day Ondansetron 4 MG Tablet Disintegrating 1 tablet on the tongue and allow to dissolve Orally Once a day Spironolactone 25 MG Tablet 1 tablet Orally Jardiance 10 MG Tablet 1 tablet Orally Once a day Valsartan 80 MG Tablet 1 tablet Orally Once a day Amitriptyline HCl 50 MG Tablet 1 tablet at bedtime Orally Once a day Gabapentin 300 MG Capsule 1 capsule Orally As needed Multivitamin - Tablet 1 tablet Orally Once a day Omeprazole Vitamin D3 50 MCG (2000 UT) Capsule 1 capsule Orally Once a day Atorvastatin Calcium 40 MG Tablet TAKE 1 TABLET BY MOUTH ONCE EVERY DAY Oral Senna-Time 8.6 MG Tablet TAKE 2 TABLETS BY MOUTH AT BEDTIME Oral Linzess 145 MCG Capsule Oral Ciclopirox 8 % Solution 1 application Externally Once a day to each toenail Taking MiraLax 17 GM/SCOOP Powder 1 scoop mixed with 8 ounces of fluid Orally Once a day Taking Ondansetron 4 MG Tablet Disintegrating 1 tablet on the tongue and allow to dissolve Orally Once a day Taking Spironolactone 25 MG Tablet 1 tablet Orally Taking Jardiance 10 MG Tablet 1 tablet Orally Once a day Taking Valsartan 80 MG Tablet 1 tablet Orally Once a day Taking Amitriptyline HCl 50 MG Tablet 1 tablet at bedtime Orally Once a day Taking Gabapentin 300 MG Capsule 1 capsule Orally As needed Taking Multivitamin - Tablet 1 tablet Orally Once a day Taking Omeprazole Taking Vitamin D3 50 MCG (2000 UT) Capsule 1 capsule Orally Once a day Taking Atorvastatin Calcium 40 MG Tablet TAKE 1 TABLET BY MOUTH ONCE EVERY DAY Oral Taking Senna-Time 8.6 MG Tablet TAKE 2 TABLETS BY MOUTH AT BEDTIME Oral Taking Linzess 145 MCG Capsule Oral Taking Ciclopirox 8 % Solution 1 application Externally Once a day to each toenail Not-Taking/PRNPhysical Therapy . . . . 2-3x/week Carvedilol 25 MG Tablet 1 tablet with food Orally Twice a day hydroCHLOROthiazide 25 MG Tablet 1 tablet in the morning Orally Once a day amLODIPine Besylate 10 MG Tablet 1 tablet Orally Once a day Amitiza 8 MCG Capsule 1 capsule with food and water Orally Three times daily Libby 3 500 MG 1 capsule Once a day Night Splint AFO - L1930 as directed Physical Therapy . . . . 2-3x/week Medication List reviewed and reconciled with the patientNot-Taking/PRN Physical Therapy . . . . 2-3x/week Not-Taking/PRN Carvedilol 25 MG Tablet 1 tablet with food Orally Twice a day Not-Taking/PRN hydroCHLOROthiazide 25 MG Tablet 1 tablet in the morning Orally Once a day Not-Taking/PRN amLODIPine Besylate 10 MG Tablet 1 tablet Orally Once a day Not-Taking/PRN Amitiza 8 MCG Capsule 1 capsule with food and water Orally Three times daily Not-Taking/PRN Libby 3 500 MG 1 capsule Once a day Not-Taking/PRN Night Splint AFO - L1930 as directed Not-Taking/PRN Physical Therapy . . . . 2-3x/week Medication List reviewed and reconciled with the patient * Allergies: C odeineMorphinePovidone Iodine: shortness of breathyes[Allergies Verified] Objective: * Vitals: H t: 5ft6in, Wt:220, BMI:35.51, Shoe size: 9, BP:132/85mm Hg, Ht-cm: 167.64 cm, Wt-k.79 kg. * Examination: G eneral Examination: GENERAL APPEARANCE: Catrachita camposs a pleasant, alert, well-nourished, well-developed, well hydrated individual, who demonstrates proper attention to hygiene/body habitus, and is in no acute distress, Pt serves as own h istorian for office visit today. ORIENTED: p erson, place, and time. N eurological: SENSORY: N eurological exam reveals intact sensorium, pain sensation normal, vibration sensation intact, pinprick sensation is normal in the lower extremities, Pt denies, anesthesia, burning, paresthesia, tingling, B/L. V ascular: DP PULSES (B): 3 /4, B/L. PT PULSES (B): 3 /4, B/L. CAPILLARY FILL TIME: i mmediate, all digits, B/L. TROPHIC CONDITION-TEXTURE/ELASTICITY/TURGOR/HAIR GROWTH (B):?normal, B/L. TEMPERTURE GRADIENT (C): w arm to cool, proximal to distal, B/L. PIGMENTATION: n ormal, B/L. EDEMA (C): 1 /4. TELANGECTASIA: p resent, moderate. VARICOSITIES: p resent, severe, painful, B/L. ? D ermatologic: SKIN FINDINGS: S kin exam reveals normal texture, elasticity, and turgor. There are no masses. The interspaces are clear. O rthopedic: MUSCLE STRENGTH: 5 /5 all groups in a symmetrical fashion , B/L. H eel Pain: INSPECTION: N O P ain on Palpation to Plantar Fascia med. and central bands, intrinsic musc., infra-calcaneal bursa, and med calc tubercle , RIGHT foot, No pain: posterior/superior heel, achilles bursa/tendon, sinus tarsi, peroneals, or with lateral heel compression; no limited STJ ROM, calor, or ecchymosis. N ails: NAILS are: E longated, overgrown, dystrophic, lytic, greater than 3mm thick, discolored and friable with crumbly malodorous subungual debris, with pain on palpation, TA, T1, T2, T3, T4, T5, T6, T7, T8, T9. Assessment: * Assessment: 1. O nychomycosis - B35.1 (Primary) 2 . P lantar fasciitis of right foot - M72.2 S pecify :Acute problem, Stable 3 . P ain in right toe(s) - M79.674 4 . P ain in left toe(s) - M79.675 Plan: * Treatment: * Procedures: D kyle Nail 6-10: Nail debridement P t wishes to continue with the present treatment plan, Rx Ciclopirox gel, Due to the clinical pathology outlined in the exam findings, performance of this nail treatment is medically necessary as its management by an unskilled/untrained nonprofessional would put this patients foot and overall health at risk. Therefore, debridement to affected nail(s), as described in exam ( TA, T1, T2, T3, T4, T5, T6, T7, T8, T9, ), was performed exclusively by the physician of record to reduce/remove overall nail length, girth, thickness, subungual debris, and necrotic tissue, by manual and/or electrical means through the use of a nail nipper and/or dremel-type internal grinder tender, to a more viable healthy nail plate [...] to maintain effectiveness in symptomatic relief - 10427. * Procedure Codes: 1 1721 DEBRIDE NAIL, 6 OR MORE * Preventive Medicine: Screening/Special Tests: F all Risk Screening: N o falls in the past year F ALLS: Screening for Future Fall Risk Have you had two or more falls in the past year? N o Have you had any falls with injury in the past year? N o * Follow Up: 3 Months * Images: * Sign off status: Completed true * Provider: Pastora Hill DPM Date: 0 05/31/2025 Generated for Cynthia rm/Roxi/Charu on: 0 06/02/2025 08:53 AM EDT History and Physical Notes * HPI (History of Present Illness) Category Sub-Category Detail Notes Category Not es Heel pain Location: Proximal plantar aspect of Heel, Inside rearfoot RIGHT Course: improved, at approxi mately 95 percent Treatments: rest/alter normal da rachael activity, change in shoes, medication ( Voltaren ), stretching, ice, custom orthoses Painful Nails Pt States Last PCP Visit: Date:: 02/24/2025 Examination Category Sub-Category Detail Notes Category Not es Neurological SENSORY: Neurological exa m reveals intact sensorium, pain sensation normal, vibration sensation intact, pinprick sensation is normal in the lower extremities, Pt denies, anesthesia, burning, paresthesia, tingling, B/L Dermatologic SKIN FINDINGS: Skin exam reveal s normal texture, elasticity, and turgor. There are no masses. The interspaces are clear Orthopedic MUSCLE STRENGTH: 5/5 all groups in a symmetrical fashion , B/L General Examination GENERAL APPEARANCE: Reveals a pleasant, alert, well-nourished, well-developed, well hydrated individual, who demonstrates proper attention to hygiene/body habitus, and is in no acute distress, Pt serves as own historian for office visit today ORIENTED: person, place, and t anatoly Vascular DP PULSES (B): 3/, B/L PT PULSES (B): 3/4, B/L CAPILLARY [...] T6, T7, T8, T9 Heel Pain INSPECTION: NO Pain on Palpa tion to Plantar Fascia med. and central bands, intrinsic musc., infra-calcaneal bursa, and med calc tubercle , RIGHT foot, No pain: posterior/superior heel, achilles bursa/tendon, sinus tarsi, peroneals, or with lateral heel compression; no limited STJ ROM, calor, or ecchymosis
[2025-06-02 08:44] VITALS: BP 128/82; PULSE 99; RESP 18; TEMP 37.2; O2SAT 99; BMI 35.7
--- NOTE | 2025-06-02 08:44 | A.OFFPC_ITS ---
Vital Signs 06/02/25 08:44 Height 5 ft 6 in Weight 221 lb BMI 35.7 BP 128/82 Blood Pressure Location Rt brachial Position Sitting Respiration 18 Pulse 99 Pulse Source Pulse Oximeter Temp 99.0 F Temp Source Oral Pulse Oximetry (%) 99 Oxygen Delivery Method Room Air Intake Visit Reasons: PE Allergies hydromorphone (Dilaudid) Allergy (Intermediate, Verified 06/02/25 08:46) Hallucinations,Itching, rash Iodinated Contrast Media Allergy (Intermediate, Verified 06/02/25 08:46) shortness of breath morphine (Morphine) Allergy (Intermediate, Verified 06/02/25 08:46) hallucinations, itching, rash oxycodone Allergy (Intermediate, Verified 06/02/25 08:46) Hallucinations,itching, rash Penicillins Allergy (Intermediate, Verified 06/02/25 08:46) ITCHING/PASSES OUT acetaminophen (From Percocet) Allergy (Mild, Verified 06/02/25 08:46) Unknown NSAIDS (Non-Steroidal Anti-Inflamma Allergy (Verified 06/02/25 08:46) Rash From OxyContin Allergy (Intermediate, Uncoded 06/02/25 08:46) hallucinations,itching,rash Medication List - Last Reconciled 06/02/25 by Pepe Núñez MD amitriptyline 75 mg PO BEDTIME aspirin 81 mg PO DAILY atorvastatin 40 mg PO DAILY baclofen 10 mg PO .qhs PRN 30 days [Blood pressure monitor As directed] ndcywvkewg-bkzpdpurqtfll-wgxi 50-300-40 mg (Fioricet) 1 cap PO ONCE PRN 30 days carvedilol 25 mg PO BID cholecalciferol (vitamin D3) 25 mcg PO DAILY 90 days empagliflozin 10 mg PO DAILY gabapentin 300 mg PO BEDTIME 90 days glycerin (child) 2 supp [place] ONCE PRN linaclotide (Linzess) 145 mcg PO DAILY magnesium citrate,mag oxide 250 mg PO BEDTIME 90 days multivitamin (Daily Multi-Vitamin tablet) 1 tab PO DAILY omeprazole 20 mg PO DAILY 30 days ondansetron HCl 4 mg PO Q8H PRN 30 days polyethylene glycol 3350 (Gavilax) grams PO psyllium husk 1 tsp PO DAILY sennosides (Senokot) 17.2 mg (2 x 8.6 mg) PO BEDTIME spironolactone 25 mg PO DAILY turmeric root extract 500 mg PO DAILY valsartan 80 mg PO BID Tobacco use date assessed: 06/02/25 Fall risk assessment: No Falls in past year Last assessed Fall Risk: 06/02/25 Dental Screening Dental Screen Date: 06/02/25 Did you have a dental visit in the last 12 months?: Yes Did you have a dental problem in the last 6 months where you did not have access to dental care?: No Was dental information given to patient?: Patient has dentist HPI PE HPI Details History of Present Illness The patient is a 64-year-old female presenting with a routine physical examination and evaluation for cardiac palpitations. Palpitations: - The patient has experienced recurrent palpitations since last . - The episodes are sporadic, can last fo r hours, and result in fatigue. - She has no associated shortness of el ath or asthma. - Past cardiac workup showed normal rhyt hm with rare skipped beats. Medical History: - Hyperlipidemia, on atorvastatin - Hypertension, on valsartan - Neck spasms, managed with baclofen as needed - Chronic headache, managed with amitrip tyline and Fioricet as needed - Chronic pain, managed with gabapentin - Gastroesophageal reflux disease, on om eprazole - Vitamin D deficiency, on supplementati on - History of palpitations Social History: - The patient is aware of the need to lo se weight but is struggling with consistent weight management. - Reports no significant exercise routin e. Health Maintenance - Last mammogram in November of last [place], advised to schedule the next one. - Colonoscopy with polyps removed in Jun of last year, next colonoscopy suggested in 2026. - Up to date with SQL MANAGER visit last year . [place] of Care - Dye Range Operator - Neurologist - Sales Representative Meats Diagnostic results - Labs from January: CBC stable - Labs from March: Electrolytes okay, kid sameer function all right, liver enzymes stable, LDL decreased from 125 to 50 - alarm security or surveillance monitor in October: Normal rhy thm, rare skipped beats, sinus rhythm during episodes Patient Instructions - Remember to schedule a mammogram. - Work on weight loss to help heart func tion. - Visit cardiology for a follow-up on pa lpitations. - Maintain physical activity to improve balance. - refill on gabapentin 300 mg to be take n at night sent for six-month - follow-up six-month Review of Systems - General: No fever no chills - Neurological: No headaches no dizzin ess - Ear nose throat: No sore throat no hearing difficulty no ear pain - Cardiovascular: No syncope, no chest pain, no palpitations - Gastrointestinal: No nausea vomiting or diarrhea - Endocrine: No polyuria polydipsia no heat intolerance - Genitourinary: No dysuria - Skin: No new complaints Physical Exam General: Cooperative, healthy appearing, comfortable, no acute distress Orientation: Patient oriented x3 Head: Normal to inspection Ears: Within normal limit visually Nose: Normal external nose present Face and sinus: Normal facial exam Eyes: Appearance normal, extraocular movement intact pupils reactive Neck: Normal visual inspection and supple Respiratory: Normal respiratory effort and able to speak in complete sentences. Clear to auscultation, no stridor Cardiovascular: S1 and S2 RRR, no extra beats heard Breast exam benign GI: Normal to inspection. Soft to palpation and nontender Skin: Turgor normal, no acute findings Neuro: Patient oriented x3, motor sensory intact, balance intact, difficulty walking in a straight line Extremities: Normal to inspection [facility] Medical History Cervicalgia Osteoarthritis COVID-19 vaccine series completed Abdominal pain Nausea Constipation Acid reflux Hypertension, essential Surgical History Hx of tubal ligation History of fusion of cervical spine History of colonoscopy History of esophagogastroduodenoscopy History of sleeve gastrectomy History of endometrial ablation History of section Family History Father HTN (hypertension) Cancer of prostate Mother Diabetes mellitus History of heart attack Heart problem Brother Heart problem Diabetes mellitus Dialysis patient Brother HTN (hypertension) Stroke Arthritis Maternal Grandfather No problems noted. Maternal Grandmother No problems noted. Paternal Grandfather No problems noted. Paternal Grandmother No problems noted. Son No problems noted. Son No problems noted. Daughter No problems noted. Other Mental health disorder Social History Household Members: None Housing: Apartment Alcohol intake: never Patient Tobacco Use Status: Never used Tobacco e-Cigarette/Vaping Use: Never Used service: No Current occupational status: disabled Cognitive needs: No Hearing needs: No Vision needs: Yes Female Reproductive History Menstrual Age of Menarche: 9 Questionnaire Thrive Questionnaire Date Thrive assessed: 06/02/25 I am a: Patient What is your living situation today?: I have a steady place to live Within the past 12 months, did the food you bought not last and you didn't have the money to get more?: Never true Within the past 12 months, did you worry whether your food would run out before you got money to buy more?: Never true Do you have trouble paying for medicines?: No Do you have trouble getting transportation to medical appointments?: No Do you have trouble paying your heating and electricity bill?: No Do you have trouble taking care of your child, family member or friend?: I choose not to answer this question Do you have trouble with day-to-day activities such as bathing, preparing meals, shopping, managing finances, etc.?: No Are you currently unemployed and looking for a job?: No Are you interested in more education?: No Please select the resources that you would like help with: None Currently or been in a relationship where the following occur: No concerns reported THRIVE Score: 0 AUDIT C Alcohol Use Questionnaire (AUDIT-C) 1. How often do you have a drink containing alcohol?: Never 3. How often do you have six or more drinks on one occasion?: Never Total Score: 0 REVA-7 AMB Questionnaire REVA-7 Date REVA - 7 assessed: 02/22/25 Source: Developed by Drs. Jordan Hines, Micki Noriega, Steve Hernadez and colleagues, with an educational guanako from [employer]. Physical exam (Primary Care) Vital Signs: Last Vital Signs Temp 99.0 F 06/02/25 08:44 Pulse 99 06/02/25 08:44 Resp 18 06/02/25 08:44 BP 128/82 06/02/25 08:44 Pulse Ox 99 06/02/25 08:44 Oxygen Delivery Method Room Air 06/02/25 08:44 BMI result Body Mass Index 35.7 Tobacco/Smoking Status: Tobacco use Status Tobacco use date assessed 06/02/25 06/02/25 08:51 Patient Tobacco Use Status Never used Tobacco 06/02/25 08:51 e-Cigarette/Vaping Use Never Used 06/02/25 08:51 Thrive Assessment: Date of Thrive Assessment Date Thrive assessed 06/02/25 06/02/25 08:57 Currently or been in a relationship where the following occur: No concerns reported Coding Level of Care Code Est Pt Level 3 (06280) Est Pt Prev Care 40-64y(52801) Diagnoses Encounter for general adult medical examination with abnormal findings Z00.01 Palpitation R00.2 DDD (degenerative disc disease), cervical M50.30 Fibromyalgia M79.7 Muscle spasm M62.838 Constipation by delayed colonic transit K59.01 Class 1 obesity due to excess calories with serious comorbidity and body mass index (BMI) of 34.0 to 34.9 in adult E66.09; Z68.34 Obesity classification: adult class 1 (BMI 30 - 34.9) Serious obesity comorbidity presence: with serious comorbidity Body mass index: BMI 34.0-34.9 Hypertension, essential I10 Headache syndrome G44.89 Assessment & Plan Assessment & Plan (1) Encounter for general adult medical examination with abnormal findings: Code(s): Z00.01 - Encounter for general adult medical examination with abnormal findings Category: Medical (2) Palpitation: Code(s): R00.2 - Palpitations Category: Medical (3) DDD (degenerative disc disease), cervical: Code(s): M50.30 - Other cervical disc degeneration, unspecified cervical region Category: Medical (4) Fibromyalgia: Code(s): M79.7 - Fibromyalgia Category: Medical (5) Muscle spasm: Code(s): M62.838 - Other muscle spasm Category: Medical (6) Constipation by delayed colonic transit: Comment: Continue bowel regimen High-fiber diet Fiber supplement Water Code(s): K59.01 - Slow transit constipation Category: Medical (7) Obesity due to excess calories: Code(s): E66.09 - Other obesity due to excess calories Category: Medical Qualifiers: Obesity classification: adult class 1 (BMI 30 - 34.9) Serious obesity comorbidity presence: with serious comorbidity Body mass index: BMI 34.0-34.9 Qualified Code(s): E66.09 - Other obesity due to excess calories; Z68.34 - Body mass index [BMI] 34.0-34.9, adult (8) Hypertension, essential: Code(s): I10 - Essential (primary) hypertension Category: Medical (9) Headache syndrome: Code(s): G44.89 - Other headache syndrome Category: Medical Plan History of Present Illness The patient is a 64-year-old female presenting with a routine physical examination and evaluation for cardiac palpitations. Palpitations: - The patient has experienced recurrent palpitations since last . - The episodes are sporadic, can last for hours, and result in fatigue. - She has no associated shortness of breath or asthma. - Past cardiac workup showed normal rhythm with rare skipped beats. Medical History: - Hyperlipidemia, on atorvastatin - Hypertension, on valsartan - Neck spasms, managed with baclofen as needed - Chronic headache, managed with amitriptyline and Fioricet as needed - Chronic pain, managed with gabapentin - Gastroesophageal reflux disease, on omeprazole - Vitamin D deficiency, on supplementation - History of palpitations Social History: - The patient is aware of the need to lose weight but is struggling with consistent weight management. - Reports no significant exercise routine. Health Maintenance - Last mammogram in November of last year, advised to schedule the next one. - Colonoscopy with polyps removed in June of last year, next colonoscopy suggested in 2026. - Up to date with SQL MANAGER visit last year. [place] of Care - Dye Range Operator - Neurologist - Sales Representative Meats Diagnostic results - Labs from January: CBC stable - Labs from March: Electrolytes okay, kidney function all right, liver enzymes stable, LDL decreased from 125 to 50 - alarm security or surveillance monitor in October: Normal rhythm, rare skipped beats, sinus rhythm during episodes Patient Instructions - Remember to schedule a mammogram. - Work on weight loss to help heart function. - Visit cardiology for a follow-up on palpitations. - Maintain physical activity to improve balance. - refill on gabapentin 300 mg to be taken at night sent for six-month - follow-up six-month Medications: Refilled gabapentin 300 mg PO BEDTIME 90 caps 1RF 90 days Discontinued carvedilol Discontinued Reason: Doctor's Order 25 mg PO BID 180 tabs 0RF I10 - Essential (primary) hypertension
--- OUTSIDE RECORDS SUMMARY | 2025-06-02 08:54 | XMS_ITS | Clinical Summary ---
Author Organization Patient Business Ser [facility] Address [address] [place] [address] Care Team Providers Care Brick And Block Mason Name Role Phone Shad Rodriguez MD Primary Care Provider [phone] Surgical History Surgery Date Site/Laterality Comments SECTION N/A PROCEDURE: HISTORICAL DELIVERY COLONOSCOPY N/A PROCEDURE: HISTORICAL COLONOSCOPY ESOPHAGOGASTRODUODENOSCOPY PROCEDURE: RI ESOPHAGOGASTRODUODENOSCOPY TRANSORAL DIAGNOSTIC OTHER SURGICAL HISTORY 07/03/2009 PROCEDURE: RI ARTHRD ANT INTERDY CERVCL BELW C2 EA ADDL NTRSPC; COMMENT: C5-6, C6-7 ACDF, Dr. Aguila OTHER SURGICAL HISTORY 2018 PROCEDURE: RI GASTRIC RSTCV W/O BYP VERTICAL-BANDED GASTROPLY; COMMENT: [...] Panel) 10/05/2023 Colorectal Cancer Screening: Colonoscopy 10/05/2023 HIV Screening 10/05/2023 Hepatitis C Screening 10/05/2023 Hypertension/CHF/CAD Annual BMP Blood Test 10/05/2023 Social Influencers of Health Screening 10/05/2023 COVID-19 Vaccine ( season) 2024 01/25/2021 Depression Screening 10/26/2024 Influenza Vaccine (#1) 2025 2, 09/03/2021, 08/21/2020, Additional history exists RSV [...] Documents on File Type Date Recorded Patient Birth Attendant Expl anation Health Care Decision (hx) 06/12/2011 AD DANO DIRECTIVE Care Teams Brick And Block Mason Relationship Specialty Start Date End Date Shad Rodriguez MD [address] [place] [address] PCP - General Family Medicine 03/05/16
--- OUTSIDE RECORDS SUMMARY | 2025-06-02 08:54 | XMS_ITS | Clinical Summary ---
Author Organization [facility] Address [address] [place] [address] Care Team Providers Care Service Attendant Cafeteria Name Role Phone Shad Rodriguez MD Primary Care Provider [phone] Allergies Active Allergy Reactions Criticality Noted Date [...] 72 05/18/2017 1:53 PM EDT Temperature 36.7 C (98.1 F) 05/18/2017 1:53 PM EDT Respiratory Rate 16 05/18/2017 1:53 PM EDT [...] Screening (Colonoscopy) 04/08/2020 04/08/2010 Influenza Vaccine (#1) 2025 07/29/2016 Pneumococcal Vaccine (1 of 1 - [...] Advance Directives For more information, please contact: [phone] Latest Code Status on File Code Status Date Activated Date Inactivated Comments Full Code 04/12/2016 3:58 PM 04/13/2016 9:08 PM This code status was ascertained in the following way: discussion with patient. Care Teams Service Attendant Cafeteria Relationship Specialty Start Date End Date Shad Rodriguez MD PCP - General Family Medicine 03/05/16
== END 2025-06-02 09:10 | disposition home or self-care (01) ==
LOC: HO.HMCC 08:40
PROVIDERS: PCP Internal Medicine; Visit Provider Internal Medicine
DX: Z00.01 Encounter for general adult medical examination with abnormal findings (principal); R00.2 Palpitations; M50.30 Other cervical disc degeneration, unspecified cervical region; M79.7 Fibromyalgia; M62.838 Other muscle spasm; K59.01 Slow transit constipation; E66.09 Other obesity due to excess calories; Z68.34 Body mass index [BMI] 34.0-34.9, adult; I10 Essential (primary) hypertension; G44.89 Other headache syndrome

== ENCOUNTER → 2025-06-02 08:39 | Outpatient (BNVA) | payer OTHER, SELFPAY | PROVIDERS: PCP Internal Medicine; Visit Provider Internal Medicine | DX: Z00.01 Encounter for general adult medical examination with abnormal findings (principal); R00.2 Palpitations; M50.30 Other cervical disc degeneration, unspecified cervical region; M79.7 Fibromyalgia; M62.838 Other muscle spasm; K59.01 Slow transit constipation; I10 Essential (primary) hypertension; G44.89 Other headache syndrome; E66.09 Other obesity due to excess calories; E66.811 Obesity, class 1; Z68.34 Body mass index [BMI] 34.0-34.9, adult | CPT/HCPCS: 99212; 99396 ==

== ENCOUNTER 2025-06-05 13:03 | Outpatient (AMB) | payer OTHER, SELFPAY ==
--- OUTSIDE RECORDS SUMMARY | 2025-06-05 13:14 | XMS_ITS | Clinical Summary ---
Author Organization Patient Business Ser [facility] Address [address] [place] [address] Care Team Providers Care Tea Taster Name Role Phone Shad Rodriguez MD Primary Care Provider [phone] Surgical History Surgery Date Site/Laterality Comments SECTION [...] Documents on File Type Date Recorded Patient Forest Resources Professor Expl anation Health Care Decision (hx) 06/12/2011 AD DANO DIRECTIVE Care Teams Tea Taster Relationship Specialty Start Date End Date Shad Rodriguez MD [address] [place] [address] PCP - General Family Medicine 03/05/16
--- OUTSIDE RECORDS SUMMARY | 2025-06-05 13:14 | XMS_ITS | Clinical Summary ---
Author Organization [facility] Address [address] [place] [address] Care Team Providers Care Starch And Prosize Mixer Name Role Phone Shad Rodriguez MD Primary Care Provider [phone] Allergies Active Allergy Reactions Criticality Noted Date [...] Advance Directives For more information, please contact: [phone] Latest Code Status on File Code Status Date Activated Date Inactivated Comments Full Code 04/12/2016 3:58 PM 04/13/2016 9:08 PM This code status was ascertained in the following way: discussion with patient. Care Teams Starch And Prosize Mixer Relationship Specialty Start Date End Date Shad Rodriguez MD PCP - General Family Medicine 03/05/16
--- OUTSIDE RECORDS SUMMARY | 2025-06-05 13:14 | XMS_ITS | Clinical Summary ---
Author Organization [facility] Address [address] [place] [address] [place] [id number] Phone Care Team Providers Care Press Brake Operator Name Role Phone Pepe Núñez MD Primary Care Provider [phone] Allergies Active Allergy Reactions Criticality Noted Date Comments Iodinated Contrast Media Anaphylaxis High 04/01/2016 Oral contrast is okay. Opioids - Morphine Analogues Unknown 04/01/2016 Hallucinations, Hives Oxycodone-Acetaminoph en Other (See Comments) 04/01/2016 Hallucination, Hives Medications carvedilol (COREG) 25 MG tablet Take 25 mg by mouth 2 (two) times a day with meals. Active amitriptyline (ELAVIL) 50 MG tablet Take 50 mg by mouth nightly at bedtime. Active amLODIPine (NORVASC) 10 MG tablet Take 10 mg by mouth daily. Active gabapentin (NEURONTIN) 300 MG capsule Take 300 mg by mouth 3 (three) times a day. Active hydroCHLOROthia zide 25 MG tablet Take 25 mg by mouth daily. Active AMITIZA 8 mcg capsule Take 8 mcg by mouth daily with breakfast. Active omeprazole (PRILOSEC) 20 MG capsule Take 1 capsule by mouth every morning. 07/25/2024 Active Social History Tobacco Use Types Packs/Day Years Used Date Smoking Tobacco: Never Assessed Education Answer Date Recorded Are you interested in more education? Not on blanca e 02/20/2023 Are you concerned about learning? Not on file 02/20/2023 No 02/20/2023 No 02/20/2023 Digital Access Answer Date Recorded No 03/21/2023 No 03/21/2023 No 03/21/2023 Reliable internet access at home? Not on file 03/21/2023 Device with a working camera? Not on file Intimate Partner Violence Answer Date R ecorded Are you denied basic needs s uch as food, clothing, or medical care? No 10/20/2024 In the past 12 months have y ou been in a relationship with a person who hurts, threatens, or tries to control you? No 10/20/2024 Are you denied basic needs s uch as food, clothing, or medical care? No 10/20/2024 In the past 12 months have y ou been in a relationship with a person who hurts, threatens, or tries to control you? No 10/20/2024 Comments Unknown Sex and Gender Information Value Date Recorded Sex Assigned at Female 11/20/2022 7:34 PM EST Legal Sex Female 9:48 PM EDT Gender Identity Female 11/20/2022 7:34 PM EST Sexual Orientation Not on file Last Filed Vital Signs Vital Sign Reading Time Taken Comments Blood Pressure 146/84 10/20/2024 8:34 PM EST Pulse 68 10/20/2024 8:34 PM EST Temperature 36.4 C (97.5 F) 10/20/2024 8:34 PM EST Respiratory Rate 17 10/20/2024 8:34 PM EST Oxygen Saturation 97% 10/20/2024 8:34 PM EST Inhaled Oxygen Concentration - - Weight 97.5 kg (215 lb) 10/20/2024 6:21 PM EST Height 167.6 cm (5' 6 ) 10/20/2024 6:21 PM EST Body Mass Index 34.7 10/20/2024 6:21 PM EST Plan of Treatment Health Maintenance Due Date Last Done Comments Adult Td,Tdap Booster 1960 LIPID PANEL 1960 DEPRESSION SCREENING 1972 SMOKING Hx and SMOKELESS TOBACCO SCREENING 1973 HEPATITIS C SCREENING 1978 HIV ONE-TIME SCREENING (18-6 5 YEARS) 1978 PAP SMEAR 1981 MAMMOGRAM 2000 COLOGUARD 2005 COLONOSCOPY 2005 COLORECTAL CANCER SCREENING 2005 FIT TEST 2005 FOBT 2005 SIGMOIDOSCOPY 2005 VIRTUAL COLONOSCOPY 2005 PNEUMOCOCCAL VACCINES (50+ years) (1 of 1 - PCV) 2010 ZOSTER VACCINES (1 of 2) 2010 COVID-19 VACCINE (1 - 2023-2 5 season) 2024 POTASSIUM LEVEL 10/20/2025 10/20/2024, 11/20/2022 SCREENING FOR DIABETES 10/20/2027 10/20/2024 RSV VACCINE (1 - 1-dose 75+ series) 2035 HEPATITIS A VACCINES Aged Out No long er eligible based on patient's age to complete this topic HIB VACCINES Aged Out No longer eligi ble based on patient's age to complete this topic MENINGOCOCCAL VACCINES (ACWY) Aged Out No longer eligible based on patient's age to complete this topic MENINGOCOCCAL VACCINES (B) Aged Out N o longer eligible based on patient's age to complete this topic Medical Devices Not on file Procedures Procedure Name Priority Date/Time Associated Diagnosis Comments BASIC METABOLIC PANEL STAT 10/20/2024 6:55 PM EST from Last 3 Months or Most Recently Relevant to Health Maintenance Results * (ABNORMAL) Basic metabolic panel (10/20/2024 6:55 PM EST) SODIUM 141 133 - 146 mmol/L [facility] CHLORIDE 105 96 - 108 mmol/L [facility] POTASSIUM 3.9 3.3 - 5.1 mmol/L [facility] CO2 23 21 - 35 mmol/L [facility] BUN 19 6 - 19 mg/dL [facility] CREATININE 0.60 0.5 - 1.5 mg/dL [facility] GLUCOSE 123(H) 70 - 99 mg/dL [facility] CALCIUM 9.2 8.4 - 10.3 mg/dL [facility] EGFR 101 >59 mL/min/1.7 3m2 [facility] Comment:Estimated glomerular filtration rate calculated using the CKD-EPI refit equation. ANION GAP 17 10 - 20 mmol/L [facility] Blood 10/20/2024 6:55 PM EST 10/20/2024 6:56 PM EST us Dominique Johnson MD LAB BLOOD ORDERABLES Lizzie l Result [address] [address] from Last 3 Months or Most Recently Relevant to Health Maintenance Insurance CARE MEDICARE REPLACEMENT MEDICARE REPLACEMENT CARE MEDICARE REPLACEMENT [facility] CARE MEDICARE REPLACEMENT [facility] CARE MEDICARE REPLACEMENT Care Teams Press Brake Operator Relationship Specialty Start Date End Date Pepe Núñez MD [address] [place] [address] PCP - General Internal Medicine 11/20/22 Additional Source Comments The information contained in this document represents components of the legal health record. It is not the complete legal health record.[facility]
--- NOTE | 2025-06-05 13:23 | MHC.OFFVIS ---
Vital Signs 06/05/25 13:24 Height 5 ft 6 in Weight 220 lb 0.341 oz BMI 35.5 BP 118/72 Blood Pressure Location Lt brachial Position Sitting Pulse 100 Pulse Source Monitor Intake Visit Reasons: chest pain per NT Rubber Gasket Inspector Trimmer Required: No Allergies hydromorphone (Dilaudid) Allergy (Intermediate, Verified 06/05/25 13:26) Hallucinations,Itching, rash Iodinated Contrast Media Allergy (Intermediate, Verified 06/05/25 13:26) shortness of breath morphine (Morphine) Allergy (Intermediate, Verified 06/05/25 13:26) hallucinations, itching, rash oxycodone Allergy (Intermediate, Verified 06/05/25 13:26) Hallucinations,itching, rash Penicillins Allergy (Intermediate, Verified 06/05/25 13:26) ITCHING/PASSES OUT acetaminophen (From Percocet) Allergy (Mild, Verified 06/05/25 13:26) Unknown NSAIDS (Non-Steroidal Anti-Inflamma Allergy (Verified 06/05/25 13:26) Rash From OxyContin Allergy (Intermediate, Uncoded 06/05/25 13:26) hallucinations,itching,rash Medication List - Last Reconciled 06/05/25 by Randy Mercedes NP amitriptyline 75 mg PO BEDTIME aspirin 81 mg PO DAILY atorvastatin 40 mg PO DAILY baclofen 10 mg PO .qhs PRN 30 days [Blood pressure monitor As directed] zgwaqpicuo-exewlzifkgbww-uqol 50-300-40 mg (Fioricet) 1 cap PO ONCE PRN 30 days cholecalciferol (vitamin D3) 25 mcg PO DAILY 90 days empagliflozin 10 mg PO DAILY gabapentin 300 mg PO BEDTIME 90 days glycerin (child) 2 supp CO ONCE PRN linaclotide (Linzess) 145 mcg PO DAILY magnesium citrate,mag oxide 250 mg PO BEDTIME 90 days multivitamin (Daily Multi-Vitamin tablet) 1 tab PO DAILY omeprazole 20 mg PO DAILY 30 days ondansetron HCl 4 mg PO Q8H PRN 30 days polyethylene glycol 3350 (Gavilax) grams PO psyllium husk 1 tsp PO DAILY sennosides (Senokot) 17.2 mg (2 x 8.6 mg) PO BEDTIME spironolactone 25 mg PO DAILY turmeric root extract 500 mg PO DAILY valsartan 80 mg PO BID HPI Comments Details: This is a 64-year-old female patient coming in for a follow-up visit. Patient with a history of hypertension, hyperlipidemia, who was previously seen in the office for palpitations and shortness of breath following which patient underwent a Holter, echo, and a stress test. Today, patient reports ongoing symptoms of palpitations worse in the last 3 weeks. Patient states that she feels it constantly. Patient is otherwise denying any exertional chest pain, shortness of breath, dizziness, orthopnea, PND, leg edema, presyncope, or syncope. Patient also reports stopping carvedilol for unclear reasons. Patient otherwise is reporting compliance with all her medications and denies any caffeine or tobacco use. [facility] Medical History (Updated 06/05/25 @ 14:52 by Randy Mercedes NP) HFrEF (heart failure with reduced ejection fraction) Cervicalgia Osteoarthritis COVID-19 vaccine series completed Abdominal pain Nausea Constipation Acid reflux Hypertension, essential Surgical History Hx of tubal ligation History of fusion of cervical spine History of colonoscopy History of esophagogastroduodenoscopy History of sleeve gastrectomy History of endometrial ablation History of section Family History Father HTN (hypertension) Cancer of prostate Mother Diabetes mellitus History of heart attack Heart problem Brother Heart problem Diabetes mellitus Dialysis patient Brother HTN (hypertension) Stroke Arthritis Maternal Grandfather No problems noted. Maternal Grandmother No problems noted. Paternal Grandfather No problems noted. Paternal Grandmother No problems noted. Son No problems noted. Son No problems noted. Daughter No problems noted. Other Mental health disorder Social History Household Members: None Housing: Apartment Alcohol intake: never Patient Tobacco Use Status: Never used Tobacco e-Cigarette/Vaping Use: Never Used service: No Current occupational status: disabled Cognitive needs: No Hearing needs: No Vision needs: Yes Female Reproductive History Menstrual Age of Menarche: 9 Review of Systems ENT Reports dizziness Card Denies chest pain, Denies chest pain at rest, Denies chest pain with activity, Denies rapid heart rate, Denies pedal edema, Denies edema, Denies leg edema, Denies lightheadedness, Denies palpitations, Denies dyspnea, Denies dyspnea on exertion and Denies orthopnea Resp Denies cough, Denies dyspnea and Denies dyspnea on exertion GI Denies hematochezia and Denies change in stool character Musc Denies abnormal gait, Reports limited range of motion, Reports muscle cramps, Denies muscle weakness, Denies numbness, Denies radiating pain into limb, Denies stiffness and Denies tingling Neuro Denies abnormal gait, Reports dizziness, Denies numbness and Denies tingling Endo Denies palpitations Physical Exam Vital Signs: Last Vital Signs Pulse 100 06/05/25 13:24 BP 118/72 06/05/25 13:24 BMI result Body Mass Index 35.5 Const General: cooperative, healthy appearing, comfortable and no acute distress Orientation/consciousness: patient oriented x3 HEENT Head: Yes normal to inspection Neck Neck: Yes normal visual inspection, Yes trachea midline and Yes supple Chest Chest palpation & inspection: normal inspection of the chest Resp Effort & Inspection: normal respiratory effort Auscultation: clear to auscultation bilaterally, no crackles, no rales, no rhonchi and no wheezes Cardio Jugular venous distension: no JVD Palpation: normal PMI Rate: tachycardic Rhythm: regular rhythm Heart sounds: S1 normal heart sound present, S2 normal heart sound present, no click, no gallops, no murmurs and no rubs Peripheral pulses: Peripheral pulses 2+ throughout GI Inspection: Yes normal to inspection Palpation (GI): Soft to palpation Auscultation: normal bowel sounds Skin General skin exam: no rashes or lesions noted Neuro General: patient oriented x3 Extrem General: Yes normal to inspection, No no pedal edema and No calf tenderness Psych Appearance: grossly normal Mental Status: mental status grossly normal Speech and movement: Normal speech and movement present Office Procedures EKG Details: EKG today showed sinus rhythm with occasional PVCs, rate 100 beats per minute, possible left atrial enlargement, incomplete right bundle-branch block, nonspecific ST-T wave, [place], [place] [id number], Complete Assessment & Plan Assessment & Plan (1) Palpitation: Code(s): R00.2 - Palpitations Category: Medical (2) Hypertension, essential: Code(s): I10 - Essential (primary) hypertension Category: Medical (3) Hyperlipidemia: Code(s): E78.5 - Hyperlipidemia, unspecified Category: Medical (4) Nonischemic cardiomyopathy: Code(s): I42.8 - Other cardiomyopathies Category: Medical Plan 10/31/2024-patient underwent Holter study that showed average heart rate of 95 beats per minute with rare ventricular ectopies. Patient's reported symptoms of palpitations and shortness of breath correlated with sinus rhythm and sinus tachycardia. 12/16/2024-patient underwent an echo study that showed mildly decreased LV systolic function with the ejection fraction between 45-50% with no wall motion abnormalities. 02/28/2025-patient underwent a myocardial perfusion study that showed normal perfusion. Even though patient reports palpitations constantly even at today's visit,, her EKG was normal rhythm. Patient brings in her log of blood pressures and heart rate and mostly heart heart rate at rest is in the low 100s. Patient stopped her carvedilol therapy for unclear reason. Patient's blood pressure is stable currently. We will restart carvedilol for rate control as patient has palpitations most likely due to the sinus tachycardia. Advised patient to monitor her blood pressures and to maintain a log of it. If patient's blood pressure is lower then we can adjust her valsartan. Ideally, blood pressure goal should be less than 130/80. We will bring patient in 1 month for a nurse visit for blood pressure check. We will also repeat an echo study to assess her LV systolic and diastolic function. Patient's LDL improved to 50. Continue statin therapy with an LDL goal less than 70. Advised heart healthy diet, regular exercise, adequate hydration, med compliance, and stress medication strategies. Follow up in 2 months. In the interim, patient will call the office with any concerns or change in symptoms. This note was generated using voice recognition software. While every effort has been made to ensure accuracy and proper hatch boss, there may be occasional errors that could affect the content or meaning of the described symptoms. Orders: Orders CA echo transthoracic complete 2 Weeks I50.20 - Unspecified systolic (congestive) heart failure AMB EKG-In Office Today R00.2 - Palpitations Medications: New carvedilol must administer with a meal/food 25 mg PO BID 90 tabs 3RF Coding Level of Care Code Est Pt Level 4 (53152) Complex EM visit Add On G2211 Diagnoses Palpitation R00.2 Hypertension, essential I10 Hyperlipidemia E78.5 Nonischemic cardiomyopathy I42.8 CPT Codes EKG - CPT: 83822-Oiseeenqinfgqypft, Complete ([id number]) Time Spent (min) 34 Comment Time spent in reviewing the chart, test results, assessment, counseling and documentation.
[2025-06-05 13:24] VITALS: BP 118/72; PULSE 100; BMI 35.5
== END 2025-06-05 14:01 | disposition home or self-care (01) ==
LOC: HO.HCS 13:04
PROVIDERS: PCP Internal Medicine
DX: R00.2 Palpitations (principal); I10 Essential (primary) hypertension; E78.5 Hyperlipidemia, unspecified; I42.8 Other cardiomyopathies
CPT/HCPCS: 93010; 99214; G2211

== ENCOUNTER → 2025-06-05 13:03 | Outpatient (BNVA) | payer OTHER, SELFPAY | PROVIDERS: PCP Internal Medicine | DX: R00.2 Palpitations (principal); I10 Essential (primary) hypertension; E78.5 Hyperlipidemia, unspecified; I50.20 Unspecified systolic (congestive) heart failure | CPT/HCPCS: 93005; 99212 ==

== ENCOUNTER → 2025-07-10 12:46 | Outpatient (REF) | payer OTHER, SELFPAY ==
--- OUTSIDE RECORDS SUMMARY | 2024-12-14 10:00 | XMS_ITS ---
Author Organization [facility] Address [address] [place] [address] Care Team Providers Care Cut Off Saw Operator Pipe Blanks Name Role Phone Wilton SCHWARTZ, Asma Primary Care Provider Kaylie Swartz Unavailable [phone] Allergies Allergen (clinical drug ingredient) Drug/Non Drug [...] Once a day; Duration: 30 day(s) Active Adrian 3 500 MG 1 capsule Once a day Active Night Splint AFO - L1930 as directed 02/06/2021 Not-Taking Encounters Encounter Location Date Provider Diagnosis [facility] [place] [address] [place] [address] 12/14/2024 Kaylie Hill Plan Of Treatment Next Appt Details Provider Name:Kaylie neil, 09/08/2025 09:00:00 AM, [address] [place], [address], Progress Notes * Yaa ZACARIASDOB:1960 (64 yo F)Acc No.[id number]:12/14/2024 Progress Note Patient: Yaa BLOOM Provider: Pastora Hill DPM :1960 A ge:64 Y S ex:Female Date:12/14/2024 Address:[address] [place] [address] [address] [facility] , [facility] Pcp:Pepe Núñez MD Subjective: * Chief Complaints: [...] a day , Taking Omeprazole , Taking Adrian 3 500 MG 1 capsule Once a [...] 0 12/14/2024 Generated for Cynthia rm/Roxi/Charu on: 0 07/10/2025 05:30 PM EDT History and Physical Notes * HPI (History of Present Illness) Category Sub-Category Detail Notes Category Not es Painful Nails Pt States Last PCP Visit: Date:: 09/21/2024
--- NOTE | 2025-07-10 12:48 | CA_ITS ---
Transthoracic Echocardiogram Patient (Last, First, Middle): Yaa Mullen, Gender: F Date of : 1960 Age: 64 Procedure Date: 07/10/2025 Procedure Type: Transthoracic Echocardiogram Location: OP Height: 167.64 cm Weight: 97.52 kg BSA: 2.06 m2 Heart Rate: bpm BP: 124 / 70 mmHg Cook Fast Food: LASHELL Referring MD: Randy Mercedes NP Symptoms: I50.20 - Unspecified systolic (congestive) heart failure Study Quality: Adequate ECG Rhythm: Sinus Conclusions: - The left ventricular systolic function is mildly decreased. The visually estimated ejection fraction is between 45-50%. - There is mildly increased left ventricular wall thickness. - No obvious valvular pathology seen on this study. Findings Procedure Information Contrast agent, definity, is being given per protocol without apparent complications. Left Ventricle Normal left ventricular cavity size. There is mildly increased left ventricular wall thickness. The left ventricular systolic function is mildly decreased. The visually estimated ejection fraction is between 45-50%. There is mild global hypokinesis. Diastolic function is normal for age. Right Ventricle Normal right ventricular cavity size. There is mildly decreased right ventricular systolic function. Atria Both atria are normal in size. Aortic Valve There is a normal trileaflet aortic valve. There is no aortic valve stenosis. There is trace (trivial) aortic valve regurgitation. Mitral Valve The mitral valve appears normal. There is no mitral valve regurgitation. There is no mitral valve stenosis. Pulmonic Valve The pulmonic valve is likely normal. Tricuspid Valve There is trace tricuspid valve regurgitation. There is no evidence of pulmonary hypertension. Great Vessels The asc aorta is normal in size. Venous The inferior vena cava is normal in size and collapses greater than 50% with inspiration. Pericardium/Pleural There is no evidence of pericardial effusion. Prior Study Comparison No significant change compared to prior study dated: 12/16/2024. Recommendations, Care & Conclusions No obvious valvular pathology seen on this study. Measurements 2D Linear Measurements IVSd: 1.25 0.6-0.9/0.6-1.0 cm LVIDd: 4.94 3.9-5.3/4.2-5.9 cm LVIDd Index: 2.40 2.4-3.2/2.2-3.1 cm/m2 LVIDs: 3.26 2.0-3.6 cm LVPWd: 1.25 0.7-1.1 cm Ao Root: 3.20 2.1-3.5 cm LA Diam: 3.50 2.7-3.8/3.0-4.0 cm LAIDs Index: 1.70 1.5-2.3 cm/m2 LV Mass: 302.93 67-162/88-224 g LV Mass Index: 147.05 43-95/49-115 g/m2 LVOT Diam: 2.00 3.0+(-)1.3 cm 2D Systolic Function EF 4C: 52.70 >55% Mitral Valve MV Pk E: 0.45 MV PK A: 0.74 MV Decel Time: 101.00 E/A: 0.60 E'Lateral: 5.87 E'Medial: 7.83 E/E' Med: 5.70 E/E' Lat: 7.60 PHT: 29.00 MVA PHT: 7.59 Decel [place]: 4.43 Aortic Valve AoV Pk Albino: 1.20 AoV Mn Albino: 0.82 AoV VTI: 0.26 AoV Pk Grad: 6.00 Aov Mn Grad: 3.00 YUKO Cont.VTI: 1.58 LVOT LVOT Pk Albino: 0.59 LVOT Mn Albino: 0.38 LVOT VTI: 0.13 LVOT Pk Grad: 1.00 LVOT Mn Grad: 1.00 LVOT Diam: 2.00 LVOT Area: 3.14 Diastolic Function MV Pk E: 0.45 MV Pk A: 0.74 E/A: 0.60 E'Medial: 7.83 E/E' Med: 5.70 E' Laterial: 5.87 E/E' Lat: 7.60 Right Ventricle TAPSE (mm): 20.00 TVS' Albino: 9.00 Tricuspid Valve TR Pk Albino: 1.75 TR Pk Grad: 12.00 RA Press: 3.00 RVSP: 15.00 Great Vessels Aorta Ao Root-2D: 3.20 2.0-3.7 cm Ao Asc: 3.70 2.1-3.4 cm Pulmonary Valve PV Pk Albino: 0.97 Peak PV Grad: 4.00 Updated in Other Vendor System with Status of Final Farhad Mackenzie MD electronically signed on 07/11/2025 11:04:48 AM with status of Final
--- OUTSIDE RECORDS SUMMARY | 2025-07-10 17:30 | XMS_ITS | Patient Health Record ---
Author Organization [facility] Address [address] [place] [address] Care Team Providers Care Director Of Special Events Name Role Phone Wilton SCHWARTZ, Asma Primary Care Provider Kaylie Swartz Unavailable [phone] Allergies Allergen (clinical drug ingredient) Drug/Non Drug Allergy documented on EMR Reaction Allergy Type Onset Date Status codeine Codeine Unknown Drug Allergy Active morphine Morphine Unknown Drug Allergy Active povidone-iodine Povidone Iodine shortness of breath Drug Allergy Active Reason For Referral No Information Medications Medication SIG (Take, Route, Frequency, Duration) Notes Start Date End Date Status hydroCHLOROthiazide 25 MG 1 tablet in th e morning Orally Once a day Not-Taking amLODIPine Besylate 10 MG 1 tablet Orall y Once a day Not-Taking Amitiza 8 MCG 1 capsule with food and water Orally Three times daily Not-Taking Scalf 3 500 MG 1 capsule Once a day Not-Taking Carvedilol 25 MG 1 tablet with food Orally Twice a day Not-Taking Gabapentin 300 MG 1 capsule Orally As needed Active Multivitamin - 1 tablet Orally Once a day; Duration: 30 day(s) Active Night Splint AFO - L1930 as directed 02/06/2021 Not-Taking Omeprazole Active Physical Therapy . . . 2-3x/week; Duration: 3-4 weeks 02/06/2021 Not-Taking Vitamin D3 50 MCG (1999) 1 capsule Or ally Once a day; Duration: 30 day(s) Active Atorvastatin Calcium 40 MG TAKE 1 TABLET BY MOUTH ONCE EVERY DAY Oral; Duration: 90 Days Active Senna-Time 8.6 MG TAKE 2 TABLETS BY MOUTH AT BEDTIME Oral; Duration: 90 Days Active Linzess 145 MCG Oral; Duration: 90 Days Active MiraLax 17 GM/SCOOP 1 scoop mixed with 8 ounces of fluid Orally Once a day Active Ondansetron 4 MG 1 tablet on the tongue and allow to dissolve Orally Once a day Active Spironolactone 25 MG 1 tablet Orally Active Ciclopirox 8 % 1 application Externally Once a day to each toenail; Duration: 30 days Active Jardiance 10 MG 1 tablet Orally Once a day Active Valsartan 80 MG 1 tablet Orally Once a day Active Physical Therapy . . . 2-3x/week; Duration: 3-4 weeks 10/06/2024 Not-Taking Amitriptyline HCl 50 MG 1 tablet at bedt anatoly Orally Once a day Active Immunizations Vaccine Route Administration Date Status Comme nts Influenza Unknown 09/03/2021 Administered Influenza Unknown 08/26/2024 Administered COVID-19 Luke & Luke/Francy Unknown 01/25/2021 A dministered Social History Tobacco Use: Social History Observation [...] Notes Problem Plantar fasciitis of right foot ([id number]) Plantar fasciitis of right foot (M72.2) Active confirmed Vital Signs Blood pressure diastolic 85 mm Hg 05/31/2025 Height 5ft6in in 05/31/2025 Blood pressure systolic 132 mm Hg 05/31/2025 Weight 220 lbs 05/31/2025 BMI 35.51 kg/m2 05/31/2025 Encounters Encounter Location Date Provider Diagnosis [facility] [place] [address] [place] [address] 09/09/2024 Kaylie Perica Pain in right foot M79.671 ; Plantar fasciitis of right foot M72.2 ; Calcaneal spur, right foot M77.31 ; 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 ; Bursitis of right foot M77.51 and Neuritis of right foot G57.[address] [address] 10/06/2024 Kaylie Hill Pain in right foot M79.671 ; Plantar [...] and Posterior tibial tendinitis, right leg M76.[address] [address] 03/01/2025 Kaylie Hill Plantar fasciitis of right foot M72.2 ; Calcaneal spur, right foot M77.31 ; 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 ; Bursitis of right foot M77.51 ; Neuritis of right foot G57.91 ; Pain in right toe(s) M79.674 ; Onychomycosis B35.1 ; Pain in left toe(s) M79.675 and Tarsal tunnel syndrome, right lower limb G57.[address] [address] 05/31/2025 Kaylie Hill Plantar fasciitis of right foot M72.2 ; Onychomycosis B35.1 ; Pain in right toe(s) M79.674 and Pain in left toe(s) M79.[address] [address] 09/09/2024 Kaylie Hill [address] [address] 12/14/2024 Kaylie Hill Assessments Encounter Date Diagnosis (ICD Code) Assessment Notes Treatment Notes Treatment Clinical Notes Section Notes 09/09/2024 Pain in right foot (ICD-10 - M79.671) 09/09/2024 Plantar fasciitis of right foot (ICD-10 - M72.2) Patient Educated with: HEEL CORD STRETCHES.pdf (HEEL CORD STRETCHES.pdf) Patient Educated with: RICE THERAPY.pdf (RICE THERAPY.pdf) 03/01/2025 Calcaneal spur, right foot (ICD-10 - M77.31) 03/01/2025 Plantar fasciitis of right foot (ICD-10 - M72.2) 05/31/2025 Onychomycosis (ICD-10 - B35.1) 05/31/2025 Plantar fasciitis of right foot (ICD-10 - M72.2) 10/06/2024 Pain in right foot (ICD-10 - M79.671) 05/31/2025 Pain in right toe(s) (ICD-10 - M79.674) 10/06/2024 Calcaneal spur, right foot (ICD-10 - M77.31) 10/06/2024 Plantar fasciitis of right foot (ICD-10 - M72.2) 03/01/2025 Interstitial myositis of right foot (ICD-10 - M60.171) 09/09/2024 Calcaneal spur, right foot (ICD-10 - M77.31) 09/09/2024 Interstitial myositis of right foot (ICD-10 - M60.171) 05/31/2025 Pain in left toe(s) (ICD-10 - M79.675) 03/01/2025 Bursitis of right foot (ICD-10 - M77.51) 10/06/2024 Interstitial myositis of right foot (ICD-10 - M60.171) 10/06/2024 Bursitis of right foot (ICD-10 - M77.51) 03/01/2025 Neuritis of right foot (ICD-10 - G57.91) 09/09/2024 Bursitis of right foot (ICD-10 - M77.51) 09/09/2024 Neuritis of right foot (ICD-10 - G57.91) 03/01/2025 Pain in right toe(s) (ICD-10 - M79.674) 10/06/2024 Neuritis of right foot (ICD-10 - G57.91) 10/06/2024 Pain in right toe(s) (ICD-10 - M79.674) 03/01/2025 Onychomycosis (ICD-10 - B35.1) 03/01/2025 Pain in left toe(s) (ICD-10 - M79.675) 10/06/2024 Onychomycosis (ICD-10 - B35.1) 10/06/2024 Pain in left toe(s) (ICD-10 - M79.675) 03/01/2025 Tarsal tunnel syndrome, right lower limb (ICD-10 - G57.51) 10/06/2024 Symptomatic varicose veins of right lower extremity (ICD-10 - I83.891) 10/06/2024 Tarsal tunnel syndrome, right lower limb (ICD-10 - G57.51) 10/06/2024 Posterior tibial tendinitis, right leg (ICD-10 - M76.821) Plan Of Treatment Pending Test Test Name Order Date X ray : Foot, left 3V 02/06/2021 X ray : Foot, right 3V 09/09/2024 [id number] Plate 11/05/2020 [id number]-Isbbiytz Plate Each Additional 08/2021 Next Appt Details Provider Name:Kaylie neil, 09/08/2025 09:00:00 AM, [address] [place] [address], [phone], Insurance Providers Payer Name Payer Address Payer Phone Subscriber Number Group Number Insured Name Patient Relationship to Insured Coverage Start Date Coverage End Date [facility] [employer] Claims [address] [facility] [place] [id number] Yaa Zacarias Self - patient is the insured Medical (General) History Medical History History ICD Code Anemia Anxiety Arthritis Back,Hip,and Knee pain Fibromyalgia Glaucoma Headaches/Migraines High blood pressure Chicken pox Surgical History Surgery Date(Month/Year) cervical fusion x2 2008 & 2019 hernia tubal ligation gastric sleeve
--- OUTSIDE RECORDS SUMMARY | 2025-07-10 17:30 | XMS_ITS | Clinical Summary ---
Author Organization Patient Business Ser [facility] Address [address] [place] [address] Care Team Providers Care Hose Handler Name Role Phone Shad Rodriguez MD Primary Care Provider [phone] Surgical History Surgery Date Site/Laterality Comments SECTION N/A PROCEDURE: HISTORICAL DELIVERY COLONOSCOPY N/A PROCEDURE: HISTORICAL COLONOSCOPY ESOPHAGOGASTRODUODENOSCOPY PROCEDURE: [place] ESOPHAGOGASTRODUODENOSCOPY TRANSORAL DIAGNOSTIC OTHER SURGICAL HISTORY 07/03/2009 PROCEDURE: [place] ARTHRD ANT INTERDY CERVCL BELW C2 EA ADDL NTRSPC; COMMENT: C5-6, C6-7 ACDF, Dr. Aguila OTHER SURGICAL HISTORY 2018 PROCEDURE: [place] GASTRIC RSTCV W/O BYP VERTICAL-BANDED GASTROPLY; COMMENT: [...] 10/05/2023 Social Influencers of Health Screening 10/05/2023 Depression Screening 10/26/2024 COVID-19 Vaccine ( season) 2025 01/25/2021 Influenza Vaccine (#1) 2025 2, 09/03/2021, 08/21/2020, [...] Documents on File Type Date Recorded Patient Assistant Pressman Expl anation Health Care Decision (hx) 06/12/2011 AD DANO DIRECTIVE Care Teams Hose Handler Relationship Specialty Start Date End Date Shad Rodriguez MD [address] [place] [address] PCP - General Family Medicine 03/05/16
--- OUTSIDE RECORDS SUMMARY | 2025-07-10 17:30 | XMS_ITS | Clinical Summary ---
Author Organization [facility] Address [address] [place] [address] [place] [id number] Phone Care Team Providers Care Clearing Hand Name Role Phone Ppee Núñez MD Primary Care Provider [phone] Allergies Active Allergy Reactions Criticality Noted Date [...] 2010 ZOSTER VACCINES (1 of 2) 2010 INFLUENZA VACCINE (#1) 2025 COVID-19 VACCINE (1 - 2023-2 5 season) 2025 POTASSIUM LEVEL 10/20/2025 10/20/2024, 11/20/2022 SCREENING FOR [...] EST) SODIUM 141 133 - 146 mmol/L [facility] CHLORIDE 105 96 - 108 mmol/L [facility] POTASSIUM 3.9 3.3 - 5.1 mmol/L [facility] CO2 23 21 - 35 mmol/L [facility] BUN 19 6 - 19 mg/dL [facility] CREATININE 0.60 0.5 - 1.5 mg/dL [facility] GLUCOSE 123(H) 70 - 99 mg/dL [facility] CALCIUM 9.2 8.4 - 10.3 mg/dL [facility] EGFR 101 >59 mL/min/1.7 3m2 [facility] Comment:Estimated glomerular filtration rate calculated using the CKD-EPI refit equation. ANION GAP 17 10 - 20 mmol/L [facility] Blood 10/20/2024 6:55 PM EST 10/20/2024 6:56 PM EST Dominique Johnson MD LAB BLOOD ORDERABLES Lizzie l Result [address] [address] from Last 3 Months or Most Recently Relevant to Health Maintenance Insurance CARE MEDICARE REPLACEMENT CARE MEDICARE REPLACEMENT [facility] CARE MEDICARE REPLACEMENT Care Teams Clearing Hand Relationship Specialty Start Date End Date Pepe Núñez MD [facility] [place] [address] PCP - General Internal Medicine 11/20/22 Additional Source Comments The information contained in this document represents components of the legal health record. It is not the complete legal health record.[facility]
--- OUTSIDE RECORDS SUMMARY | 2025-07-10 17:31 | XMS_ITS | Clinical Summary ---
Author Organization [facility] Address [address] [place] [address] Care Team Providers Care Diving Judge Name Role Phone Shad Rodriguez MD Primary Care Provider [phone] Allergies Active Allergy Reactions Criticality Noted Date [...] Advance Directives For more information, please contact: [phone] Latest Code Status on File Code Status Date Activated Date Inactivated Comments Full Code 04/12/2016 3:58 PM 04/13/2016 9:08 PM This code status was ascertained in the following way: discussion with patient. Care Teams Diving Judge Relationship Specialty Start Date End Date Shad Rodriguez MD PCP - General Family Medicine 03/05/16
== END ==
LOC: HO.CARD 12:46
PROVIDERS: PCP Internal Medicine
DX: I50.20 Unspecified systolic (congestive) heart failure (principal)
CPT/HCPCS: 93306; Q9957

== ENCOUNTER → 2025-07-10 12:48 | Outpatient (BNV) | payer OTHER, SELFPAY | PROVIDERS: PCP Internal Medicine; Visit Provider Internal Medicine | DX: I50.20 Unspecified systolic (congestive) heart failure (principal) | CPT/HCPCS: 93306 ==

== ENCOUNTER 2025-08-09 14:01 | Outpatient (AMB) | payer OTHER, SELFPAY ==
--- OUTSIDE RECORDS SUMMARY | 2024-12-14 10:00 | XMS_ITS ---
Author Organization [facility] Address [address] [facility] [place] [address] Care Team Providers Care Hand Washer Name Role Phone Wilton SCHWARTZ, Asma Primary Care Provider Kaylie Swartz Unavailable [phone] Allergies Allergen (clinical drug ingredient) Drug/Non Drug [...] Once a day; Duration: 30 day(s) Active [place] 3 500 MG 1 capsule Once a day Active Night Splint AFO - L1930 as directed 02/06/2021 Not-Taking Encounters Encounter Location Date Provider Diagnosis [facility] [place] [address] [place] [address] 12/14/2024 Kaylie Hill Plan Of Treatment Next Appt Details Provider Name:Kaylie neil, 09/08/2025 09:00:00 AM, [address] [place], [address], Progress Notes * Yaa ZACARIASDOB:1960 (64 yo F)Acc No.[id number]:12/14/2024 Progress Note Patient: Yaa BLOOM Provider: Pastora Hill DPM :1960 A ge:64 Y S ex:Female Date:12/14/2024 Address:[address] [place] [address] [address] [facility] , [facility] Pcp:Pepe Núñez MD Subjective: * Chief Complaints: [...] a day , Taking Omeprazole , Taking [place] 3 500 MG 1 capsule Once a [...] 12/14/2024 Generated for Cynthia rm/Roxi/Charu on: 1 05:49 PM EDT History and Physical Notes * HPI (History of Present Illness) Category Sub-Category Detail Notes Category Not es Painful Nails Pt States Last PCP Visit: Date:: 09/21/2024
[2025-08-09 14:13] VITALS: BP 155/87; PULSE 80; BMI 35.9
--- NOTE | 2025-08-09 14:13 | A.OFFVIS_ITS ---
Vital Signs 08/09/25 14:13 08/09/25 14:14 Height 5 ft 6 in 5 ft 6 in Weight 222 lb 10.67 oz BMI 35.9 BP 155/87 H Blood Pressure Location Lt brachial Position Sitting Pulse 80 Intake Visit Reasons: 3m Intake Note: Yaa presents in the office as a 3 month follow up. CC: no concerns at this time. Composition Tile Layer Required: No Allergies hydromorphone (Dilaudid) Allergy (Intermediate, Verified 08/09/25 14:14) Hallucinations,Itching, rash Iodinated Contrast Media Allergy (Intermediate, Verified 08/09/25 14:14) shortness of breath morphine (Morphine) Allergy (Intermediate, Verified 08/09/25 14:14) hallucinations, itching, rash oxycodone Allergy (Intermediate, Verified 08/09/25 14:14) Hallucinations,itching, rash Penicillins Allergy (Intermediate, Verified 08/09/25 14:14) ITCHING/PASSES OUT acetaminophen (From Percocet) Allergy (Mild, Verified 08/09/25 14:14) Unknown NSAIDS (Non-Steroidal Anti-Inflamma Allergy (Verified 08/09/25 14:14) Rash From OxyContin Allergy (Intermediate, Uncoded 08/09/25 14:14) hallucinations,itching,rash HPI Comments Details: 63 y.o F with PMH of who is switching over providers for persistent GI sx as below. Reports longstanding constipation x years. She describes lower abd discomfort assoc with having 1-2 BMs per week with nausea if the constipation gets prolonged. Avoiding processed foods. Incorporates a lot of vegetables in her diet. Uses a step stool. Does abd massage. Current meds: docusate 400 daily prunelax miralax but not using correct dose magnesium oxide 100 daily also takes 1 tsp coconut oil every other day Amitiza 16 mcg once daily Last colo 2021 (Dr Bob): BBPS 06/03. 10 mm hyperplastic polyp in descending colon. Repeat recommended in 2026. 02/22/25: Here for follow up. Was unable to get amitiza and PA was generated from two office simultaneously. Switched to trulance which did not work for her. Has been taking for 2 weeks str aight. Cont with miralax twice a day. Not taking fiber or using glycerin suppositories. 08/09/25: 6 month check in. Reports linzess is working but not 100%. Presenting for follow up of chronic constipation. She is currently on Linzess 145 mcg with 40% improvement. Now has 2-3 BMs per week. However continues to have spells where she goes without a bowel movement for up to three days despite using adjunctive magnesium and MiraLax. She uses glycerin suppositories at night. A colonoscopy in 2021 showed a polyp, with a repeat planned in 2026. Symptoms cause abd cramping and pain sometimes. --- Pt was informed and consented to the use of ambient scribe for this encounter. --- [facility] Medical History HFrEF (heart failure with reduced ejection fraction) Cervicalgia Osteoarthritis COVID-19 vaccine series completed Abdominal pain Nausea Constipation Acid reflux Hypertension, essential Surgical History Hx of tubal ligation History of fusion of cervical spine History of colonoscopy History of esophagogastroduodenoscopy History of sleeve gastrectomy History of endometrial ablation History of section Family History Father HTN (hypertension) Cancer of prostate Mother Diabetes mellitus History of heart attack Heart problem Brother Heart problem Diabetes mellitus Dialysis patient Brother HTN (hypertension) Stroke Arthritis Maternal Grandfather No problems noted. Maternal Grandmother No problems noted. Paternal Grandfather No problems noted. Paternal Grandmother No problems noted. Son No problems noted. Son No problems noted. Daughter No problems noted. Other Mental health disorder Social History Household Members: None Housing: Apartment Alcohol intake: never Patient Tobacco Use Status: Never used Tobacco e-Cigarette/Vaping Use: Never Used service: No Current occupational status: disabled Cognitive needs: No Hearing needs: No Vision needs: Yes Female Reproductive History Menstrual Age of Menarche: 9 Review of Systems Const All systems reviewed & are unremarkable except as noted in HPI and below Physical Exam Exam Exam: No apparent distress Nonicteric Abdomen soft, nondistended Alert and oriented x3, normal gait Vital Signs: Last Vital Signs Pulse 80 08/09/25 14:13 BP 155/87 H 08/09/25 14:13 BMI result Body Mass Index 35.9 Assessment & Plan Assessment & Plan (1) Chronic idiopathic constipation: Code(s): K59.04 - Chronic idiopathic constipation Category: Medical Plan 1. Chronic Constipation Sx consistent with CIC from slow transit vs outlet dysfunction. Trulance did not work. Amitiza not approved. Linzess helpful so far but has room to icnrease the dose. Plan: - Increase Linzess to 290 mcg daily. - Hold MiraLax, magnesium; if diarrhea or no BM after 3 days, adjust accordingly. - Continue glycerin suppositories as needed. - Follow-up in six months. 2. History of Colon Polyp - Follow-up colonoscopy in 2026. Medications: New linaclotide (Linzess) 290 mcg PO DAILY 90 caps 1RF glycerin (child) 2 supp CO DAILY 25 ea 1RF Discontinued linaclotide (Linzess) Discontinued Reason: Doctor's Order 145 mcg PO DAILY 90 caps 0RF K59.04 - Chronic idiopathic constipation Patient Instructions: - INCREASE linzess to 290 mcg - HOLD miralax and magnesium with this since we are increasing the Linzess dose. If no bowel movement in 2-3 days, you can add miralax and /or magnesium back - If you develop diarrhea with linzess please skip a dose Coding Level of Care Code Est Pt Level 4 (33800) Diagnoses Chronic idiopathic constipation K59.04
--- OUTSIDE RECORDS SUMMARY | 2025-08-09 17:49 | XMS_ITS | Clinical Summary ---
Author Organization Patient Business Ser [facility] Address [address] [place] [address] Care Team Providers Care Rubber Trimmer Name Role Phone Shad Rodriguez MD Primary Care Provider [phone] Surgical History Surgery Date Site/Laterality Comments SECTION N/A PROCEDURE: HISTORICAL DELIVERY COLONOSCOPY N/A PROCEDURE: HISTORICAL COLONOSCOPY ESOPHAGOGASTRODUODENOSCOPY PROCEDURE: GA ESOPHAGOGASTRODUODENOSCOPY TRANSORAL DIAGNOSTIC OTHER SURGICAL HISTORY 07/03/2009 PROCEDURE: GA ARTHRD ANT INTERDY CERVCL BELW C2 EA ADDL NTRSPC; COMMENT: C5-6, C6-7 ACDF, Dr. Aguila OTHER SURGICAL HISTORY 2018 PROCEDURE: GA GASTRIC RSTCV W/O BYP VERTICAL-BANDED GASTROPLY; COMMENT: [...] Last Done Comments Breast Cancer Screening 1960 Colorectal Cancer Screening: Colonoscopy 1960 DTaP,Tdap,and Td Vaccines (1 - Tdap) 1979 Cervical Cancer Screening: Pap Smear 1981 Pneumococcal Vaccine: 50+ Years (1 of 1 - PCV) 2010 Zoster Vaccines (1 of 2) 2010 Cholesterol Screening (Lipid Panel) 10/05/2023 HIV Screening 10/05/2023 Hepatitis C Screening [...] Documents on File Type Date Recorded Patient Chief School Finance Officer Expl anation Health Care Decision (hx) 06/12/2011 AD DANO DIRECTIVE Care Teams Rubber Trimmer Relationship Specialty Start Date End Date Shad Rodriguez MD [address] [address] PCP - General Family Medicine 03/05/16
--- OUTSIDE RECORDS SUMMARY | 2025-08-09 17:49 | XMS_ITS | Patient Health Record ---
Author Organization [facility] Address [address] [place] [address] Care Team Providers Care Security Team Lead Name Role Phone Wilton SCHWARTZ, Asma Primary Care Provider Kaylie Swartz Unavailable [phone] Allergies Allergen (clinical drug ingredient) Drug/Non Drug [...] and water Orally Three times daily Not-Taking [place] 3 500 MG 1 capsule Once a [...] Notes Problem Plantar fasciitis of right foot ([id number]) Plantar fasciitis of right foot (M72.2) Active confirmed Vital Signs Blood pressure diastolic 85 mm Hg 05/31/2025 Height 5ft6in in 05/31/2025 Blood pressure systolic 132 mm Hg 05/31/2025 Weight 220 lbs 05/31/2025 BMI 35.51 kg/m2 05/31/2025 Encounters Encounter Location Date Provider Diagnosis [facility] [address] [place] [address] 09/09/2024 Kaylie Perica Pain in right foot M79.671 ; Plantar fasciitis of right foot M72.2 ; Calcaneal spur, right foot M77.31 ; 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 ; Bursitis of right foot M77.51 and Neuritis of right foot G57.[address] [address] 10/06/2024 Kaylie Hill Pain in right foot [...] and Posterior tibial tendinitis, right leg M76.[address] [address] 03/01/2025 Kaylie Hill Plantar fasciitis of right foot M72.2 ; Calcaneal spur, right foot M77.31 ; 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 ; Bursitis of right foot M77.51 ; Neuritis of right foot G57.91 ; Pain in right toe(s) M79.674 ; Onychomycosis B35.1 ; Pain in left toe(s) M79.675 and Tarsal tunnel syndrome, right lower limb G57.[address] [address] 05/31/2025 Kaylie Hill Plantar fasciitis of right foot M72.2 ; Onychomycosis B35.1 ; Pain in right toe(s) M79.674 and Pain in left toe(s) M79.[address] [address] 09/09/2024 Kaylie Hill [address] [address] 12/14/2024 Kaylie Hill Assessments Encounter Date Diagnosis (ICD Code) Assessment Notes Treatment Notes Treatment Clinical Notes Section Notes 09/09/2024 Pain in right foot (ICD-10 - M79.671) 09/09/2024 Plantar fasciitis of right foot (ICD-10 - M72.2) Patient Educated with: HEEL CORD STRETCHES.pdf (HEEL CORD STRETCHES.pdf) Patient Educated with: RICE THERAPY.pdf (RICE THERAPY.pdf) 10/06/2024 Pain in right foot (ICD-10 - M79.671) 03/01/2025 Calcaneal spur, right foot (ICD-10 - M77.31) 03/01/2025 Plantar fasciitis of right foot (ICD-10 - M72.2) 05/31/2025 Onychomycosis (ICD-10 - B35.1) 05/31/2025 Plantar fasciitis of right foot (ICD-10 - M72.2) 05/31/2025 Pain in right toe(s) (ICD-10 - M79.674) 03/01/2025 Interstitial myositis of right foot (ICD-10 - M60.171) 10/06/2024 Calcaneal spur, right foot (ICD-10 - [...] of right foot (ICD-10 - G57.91) 10/06/2024 Bursitis of right foot (ICD-10 - M77.51) 09/09/2024 Bursitis of right foot (ICD-10 - M77.51) 09/09/2024 Neuritis of right foot (ICD-10 - G57.91) 10/06/2024 Neuritis of right foot (ICD-10 - G57.91) 03/01/2025 Pain in right toe(s) (ICD-10 - M79.674) 10/06/2024 Pain in right toe(s) (ICD-10 - [...] X ray : Foot, right 3V 09/09/2024 [id number] Plate 11/05/2020 [id number] Plate Each Additional 08/2021 Next Appt Details Provider Name:Kaylie neil, 09/08/2025 09:00:00 AM, [address] [place] [address], [phone], Insurance Providers Payer Name Payer Address Payer Phone Subscriber Number Group Number Insured Name Patient Relationship to Insured Coverage Start Date Coverage End Date [facility] [employer] Claims [address] [facility] [place] [id number] Yaa Zacarias Self - patient is the insured Medical (General) History Medical History History ICD Code Anemia Anxiety Arthritis Back,Hip,and Knee pain Fibromyalgia Glaucoma Headaches/Migraines High blood pressure Chicken pox Surgical History Surgery Date(Month/Year) cervical fusion x2 2008 & 2019 hernia tubal ligation gastric sleeve
--- OUTSIDE RECORDS SUMMARY | 2025-08-09 17:49 | XMS_ITS | Clinical Summary ---
Author Organization [facility] Address [address] [place] [address] [place] [address] Phone Care Team Providers Care Rn Plastics Name Role Phone Pepe Núñez MD Primary Care Provider [phone] Allergies Active Allergy Reactions Criticality Noted Date [...] VACCINE (#1) 2025 COVID-19 VACCINE (1 - 2024-2 6 season) 2025 POTASSIUM LEVEL 10/20/2025 10/20/2024, 11/20/2022 [...] EST) SODIUM 141 133 - 146 mmol/L [facility] CHLORIDE 105 96 - 108 mmol/L [facility] POTASSIUM 3.9 3.3 - 5.1 mmol/L [facility] CO2 23 21 - 35 mmol/L [facility] BUN 19 6 - 19 mg/dL [facility] CREATININE 0.60 0.5 - 1.5 mg/dL [facility] GLUCOSE 123(H) 70 - 99 mg/dL [facility] CALCIUM 9.2 8.4 - 10.3 mg/dL [facility] EGFR 101 >59 mL/min/1.7 3m2 [facility] Comment:Estimated glomerular filtration rate calculated using the CKD-EPI refit equation. ANION GAP 17 10 - 20 mmol/L [facility] Blood 10/20/2024 6:55 PM EST 10/20/2024 6:56 PM EST Dominique Johnson MD LAB BLOOD ORDERABLES Lizzie l Result [address] [address] from Last 3 Months or Most Recently Relevant to Health Maintenance Insurance CARE MEDICARE REPLACEMENT CARE MEDICARE REPLACEMENT [facility] CARE MEDICARE REPLACEMENT Care Teams Rn Plastics Relationship Specialty Start Date End Date Pepe Núñez MD [facility] [place] [address] PCP - General Internal Medicine 11/20/22 Additional Source Comments The information contained in this document represents components of the legal health record. It is not the complete legal health record.[facility]
--- OUTSIDE RECORDS SUMMARY | 2025-08-09 17:50 | XMS_ITS | Clinical Summary ---
Author Organization [employer] [facility] Address [address] [place] [address] Care Team Providers Care Specimen Transporter Name Role Phone Shad Rodriguez MD Primary Care Provider [phone] Allergies Active Allergy Reactions Criticality Noted Date [...] Advance Directives For more information, please contact: [phone] Latest Code Status on File Code Status Date Activated Date Inactivated Comments Full Code 04/12/2016 3:58 PM 04/13/2016 9:08 PM This code status was ascertained in the following way: discussion with patient. Care Teams Specimen Transporter Relationship Specialty Start Date End Date Shad Rodriguez MD PCP - General Family Medicine 03/05/16
== END 2025-08-09 14:55 | disposition home or self-care (01) ==
LOC: HO.HGI 14:02
PROVIDERS: PCP Internal Medicine; Visit Provider Internal Medicine
DX: K59.04 Chronic idiopathic constipation (principal)
CPT/HCPCS: 99214

== ENCOUNTER → 2025-08-09 14:01 | Outpatient (BNVA) | payer OTHER, SELFPAY | PROVIDERS: PCP Internal Medicine; Visit Provider Internal Medicine | DX: K59.04 Chronic idiopathic constipation (principal); Z79.899 Other long term (current) drug therapy | CPT/HCPCS: 99212 ==

== ENCOUNTER 2025-08-17 12:59 | Outpatient (AMB) | payer OTHER, SELFPAY ==
--- NOTE | 2025-08-17 13:07 | MHC.OFFVIS ---
Vital Signs 08/17/25 13:08 Height 5 ft 6 in Weight 225 lb 4.999 oz BMI 36.4 BP 144/88 H Blood Pressure Location Lt brachial Pulse 75 Pulse Source Pulse Oximeter Intake Visit Reasons: 2 mth f/up s/p echo Software Configuration Engineer Required: No Software Configuration Engineer Services: Software Configuration Engineer Offered & Declined Accompanied by: Self / Same As Patient Allergies hydromorphone (Dilaudid) Allergy (Intermediate, Verified 08/17/25 13:12) Hallucinations,Itching, rash Iodinated Contrast Media Allergy (Intermediate, Verified 08/17/25 13:12) shortness of breath morphine (Morphine) Allergy (Intermediate, Verified 08/17/25 13:12) hallucinations, itching, rash oxycodone Allergy (Intermediate, Verified 08/17/25 13:12) Hallucinations,itching, rash Penicillins Allergy (Intermediate, Verified 08/17/25 13:12) ITCHING/PASSES OUT acetaminophen (From Percocet) Allergy (Mild, Verified 08/17/25 13:12) Unknown NSAIDS (Non-Steroidal Anti-Inflamma Allergy (Verified 08/17/25 13:12) Rash From OxyContin Allergy (Intermediate, Uncoded 08/09/25 14:14) hallucinations,itching,rash Medication List - Last Reconciled 08/17/25 by Randy Mercedes NP amitriptyline 75 mg PO BEDTIME aspirin 81 mg PO DAILY atorvastatin 40 mg PO DAILY baclofen 10 mg PO .qhs PRN 30 days [Blood pressure monitor As directed] [id number]-mbyunagloqvbt-hsfh 50-300-40 mg (Fioricet) 1 cap PO ONCE PRN 30 days carvedilol 25 mg PO BID cholecalciferol (vitamin D3) 25 mcg PO DAILY 90 days empagliflozin (Jardiance) 10 mg PO DAILY gabapentin 300 mg PO BEDTIME 90 days glycerin (child) 2 supp AL ONCE PRN glycerin (child) 2 supp AL DAILY linaclotide (Linzess) 290 mcg PO DAILY magnesium citrate,mag oxide 250 mg PO BEDTIME 90 days multivitamin (Daily Multi-Vitamin tablet) 1 tab PO DAILY omeprazole 20 mg PO DAILY 30 days ondansetron HCl 4 mg PO Q8H PRN 30 days polyethylene glycol 3350 (Gavilax) grams PO sennosides (Senokot) 17.2 mg (2 x 8.6 mg) PO BEDTIME spironolactone 25 mg PO DAILY valsartan 80 mg PO BID HPI Comments Details: This is a 64-year-old female patient coming in for a follow-up visit. Patient with a history of nonischemic cardiomyopathy, hypertension, and hyperlipidemia. Today, patient is reporting feeling well overall without any exertional symptoms of chest pain, shortness of breath, palpitations, orthopnea, PND, leg edema, presyncope or syncope. Patient had previously reported some palpitations which patient states has resolved at this time. Patient is otherwise reporting compliance with all her medications. [facility] Medical History HFrEF (heart failure with reduced ejection fraction) Cervicalgia Osteoarthritis COVID-19 vaccine series completed Abdominal pain Nausea Constipation Acid reflux Hypertension, essential Surgical History Hx of tubal ligation History of fusion of cervical spine History of colonoscopy History of esophagogastroduodenoscopy History of sleeve gastrectomy History of endometrial ablation History of section Family History Father HTN (hypertension) Cancer of prostate Mother Diabetes mellitus History of heart attack Heart problem Brother Heart problem Diabetes mellitus Dialysis patient Brother HTN (hypertension) Stroke Arthritis Maternal Grandfather No problems noted. Maternal Grandmother No problems noted. Paternal Grandfather No problems noted. Paternal Grandmother No problems noted. Son No problems noted. Son No problems noted. Daughter No problems noted. Other Mental health disorder Social History Household Members: None Housing: Apartment Alcohol intake: never Patient Tobacco Use Status: Never used Tobacco e-Cigarette/Vaping Use: Never Used service: No Current occupational status: disabled Cognitive needs: No Hearing needs: No Vision needs: Yes Female Reproductive History Menstrual Age of Menarche: 9 Review of Systems Const Denies daytime sleepiness, Denies difficulty sleeping, Denies snoring, Denies stops breathing during sleep and Denies weakness Card Denies chest pain, Denies rapid heart rate, Denies irregular heart rhythm, Denies claudication, Denies leg edema, Denies lightheadedness, Denies palpitations, Denies dyspnea, Denies dyspnea on exertion, Denies orthopnea, Denies paroxysmal nocturnal dyspnea and Denies slow heart rate Resp Denies cough, Denies dyspnea, Denies dyspnea on exertion and Denies snoring GI Reports no additional complaints, Denies hematochezia, Denies change in stool character and Denies dyspepsia Musc Denies abnormal gait, Denies muscle weakness and Denies numbness Neuro Denies abnormal gait, Denies numbness and Denies weakness Endo Denies palpitations Physical Exam Vital Signs: Last Vital Signs Pulse 75 08/17/25 13:08 BP 144/88 H 08/17/25 13:08 BMI result Body Mass Index 36.4 Const General: cooperative, healthy appearing, comfortable and no acute distress Orientation/consciousness: patient oriented x3 HEENT Head: Yes normal to inspection Neck Neck: Yes normal visual inspection, Yes trachea midline and Yes supple Chest Chest palpation & inspection: normal inspection of the chest Resp Effort & Inspection: normal respiratory effort Auscultation: clear to auscultation bilaterally, no crackles, no rales, no rhonchi and no wheezes Cardio Jugular venous distension: no JVD Palpation: normal PMI Rate: regular rate Rhythm: regular rhythm Heart sounds: S1 normal heart sound present, S2 normal heart sound present, no click, no gallops, no murmurs and no rubs Peripheral pulses: Peripheral pulses 2+ throughout GI Inspection: Yes normal to inspection Palpation (GI): Soft to palpation Auscultation: normal bowel sounds Skin General skin exam: no rashes or lesions noted Neuro General: patient oriented x3 Extrem General: Yes normal to inspection, No no pedal edema and No calf tenderness Psych Appearance: grossly normal Mental Status: mental status grossly normal Speech and movement: Normal speech and movement present Assessment & Plan Assessment & Plan (1) Nonischemic cardiomyopathy: Code(s): I42.8 - Other cardiomyopathies Category: Medical Plan: 10/31/2024-patient underwent Holter study that showed average heart rate of 95 beats per minute with rare ventricular ectopies. Patient's reported symptoms of palpitations and shortness of breath correlated with sinus rhythm and sinus tachycardia. 02/28/2025-patient underwent a myocardial perfusion study that showed normal perfusion. 07/10/2025-echo study showed an unchanged LV systolic function with an ejection fraction between 45-50% with mildly increased LV wall thickness. Clinically stable and euvolemic. Continue carvedilol, Jardiance, and spironolactone. We will switch her from valsartan to Entresto. If patient is tolerating in a month's time, we will titrate this for optimal therapy. We will repeat labs in 1 month. Discussed signs and symptoms to watch for with heart failure. Advised low-salt diet, daily weight monitoring, and compression socks as needed. (2) Hypertension, essential: Code(s): I10 - Essential (primary) hypertension Category: Medical Plan: Blood pressure today is elevated. We are switching valsartan to Entresto. Patient will return in 1 month for a nurse visit to check blood pressures. Advised to monitor blood pressures at home and keep a log of it to bring to next visit. Ideally, blood pressure goal less than 130/80. (3) Hyperlipidemia: Code(s): E78.5 - Hyperlipidemia, unspecified Category: Medical Plan: Most recent LDL within goal of 50. Continue atorvastatin therapy with an LDL goal less than 70. Advised on heart healthy diet, regular exercise, med compliance, and management of vascular risk factors. Follow up in 6 months. In the interim, patient will call the office with any concerns or change in symptoms. This note was generated using voice recognition software. While every effort has been made to ensure accuracy and proper client technical specialist, there may be occasional errors that could affect the content or meaning of the described symptoms. Medications: New sacubitril-valsartan 24-26 mg 1 tab PO BID 60 tabs 5RF Discontinued valsartan Discontinued Reason: Doctor's Order 80 mg PO BID 180 tabs 3RF Coding Level of Care Code Est Pt Level 4 (91242) Complex EM visit Add On G2211 Diagnoses Nonischemic cardiomyopathy I42.8 Hypertension, essential I10 Hyperlipidemia E78.5 Time Spent (min) 32 Comment Time spent in reviewing the chart, test results, assessment, counseling and documentation.
[2025-08-17 13:08] VITALS: BP 144/88; PULSE 75; BMI 36.4
--- OUTSIDE RECORDS SUMMARY | 2025-08-17 16:12 | XMS_ITS | Clinical Summary ---
Author Organization [employer] [facility] Address [address] [place] [address] Care Team Providers Care Brazer Resistance Name Role Phone Shad Rodriguez MD Primary Care Provider [phone] Allergies Active Allergy Reactions Criticality Noted Date [...] Advance Directives For more information, please contact: [phone] Latest Code Status on File Code Status Date Activated Date Inactivated Comments Full Code 04/12/2016 3:58 PM 04/13/2016 9:08 PM This code status was ascertained in the following way: discussion with patient. Care Teams Brazer Resistance Relationship Specialty Start Date End Date Shad Rodriguez MD PCP - General Family Medicine 03/05/16
--- OUTSIDE RECORDS SUMMARY | 2025-08-17 16:12 | XMS_ITS | Clinical Summary ---
Author Organization [facility] Address [address] [place] [address] [place] [id number] Phone Care Team Providers Care Mechanist Name Role Phone Pepe Núñez MD Primary Care Provider [phone] Allergies Active Allergy Reactions Criticality Noted Date [...] EST) SODIUM 141 133 - 146 mmol/L [facility] CHLORIDE 105 96 - 108 mmol/L [facility] POTASSIUM 3.9 3.3 - 5.1 mmol/L [facility] CO2 23 21 - 35 mmol/L [facility] BUN 19 6 - 19 mg/dL [facility] CREATININE 0.60 0.5 - 1.5 mg/dL [facility] GLUCOSE 123(H) 70 - 99 mg/dL [facility] CALCIUM 9.2 8.4 - 10.3 mg/dL [facility] EGFR 101 >59 mL/min/1.7 3m2 [facility] Comment:Estimated glomerular filtration rate calculated using the CKD-EPI refit equation. ANION GAP 17 10 - 20 mmol/L [facility] Blood 10/20/2024 6:55 PM EST 10/20/2024 6:56 PM EST Dominique Johnson MD LAB BLOOD ORDERABLES Lizzie l Result [address] [address] from Last 3 Months or Most Recently Relevant to Health Maintenance Insurance CARE MEDICARE REPLACEMENT CARE MEDICARE REPLACEMENT [facility] CARE MEDICARE REPLACEMENT Care Teams Mechanist Relationship Specialty Start Date End Date Pepe Núñez MD [facility] [place] [address] PCP - General Internal Medicine 11/20/22 Additional Source Comments The information contained in this document represents components of the legal health record. It is not the complete legal health record.[facility]
--- OUTSIDE RECORDS SUMMARY | 2025-08-17 16:12 | XMS_ITS | Clinical Summary ---
Author Organization Patient Business Ser [facility] Address [address] [place] [address] Care Team Providers Care Instrument Repair Technician Name Role Phone Shad Rodriguez MD Primary Care Provider [phone] Surgical History Surgery Date Site/Laterality Comments SECTION N/A PROCEDURE: HISTORICAL DELIVERY COLONOSCOPY N/A PROCEDURE: HISTORICAL COLONOSCOPY ESOPHAGOGASTRODUODENOSCOPY PROCEDURE: [place] ESOPHAGOGASTRODUODENOSCOPY TRANSORAL DIAGNOSTIC OTHER SURGICAL HISTORY 07/03/2009 PROCEDURE: TX ARTHRD ANT INTERDY CERVCL BELW C2 EA ADDL NTRSPC; COMMENT: C5-6, C6-7 ACDF, Dr. Aguila OTHER SURGICAL HISTORY 2018 PROCEDURE: [place] GASTRIC RSTCV W/O BYP VERTICAL-BANDED GASTROPLY; COMMENT: [...] Documents on File Type Date Recorded Patient Welt Insole Channeler Expl anation Health Care Decision (hx) 06/12/2011 AD DANO DIRECTIVE Care Teams Instrument Repair Technician Relationship Specialty Start Date End Date Shad Rodriguez MD [address] [address] PCP - General Family Medicine 03/05/16
== END 2025-08-17 13:32 | disposition home or self-care (01) ==
PROVIDERS: PCP Internal Medicine
DX: I42.8 Other cardiomyopathies (principal); I10 Essential (primary) hypertension; E78.5 Hyperlipidemia, unspecified
CPT/HCPCS: 99214; G2211

== ENCOUNTER → 2025-08-17 12:59 | Outpatient (BNVA) | payer OTHER, SELFPAY | PROVIDERS: PCP Internal Medicine | DX: I10 Essential (primary) hypertension (principal); I42.8 Other cardiomyopathies; E78.5 Hyperlipidemia, unspecified | CPT/HCPCS: 99212 ==

== ENCOUNTER 2025-10-02 08:02 | Outpatient (AMB) | payer OTHER, MEDICAID, SELFPAY ==
--- OUTSIDE RECORDS SUMMARY | 2024-10-10 08:45 | XMS_ITS | Continuity of Care Document ---
Author Organization [facility] Address [address] [place] [address] [address] [place] [address] Phone Care Team Providers Care Cooler Servicer Name Role Phone Tomás SCHWARTZ, [place], Jordan HALL Unavailable U navailable Procedures Procedure Date Offic Cons New/estab Mod 40 Mi- CT & [place] Duplex Scan-extrem Veins; Uni/ CT & [place] D Advance Directives Directive Yes / No Effective Date File Name No Information Encounters Encounter Description Practice Location Reason(s) For Visit Diagnoses Date Provider Providers Copied on Encounter [facility], [address] [place] [address] Dr Perry [address]Monika [place], [id number], tel:[phone] [facility] No Information 4 Tomás SCHWARTZ RVT, RPVI Robert. [address] [place] [address] [place], [id number] , [place]. tel:[phone] Offic Cons New/estab Mod 40 Mi- CT & [place] [facility], [address] [place] [address] Dr Perry [address]Monika [place], [id number], tel:[phone] [facility] Varicose veins of right lower extremity with other complicationsPa in in right lower legPain in right legCramp and spasmRestless legs syndromeEssenti al (primary) hypertensionPru ritus, unspecified 4 Tomás SCHWARTZ RVT, RPVI Robert. [address] [place] [address] [facility] [place], [id number] , [place]. tel:[phone] Referring Provider: Pepe Núñez MD, [address], [place], [address]. tel:[phone] [facility], [address], [place], [id number], tel:[phone] [facility] - [place] [facility] [place] Chronic venous hypertension (idiopathic) with other complications of right lower extremity 4 Tomás SCHWARTZ, RVT, RPHARI Ortega. [address], [address], [facility] [place], [id number] , [place]. tel:[phone] Referring Provider: Pepe Núñez MD, [address], [place], [address]. tel:[phone] Family History Family Member Type Diagnosis Age At Onset No Information Payers Payer name Insurance type Covered green party ID Ger olivares(s) [facility] [id number] Social History Type Description Quantity Date Captured Comments Sex Female Smoking Status No Information Chief Complaint And Reason For Visit No Information Reason For Referral Reason For Referral No Information Plan Of Treatment Date Type Action Status Goal Diet education completed Referral Ordered: Weight management: Referral to physician timeframe: 3 Months (related to Body mass index (BMI) 34.0-34.9, adult) ordered History Of Present Illness Encounter Date Complaint History Of Prese nt Illness No Information Functional Status Date Functional Assessmen t No Information Instructions Date Instruction Additional Infor mation Patient education booklet given Related to Varicose veins of right lower extremity with other complications Diet education Related to Body mass index (BMI) 34.0-34.9, adult Giving Encouragement to exercise Related to Body mass index (BMI) 34.0-34.9, adult Pre and post instruc tions reviewed and provided Related to Varicose veins of right lower extremity with other complications Lifestyle education Related to B gwen mass index (BMI) 34.0-34.9, adult Assessments Type Assessment Date No Information Patient Care Teams Name Effective Dates (start - stop) Status Members No Information
--- OUTSIDE RECORDS SUMMARY | 2024-12-14 09:00 | XMS_ITS ---
[facility] Address [address] [facility] [place] [address] Care Team Providers Care Contact Representative Name Role Phone Wilton SCHWARTZ, Asma Primary Care Provider Kaylie Swartz Unavailable [phone] Allergies Allergen (clinical drug ingredient) Drug/Non Drug Allergy documented on EMR Reaction Allergy Type Onset Date Status codeine Codeine Unknown Drug Allergy Active morphine Morphine Unknown Drug Allergy Active povidone-iodine Povidone Iodine shortness of breath Drug Allergy Active Medications Medication SIG (Take, Route, Frequency, Duration) Notes Start Date End Date Status Gabapentin 300 MG 1 capsule Orally As needed Active Carvedilol 25 MG 1 tablet with food Orally Twice a day Active Omeprazole Active Multivitamin - 1 tablet Orally Once a day; Duration: 30 day(s) Active Amitriptyline HCl 50 MG 1 tablet at bedt anatoly Orally Once a day Active hydroCHLOROthiazide 25 MG 1 tablet in th e morning Orally Once a day Active Physical Therapy . . . 2-3x/week; Duration: 3-4 weeks 02/06/2021 Not-Taking Physical Therapy . . . 2-3x/week; Duration: 3-4 weeks 10/06/2024 Active Amitiza 8 MCG 1 capsule with food and water Orally Three times daily Active amLODIPine Besylate 10 MG 1 tablet Orall y Once a day Active Vitamin D3 50 MCG (1999) 1 capsule Or ally Once a day; Duration: 30 day(s) Active Barnwell 3 500 MG 1 capsule Once a day Active Night Splint AFO - L1930 as directed 02/06/2021 Not-Taking Encounters Encounter Location Date Provider Diagnosis [facility] [address] [place] [address] 12/14/2024 Kaylie Hill Plan Of Treatment Next Appt Details Provider Name:Kaylie Neil Dereck neil, 11/29/2025 09:00:00 AM, [address] [place], [address], Progress Notes * Yaa ZACARIASDOB:1960 (64 yo F)Acc No.[id number]:12/14/2024 Progress Note Patient: Yaa BLOOM Provider: Pastora Hill DPM :1960 A ge:64 Y S ex:Female Date:12/14/2024 Address:[address] [place] [address] [address], [facility] Pcp:Pepe Núñez MD Subjective: * Chief Complaints: * * HPI: P ainful Nails: Pt States Last PCP Visit: D ate: 1 11/21/2023 * Medical History: A nemia, Anxiety, Arthritis, Back,Hip,and Knee pain, Fibromyalgia, Glaucoma, Headaches/Migraines, High blood pressure, Chicken pox. * Medications: T aking Physical Therapy . . . . 2-3x/week , Taking hydroCHLOROthiazide 25 MG Tablet 1 tablet in the morning Orally Once a day , Taking amLODIPine Besylate 10 MG Tablet 1 tablet Orally Once a day , Taking Amitiza 8 MCG Capsule 1 capsule with food and water Orally Three times daily , Taking Amitriptyline HCl 50 MG Tablet 1 tablet at bedtime Orally Once a day , Taking Carvedilol 25 MG Tablet 1 tablet with food Orally Twice a day , Taking Gabapentin 300 MG Capsule 1 capsule Orally As needed , Taking Multivitamin - Tablet 1 tablet Orally Once a day , Taking Omeprazole , Taking Barn[place] 3 500 MG 1 capsule Once a day , Taking Vitamin D3 50 MCG (1999 [place]) Capsule 1 capsule Orally Once a day , Not-Taking/PRN Night Splint AFO - L1930 as directed , Not-Taking/PRN Physical Therapy . . . . 2-3x/week * Allergies: C odeine, Morphine, Povidone Iodine: shortness of breath. Objective: * Vitals: Assessment: Plan: * Treatment: * Images: * The named appointment provid er may or may not be the originator of this progress note, and it is not deemed complete until electronically signed by the appointment provider. Sign off status: Pending * Provider: Pastora Hill DPM Date: 0 12/14/2024 Generated for Cynthia rm/Roxi/Charu on: 1 12/03/2024 08:12 AM EST History and Physical Notes * HPI (History of Present Illness) Category Sub-Category Detail Notes Category Not es Painful Nails Pt States Last PCP Visit: Date:: 09/21/2024
--- OUTSIDE RECORDS SUMMARY | 2025-10-02 08:12 | XMS_ITS | Clinical Summary ---
Author Organization [facility] Address [address] [place] [address] [place] [address] Phone Care Team Providers Care Manager Er Name Role Phone Pepe Núñez MD Primary Care Provider [phone] Allergies Active Allergy Reactions Criticality Noted Date [...] Date/Time Associated Diagnosis Comments BASIC METABOLIC PANEL (BMP) STAT 10/20/2024 6:55 PM EST from Last 3 Months or Most Recently Relevant to Health Maintenance Results * (ABNORMAL) Basic metabolic panel (10/20/2024 6:55 PM EST) SODIUM 141 133 - 146 mmol/L [facility] CHLORIDE 105 96 - 108 mmol/L [facility] POTASSIUM 3.9 3.3 - 5.1 mmol/L [facility] CO2 23 21 - 35 mmol/L [facility] BUN 19 6 - 19 mg/dL [facility] CREATININE 0.60 0.5 - 1.5 mg/dL [facility] GLUCOSE 123(H) 70 - 99 mg/dL [facility] CALCIUM 9.2 8.4 - 10.3 mg/dL [facility] EGFR 101 >59 mL/min/1.7 3m2 [facility] Comment:Estimated glomerular filtration rate calculated using the CKD-EPI refit equation. ANION GAP 17 10 - 20 mmol/L [facility] Blood 10/20/2024 6:55 PM EST 10/20/2024 6:56 PM EST us Olyn Ann Johnson MD LAB BLOOD BKR ORDERABLES Final Result Performing Organization Address City/State/[facility] Co de Phone Number [address] [address] from Last 3 Months or Most Recently Relevant to Health Maintenance Insurance [place] [id number] [place] [address] CARE MEDICARE REPLACEMENT CARE MEDICARE REPLACEMENT [facility] CARE MEDICARE REPLACEMENT Care Teams Manager Er Relationship Specialty Start Date End Date Pepe Núñez MD [address] [place] [address] PCP - General Internal Medicine 11/20/22 Additional Source Comments The information contained in this document represents components of the legal health record. It is not the complete legal health record.[facility]
--- OUTSIDE RECORDS SUMMARY | 2025-10-02 08:12 | XMS_ITS | Patient Health Record ---
Author Organization [facility] Address [address] [place] [address] Care Team Providers Care Curriculum Developer Name Role Phone Wilton SCHWARTZ, Asma Primary Care Provider Kaylie Swartz Unavailable [phone] Allergies Allergen (clinical drug ingredient) Drug/Non Drug Allergy documented on EMR Reaction Allergy Type Onset Date Status codeine Codeine Unknown Drug Allergy Active morphine Morphine Unknown Drug Allergy Active povidone-iodine Povidone Iodine shortness of breath Drug Allergy Active Reason For Referral No Information Medications Medication SIG (Take, Route, Frequency, Duration) Notes Start Date End Date Status Physical Therapy . . . 2-3x/week; Duration: 3-4 weeks 02/06/2021 Not-Taking Night Splint AFO - L1930 as directed 02/06/2021 Not-Taking [place] 3 500 MG 1 capsule Once a day Not-Taking Multivitamin - 1 tablet Orally Once a day; Duration: 30 day(s) Active Amitiza 8 MCG 1 capsule with food and water Orally Three times daily Not-Taking Gabapentin 300 MG 1 capsule Orally As needed Active amLODIPine Besylate 10 MG 1 tablet Orall y Once a day Not-Taking Amitriptyline HCl 50 MG 1 tablet at bedt anatoly Orally Once a day Active hydroCHLOROthiazide 25 MG 1 tablet in th e morning Orally Once a day Not-Taking Valsartan 80 MG 1 tablet Orally Once a day Active Carvedilol 25 MG 1 tablet with food Orally Twice a day Not-Taking Jardiance 10 MG 1 tablet Orally Once a day Active Physical Therapy . . . 2-3x/week; Duration: 3-4 weeks 10/06/2024 Not-Taking Spironolactone 25 MG 1 tablet Orally Active Ciclopirox 8 % 1 application Externally Once a day to each toenail; Duration: 30 days Active Ondansetron 4 MG 1 tablet on the tongue and allow to dissolve Orally Once a day Active Linzess 145 MCG Oral; Duration: 90 Days Active MiraLax 17 GM/SCOOP 1 scoop mixed with 8 ounces of fluid Orally Once a day Active Senna-Time 8.6 MG TAKE 2 TABLETS BY MOUTH AT BEDTIME Oral; Duration: 90 Days Active Atorvastatin Calcium 40 MG TAKE 1 TABLET BY MOUTH ONCE EVERY DAY Oral; Duration: 90 Days Active Vitamin D3 50 MCG (1999) 1 capsule Or ally Once a day; Duration: 30 day(s) Active Omeprazole Active Immunizations Vaccine Route Administration Date Status Comme nts Influenza Unknown 09/03/2021 Administered Influenza Unknown 08/26/2024 Administered Influenza Unknown 07/28/2025 Administered COVID-19 [facility] Unknown 01/25/2021 [...] Notes Problem Plantar fasciitis of right foot ([id number] 9101) Plantar fasciitis of right foot (M72.2) Active confirmed Vital Signs Blood pressure diastolic 65 mm Hg 09/08/2025 Height 5ft6in in 09/08/2025 Blood pressure systolic 130 mm Hg 09/08/2025 Weight 220 lbs 09/08/2025 BMI 35.51 kg/m2 09/08/2025 Encounters Encounter Location Date Provider Diagnosis [facility] [address] [address] 10/06/2024 Kaylie Perica Pain in right foot [...] and Posterior tibial tendinitis, right leg M76.[address] [address] 03/01/2025 Kaylie Hill Plantar fasciitis of right foot M72.2 ; Calcaneal spur, right foot M77.31 ; 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 ; Bursitis of right foot M77.51 ; Neuritis of right foot G57.91 ; Pain in right toe(s) M79.674 ; Onychomycosis B35.1 ; Pain in left toe(s) M79.675 and Tarsal tunnel syndrome, right lower limb G57.[address] [address] 05/31/2025 Kaylie Hill Plantar fasciitis of right foot M72.2 ; Onychomycosis B35.1 ; Pain in right toe(s) M79.674 and Pain in left toe(s) M79.[address] [address] 09/08/2025 Kaylie Hill Onychomycosis B35.1 ; Ingrown nail L60.0 ; Plantar fasciitis of right foot M72.2 ; Pain in right toe(s) M79.674 and Pain in left toe(s) M79.[address] [address] 12/14/2024 Kaylie Hill Assessments Encounter Date Diagnosis (ICD Code) Assessment Notes Treatment Notes Treatment Clinical Notes Section Notes 10/06/2024 Pain in right foot (ICD-10 - M79.671) 03/01/2025 Calcaneal spur, right foot (ICD-10 - M77.31) 03/01/2025 Plantar fasciitis of right foot (ICD-10 - M72.2) 05/31/2025 Onychomycosis (ICD-10 - B35.1) 05/31/2025 Plantar fasciitis of right foot (ICD-10 - M72.2) 09/08/2025 Ingrown nail (ICD-10 - L60.0) 09/08/2025 Onychomycosis (ICD-10 - B35.1) 09/08/2025 Plantar fasciitis of right foot (ICD-10 - M72.2) 05/31/2025 Pain in right toe(s) (ICD-10 - M79.674) 03/01/2025 Interstitial myositis of right foot (ICD-10 - M60.171) 10/06/2024 Calcaneal spur, right foot (ICD-10 - M77.31) 10/06/2024 Plantar fasciitis of right foot (ICD-10 - M72.2) 10/06/2024 Interstitial myositis of right foot (ICD-10 - M60.171) 05/31/2025 Pain in left toe(s) (ICD-10 - M79.675) 03/01/2025 Bursitis of right foot (ICD-10 - M77.51) 09/08/2025 Pain in right toe(s) (ICD-10 - M79.674) 09/08/2025 Pain in left toe(s) (ICD-10 - M79.675) 03/01/2025 Neuritis of right foot (ICD-10 - [...] X ray : Foot, right 3V 09/09/2024 [id number] Plate 11/05/2020 [id number] Plate Each Additional 08/2021 Next Appt Details Provider Name:Kaylie neil, 11/29/2025 09:00:00 AM, [address] [place] [address], [phone], Insurance Providers Payer Name Payer Address Payer Phone Subscriber Number Group Number Insured Name Patient Relationship to Insured Coverage Start Date Coverage End Date [facility] [employer] Claims [address] [place] [id number] Yaa Zacarias Self - patient is the insured Medical (General) History Medical History History ICD Code Anemia Anxiety Arthritis Back,Hip,and Knee pain Fibromyalgia Glaucoma Headaches/Migraines High blood pressure Chicken pox Surgical History Surgery Date(Month/Year) cervical fusion x2 2008 & 2019 hernia tubal ligation gastric sleeve
--- OUTSIDE RECORDS SUMMARY | 2025-10-02 08:13 | XMS_ITS | Clinical Summary ---
Author Organization [facility] Prior to 03/25/25 Address [address] [place] [address] Care Team Providers Care Residential Mortgage Manager Name Role Phone Shad Rodriguez MD Primary Care Provider [phone] Allergies Active Allergy Reactions Criticality Noted Date [...] Active methylPREDNISolone (MEDROL DOSEPACK) 4 MG tabletIndications:At ypical migraine follow package directions 21 tablet 0 [...] Advance Directives For more information, please contact: [phone] Latest Code Status on File Code Status Date Activated Date Inactivated Comments Full Code 04/12/2016 3:58 PM 04/13/2016 9:08 PM This code status was ascertained in the following way: discussion with patient. Care Teams Residential Mortgage Manager Relationship Specialty Start Date End Date Shad Rodriguez MD PCP - General Family Medicine 03/05/16
--- NOTE | 2025-10-02 08:19 | MHC.OFFVIS ---
Intake Visit Reasons: 6 MONTH F/U Allergies hydromorphone (Dilaudid) Allergy (Intermediate, Verified 08/17/25 13:12) Hallucinations,Itching, rash Iodinated Contrast Media Allergy (Intermediate, Verified 08/17/25 13:12) shortness of breath morphine (Morphine) Allergy (Intermediate, Verified 08/17/25 13:12) hallucinations, itching, rash oxycodone Allergy (Intermediate, Verified 08/17/25 13:12) Hallucinations,itching, rash Penicillins Allergy (Intermediate, Verified 08/17/25 13:12) ITCHING/PASSES OUT acetaminophen (From Percocet) Allergy (Mild, Verified 08/17/25 13:12) Unknown NSAIDS (Non-Steroidal Anti-Inflamma Allergy (Verified 08/17/25 13:12) Rash From OxyContin Allergy (Intermediate, Uncoded 08/09/25 14:14) hallucinations,itching,rash HPI Comments Details: 64 y/o woman with a diagnosis of glaucoma, fibromyalgia, depression, insomnia and migraine. She is presenting for a follow-up visit for management of headaches. She reports taking amitriptyline every night, resulting in a decreased frequency of headaches to about three times a month, which is an improvement from before. For breakthrough headaches, she takes Tylenol. Additionally, the patient reports receiving acupuncture, which she finds helpful. [facility] Medical History HFrEF (heart failure with reduced ejection fraction) Cervicalgia Osteoarthritis COVID-19 vaccine series completed Abdominal pain Nausea Constipation Acid reflux Hypertension, essential Surgical History Hx of tubal ligation History of fusion of cervical spine History of colonoscopy History of esophagogastroduodenoscopy History of sleeve gastrectomy History of endometrial ablation History of section Family History Father HTN (hypertension) Cancer of prostate Mother Diabetes mellitus History of heart attack Heart problem Brother Heart problem Diabetes mellitus Dialysis patient Brother HTN (hypertension) Stroke Arthritis Maternal Grandfather No problems noted. Maternal Grandmother No problems noted. Paternal Grandfather No problems noted. Paternal Grandmother No problems noted. Son No problems noted. Son No problems noted. Daughter No problems noted. Other Mental health disorder Social History Household Members: None Housing: Apartment Alcohol intake: never Patient Tobacco Use Status: Never used Tobacco e-Cigarette/Vaping Use: Never Used service: No Current occupational status: disabled Cognitive needs: No Hearing needs: No Vision needs: Yes Female Reproductive History Menstrual Age of Menarche: 9 Review of Systems Narrative - Neurological: Reports about three headaches per month. - Psychiatric: Reports her mood is okay. - Constitutional: Reports sleep is okay. Physical Exam Neuro Other: Mental Status: Alert and oriented to person, place, and time. Normal attention. Normal spontaneous speech, fluency, and comprehension. No obvious issues with mood and memory. Affect is appropriate. Cranial Nerves: CN II: Visual hills full to confrontation, visual acuity intact. CN III, IV, : Pupils equal, round, reactive to light and accommodation. Extraocular movements are normal. CN V: Facial sensation is normal. CN VII: Facial movements symmetrical. CN VIII: Hearing intact to bedside conversation is normal. CN IX, X: Palate elevates symmetrically. CN XI: Shoulder shrug and head turn symmetrical. CN XII: Tongue midline without atrophy or fasciculations. Coordination: Nbfexb-fl-[id number] and dipb-wk-ccrk testing normal. No dysmetria. Gait and Station: No obvious gait abnormality. No ataxia or instability. Extrapyramidal: Full facial expressions and blinking. No rigidity. Movements are appropriate with no tremor or abnormality. Speech: Normal; no dysarthria or tremor. Assessment & Plan Assessment & Plan (1) Migraine without aura: Comment: Meds tried: Amitriptyline, propranolol, topiramate, Depakote, venlafaxine [place] [facility] [place]: Left frontal white matter hypodensity. Code(s): G43.009 - Migraine without aura, not intractable, without status migrainosus Category: Medical Qualifiers: Status migrainosus presence: without status migrainosus Intractability: not intractable Qualified Code(s): G43.009 - Migraine without aura, not intractable, without status migrainosus (2) Insomnia: Code(s): G47.00 - Insomnia, unspecified Category: Medical Qualifiers: Insomnia type: psychophysiologic Qualified Code(s): F51.04 - Psychophysiologic insomnia Plan Impression: 1. Chronic migraine without aura 2. Insomnia, probably psychophysiological Recommendations: Amitriptyline 75 mg 1 at bedtime for migraine and insomnia I advised the patient that she is doing fine with her current headache management. I informed her that a prescription was sent to her pharmacy and that she should schedule a follow-up visit in six months with the nurse practitioner, Tracy Shirley. The patient stated she had no questions. Medications: Refilled amitriptyline 75 mg PO BEDTIME 90 tabs 1RF Coding Level of Care Code Est Pt Level 3 (00301) Diagnoses Migraine without aura and without status migrainosus, not intractable G43.009 Status migrainosus presence: without status migrainosus Intractability: not intractable Psychophysiological insomnia F51.04 Insomnia type: psychophysiologic
== END 2025-10-02 08:26 | disposition home or self-care (01) ==
LOC: HO.HSM 08:03
PROVIDERS: PCP Internal Medicine; Referring Provider Internal Medicine; Visit Provider Psychiatry & Neurology Neurology
DX: G43.009 Migraine without aura, not intractable, without status migrainosus (principal); F51.04 Psychophysiologic insomnia
CPT/HCPCS: 99213

== ENCOUNTER → 2025-10-02 08:02 | Outpatient (BNVA) | payer OTHER, SELFPAY | PROVIDERS: PCP Internal Medicine; Referring Provider Internal Medicine; Visit Provider Psychiatry & Neurology Neurology | DX: G43.709 Chronic migraine without aura, not intractable, without status migrainosus (principal); G47.00 Insomnia, unspecified; Z79.899 Other long term (current) drug therapy | CPT/HCPCS: 99212 ==

== ENCOUNTER 2025-10-16 11:19 | Outpatient (AMB) | payer OTHER, SELFPAY ==
--- OUTSIDE RECORDS SUMMARY | 2024-12-14 09:00 | XMS_ITS ---
Author Organization [facility] Address [address] [facility] [place] [address] Care Team Providers Care Ski Production Supervisor Name Role Phone Wilton SCHWARTZ, Asma Primary Care Provider Kaylie Swartz Unavailable [phone] Allergies Allergen (clinical drug ingredient) Drug/Non Drug [...] Once a day; Duration: 30 day(s) Active Declo 3 500 MG 1 capsule Once a day Active Night Splint AFO - L1930 as directed 02/06/2021 Not-Taking Encounters Encounter Location Date [facility] [place] [address] [place] [address] 12/14/2024 Kaylie Hill Plan Of Treatment Next Appt Details Provider Name:Kaylie Neil Dereck neil, 11/29/2025 09:00:00 AM, [address] [place], [address], Progress Notes * Yaa ZACARIASDOB:1960 (64 yo F)Acc No.[id number]:12/14/2024 Progress Note Patient: Yaa BLOOM Provider: Pastora Hill DPM :1960 A ge:64 Y S ex:Female Date:12/14/2024 Address:[address] [place] [address] [address] [facility] Pcp:Pepe Núñez MD Subjective: * Chief Complaints: [...] a day , Taking Omeprazole , Taking Declo 3 500 MG 1 capsule Once a [...] 12/14/2024 Generated for Cynthia rm/Roxi/Charu on: 1 12/17/2024 02:30 PM EST History and Physical Notes * HPI (History of Present Illness) Category Sub-Category Detail Notes Category Not es Painful Nails Pt States Last PCP Visit: Date:: 09/21/2024
--- NOTE | 2025-10-16 12:00 | MHC.OFFVISWM ---
VS Expanded 10/16/25 12:18 BP 177/87 H Blood Pressure Location Rt brachial Blood Pressure Position Sitting Pulse 78 Pulse Source Pulse Oximeter Temp 97.6 F Temperature Source Temporal Artery Scan Pulse Oximetry 100 Oxygen Delivery Method Room Air Height 5 ft 5.5 in Weight 224 lb 12.8 oz BMI 36.8 Body Fat % 45.8 Body Fat Mass 103.0 Fat Free Mass 121.6 Visceral Fat Rating 14.0 Body Water % 38.4 Body Water Mass 86.2 Muscle Mass/Score 115.6 Basal Metabolic Rate/Score 1,700 Intake Visit Reasons: (OV) PO LSG 11/02/18 Allergies hydromorphone (Dilaudid) Allergy (Intermediate, Verified 10/16/25 12:11) Hallucinations,Itching, rash Iodinated Contrast Media Allergy (Intermediate, Verified 10/16/25 12:11) shortness of breath morphine (Morphine) Allergy (Intermediate, Verified 10/16/25 12:11) hallucinations, itching, rash oxycodone Allergy (Intermediate, Verified 10/16/25 12:11) Hallucinations,itching, rash Penicillins Allergy (Intermediate, Verified 10/16/25 12:11) ITCHING/PASSES OUT acetaminophen (From Percocet) Allergy (Mild, Verified 10/16/25 12:11) Unknown NSAIDS (Non-Steroidal Anti-Inflamma Allergy (Verified 10/16/25 12:11) Rash From OxyContin Allergy (Intermediate, Uncoded 08/09/25 14:14) hallucinations,itching,rash Medication List - Last Reconciled 10/16/25 by SARAH Schuler amitriptyline 75 mg PO BEDTIME aspirin 81 mg PO DAILY atorvastatin 40 mg PO DAILY baclofen 10 mg PO .qhs PRN 30 days [Blood pressure monitor As directed] dahutqtsel-gnqakotluypbd-gsip 50-300-40 mg (Fioricet) 1 cap PO ONCE PRN 30 days carvedilol 25 mg PO BID cholecalciferol (vitamin D3) 25 mcg PO DAILY 90 days empagliflozin (Jardiance) 10 mg PO DAILY gabapentin 300 mg PO BEDTIME 90 days glycerin (child) 2 supp ME ONCE PRN glycerin (child) 2 supp ME DAILY linaclotide (Linzess) 290 mcg PO DAILY magnesium citrate,mag oxide 250 mg PO BEDTIME 90 days multivitamin (Daily Multi-Vitamin tablet) 1 tab PO DAILY omeprazole 20 mg PO DAILY 30 days ondansetron HCl 4 mg PO Q8H PRN 30 days polyethylene glycol 3350 (Gavilax) grams PO sacubitril-valsartan 24-26 mg 1 tab PO BID sennosides (Senokot) 17.2 mg (2 x 8.6 mg) PO BEDTIME spironolactone 25 mg PO DAILY HPI Comments Details: This?is a 64?yo F who is s/p LSG 11/02/2018. Dr Castro was her surgeon. Has not been seen in office since April 2021. Weight gain of 35.8lb since that visit. She feels that she needs guidance and help with getting back on track. She lives alone so it's difficult to cook meals for herself. She follows with GI. She gets nausea with some foods. She has chronic pain and fibromyalgia; getting acupuncture twice a week. BP is not well controlled and she is on multiple medications for this. Present meal plan includes: tries to eat healthy (exchanges regular rice for cauliflower rice, etc) bought Elevation powder at [employer] Exercise routine includes: walking is comfortable, but many other activities worsen her pain PFSH Medical History HFrEF (heart failure with reduced ejection fraction) Cervicalgia Osteoarthritis COVID-19 vaccine series completed Abdominal pain Nausea Constipation Acid reflux Hypertension, essential Surgical History Hx of tubal ligation History of fusion of cervical spine History of colonoscopy History of esophagogastroduodenoscopy History of sleeve gastrectomy History of endometrial ablation History of section Family History Father HTN (hypertension) Cancer of prostate Mother Diabetes mellitus History of heart attack Heart problem Brother Heart problem Diabetes mellitus Dialysis patient Brother HTN (hypertension) Stroke Arthritis Maternal Grandfather No problems noted. Maternal Grandmother No problems noted. Paternal Grandfather No problems noted. Paternal Grandmother No problems noted. Son No problems noted. Son No problems noted. Daughter No problems noted. Other Mental health disorder Social History Household Members: None Housing: Apartment Alcohol intake: never Patient Tobacco Use Status: Never used Tobacco e-Cigarette/Vaping Use: Never Used service: No Current occupational status: disabled Cognitive needs: No Hearing needs: No Vision needs: Yes Female Reproductive History Menstrual Age of Menarche: 9 Assessment & Plan Assessment & Plan (1) Obesity: Code(s): E66.9 - Obesity, unspecified Category: Medical Qualifiers: Obesity type: due to excess calories Obesity classification: adult class 1 (BMI 30 - 34.9) Serious obesity comorbidity presence: with serious comorbidity Body mass index: BMI 30.0-30.9 Qualified Code(s): E66.09 - Other obesity due to excess calories; Z68.30 - Body mass index [BMI] 30.0-30.9, adult (2) S/P laparoscopic sleeve gastrectomy: Code(s): Z98.84 - Bariatric surgery status Category: Surgical Plan Pt wants structure in nutrition plan. Gave her [email or web address] becky download info and she was satisfied with this. She will resume walking and requests permissions to be able to use treadmill at a facility; she will investigate where this might be possible and I can write a letter. We discussed the importance of consistency. She is not a candidate for weight loss meds due to insurance. Labs ordered. RTC 3-4mo and pt will text me weekly with weight measurements for accountability. Orders: Orders Lipid Panel Today E66.09 - Other obesity due to excess calories, Z68.30 - Body mass index [BMI] 30.0-30.9, adult, Z98.84 - Bariatric surgery status Comprehensive Met. Panel Today E66.09 - Other obesity due to excess calories, Z68.30 - Body mass index [BMI] 30.0-30.9, adult, Z98.84 - Bariatric surgery status Vitamin B1 Today E66.09 - Other obesity due to excess calories, Z68.30 - Body mass index [BMI] 30.0-30.9, adult, Z98.84 - Bariatric surgery status Ferritin Today E66.09 - Other obesity due to excess calories, Z68.30 - Body mass index [BMI] 30.0-30.9, adult, Z98.84 - Bariatric surgery status Insulin Today E66.09 - Other obesity due to excess calories, Z68.30 - Body mass index [BMI] 30.0-30.9, adult, Z98.84 - Bariatric surgery status Complete Blood Count Auto Diff Today E66.09 - Other obesity due to excess calories, Z68.30 - Body mass index [BMI] 30.0-30.9, adult, Z98.84 - Bariatric surgery status Hemoglobin A1c Today E66.09 - Other obesity due to excess calories, Z68.30 - Body mass index [BMI] 30.0-30.9, adult, Z98.84 - Bariatric surgery status IRON PROFILE Today E66.09 - Other obesity due to excess calories, Z68.30 - Body mass index [BMI] 30.0-30.9, adult, Z98.84 - Bariatric surgery status Zinc Today E66.09 - Other obesity due to excess calories, Z68.30 - Body mass index [BMI] 30.0-30.9, adult, Z98.84 - Bariatric surgery status Vitamin B12 and Folate Today E66.09 - Other obesity due to excess calories, Z68.30 - Body mass index [BMI] 30.0-30.9, adult, Z98.84 - Bariatric surgery status C Reactive Protein Today E66.09 - Other obesity due to excess calories, Z68.30 - Body mass index [BMI] 30.0-30.9, adult, Z98.84 - Bariatric surgery status Vitamin A Today E66.09 - Other obesity due to excess calories, Z68.30 - Body mass index [BMI] 30.0-30.9, adult, Z98.84 - Bariatric surgery status Vitamin D 25-OH Total Today E66.09 - Other obesity due to excess calories, Z68.30 - Body mass index [BMI] 30.0-30.9, adult, Z98.84 - Bariatric surgery status TSH reflex Free T4 Today E66.09 - Other obesity due to excess calories, Z68.30 - Body mass index [BMI] 30.0-30.9, adult, Z98.84 - Bariatric surgery status
[2025-10-16 12:18] VITALS: BP 177/87; PULSE 78; TEMP 36.4; O2SAT 100; BMI 36.8
--- OUTSIDE RECORDS SUMMARY | 2025-10-16 14:29 | XMS_ITS | Clinical Summary ---
Author Organization Patient Business Ser [facility] Address [address] [place] [address] Care Team Providers Care Tubular Riveter Name Role Phone Shad Rodriguez MD Primary Care Provider [phone] Surgical History Surgery Date Site/Laterality Comments SECTION N/A PROCEDURE: HISTORICAL DELIVERY COLONOSCOPY N/A PROCEDURE: HISTORICAL COLONOSCOPY ESOPHAGOGASTRODUODENOSCOPY PROCEDURE: [place] ESOPHAGOGASTRODUODENOSCOPY TRANSORAL DIAGNOSTIC OTHER SURGICAL HISTORY 07/03/2009 PROCEDURE: [place] ARTHRD ANT INTERDY CERVCL BELW C2 EA ADDL NTRSPC; COMMENT: C5-6, C6-7 ACDF, Dr. Aguila OTHER SURGICAL HISTORY 2018 PROCEDURE: [place] GASTRIC RSTCV W/O BYP VERTICAL-BANDED GASTROPLY; COMMENT: [...] Screening 10/05/2023 Depression Screening 10/26/2024 COVID-19 Vaccine (2 - season) 2025 01/25/2021 Influenza Vaccine (#1) 2025 [...] Documents on File Type Date Recorded Patient Operations Assistant Expl anation Health Care Decision (hx) 06/12/2011 AD DANO DIRECTIVE Care Teams Tubular Riveter Relationship Specialty Start Date End Date Shad Rodriguez MD [address] [address] PCP - General Family Medicine 03/05/16
--- OUTSIDE RECORDS SUMMARY | 2025-10-16 14:30 | XMS_ITS | Patient Health Record ---
Author Organization [facility] Address [address] [place] [address] Care Team Providers Care Loss Prevention Coordinator Name Role Phone Wilton SCHWARTZ, Asma Primary Care Provider Kaylie Swartz Unavailable [phone] Allergies Allergen (clinical drug ingredient) Drug/Non Drug [...] AFO - L1930 as directed 02/06/2021 Not-Taking Oakwood 3 500 MG 1 capsule Once a [...] 90 Days Active Vitamin D3 50 MCG (1999 UT) 1 capsule Or ally Once a day; [...] Notes Problem Plantar fasciitis of right foot ([id number]) Plantar fasciitis of right foot (M72.2) Active confirmed Vital Signs Blood pressure diastolic 65 mm Hg 09/08/2025 Height 5ft6in in 09/08/2025 Blood pressure systolic 130 mm Hg 09/08/2025 Weight 220 lbs 09/08/2025 BMI 35.51 kg/m2 09/08/2025 Encounters Encounter Location Date Provider Diagnosis [facility] [place] [address] [place] [address] 03/01/2025 Kaylie Hill Plantar fasciitis of right foot M72.2 ; Calcaneal spur, right foot M77.31 ; 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 ; Bursitis of right foot M77.51 ; Neuritis of right foot G57.91 ; Pain in right toe(s) M79.674 ; Onychomycosis B35.1 ; Pain in left toe(s) M79.675 and Tarsal tunnel syndrome, right lower limb G57.[address] [address] 05/31/2025 Kaylie Hill Plantar fasciitis of right foot M72.2 ; Onychomycosis B35.1 ; Pain in right toe(s) M79.674 and Pain in left toe(s) M79.[address] [address] 09/08/2025 Kaylie Hill Onychomycosis B35.1 ; Ingrown nail L60.0 ; Plantar fasciitis of right foot M72.2 ; Pain in right toe(s) M79.674 and Pain in left toe(s) M79.[address] [address] 12/14/2024 Kaylie Hill Assessments Encounter Date Diagnosis (ICD Code) Assessment Notes Treatment Notes Treatment Clinical Notes Section Notes 03/01/2025 Calcaneal spur, right foot (ICD-10 - [...] syndrome, right lower limb (ICD-10 - G57.51) Plan Of Treatment Pending Test Test Name Order Date X ray : Foot, left 3V 02/06/2021 X ray : Foot, right 3V 09/09/2024 [id number] Plate 11/05/2020 [id number] Plate Each Additional 08/2021 Next Appt Details Provider Name:Kaylie neil, 11/29/2025 09:00:00 AM, [address] [place] [address], [place], [address], Insurance Providers Payer Name Payer Address Payer Phone Subscriber Number Group Number Insured Name Patient Relationship to Insured Coverage Start Date Coverage End Date [facility] [employer] Claims [address] [facility] SARAH Brown [id number] Yaa Zacarias Self - patient is the insured Medical (General) History Medical History History ICD Code Anemia Anxiety Arthritis Back,Hip,and Knee pain Fibromyalgia Glaucoma Headaches/Migraines High blood pressure Chicken pox Surgical History Surgery Date(Month/Year) cervical fusion x2 2008 & 2019 hernia tubal ligation gastric sleeve
--- OUTSIDE RECORDS SUMMARY | 2025-10-16 14:30 | XMS_ITS | Clinical Summary ---
Author Organization [facility] Address [address] [place] [address] [place] [address] Phone Care Team Providers Care Outside Maintenance Worker Name Role Phone Pepe Núñez MD Primary Care Provider [phone] Allergies Active Allergy Reactions Criticality Noted Date [...] EST) SODIUM 141 133 - 146 mmol/L [facility] CHLORIDE 105 96 - 108 mmol/L [facility] POTASSIUM 3.9 3.3 - 5.1 mmol/L [facility] CO2 23 21 - 35 mmol/L [facility] BUN 19 6 - 19 mg/dL [facility] CREATININE 0.60 0.5 - 1.5 mg/dL [facility] GLUCOSE 123(H) 70 - 99 mg/dL [facility] CALCIUM 9.2 8.4 - 10.3 mg/dL [facility] EGFR 101 >59 mL/min/1.7 3m2 [facility] Comment:Estimated glomerular filtration rate calculated using the CKD-EPI refit equation. ANION GAP 17 10 - 20 mmol/L [facility] Blood 10/20/2024 6:55 PM EST 10/20/2024 6:56 PM EST us Olyn Ann Johnson MD LAB BLOOD BKR ORDERABLES Final Result Performing Organization Address City/State/[facility] Co de Phone Number [address] [address] from Last 3 Months or Most Recently Relevant to Health Maintenance Insurance [place] [id number] [address] [place] [address] [place] [address] CARE MEDICARE REPLACEMENT CARE MEDICARE REPLACEMENT [facility] CARE MEDICARE REPLACEMENT Care Teams Outside Maintenance Worker Relationship Specialty Start Date End Date Pepe Núñez MD [address] [place] [address] PCP - General Internal Medicine 11/20/22 Additional Source Comments The information contained in this document represents components of the legal health record. It is not the complete legal health record.[facility]
--- OUTSIDE RECORDS SUMMARY | 2025-10-16 14:30 | XMS_ITS | Clinical Summary ---
Author Organization [employer] [facility] Prior to 03/25/25 Address [address] [place] [address] Care Team Providers Care Hook Tender Name Role Phone Shad Rodriguez MD Primary Care Provider [phone] Allergies Active Allergy Reactions Criticality Noted Date [...] Advance Directives For more information, please contact: [phone] Latest Code Status on File Code Status Date Activated Date Inactivated Comments Full Code 04/12/2016 3:58 PM 04/13/2016 9:08 PM This code status was ascertained in the following way: discussion with patient. Care Teams Hook Tender Relationship Specialty Start Date End Date Shad Rodriguez MD PCP - General Family Medicine 03/05/16
== END 2025-10-16 12:45 | disposition home or self-care (01) ==
LOC: HO.HBS 11:20
PROVIDERS: PCP Internal Medicine; Visit Provider Physician Assistant Surgical
DX: E66.09 Other obesity due to excess calories (principal); Z68.30 Body mass index [BMI] 30.0-30.9, adult; Z98.84 Bariatric surgery status
CPT/HCPCS: 99214; G2211

== ENCOUNTER → 2025-10-16 11:19 | Outpatient (BNVA) | payer OTHER, SELFPAY | PROVIDERS: PCP Internal Medicine; Visit Provider Physician Assistant Surgical | DX: E66.01 Morbid (severe) obesity due to excess calories (principal); I10 Essential (primary) hypertension; Z68.30 Body mass index [BMI] 30.0-30.9, adult; Z98.84 Bariatric surgery status; Z79.899 Other long term (current) drug therapy | CPT/HCPCS: 99212 ==